=== PATIENT | female | born 1980 | race Caucasian/White ===

== ENCOUNTER → 2017-08-01 08:55 | Outpatient (CLI) | payer BC, SELFPAY ==
--- NOTE | 2017-08-01 09:07 | CT_ITS ---
CT abdomen pelvis w con CLINICAL INDICATION: ITS.REASON: RECURRENT UTIS ORDERING PHYSICIAN: Dane Harp MD PATIENT AGE: 37 years COMPARISON: 08/27/2015 TECHNIQUE: Axial images obtained with sagittal and coronal reformats. PROCEDURE: Oral Contrast: None IV Contrast: 75 mL Isovue-370. FINDINGS: Lung bases are clear. There are multiple hyperattenuating liver lesions once again noted the largest of these is approximately 17 mm in the anterior segment of the right upper lobe. There are numerous lesions noted. There are more numerous than when compared to the previous exam however, that study was performed without contrast. There is diffuse fatty liver infiltration. There has been prior cholecystectomy. Spleen and adrenal glands are unremarkable. No obvious pancreatic mass. No renal calculi or ureteral calculi. No hydronephrosis. No renal mass. Unremarkable appendix. No evidence of intestinal obstruction or free air. No pelvic mass or abnormal fluid collection. Urinary bladder has an unremarkable appearance. No acute bony anomalies. IMPRESSION: 1. Multiple small hyperattenuating lesions within the liver. These are slightly larger and more numerous compared to the unenhanced exam of 08/27/2015. Metastatic disease should be excluded. [place] of focal fatty sparing of the liver is also a consideration. Recommend MRI of the liver without and with contrast with in and out of phase imaging. 2. Diffuse fatty infiltration of the liver. 3. No renal calculi or renal mass evident.
--- NOTE | 2017-08-01 10:04 | HMH.ITSHM ---
METFORMIN,TRICOR COREQWELLBUTRUIN VIT D
== END ==
PROVIDERS: Family Provider Family Medicine; PCP Family Medicine; Visit Provider Urology
DX: N39.0 Urinary tract infection, site not specified (principal)
CPT/HCPCS: 74177; Q9967

== ENCOUNTER → 2017-08-15 08:50 | Outpatient (CLI) | payer BC, SELFPAY ==
--- NOTE | 2017-08-15 08:58 | MR_ITS ---
MR abdomen wo/w con CLINICAL INDICATION: Hepatic lesions, follow-up abnormal enhanced CT. ITS.REASON: MEOPLASM OF UNCERTAIN BEHAVIOR OF LIVER ORDERING PHYSICIAN: Leo Mayfield MD PATIENT AGE: 37 years COMPARISON: 08/01/2017, 08/27/2015, 07/17/2013 CT scan TECHNIQUE: Multiplanar multiecho sequences are performed without and with contrast. In and out of phase imaging performed with fat and water suppression FINDINGS: Multiple small lesions are once again noted involving the liver similar to that as seen on the CT scan. There are hyperintense on the out of phase images. These lesions are not detectable on the in phase images. These lesions are slightly hyperintense on thepreenhanced images and appear to show some minimal enhancement on the 5 minute delayed images. The largest lesion is in the right hepatic lobe at 14 mm. These findings may very well be due to focal fatty sparing of the liver. The nodules however have slightly increased in size from an older CT scan. This with mild enhancement neck the nodule slightly suspicious therefore, fine-needle aspiration is suggested. IMPRESSION: Multiple small hepatic nodules similar to the CT scan which may very well represent focal nodular fatty sparing of the liver. However, given the fact that the nodules have slightly increased in size and that there is mild enhancement, fine-needle aspiration with CT guidance suggested.
--- NOTE | 2017-08-15 10:55 | HMH.ITSHM ---
METFORMIN 500MG TRICOR 145MG VALSARTAN 160MG SYNTHROID 200MCG COREG 25MG NORVASC 5MG WELLBUTIN 300MG VITAMIN D3 1000 IU TREXIMET BYDUREON 2MG
== END ==
PROVIDERS: Family Provider Family Medicine; PCP Family Medicine; Visit Provider Family Medicine
DX: D37.6 Neoplasm of uncertain behavior of liver, gallbladder and bile ducts (principal)
CPT/HCPCS: 74183; A9576

== ENCOUNTER → 2017-09-03 09:34 | Outpatient (CLI) | payer BC, SELFPAY ==
--- NOTE | 2017-09-03 10:16 | CT_ITS ---
CT biopsy guided needle, CT organ site liver CLINICAL INDICATION: Multiple liver lesions ORDERING PHYSICIAN: Leo Mayfield MD PATIENT AGE: 37 years COMPARISON: Multiple previous exams including 08/01/[address]: Unenhanced CT scan of the abdomen once again demonstrates multiple small hyperattenuating areas of the liver the largest of which is in the junction of the right left hepatic lobe near the dome of the liver measuring 18 mm. TECHNIQUE: Following obtaining informed consent using aseptic conditions and local anesthesia with 1% buffered lidocaine with CT guidance, 3 passes were made into the nodule of interest with a 22-gauge needle with specimens given to cytology. No immediate complications were evident. There is no evidence of hematoma or pneumothorax or pneumonia peritoneum. The patient did however complained of severe pain following the third pass. Although no complications were identified by CT and by follow-up CT, the patient was admitted for observation and was discharged without pain or other complications. Cytology: Negative for malignant cells. Benign loosely: Recent transfer iron operator of appendicitis showings some steatosis. Differential diagnosis would include focal nodular hyperplasia and localized fatty change among others. IMPRESSION: Status post CT-guided FNA of the right liver lesion as described above showing benign findings. Recommend [address] follow-up without and with contrast to confirm stability.
== END ==
PROVIDERS: Family Provider Family Medicine; PCP Family Medicine; Visit Provider Family Medicine
DX: D37.6 Neoplasm of uncertain behavior of liver, gallbladder and bile ducts (principal)
CPT/HCPCS: 77012; 47000

== ENCOUNTER 2017-09-03 11:45 | Observation (INO) | payer BC, SELFPAY ==
[2017-09-03] VITALS (8 sets, daily range): BP systolic 121–155; BP diastolic 70–95; PULSE 69–110; RESP 15–24; TEMP 36.4–37.3; O2SAT 93–100; BMI 38.7; BMI 38.9
--- NOTE | 2017-09-03 11:55 | HMH.EDABDPAI ---
ED Disposition Clinical Impression: Liver hematoma, Fatty liver, Pain, abdominal, RUQ Clinical Impression: (Ruled Out): Hemorrhage following liver biopsy Disposition: Still a Patient Condition on Discharge: Fair Instructions: DI for Acute Abdomen - Critical Care Critical Care Time: No Attestation: On , the high probability of a clinically significant, sudden or life threatening deterioration of the following system(s) required my full and direct attention, intervention and personal management. The time I documented below is in addition to time spent performing reported procedures but includes the following listed in this critical care notation. Medical Decision Making Vital Signs: 09/03/17 11:46 09/03/17 12:46 09/03/17 13:25 Temperature 97.6 F Temperature Source Oral Pulse Rate [Right Radial] 77 81 84 Respiratory Rate 18 15 18 Blood Pressure [Right Arm] 132/73 131/88 154/84 Blood Pressure Mean [Right Arm] 92 102 107 Blood Pressure Source [Right Arm] Automatic Cuff Automatic Cuff Blood Pressure Position [Right Arm] Sitting Sitting Supine 02 Sat by Pulse Oximetry 99 99 100 Oxygen Delivery Method Room Air Nasal Cannula Room Air Oxygen Flow Rate (LPM) 2 - Lab Data Lab Results 09/03/17 12:00: WBC 11.3 H, RBC 4.93, Hgb 13.0, Hct 40.5, MCV 82.1, MCH 26.3 L, MCHC 32.0, RDW 14.5, Plt Count 422, MPV 7.4, Neut % (Auto) 54.7, Lymph % (Auto) 36.4, [place] % (Auto) 5.8, Eos % (Auto) 2.4, Baso % (Auto) 0.7, Neut # (Auto) 6.2, Lymph # (Auto) 4.1, [place] # (Auto) 0.7, Eos # (Auto) 0.3, Baso # (Auto) 0.1 09/03/17 12:18: Blood Type A Positive, Antibody Screen Negative 09/03/17 12:18: PT 10.9, INR 1.01, APTT 23.3 L 09/03/17 12:18: Sodium 136, Potassium 4.0, Chloride 101, Carbon Dioxide 21, Anion Gap 18.0 H, BUN 14, Creatinine 0.65, Estimated Creat Clear 204, Estimated GFR 103, Est GFR ( Amer) 124, Glucose 180 H, Calcium 9.2, Total Bilirubin 0.4, AST 28, ALT 62, Alkaline Phosphatase 66, Total Protein 7.9, Albumin 3.8, Globulin 4.1 H, Albumin/Globulin Ratio 0.9 L 09/03/17 13:24: Urine Color Yellow, Urine Appearance Clear, Urine pH 5.5, Ur Specific [place] <= 1.005, Urine Protein Trace, Urine Glucose (UA) Negative, Urine Ketones Negative, Urine Blood Negative, Urine Nitrate Negative, Urine Bilirubin Negative, Urine Urobilinogen 0.2, Ur Leukocyte Esterase Negative, Urine WBC Occasional, Ur Squamous Epith Cells 3-5, Urine Bacteria 1+, Urine Mucus Trace Result diagrams: 09/03/17 12:00 09/03/17 12:18 Orders (Tests/Meds): ED MEDICATIONS Generic Name Dose Route Start Last Admin Trade Name Freq PRN Reason Stop Dose Admin Morphine Sulfate 2 mg 09/03/17 12:04 09/03/17 12:09 Morphine 2mg/Ml Syringe IV 10/03/17 12:03 2 mg Q1HP PRN Administration Severe Pain Discontinued Medications Generic Name Dose Route Start Last Admin Trade Name Freq PRN Reason Stop Dose Admin Sodium Chloride 1,000 mls @ 999 mls/hr 09/03/17 12:45 09/03/17 12:47 Sod Chlor 0.9% 1000ml Bag IV 09/03/17 13:45 999 mls/hr .Q1H1M PIERRE Administration Iopamidol 75 ml 09/03/17 13:11 09/03/17 13:12 [id number]-120; 75ml Vial IV 09/03/17 13:12 75 ml ONCE ONE Administration Meperidine HCl 12.5 mg 09/03/17 12:38 09/03/17 12:39 Meperidine 25mg/Ml 1ml Syringe IV 09/03/17 12:39 12.5 mg ONCE ONE Administration Meperidine HCl 12.5 mg 09/03/17 13:23 09/03/17 13:23 Meperidine 25mg/Ml 1ml Syringe IV 09/03/17 13:24 12.5 mg ONCE ONE Administration Morphine Sulfate 2 mg 09/03/17 12:00 09/03/17 12:01 Morphine 2mg/Ml Syringe IV 09/03/17 12:01 2 mg ONCE ONE Administration Ondansetron HCl 4 mg 09/03/17 12:00 09/03/17 12:01 Zofran 4mg/2ml Vial IV 09/03/17 12:01 4 mg ONCE ONE Administration Sodium Chloride 10 ml 09/03/17 13:11 09/03/17 13:12 Rad-Saline Flush 10ml Syringe IV 09/03/17 13:12 10 ml ONCE ONE Administration - CT Data CT Scan: Abdomen, Pelvis Time Received: 1
--- NOTE | 2017-09-03 11:59 | ED_ITS ---
ED Disposition Clinical Impression: Liver hematoma, Fatty liver, Pain, abdominal, RUQ Clinical Impression: (Ruled Out): Hemorrhage following liver biopsy Disposition: Still a Patient Condition on Discharge: Fair Instructions: DI for Acute Abdomen - Critical Care Critical Care Time: No Attestation: On , the high probability of a clinically significant, sudden or life threatening deterioration of the following system(s) required my full and direct attention, intervention and personal management. The time I documented below is in addition to time spent performing reported procedures but includes the following listed in this critical care notation. Medical Decision Making Vital Signs: 09/03/17 11:46 09/03/17 12:46 09/03/17 13:25 Temperature 97.6 F Temperature Source Oral Pulse Rate [Right Radial] 77 81 84 Respiratory Rate 18 15 18 Blood Pressure [Right Arm] 132/73 131/88 154/84 Blood Pressure Mean [Right Arm] 92 102 107 Blood Pressure Source [Right Arm] Automatic Cuff Automatic Cuff Blood Pressure Position [Right Arm] Sitting Sitting Supine 02 Sat by Pulse Oximetry 99 99 100 Oxygen Delivery Method Room Air Nasal Cannula Room Air Oxygen Flow Rate (LPM) 2 - Lab Data Lab Results 09/03/17 12:00: WBC 11.3 H, RBC 4.93, Hgb 13.0, Hct 40.5, MCV 82.1, MCH 26.3 L, MCHC 32.0, RDW 14.5, Plt Count 422, MPV 7.4, Neut % (Auto) 54.7, Lymph % (Auto) 36.4, [place] % (Auto) 5.8, Eos % (Auto) 2.4, Baso % (Auto) 0.7, Neut # (Auto) 6.2 , Lymph # (Auto) 4.1, [place] # (Auto) 0.7, Eos # (Auto) 0.3, Baso # (Auto) 0.1 09/03/17 12:18: Blood Type A Positive, Antibody Screen Negative 09/03/17 12:18: PT 10.9, INR 1.01, APTT 23.3 L 09/03/17 12:18: Sodium 136, Potassium 4.0, Chloride 101, Carbon Dioxide 21, Anion Gap 18.0 H, BUN 14, Creatinine 0.65, Estimated Creat Clear 204, Estimated GFR 103, Est GFR ( Amer) 124, Glucose 180 H, Calcium 9.2, Total Bilirubin 0.4, AST 28, ALT 62, Alkaline Phosphatase 66, Total Protein 7.9, Albumin 3.8, Globulin 4.1 H, Albumin/Globulin Ratio 0.9 L 09/03/17 13:24: Urine Color Yellow, Urine Appearance Clear, Urine pH 5.5, Ur Specific [place] <= 1.005, Urine Protein Trace, Urine Glucose (UA) Negative, Urine Ketones Negative, Urine Blood Negative, Urine Nitrate Negative, Urine Bilirubin Negative, Urine Urobilinogen 0.2, Ur Leukocyte Esterase Negative, Urine WBC Occasional, Ur Squamous Epith Cells 3-5, Urine Bacteria 1+, Urine Mucus Trace Result diagrams: 09/03/17 12:00 09/03/17 12:18 Orders (Tests/Meds): ED MEDICATIONS Generic Name Dose Route Start Last Admin Trade Name Freq PRN Reason Stop Dose Admin Morphine Sulfate 2 mg 09/03/17 12:04 09/03/17 12:09 Morphine 2mg/Ml Syringe IV 10/03/17 12:03 2 mg Q1HP PRN Administration Severe Pain Discontinued Medications Generic Name Dose Route Start Last Admin Trade Name Freq PRN Reason Stop Dose Admin Sodium Chloride 1,000 mls @ 999 mls/hr 09/03/17 12:45 09/03/17 12:47 Sod Chlor 0.9% 1000ml Bag IV 09/03/17 13:45 999 mls/hr .Q1H1M PIERRE Administration Iopamidol 75 ml 09/03/17 13:11 09/03/17 13:12 Acp-[id number]-148; 75ml Vial IV 09/03/17 13:12 75 ml ONCE ONE Administration Meperidine HCl 12.5 mg 09/03/17 12:38 09/03/17 12:39 Meperidine 25mg/Ml 1ml Syringe IV 09/03/17 12:39 12.5 mg ONCE ONE Administration Meperidi
--- NOTE | 2017-09-03 12:03 | CT_ITS ---
CT abdomen pelvis w con CLINICAL INDICATION: Severe right upper quadrant pain following biopsy ITS.REASON: ruq pain post procedure ORDERING PHYSICIAN: Shasta Gabriel MD PATIENT AGE: 37 years COMPARISON: 08/01/2017 TECHNIQUE: Axial images obtained with sagittal and coronal reformats. PROCEDURE: Oral Contrast: None IV Contrast: 75 mL of Isovue-370. FINDINGS: Lower thorax: There is no evidence of pneumothorax. A 3 mm noncalcified nodule is present in the right lung base posteriorly. There is a faint small area of decreased attenuation which is peripheral to the hyperdense lesion in the right hepatic lobe anteriorly may be due to the needle track from the recent biopsy. There is trace amount of perihepatic height isodensity suggesting small amount of blood. A large laceration or large hematoma is NOT evident. Small amount subcutaneous gas present in the right upper quadrant from the recent biopsy. Multiple hepatic hyperdensities are once again noted not significant change. There has been a prior cholecystectomy. The spleen, adrenal glands, pancreas, and kidneys are unremarkable. No free pelvic fluid. No evidence of hemoperitoneum. Urinary bladder slightly distended. There are bilateral tubal ligation clips. No pelvic fluid. IMPRESSION: 1. Faint lucency noted peripheral to the hyperdense nodule in the right hepatic lobe which was the nodule that was biopsied suggesting post biopsy needle tract. There is a minimal amount of perihepatic fluid a small amount of hemorrhage. 2. No subcapsular hematoma or large liver laceration. No evidence of pneumothorax. No evidence of pneumoperitoneum or hemoperitoneum. No gas evident underneath the hemidiaphragm 3. Distended urinary bladder. 4. Overall no change multiple hyperdense hepatic lesions as previously described
[2017-09-03 12:30] LABS: Basophils # 0.1 K/mm3 (0-0.2); Basophils % 0.7 % (0.1-2.0); Eosinophils # 0.3 K/mm3 (0.0-0.4); Eosinophils % 2.4 % (0.1-12.0); Hematocrit 40.5 % (37.0-47.0); Lymphocytes # 4.1 K/mm3 (0.7-4.5); Lymphocytes % 36.4 K/mm3 (10-50); Mean Corpuscular Hemoglobin 26.3 pg (27.0-31.2); Mean Corpuscular Volume 82.1 fl (81-99); Mean Platelet Volume 7.4 fl (7.4-10.4); Monocytes # 0.7 K/mm3 (0.1-1.0); Monocytes % 5.8 % (1.7-9.3); Neutrophils # 6.2 K/mm3 (1.8-7.8); Neutrophils % 54.7 % (37.0-80.0); Platelet Count 422 K/mm3 (142-424); Red Blood Count 4.93 M/mm3 (4.20-5.40); Red Cell Distribution Width 14.5 % (11.5-17.5); White Blood Count 11.3 K/mm3 (4.8-10.8)
[2017-09-03 12:39] LABS: Activated Partial Thrombo Time 23.3 seconds (23.6-34.0); INR 1.01 (0.9-1.1); Prothrombin Time 10.9 seconds (9.4-11.8)
[2017-09-03 12:40] LABS: Alanine Aminotransferase 62 U/L (12-78); Albumin Level 3.8 gm/dL (3.4-5.0); Albumin/Globulin Ratio 0.9 (1.1-1.8); Alkaline Phosphatase 66 U/L (46-116); Aspartate Amino Transferase 28 U/L (15-37); Bilirubin,Total 0.4 mg/dL (0.2-1.0); Blood Urea Nitrogen 14 mg/dL (7-18); Calcium 9.2 mg/dL (8.5-10.1); Carbon Dioxide 21 mmol/L (21.0-32.0); Chloride 101 mmol/L (98-107); Creatinine Clearance Estimated 204 mL/min (0-300); Creatinine,Serum 0.65 mg/dL (0.55-1.02); Estimated Glomerular Filt Rate 103 ml/min (>60); GFR (African American) 124 ML/MIN (>60); Globulin 4.1 gm/dl (1.3-3.2); Glucose 180 mg/dL (74-106); Sodium 136 mmol/L (136-145); Total Protein,Serum 7.9 gm/dL (6.4-8.2)
[2017-09-03 13:25] LABS: Microscopic, Urine URINE MICROSCOPIC (MICROSCOPIC)
[2017-09-03 13:36] LABS: Appearance,Urine CLEAR (Clear); Bilirubin,Urine Negative (Negative); Blood, Urine Negative (Negative); Color,Urine YELLOW (Yellow); Glucose,Urine (UA) Negative (Negative); Ketones,Urine Negative (Negative); Leukocyte Esterase,Urine Negative (Negative); Nitrate,Urine Negative (Negative); PH,Urine 5.5 (5.0-8.5); Protein,Urine TRACE (Negative); Specific Gravity, Urine <= 1.005 (1.005-1.030); Urobilinogen,Urine 0.2 EU/dl (0.2)
[2017-09-03 13:50] LABS: Bacteria,Urine 1+ /lpf; Mucus,Urine Trace /lpf; WBC,Urine Occasional #/hpf (0-3)
--- NOTE | 2017-09-03 17:14 | HMH.HP ---
*Admission Date: 09/03/17 <Leeanna Mancini 09/03/17 17:22> *Chief complaint: abdominal pain <Leeanna Mancini 09/03/17 17:22> *History of present illness: Sharla is a 37 years old white female status post cholecystectomy and three C-sections in addition to multiple medical problems including diabetes, hypertension, hyperlipidemia, and hypothyroidism. She was recently diagnosed with fatty liver and she was undergoing liver biopsies by radiologist, Dr. Hamilton at [facility]. Patient stated that with the 3rd biopsy she began having secere pain. She complained right upper quadrant pain that radiated to the right shoulder after the procedure; he did a CT scan of the abdomen and chest with negative results for pneumothorax or intra-abdominal hemorrhage. The patient continued to complain of pain and started hyperventilating. She was taken to the ED for pain management. Upon arrival to the ED patient was sitting in 90? position breathing fast and was anxious. Chest sounds were clear; she had a a focal tenderness in the right upper quadrant with no tenderness anywhere else in the abdomen. She had no cross tenderness. There was no tenderness in the lower abdominal areas. She had no hemoptysis, no hematemesis, no coffee-ground emesis, no melanotic stool, or bleeding per rectum. She received morphine sulfate, Demerol, and Zofran for her pain and nausea. He was then admitted for further observation and pain control with repeat CT in the a.m. At the time of this exam patient still remains uncomfortable and additional pain medicines will be given as per the orders of Dr. Mayfield. <ManciniLeeanna 09/03/17 17:43> [facility] History Medical History: Reports:: Atrial Fibrillation, Diabetes Mellitus Type 2, Hyperlipidemia, Hypertension Denies:: Cancer, MRSA <AddisLeeanna 09/03/17 17:22> Other Medical History: Reports: Hypothyroidism, Liver Disease, Thyroid Disease <Leeanna Mancini 09/03/17 17:22> Comment: depression; migraines <Leeanna Mancini 09/03/17 17:43> Other Surgeries: Yes: , Thyroidectomy, Other <Leeanna Mancini 09/03/17 17:43> Amputation: No <Leeanna Mancini 09/03/17 17:22> Fractures: No <Leeanna Mancini 02/27/18 17:22> Comment: Cardiac loop recorder placed 2014; breast reduction 1999; nasal surgery 07/03/2010; cholecystectomy 2014 <Leeanna Mancini 09/03/17 17:43> - *Social History Educational Level: Completed High School <Leeanna Mancini 09/03/17 17:22> Smoking Status: Never smoker <Leeanna Mancini 09/03/17 17:22> Alcohol Intake: never <Pushpa Mancinihy 09/03/17 17:22> Substance Use Type: denies use <Pushpa Mancinihy 09/03/17 17:22> Occupational Status: employed <Leeanna Mancini 09/03/17 17:22> Housing: house <Pushpa Mancinihy 09/03/17 17:22> Household Members: spouse, children <Leeanna Mancini 09/03/17 17:22> - Psychiatric History Expresses thoughts of harming self/others: None <Pushpa Mancinihy 09/03/17 17:22> Suicide Plan Description: No Plan <Pushpa Mancinihy 09/03/17 17:22> *Family Hx:: Coronary Artery Disease, Diabetes, Hyperlipidemia, Hypertension <Pushpa Mancinihy 09/03/17 17:43> Review of Systems - Constitutional Denies anorexia, Denies body ache(s), Denies fever(s), Denies headache(s) <Pushpa Mancinihy 09/03/17 17:43> - ENT Denies ear pain, Denies headache(s), Denies sore throat <Pushpa Mancinihy 09/03/17 17:43> - *Cardiovascular Reports shortness of breath, Reports irregular heart rhythm, Denies chest pain, Denies leg swelling <Pushpa Mancinihy 09/03/17 17:43> - *Respiratory Reports shortness of breath, Denies cough <AddisLeeanna 09/03/17 17:43> - *Gastrointestinal Reports abdominal pain, Reports nausea, Denies belching, Denies loose stools, Denies vomiting blood, Denies vomiting <ManciniLeeanna 09/03/17 17:43> - *Musculoskeletal Denies joint pain, Denies back pain <ManciniLeeanna 09/03/17 17:43> - Integumentary/Breasts Comments: Breast reduction <Leeanna Mancini -
--- NOTE | 2017-09-03 17:22 | P.HP_ITS ---
*Admission Date: 09/03/17 <Leeanna Mancini 09/03/17 17:22> *Chief complaint: abdominal pain <Leeanna Mancini 09/03/17 17:22> *History of present illness: Sharla is a 37 years old white female status post cholecystectomy and three C- sections in addition to multiple medical problems including diabetes, hypertension, hyperlipidemia, and hypothyroidism. She was recently diagnosed with fatty liver and she was undergoing liver biopsies by radiologist, Dr. Hamilton at [facility]. Patient stated that with the 3rd biopsy she began having secere pain. She complained right upper quadrant pain that radiated to the right shoulder after the procedure; he did a CT scan of the abdomen and chest with negative results for pneumothorax or intra-abdominal hemorrhage. The patient continued to complain of pain and started hyperventilating. She was taken to the ED for pain management. Upon arrival to the ED patient was sitting in 90? position breathing fast and was anxious. Chest sounds were clear; she had a a focal tenderness in the right upper quadrant with no tenderness anywhere else in the abdomen. She had no cross tenderness. There was no tenderness in the lower abdominal areas. She had no hemoptysis, no hematemesis, no coffee-ground emesis, no melanotic stool, or bleeding per rectum. She received morphine sulfate, Demerol, and Zofran for her pain and nausea. He was then admitted for further observation and pain control with repeat CT in the a.m. At the time of this exam patient still remains uncomfortable and additional pain medicines will be given as per the orders of Dr. Mayfield. <ManciniLeeanna 09/03/17 17:43> [facility] History Medical History: Reports:: Atrial Fibrillation, Diabetes Mellitus Type 2, Hyperlipidemia, Hypertension Denies:: Cancer, MRSA <AddisLeeanna 09/03/17 17:22> Other Medical History: Reports: Hypothyroidism, Liver Disease, Thyroid Disease <Leeanna Mancini 09/03/17 17:22> Comment: depression; migraines <Leeanna Mancini 09/03/17 17:43> Other Surgeries: Yes: , Thyroidectomy, Other <Leeanna Mancini 17:43> Amputation: No <Leeanna Mancini 09/03/17 17:22> Fractures: No <Leeanna Mancini 02/27/18 17:22> Comment: Cardiac loop recorder placed 2014; breast reduction 1999; nasal surgery 07/03/2010; cholecystectomy 2014 <Leeanna Mancini 09/03/17 17:43> - *Social History Educational Level: Completed High School <Leeanna Mancini 09/03/17 17:22> Smoking Status: Never smoker <Leeanna Mancini 09/03/17 17:22> Alcohol Intake: never <Leeanna Mancini 09/03/17 17:22> Substance Use Type: denies use <Leeanna Mancini 09/03/17 17:22> Occupational Status: employed <Leeanna Mancini 09/03/17 17:22> Housing: house <Leeanna Mancini 09/03/17 17:22> Household Members: spouse, children <Leeanna Mancini 09/03/17 17:22> - Psychiatric History Expresses thoughts of harming self/others: None <Leeanna Mancini 09/03/17 17: 22> Suicide Plan Description: No Plan <Leeanna Mancini 09/03/17 17:22> *Family Hx:: Coronary Artery Disease, Diabetes, Hyperlipidemia, Hypertension < Leeanna Mancini 09/03/17 17:43> Review of Systems - Constitutional Denies anorexia, Denies body ache(s), Denies fever(s), Denies headache(s) < Leeanna Mancini 09/03/17 17:43> - ENT Denies ear pain, Denies headache(s), Denies sore throat <Leeanna Mancini 09/03 17:43> - *Cardiovascular Reports shortness of breath, Reports irregular heart rhythm, Denies chest pain, Denies leg swelling <AddisLeeanna 09/03/17 17:43> - *Respiratory Reports shortness of breath, Denies cough <Pushpa Mancinihy 09/03/17 17:43> - *Gastrointestinal Reports abdominal
--- NOTE | 2017-09-03 18:06 | PC.NURSE ---
Pt arrived to her room via stretcher. She stated she was having severe pain and that she was frustrated. She rated her pain a 10/10. Pt was given prn pain meds and had relief for approx [address] Mayfield visited pt and new orders were put in. Pt was administered new pain medication order with relief reported. Will continue to monitor.
--- NOTE | 2017-09-03 18:50 | PC.NURSE ---
Report to be given to Emi Crespo RN
[2017-09-04 03:50] VITALS: BP 110/68; PULSE 100; RESP 20; TEMP 37.1; O2SAT 96
--- NOTE | 2017-09-04 04:09 | PC.NURSE ---
PT HAS RESTED VERY WELL THIS SHIFT. PT AMBULATED TO BR WITH STANDBY ASSIST, TOLERATED WELL. PT STATES SHE FEELS A LOT BETTER TONIGHT. PT RATED HER PAIN LEVEL AT A A 2 AND STATED IT ONLY HURTS WHEN SHE MOVES. MEDS ADMIN PER MAR. VSS. NO OTHER CONCERNS AT THIS TIME, WILL CONT. TO MONITOR.
[2017-09-04 06:53] LABS: Basophils % 0.5 % (0.1-2.0); Eosinophils # 0.1 K/mm3 (0.0-0.4); Eosinophils % 1.4 % (0.1-12.0); Hematocrit 34.3 % (37.0-47.0); Lymphocytes # 2.2 K/mm3 (0.7-4.5); Mean Corpuscular HGB Conc 32.3 g/dL (31.8-35.4); Mean Corpuscular Hemoglobin 26.5 pg (27.0-31.2); Mean Platelet Volume 7.4 fl (7.4-10.4); Monocytes # 0.8 K/mm3 (0.1-1.0); Monocytes % 8.2 % (1.7-9.3); Neutrophils # 6.5 K/mm3 (1.8-7.8); Platelet Count 313 K/mm3 (142-424); Red Blood Count 4.19 M/mm3 (4.20-5.40); Red Cell Distribution Width 14.4 % (11.5-17.5); White Blood Count 9.6 K/mm3 (4.8-10.8)
[2017-09-04 07:10] LABS: Alanine Aminotransferase 50 U/L (12-78); Albumin Level 2.9 gm/dL (3.4-5.0); Albumin/Globulin Ratio 0.8 (1.1-1.8); Alkaline Phosphatase 60 U/L (46-116); Anion Gap 11.7 mEq/L (5-15); Aspartate Amino Transferase 21 U/L (15-37); Bilirubin,Total 0.4 mg/dL (0.2-1.0); Blood Urea Nitrogen 9 mg/dL (7-18); Carbon Dioxide 24 mmol/L (21.0-32.0); Chloride 106 mmol/L (98-107); Creatinine Clearance Estimated 226 mL/min (0-300); Creatinine,Serum 0.59 mg/dL (0.55-1.02); Estimated Glomerular Filt Rate 115 ml/min (>60); GFR (African American) 139 ML/MIN (>60); Globulin 3.5 gm/dl (1.3-3.2); Glucose 126 mg/dL (74-106); Potassium 3.7 mmoL/L (3.5-5.1); Sodium 138 mmol/L (136-145); Total Protein,Serum 6.4 gm/dL (6.4-8.2)
--- NOTE | 2017-09-04 07:25 | PC.NURSE ---
REPORT GIVEN TO Shu ERAZO W/C
--- NOTE | 2017-09-04 07:27 | PC.NURSE ---
REPORT GIVEN TO Demetri MA RN
--- NOTE | 2017-09-04 07:32 | P.CONPHA_ITS ---
[facility] Pharmacy VTE Monitoring - Patient Demographics Admission date: 09/03/17 Report Date: 09/04/17 Time: 07:32 Allergies/Adverse Reactions: Patient Allergies cefaclor [From Ceclor] Allergy (Severe, Verified 09/03/17 16:07) Anaphylaxis erythromycin base [ERYTHROMYCIN BASE] Allergy (Unknown, Verified 09/03/17 11:57) ANAPHYLAXIS Sulfa (Sulfonamide Antibiotics) [SULFA (SULFONAMIDE ANTIBIOTICS)] Allergy ( Unknown, Verified 09/03/17 11:56) ANAPHYLAXIS Height: 1.68 m Weight: 109.458 kg Patient Problems: Current Active Problems Liver hematoma (Acute) Fatty liver (Chronic) Pain, abdominal, RUQ (Acute) - VTE Risk Labs: VTE Related Lab Results Hgb 13.0 g/dL (12.2-16.2) 09/03/17 12:00 Hct 34.3 % (37.0-47.0) L 09/04/17 06:30 Plt Count 313 K/mm3 (142-424) D 09/04/17 06:30 PT 10.9 seconds (9.4-11.8) 09/03/17 12:18 INR 1.01 (0.9-1.1) 09/03/17 12:18 APTT 23.3 seconds (23.6-34.0) L 09/03/17 12:18 BUN 9 mg/dL (7-18) D 09/04/17 06:30 Creatinine 0.59 mg/dL (0.55-1.02) 09/04/17 06:30 Estimated Creat Clear 226 mL/min (0-300) 09/04/17 06:30 Was VTE Risk Assessment Performed: Yes VTE Score: 0 VTE Risk Level: Very Low Risk Clinical Trial Participant: No - Prophylaxis VTE Prophylaxis Ordered?: Yes Types of VTE Prophylaxis: TEDS Knee High
[2017-09-04 07:36] LABS: Hemoglobin 11.2 g/dL (12.2-16.2)
[2017-09-04 07:37] VITALS: BP 112/72; PULSE 98; RESP 16; TEMP 37.2; O2SAT 94
[2017-09-04 08:00] VITALS: RESP 20
--- NOTE | 2017-09-04 08:16 | HMH.ACPN2 ---
<Omaira Walker - Last Filed: 09/04/17 08:16> Internal Medicine - PN: Subj *Date: 09/04/17 *Time: 08:16 Interval history: Patient states she is feeling much better today. She has some slight soreness in her right upper quadrant but her pain has resolved. She was able to rest last night and has been up to the bathroom this am. Exam Vital signs and Labs for Last 24 Hours: Temp Pulse Resp BP Pulse Ox 99.0 F 98 H 16 112/72 94 L 09/04/17 07:37 09/04/17 07:37 09/04/17 07:37 09/04/17 07:37 09/04/17 07:37 Laboratory Results - last 24 hr 09/04/17 06:30: WBC 9.6, RBC 4.19 L, Hgb 11.2 L D, Hct 34.3 L, MCV 82.0, MCH 26.5 L, MCHC 32.3, RDW 14.4, Plt Count 313 D, MPV 7.4, Neut % (Auto) 67.0, Lymph % (Auto) 23.0, Ripley % (Auto) 8.2, Eos % (Auto) 1.4, Baso % (Auto) 0.5, Neut # (Auto) 6.5, Lymph # (Auto) 2.2, Ripley # (Auto) 0.8, Eos # (Auto) 0.1, Baso # (Auto) 0.0 09/04/17 06:30: Sodium 138, Potassium 3.7, Chloride 106, Carbon Dioxide 24, Anion Gap 11.7, BUN 9 D, Creatinine 0.59, Estimated Creat Clear 226, Estimated GFR 115, Est GFR ( Amer) 139, Glucose 126 H D, Calcium 8.0 L D, Total Bilirubin 0.4, AST 21, ALT 50, Alkaline Phosphatase 60, Total Protein 6.4, Albumin 2.9 L D, Globulin 3.5 H, Albumin/Globulin Ratio 0.8 L I & O for Last 24 hours: Intake & Output 09/01/17 09/02/17 09/03/17 09/04/17 11:59 11:59 11:59 11:59 Intake Total 599 / 599 Balance 599 / 599 Weight 241 lb 5 oz - Constitutional no acute distress - *Routine Respiratory Exam Present: CTA bilaterally - *Routine Cardiovascular Exam Present: RRR - *Routine Abdominal Exam Present: soft, normoactive bowel sounds, tenderness (RUQ) - *Routine Extremities Exam Absent: edema Assessment and Plan (1) Liver hematoma Current visit: Yes Status: Acute Category: Medical Code(s): S36.112A - Contusion of liver, initial encounter (2) Pain, abdominal, RUQ Current visit: Yes Status: Acute Category: Medical Code(s): R10.11 - Right upper quadrant pain (3) Fatty liver Current visit: Yes Status: Chronic Category: Medical Code(s): K76.0 - Fatty (change of) liver, not elsewhere classified (4) Diabetes mellitus Current visit: No Status: Chronic Category: Medical Code(s): E11.9 - Type 2 diabetes mellitus without complications (5) History of atrial fibrillation Current visit: No Status: Chronic Category: Medical Code(s): Z86.79 - Personal history of other diseases of the circulatory system - Assessment and plan all Dx Assessment and Plan for all problems:: Patient has improved. Scheduled for a repeat CT today. <Loe Mayfield - Last Filed: 09/04/17 09:05> Internal Medicine - PN: Subj *Date: 09/04/17 *Time: 09:03 Exam Vital signs and Labs for Last 24 Hours: Temp Pulse Resp BP Pulse Ox 99.0 F 98 H 16 112/72 94 L 09/04/17 07:37 09/04/17 07:37 09/04/17 07:37 09/04/17 07:37 09/04/17 07:37 Laboratory Results - last 24 hr 09/04/17 06:30: WBC 9.6, RBC 4.19 L, Hgb 11.2 L D, Hct 34.3 L, MCV 82.0, MCH 26.5 L, MCHC 32.3, RDW 14.4, Plt Count 313 D, MPV 7.4, Neut % (Auto) 67.0, Lymph % (Auto) 23.0, Ripley % (Auto) 8.2, Eos % (Auto) 1.4, Baso % (Auto) 0.5, Neut # (Auto) 6.5, Lymph # (Auto) 2.2, Ripley # (Auto) 0.8, Eos # (Auto) 0.1, Baso # (Auto) 0.0 09/04/17 06:30: Sodium 138, Potassium 3.7, Chloride 106, Carbon Dioxide 24, Anion Gap 11.7, BUN 9 D, Creatinine 0.59, Estimated Creat Clear 226, Estimated GFR 115, Est GFR ( Amer) 139, Glucose 126 H D, Calcium 8.0 L D, Total Bilirubin 0.4, AST 21, ALT 50, Alkaline Phosphatase 60, Total Protein 6.4, Albumin 2.9 L D, Globulin 3.5 H, Albumin/Globulin Ratio 0.8 L I & O for Last 24 hours: Intake & Output 09/01/17 09/02/17 09/03/17 09/04/17 11:59 11:59 11:59 11:59 Intake Total 599 / 599 Balance 599 / 599 Weight 241 lb 5 oz Assessment and Plan (1) Liver hematoma Current visit: Yes Status: Acute Category: M
--- NOTE | 2017-09-09 14:43 | HMH.DCSUM ---
General - General Admission date: 09/03/17 Discharge date: 09/04/17 HPI HPI: Ms Brar is a 37 years old white female status post cholecystectomy and three C-sections in addition to multiple medical problems including diabetes, hypertension, hyperlipidemia, and hypothyroidism. She was recently diagnosed with fatty liver and she was undergoing liver biopsies by radiologist, Dr. Hamilton at [facility]. Patient stated that with the 3rd biopsy she began having severe pain. She complained of right upper quadrant pain that radiated to the right shoulder after the procedure; he did a CT scan of the abdomen and chest with negative results for pneumothorax or intra-abdominal hemorrhage. The patient continued to complain of pain and started hyperventilating. She was taken to the ED for pain management. Upon arrival to the ED patient was sitting in 90? position breathing fast and was anxious. Chest sounds were clear; she had a focal tenderness in the right upper quadrant with no tenderness anywhere else in the abdomen. She had no cross tenderness. There was no tenderness in the lower abdominal areas. She had no hemoptysis, no hematemesis, no coffee-ground emesis, no melanotic stool, or bleeding per rectum. She received morphine sulfate, Demerol, and Zofran for her pain and nausea. She was then admitted for further observation and pain control with repeat CT in the a.m. At the time of this exam patient still remains uncomfortable and additional pain medicines will be given as per the orders of Dr. Mayfield. Hospital Course Hospital Course: By the next day, the patient felt much better. Her pain had almost resolved. She was able to get up and move about her room. It was felt a repeat CT scan was not necessary and she was stable to be discharged. Objective Vital signs: Temp Pulse Resp BP Pulse Ox 99.0 F 98 H 20 112/72 94 L 09/04/17 07:37 09/04/17 07:37 09/04/17 08:00 09/04/17 07:37 09/04/17 07:37 Narrative: - Constitutional no acute distress Comments: In pain - *Routine HEENT Exam Head: Present: normocephalic, atraumatic Eye: Present: PERRL. Absent: conjunctival icterus, scleral injection ENT: Present: mucous membranes moist - *Routine Respiratory Exam Present: CTA bilaterally - *Routine Cardiovascular Exam Present: RRR - *Routine Abdominal Exam Present: soft, normoactive bowel sounds (Right upper quadrant), tenderness - *Routine Extremities Exam Absent: edema, calf tenderness - *Routine Neurological Exam Present: alert, oriented X3 DS: Diagnosis - Discharge Diagnosis (1) Liver hematoma Status: Acute (2) Pain, abdominal, RUQ Status: Acute (3) Fatty liver Status: Chronic (4) Diabetes mellitus Status: Chronic (5) History of atrial fibrillation Status: Chronic Discharge Plan - Patient Discharge Instructions ACTIVITY: Continue current activity DIET: continue same diet Additional Instructions: Follow up by phone in 2 days. Patient Instructions: Acute Abdominal Pain - Follow up Plan Follow up with: Leo Mayfield MD [Primary Care Provider] - Disposition: Home, Self-Senior Living Medications: Home Medications Medication Instructions Recorded Confirmed Type amlodipine 5 mg tablet 5 mg PO DAILY 07/25/17 09/03/17 History bupropion HCl XL 300 mg 24 hr 300 mg PO DAILY 07/25/17 09/03/17 History tablet, extended release carvedilol 25 mg tablet 25 mg PO DAILY 07/25/17 09/03/17 History cholecalciferol (vitamin D3) 4,000 4,000 unit PO DAILY 07/25/17 09/03/17 History unit capsule levothyroxine 200 mcg tablet 200 mcg PO QDAY tab 07/25/17 09/03/17 History metformin 500 mg tablet 1,000 mg PO DAILY 07/25/17 09/03/17 History valsartan 160 mg tablet 160 mg PO DAILY 07/25/17 09/04/17 History Exenatide Microspheres [Bydureon] 2 mg SQ DAILY 09/03/17 09/03/17 History Fenofibrate Nanocrystallized 145 mg PO DAILY 09/03/1708/09
--- NOTE | 2017-09-09 14:46 | P.DS_ITS ---
General - General Admission date: 09/03/17 Discharge date: 09/04/17 HPI HPI: Ms Brar is a 37 years old white female status post cholecystectomy and three C- sections in addition to multiple medical problems including diabetes, hypertension, hyperlipidemia, and hypothyroidism. She was recently diagnosed with fatty liver and she was undergoing liver biopsies by radiologist, Dr. Hamilton at [facility]. Patient stated that with the 3rd biopsy she began having severe pain. She complained of right upper quadrant pain that radiated to the right shoulder after the procedure; he did a CT scan of the abdomen and chest with negative results for pneumothorax or intra-abdominal hemorrhage. The patient continued to complain of pain and started hyperventilating. She was taken to the ED for pain management. Upon arrival to the ED patient was sitting in 90? position breathing fast and was anxious. Chest sounds were clear; she had a focal tenderness in the right upper quadrant with no tenderness anywhere else in the abdomen. She had no cross tenderness. There was no tenderness in the lower abdominal areas. She had no hemoptysis, no hematemesis, no coffee-ground emesis, no melanotic stool, or bleeding per rectum. She received morphine sulfate, Demerol, and Zofran for her pain and nausea. She was then admitted for further observation and pain control with repeat CT in the a.m. At the time of this exam patient still remains uncomfortable and additional pain medicines will be given as per the orders of Dr. Mayfield. Hospital Course Hospital Course: By the next day, the patient felt much better. Her pain had almost resolved. She was able to get up and move about her room. It was felt a repeat CT scan was not necessary and she was stable to be discharged. Objective Vital signs: Temp Pulse Resp BP Pulse Ox 99.0 F 98 H 20 112/72 94 L 09/04/17 07:37 09/04/17 07:37 09/04/17 08:00 09/04/17 07:37 09/04/17 07:37 Narrative: - Constitutional no acute distress Comments: In pain - *Routine HEENT Exam Head: Present: normocephalic, atraumatic Eye: Present: PERRL. Absent: conjunctival icterus, scleral injection ENT: Present: mucous membranes moist - *Routine Respiratory Exam Present: CTA bilaterally - *Routine Cardiovascular Exam Present: RRR - *Routine Abdominal Exam Present: soft, normoactive bowel sounds (Right upper quadrant), tenderness - *Routine Extremities Exam Absent: edema, calf tenderness - *Routine Neurological Exam Present: alert, oriented X3 DS: Diagnosis - Discharge Diagnosis (1) Liver hematoma Status: Acute (2) Pain, abdominal, RUQ Status: Acute (3) Fatty liver Status: Chronic (4) Diabetes mellitus Status: Chronic (5) History of atrial fibrillation Status: Chronic Discharge Plan - Patient Discharge Instructions ACTIVITY: Continue current activity DIET: continue same diet Additional Instructions: Follow up by phone in 2 days. Patient Instructions: Acute Abdominal Pain - Follow up Plan Follow up with: Leo Mayfield MD [Primary Care Provider] - Disposition: Home, Self-Longterm Medications: Home Medications Medication Instructions Recorded Confirmed Type amlodipine 5 mg tablet 5 mg PO DAILY 07/25/17 09/03/17 History bupropion HCl XL 300 mg 24 hr 300 mg PO DAILY 07/25/17 09/03/17 History tablet, extended r
== END 2017-09-04 10:20 | disposition home or self-care (01) ==
LOC: ER 14:16 → 2ND 15:41
PROVIDERS: Admitting Provider Family Medicine; Emergency Provider Emergency Medicine; Family Provider Family Medicine; PCP Family Medicine; Visit Provider Family Medicine
DX: K76.0 Fatty (change of) liver, not elsewhere classified (principal); R10.11 Right upper quadrant pain; E11.9 Type 2 diabetes mellitus without complications; S36.112A Contusion of liver, initial encounter; I48.91 Unspecified atrial fibrillation; I10 Essential (primary) hypertension; E03.9 Hypothyroidism, unspecified
CPT/HCPCS: 36415; 74177; 80053; 81001; 85025; 85610; 85730; 86850; 96365; 96374; 96375; 96376; 99284; G0378; J2405; Q9967

== ENCOUNTER → 2017-11-13 16:49 | Outpatient (CLI) | payer BC, SELFPAY ==
--- NOTE | 2017-11-13 17:15 | XR_ITS ---
XR chest 2V HISTORY: ITS.REASON: DYSPNEA; FATIGUE ORDERING PHYSICIAN: KAREN Garza PATIENT AGE: 37 years COMPARISON: 10/16/2013 FINDINGS: Cardiac size is upper limits of normal. No CHF. No lobar consolidation or collapse. Garment artifact is present patient's bra. There is a loop recorder device present.The lungs are clear without infiltrates, suspicious nodules, or pleural effusions. No acute bony abnormalities. IMPRESSION: No acute finding. Borderline cardiomegaly
== END ==
PROVIDERS: PCP Family Medicine; Visit Provider Physician Assistant
DX: R06.00 Dyspnea, unspecified (principal); R53.83 Other fatigue
CPT/HCPCS: 71046; 93005

== ENCOUNTER → 2018-02-03 08:27 | Outpatient (CLI) | payer BC, SELFPAY ==
--- NOTE | 2018-02-03 08:28 | MM_ITS ---
MM Dig screening mamm BI w/CAD ORDERING PHYSICIAN : Paul Perez MD PATIENT AGE: 38 years GENDER: Female COMPARISON: Baseline mammogram No prior mammogram. Previous negative breast ultrasound 2010. INDICATION: ITS.REASON: Routine Mammogram Screening TECHNIQUE: Standard CC and MLO images were obtained. R2 CAD reviewed. FINDINGS: Fairly low-density breast No Discrete persistent density of significant concern. Numerous dermal, skin calcifications are seen throughout the breast bilaterally. The most evident towards inferior breast. Central lucency associated with many of these punctate benign calcifications. Follow-up one year on right. RIGHT BREAST:No areas of concern on the right LEFT BREAST:Smal 7 mmfocal l area of density at lateral breast on initial cc view seems to dissipate less evident on subsequent axillary cc view... Tend to doubt I this of significance. Likely towards inferior breast on MLO view. However I would suggest additional follow-up spot views of this area over the next several weeks at the patient's convenience. Spot Cc, and a spot 90 degree view initially suggested. If Persist on initial views then rolled cc views may be of benefitor versus ultrasound. It may dissipate completely on these additional views. IMPRESSION: ... Baseline mammogram no previous for comparison.... 1. Small focal nodular density labeled X is seen on initial cc view lateral.Left breast May merely be summation shadow, but would benefit from Spot Views to further evaluate. BI-RADS Category: 0 Need Additional Imaging Evaluaiton RECOMMENDED FOLLOW-UP : patient to return for additional mammogram spot views views at her convenience. No urgency for this more likely benign feature Spot CC and 90 degree view initially with possibly additional views thereafter if persists (A letter has been sent to the patient regarding results of the study.)
== END ==
PROVIDERS: Family Provider Family Medicine; PCP Family Medicine; Visit Provider Nurse Practitioner Obstetrics & Gynecology
DX: Z12.31 Encounter for screening mammogram for malignant neoplasm of breast (principal)
CPT/HCPCS: 77067

== ENCOUNTER → 2018-02-17 14:50 | Outpatient (CLI) | payer BC, SELFPAY ==
--- NOTE | 2018-02-17 14:51 | MM_ITS ---
MM Dig mamm DX unilat LT CAD INDICATION: Follow-up abnormal mammogram ORDERING PHYSICIAN: Paul Perez MD PATIENT AGE: 38 years COMPARISON: 02/03/2018 TECHNIQUE: Problem-solving views performed of the left breast along with left breast ultrasound FINDINGS: Spot compression views and rolled views show a persistent 7 x 5 mm nodule in the outer aspect of the left breast at the 2:00 region.. This persists on rolled views. The medial margin is somewhat obscured. The margins do not appear irregular. Left breast ultrasound: A 3 mm cyst is present at 3:00. The nodule in question measured 8 x 5 mm. Otherwise negative IMPRESSION: 8 x 5 mm nodule in the lateral aspect of left breast at the 2:00 region. A 3 mm cyst is present at 3:00. Mammogram and ultrasound and therefore discordant. This has a low level of suspicion for malignancy. Stereotactic biopsy is suggested. Alternatively, a six-month follow-up could be performed. BI-RADS Category: 4 Suspicious Abnormality-Biopsy Considered RECOMMENDED FOLLOW-UP: BIO - BIOPSY RECOMMENDED (A letter has been sent to the patient regarding results of the study.)
== END ==
PROVIDERS: Family Provider Family Medicine; PCP Family Medicine; Visit Provider Nurse Practitioner Obstetrics & Gynecology
DX: R92.8 Other abnormal and inconclusive findings on diagnostic imaging of breast (principal)
CPT/HCPCS: 77065

== ENCOUNTER → 2018-02-20 08:32 | Outpatient (CLI) | payer BC, SELFPAY | PROVIDERS: Family Provider Family Medicine; PCP Family Medicine; Visit Provider Nurse Practitioner Obstetrics & Gynecology | DX: R92.8 Other abnormal and inconclusive findings on diagnostic imaging of breast (principal) | CPT/HCPCS: 76641 ==

== ENCOUNTER → 2018-08-08 08:07 | Outpatient (CLI) | payer BC, SELFPAY ==
--- NOTE | 2018-08-08 08:12 | AS_ITS ---
Renal Arterial Duplex Indications: 405.91 Unspecified renovascular hypertension. IMPRESSIONS 1. Normal bilateral renal artery evaluation. 2. Non-obstructing left nephrolithiasis. History: Risk factors: Diabetes mellitus. Dyslipidemia. Complete renal arterial duplex. Duplex scan and Doppler flow study including spectral analysis, color and browning scale imaging. Height: Height: 167.6cm. Height: 66in. Weight: Weight: 90.3kg. Weight: 198.6lb. Body mass index: BMI: 32.1kg/m^2. Body surface area: BSA: 2.08m^2. Location: Vascular laboratory. Patient status: Outpatient. Tables: Arterial flow: + +--------+--------+---------+ Location V sys V ed Resistive + +--------+--------+---------+ Right renal - proximal 124cm/s 42.8cm/s 0.65 + +--------+--------+---------+ Right renal - mid 85.4cm/s 15.1cm/s --------- + +--------+--------+---------+ Right renal - distal 128cm/s 49.7cm/s --------- + +--------+--------+---------+ Left renal - proximal 124cm/s 34.6cm/s 0.72 + +--------+--------+---------+ Left renal - mid 89.1cm/s 22.4cm/s --------- + +--------+--------+---------+ Left renal - distal 119cm/s 48.1cm/s --------- + +--------+--------+---------+ Right renal-origin 115cm/s 31.9cm/s --------- + +--------+--------+---------+ Left renal-origin 133cm/s 38.7cm/s --------- + +--------+--------+---------+ Renal anatomy: + +------+------+ Left Right + +------+------+ Long axis 14.1cm 12.2cm + +------+------+ Short axis 7.9cm 7cm + +------+------+ Cortical thickness 1.9cm 1.1cm + +------+------+ Velocity ratios: + +-----+ V sys + +-----+ Right renal/aortic 1.2 + +-----+ Left renal/aortic 1.2 + +-----+ (Report amended ) Electronically signed by: Florentino Hamilton [id number]
--- NOTE | 2018-08-08 08:12 | CA_ITS ---
PROCEDURE: 2-D M-mode and color Doppler study INDICATIONS FOR THE TEST: Chest pain COPD Heart Murmur Tobacco Smoking Palpitations Fatigue Syncope Edema Hypertension+Diabetes Mellitus+ Rheumatic Fever SOB OWENS Obesity Hyperlipidemia+ Family History HD Additional History abn ekg, h/o af PATIENT INFORMATION HEIGHT: 66 WEIGHT:199 GENDER: Female B/P:159/94 2-D/M-MODE INTERPRETATION: 2-D MEASUREMENTS OBSERVED VALUES IN CMS Right Ventricular Dimension (RVDd) 2.3 Interventricular Septum (Thickness)(IVsd) 1.3 Left Ventricular Internal Dimensions(LVIDd) 5.1 Left Ventricular Posterior Wall (Thickness)(LVPWd) 1.1 Aortic Root 2.6 Aortic Cusp Separation 2.0 Left Atrial Dimensions (LAD) 4.4 2D 1. Left atrium is mildly enlarged, left ventricle is normal size, mild concentric left ventricular hypertrophy, visually estimated ejection fraction 55% with no regional wall motion abnormality. 2. The right atrium and right ventricle are normal size and contractility. 3. The aortic valve is grossly normal. 4. The mitral and tricuspid valve are grossly normal. 5. Pulmonic valve is poorly visualized. 6. No significant pericardial effusion noted. DOPPLER INTERROGATION: Doppler interrogation of the aortic, mitral and tricuspid valvular presence of mild mitral and tricuspid regurgitation, tricuspid regurgitation jet velocity is inadequate for calculation of the right ventricular systolic pressure, grade 1 diastolic dysfunction seen with tissue Doppler evidence of raised left atrial pressure. CONCLUSION: 1. Mildly enlarged left atrium, normal left ventricular size, mild concentric left ventricular hypertrophy, visually estimated ejection fraction 55% with no regional wall motion abnormality, grade 1 diastolic dysfunction seen with tissue Doppler evidence of raised left atrial pressure. 2. Mild mitral and tricuspid regurgitation 3. No significant pericardial effusion noted.
== END ==
PROVIDERS: PCP Family Medicine; Visit Provider Internal Medicine
DX: I10 Essential (primary) hypertension (principal); E11.8 Type 2 diabetes mellitus with unspecified complications; E78.5 Hyperlipidemia, unspecified; I11.9 Hypertensive heart disease without heart failure; K21.9 Gastro-esophageal reflux disease without esophagitis; R94.31 Abnormal electrocardiogram [ECG] [EKG]; Z86.79 Personal history of other diseases of the circulatory system
CPT/HCPCS: 93306; 93976

== ENCOUNTER → 2020-04-14 13:31 | Outpatient (CLI) | payer BC, SELFPAY | PROVIDERS: PCP Internal Medicine Adolescent Medicine; Visit Provider Internal Medicine Adolescent Medicine | DX: Z03.818 Encounter for observation for suspected exposure to other biological agents ruled out (principal); R05 Cough | CPT/HCPCS: U0003 ==

== ENCOUNTER → 2020-04-17 14:17 | Outpatient (CLI) | payer BC, SELFPAY ==
--- NOTE | 2020-04-17 14:44 | XR_ITS ---
PROCEDURE: XR CHEST PORTABLE CLINICAL HISTORY: COVID OUTPATIENT COMPARISON: CR CXR CHEST(2 VIEWS-NOT PORTABLE) from 07/17/2013 CR CXR CHEST(2 VIEWS-NOT PORTABLE) from 10/16/2013 DX CXR2V XR chest 2V from 11/13/2017 FINDINGS: The lung connelly are well expanded and appear clear of infiltrate. There is mild or borderline cardiomegaly however the vascularity is normal and there is no pleural fluid. IMPRESSION: Mild cardiomegaly, no acute chest pathology noted Dictated by: Dr. Jem Calix MD 04/17/2020 17:06 Dr. Jem Calix MD in [place] 04/17/2020 17:06
[2020-04-17 15:04] LABS: Adenovirus,PCR Not Detected (NotDetected); Bordetella Pertussis Not Detected (NotDetected); Chlamydophila Pneumoniae, PCR Not Detected (NotDetected); Coronavirus 229E Not Detected (NotDetected); Coronavirus NL63 Not Detected (NotDetected); Coronavirus OC43 Not Detected (NotDetected); Coronovirus HKU1,PCR Not Detected (NotDetected); Human Metapneumovirus Not Detected (NotDetected); Influenza A, PCR Not Detected (NotDetected); Influenza AH1, 2009 Not Detected (NotDetected); Influenza AH1, PCR Not Detected (NotDetected); Influenza AH3,PCR Not Detected (NotDetected); Influenza B, PCR Not Detected (NotDetected); Mycoplasma Pneumoniae, PCR Not Detected (NotDetected); Parainfluenza 1, PCR Not Detected (NotDetected); Parainfluenza 2, PCR Not Detected (NotDetected); Parainfluenza 3, PCR Not Detected (NotDetected); Parainfluenza 4, PCR Not Detected (NotDetected); Respiratory Syncytial Virus Not Detected (NotDetected); Rhinovirus/Enterovirus Not Detected (NotDetected)
[2020-04-17 15:15] LABS: Basophils # 0.1 K/mm3 (0-0.2); Basophils % 0.5 % (0.1-2.0); Eosinophils # 0.2 K/mm3 (0.0-0.4); Eosinophils % 1.8 % (0.1-12.0); Hematocrit 36.6 % (37.0-47.0); Hemoglobin 11.2 g/dL (12.2-16.2); Lymphocytes % 22.7 % (10-50); Mean Corpuscular HGB Conc 30.6 g/dL (31.8-35.4); Mean Corpuscular Hemoglobin 24.3 pg (27.0-31.2); Mean Corpuscular Volume 79.2 fl (81-99); Mean Platelet Volume 7.3 fl (7.4-10.4); Monocytes # 0.6 K/mm3 (0.1-1.0); Monocytes % 7.3 % (1.7-9.3); Neutrophils # 5.8 K/mm3 (1.8-7.8); Neutrophils % 67.7 % (37.0-80.0); Platelet Count 432 K/mm3 (142-424); Red Blood Count 4.62 M/mm3 (4.20-5.40); Red Cell Distribution Width 14.2 % (11.5-17.5); White Blood Count 8.6 K/mm3 (4.8-10.8)
[2020-04-17 15:44] LABS: Chloride 105 mmol/L (98-107)
[2020-04-17 15:45] LABS: Potassium 3.8 mmoL/L (3.5-5.1); Sodium 137 mmol/L (136-145)
[2020-04-17 15:47] LABS: Blood Urea Nitrogen 16 mg/dl (7-17); Estimated Glomerular Filt Rate 137 ml/min (>60); GFR (African American) 165 ML/MIN (>60)
[2020-04-17 15:48] LABS: Alanine Aminotransferase 27 U/L (12-78); Albumin Level 4.3 g/dl (3.5-5.0); Albumin/Globulin Ratio 1.5 (1.1-1.8); Alkaline Phosphatase 66 U/L (38-126); Anion Gap 11.8 mEq/L (5-15); Aspartate Amino Transferase 29 U/L (14-36); Bilirubin,Total 0.3 mg/dl (0.2-1.3); Calcium 9.1 mg/dl (8.4-10.2); Carbon Dioxide 24 mmol/L (22.0-30.0); Globulin 2.8 g/dL (1.3-3.2); Glucose 198 mg/dl (74-100); Total Protein,Serum 7.1 g/dl (6.3-8.2)
== END ==
PROVIDERS: PCP Family Medicine; Visit Provider Internal Medicine Adolescent Medicine
DX: Z03.818 Encounter for observation for suspected exposure to other biological agents ruled out (principal); R50.9 Fever, unspecified
CPT/HCPCS: 71045; 80053; 85025; 87486; 87581; 87633; 87798; U0003

== ENCOUNTER → 2020-04-18 11:51 | Outpatient (CLI) | payer BC, SELFPAY | LOC: RT 11:54 | PROVIDERS: PCP Family Medicine; Visit Provider Physician Assistant | DX: R06.00 Dyspnea, unspecified (principal); R00.2 Palpitations; I11.9 Hypertensive heart disease without heart failure; E78.5 Hyperlipidemia, unspecified; Z86.79 Personal history of other diseases of the circulatory system | CPT/HCPCS: 93225; 93226 ==

== ENCOUNTER → 2020-04-19 10:37 | Outpatient (CLI) | payer BC, SELFPAY ==
[2020-04-20 07:38] LABS: Covid-19 Nasal PCR Sendout Lex NOT DETECTED
== END ==
PROVIDERS: Visit Provider Internal Medicine Adolescent Medicine
DX: Z03.818 Encounter for observation for suspected exposure to other biological agents ruled out (principal)
CPT/HCPCS: U0004

== ENCOUNTER → 2020-04-27 10:49 | Outpatient (CLI) | payer BC, SELFPAY ==
--- NOTE | 2020-04-27 11:02 | CA_ITS ---
APPROVED REPORT EXAM: Comprehensive 2D, Doppler, and color-flow Echocardiogram Tumbling Instructor: Nancy Alvarez, RT(R) Ht: 5 ft 6 in Wt: 213lbs BSA: 2.05 BP: 130/80 mmHg Indications: CP, palpitations, fatigue, HTN, DM, SOB, hyperlipidemia, ABN EKG, AFIB, loop recorder 2014, breast reduction 1999 2D Dimensions LVOT 2.16 cm (M/F) 1.5-2.5 M-Mode Dimensions RVDd 2.25 cm (0.9-2.6) LA Diam 3.93 cm (1.9-4.0) LVDd 4.96 cm (3.5-5.7) Ao Diam 2.33 cm (2.0-3.7) LVDs 3.62 cm (3.5-5.7) IVSd 1.26 cm (0.6-1.1) PWd 1.07 cm (0.6-1.1) EF (Teich) 52.50% FS 27.00% EDV (Teich) 116.10 mL ESV (Teich) 55.20 mL LV Diastology E Decel Time 150.00 (160-240 msec) E/A Ratio 1.3 MED E' 7.90 (< 7 cm/sec) E'/MED E' Ratio 13.00 (>14) LAT E' 11.30 (<10 cm/sec) E/LAT E' Ratio 9.09 (>14) Mitral Valve MV E Max Tyson. 103.00 (40-130 cm/s) MV A Velocity 80.00 (40-130 cm/s) E/A Ratio 1.29 MV Decel. Time 150.00 (160-240 ms) MV PHT 44.00 ms Left Ventricle Left atrium is mildly enlarged, left ventricle is normal size, mild concentric left ventricular hypertrophy, visually estimated ejection fraction 55% with no regional wall motion abnormality, diastolic parameters are inconclusive. Right Ventricle Right atrium and right ventricle are normal size and contractility. Aortic Valve Aortic valve is grossly normal, there is no aortic stenosis or aortic insufficiency. Mitral Valve Mitral valve is grossly normal, there is mild mitral regurgitation. Tricuspid Valve Tricuspid valve is grossly normal, there is mild tricuspid regurgitation, tricuspid regurgitation jet velocity is inadequate for calculation of the right ventricular systolic pressure. Pulmonic Valve Pulmonic valve is poorly visualized. Great Vessels Aortic root is normal size. Pericardium No significant pericardial effusion noted. Conclusion 1. Mildly enlarged left atrium, normal left ventricular size, visually estimated ejection fraction 55% with no regional wall motion abnormality, diastolic parameters are inconclusive. 2. Mild mitral and tricuspid regurgitation. 3. No significant pericardial effusion noted. Electronically signed by : Paul Diane, 04/28/2020 16:24:51
== END ==
PROVIDERS: PCP Family Medicine; Visit Provider Physician Assistant
DX: R00.2 Palpitations (principal); I11.9 Hypertensive heart disease without heart failure; E11.9 Type 2 diabetes mellitus without complications; E78.5 Hyperlipidemia, unspecified; Z86.79 Personal history of other diseases of the circulatory system
CPT/HCPCS: 93306

== ENCOUNTER → 2020-08-06 08:11 | Outpatient (CLI) | payer BC, SELFPAY ==
[2020-08-06 10:05] LABS: HCG Qualitative, Serum Negative (Negative)
[2020-08-06 11:29] LABS: Coronavirus 19 IgG Antibody Positive (Negative); Coronavirus 19 IgM Antibody Negative (Negative)
== END ==
PROVIDERS: Visit Provider Internal Medicine Gastroenterology
DX: Z01.812 Encounter for preprocedural laboratory examination (principal); Z20.822 Contact with and (suspected) exposure to COVID-19; Z86.16 Personal history of COVID-19; Z13.810 Encounter for screening for upper gastrointestinal disorder; Z12.11 Encounter for screening for malignant neoplasm of colon; D50.9 Iron deficiency anemia, unspecified
CPT/HCPCS: 36415; 84703; 86328

== ENCOUNTER 2020-08-08 09:00 | Day surgery (SDC) | payer BC, SELFPAY ==
[2020-08-02 13:38] VITALS: BMI 34.5
[2020-08-08] VITALS (7 sets, daily range): BP systolic 121–157; BP diastolic 72–92; PULSE 74–88; RESP 16–18; TEMP 36.1–36.7; O2SAT 97–100
[2020-08-08 09:35] LABS: POC Glucose,Bedside 124 (70-110)
--- NOTE | 2020-08-08 09:42 | HMH.ANESCL ---
[facility] Anesthesia Checklist - Patient Identification Patient Identification: Arm Band - Structural Data Admitted From: Home Planned Operative Procedure/s: colonoscopy Consent for Planned Operative Procedure(s) Verified: Yes Verified Documents: Surgical Consent, History and Physical - NPO Status Verified Time NPO: 00:00 - Additional verifications Anesthesia Reactions: No - Airway Assessment C-Spine Mobility Assessed: Yes (mp3) TMJ Mobility Assessed: Yes Dentition: Good Dentition - Neurological Assessment Level of Consciousness: Awake, Alert - Anesthesia Plan Anesthesia Risk discussed: Yes Anesthesia Plan: Verified ASA Class: III Anesthesia Type: MAC [facility] History I have reviewed the patient's past medical history: Yes Medical History: Reports:: Atrial Fibrillation, Depression, Diabetes Mellitus Type 2, Hyperlipidemia, Hypertension, Migraine Denies:: Cancer, Diabetes Mellitus Type 1, Internal Pacemaker, MRSA, Seizures *Have you ever received a pneumonia vaccine?: No *Have you received a flu vaccine this season?: No Other Medical History: Reports: Hypothyroidism, Liver Disease, Thyroid Disease Anesthesia experience/problems:: nac Laterality Cases: Bilateral: Tonsillectomy Other Surgeries: Yes: Bariatric Surgery, , Thyroidectomy, Tubal Ligation, Other. No: Pacemaker Amputation: No Fractures: No - *Social History Smoking Status: Never smoker Alcohol Intake: never Alcohol Intake Frequency:: other Substance Use Type: denies use *Occupational Status:: employed Housing: house Household Members: family *Travel in the last 8 weeks: None - Psychiatric History Pschychiatric History:: Reports:: Depression Family Hx:: No significant family history
--- NOTE | 2020-08-08 10:47 | HMH.PROC ---
[facility] Procedure Note Procedure Note:: Upper Endoscopy Procedure Report: Esophagogastroduodenoscopy with cold biopsies Endoscopost: Michoacano Berry II, MD Referring Physician: Kieran Dawson M.D. Date of Procedure: 08/08/2020 Equipment: Olympus GIF 180 standard upper endoscope Sedation: MAC sedation Indications: Mrs. Brar is a 40-year-old female who is here for diagnostic panendoscopy secondary to iron deficiency anemia. The patient did have a gastric sleeve in 2018. She does report postprandial abdominal pain in the epigastrium. She also has some nighttime supine aspiration/reflux. She does have a history of NAFLD (nonalcoholic fatty liver disease). The patient reports no bloating or gassiness. She does have some bowel irregularity. She has been Hemoccult negative. She reports no dysphagia. Procedure: Prior to the procedure, a history and physical exam was performed, and patient's medications and allergies were reviewed. The risks, benefits and alternatives of the sedation and procedure were discussed with the patient. All questions were answered and informed consent was obtained. The patient was brought to the procedure room. Patient identification and proposed procedure were verified by the physician and the nurse. The patient was placed in a left lateral decubitus position and the scope was passed under direct vision. Throughout the procedure, the patient's blood pressure, pulse, and oxygen saturations were monitored continuously. The upper GI endoscopy was accomplished without difficulty. The patient tolerated the procedure well. Findings: The scope was passed directly into the upper esophagus and advanced to the third portion of the duodenum. The post bulbar duodenum and duodenal bulb were normal with normal mucosa and conniventes. Cold biopsies were taken from the post bulbar duodenum to rule out celiac disease. The scope was withdrawn through a normal duodenal bulb and pylorus into the stomach. There was some nodular gastropathy of the antrum with bile reflux. Some of this nodularity is likely related to her gastric sleeve. There was reduced luminal diameter of the stomach. There was a 2 cm hiatal hernia upon retroflexion. Cold biopsies were taken from the antrum/nodularity. The scope was then withdrawn into the esophagus. There was no evidence of reflux esophagitis or Ibrahim's. A biopsy was taken at the GE junction. There was mild esophageal dysmotility. The remainder of the esophageal mucosa was normal. Impression: 1. Nonerosive GERD with mild esophageal dysmotility and small 2 cm hiatal hernia 2. Nodular linear gastropathy with bile reflux and prior gastric sleeve Plan: I will follow-up the biopsies. There was certainly no source of chronic gastrointestinal obscure blood loss. She does have some functional dyspepsia and functional GERD. I will proceed with diagnostic colonoscopy.
--- NOTE | 2020-08-08 11:11 | HMH.PROC ---
[facility] Procedure Note Procedure Note:: Colonoscopy Procedure Report: Colonoscopy with cold snare polypectomy Endoscopist: Michoacano Berry II, MD Referring physician: Kieran Dawson M.D. Date of Procedure: August 08, 2020 Equipment: Olympus 180 variable stiffness pediatric colonoscope Sedation: MAC sedation Indication: Mrs. Brar is a 40-year-old female who is here for diagnostic colonoscopy secondary to iron deficiency anemia. She also has a strong family history of adenomatous colon polyps. The patient does get some bowel irregularity with bouts of constipation that may be followed by bilious diarrhea. She reports no abdominal pain, unintentional weight loss, rectal bleeding or melena. She is Hemoccult negative. This is her first colonoscopy. Procedure: Prior to the procedure, a history and physical exam was performed, and patient's medications and allergies were reviewed. The risks, benefits and alternatives of the sedation and procedure were discussed with the patient. All questions were answered and informed consent was obtained. The patient was brought to the procedure room. Patient identification and proposed procedure were verified by the physician and the nurse. The patient was placed in a left lateral decubitus position and the scope was passed under direct vision. Throughout the procedure, the patient's blood pressure, pulse, and oxygen saturations were monitored continuously. The colonoscopy was accomplished without difficulty. The patient tolerated the procedure well. Findings: On digital rectal examination there was normal rectal tone. There were no external hemorrhoids. The colonoscope was introduced through the anal canal to the rectum and advanced to the cecum. The ileocecal valve and appendiceal orifice were identified. The scope was advanced a short distance into the ileum which appeared grossly normal. The scope was then withdrawn into the colon. There were a total of 5 colon polyps (transverse x2 (12 mm and 2 mm), descending x1 (4 mm) and sigmoid x2 (both 3 mm)) which were removed via cold snare polypectomy. The remainder of the colonic mucosa was normal. Upon retroflexion within the rectum there were grade 1-2 internal hemorrhoids.The preparation was excellent throughout with [place] Preparation Score of 9. The cecal time was 14 minutes. Impression: 1. Colonic polyps x5 2. Grade 1-2 internal hemorrhoids Plan: I will follow up the polyp pathology and recommend repeat colonoscopy again in 3-5 years based upon the polyp histology. I would encourage dietary measures and fiber bowel regimen on a long-term daily maintenance basis.
== END 2020-08-08 11:56 | disposition home or self-care (01) ==
LOC: OUTP 09:01
PROVIDERS: PCP Internal Medicine Adolescent Medicine; Visit Provider Internal Medicine Gastroenterology
PROC: 0DJD8ZZ Inspection of Lower Intestinal Tract, Via Natural or Artificial Opening Endoscopic (ICD-10-PCS; CPT 45378; principal; 2020-08-08 12:00)
DX: K63.5 Polyp of colon; K64.0 First degree hemorrhoids; Z98.84 Bariatric surgery status; Z83.71 Family history of colonic polyps; K21.9 Gastro-esophageal reflux disease without esophagitis; K22.4 Dyskinesia of esophagus; K31.9 Disease of stomach and duodenum, unspecified; K44.9 Diaphragmatic hernia without obstruction or gangrene; I48.91 Unspecified atrial fibrillation; E11.9 Type 2 diabetes mellitus without complications; E78.5 Hyperlipidemia, unspecified; I10 Essential (primary) hypertension
CPT/HCPCS: 45385; 43239; 82962

== ENCOUNTER → 2021-03-21 08:53 | Outpatient (CLI) | payer BC, SELFPAY ==
[2021-03-21 09:27] LABS: Basophils # 0.1 K/mm3 (0-0.2); Basophils % 1.2 % (0.1-2.0); Eosinophils # 0.3 K/mm3 (0.0-0.4); Eosinophils % 3.1 % (0.1-12.0); Hematocrit 38.7 % (37.0-47.0); Hemoglobin 12.1 g/dL (12.2-16.2); Lymphocytes # 2.1 K/mm3 (0.7-4.5); Lymphocytes % 25.6 % (10-50); Mean Corpuscular HGB Conc 31.3 g/dL (31.8-35.4); Mean Corpuscular Volume 80.1 fl (81-99); Mean Platelet Volume 6.9 fl (7.4-10.4); Monocytes # 0.6 K/mm3 (0.1-1.0); Monocytes % 6.9 % (1.7-9.3); Neutrophils # 5.2 K/mm3 (1.8-7.8); Neutrophils % 63.1 % (37.0-80.0); Platelet Count 427 K/mm3 (142-424); Red Blood Count 4.84 M/mm3 (4.20-5.40); Red Cell Distribution Width 14.7 % (11.5-17.5); White Blood Count 8.3 K/mm3 (4.8-10.8)
[2021-03-21 09:51] LABS: Chloride 106 mmol/L (98-107)
[2021-03-21 09:52] LABS: Potassium 4.2 mmoL/L (3.5-5.1); Sodium 138 mmol/L (136-145)
[2021-03-21 09:54] LABS: Alanine Aminotransferase 20 U/L (12-78); Alkaline Phosphatase 81 U/L (38-126); Aspartate Amino Transferase 21 U/L (14-36); Bilirubin,Total 0.4 mg/dl (0.2-1.3); Blood Urea Nitrogen 8 mg/dl (7-17); Estimated Glomerular Filt Rate 110 ml/min (>60); GFR (African American) 133 ML/MIN (>60)
[2021-03-21 09:55] LABS: Albumin Level 4.3 g/dl (3.5-5.0); Albumin/Globulin Ratio 1.4 (1.1-1.8); Anion Gap 16.2 mEq/L (5-15); Calcium 9.7 mg/dl (8.4-10.2); Carbon Dioxide 20 mmol/L (22.0-30.0); Glucose 121 mg/dl (74-100); Total Protein,Serum 7.3 g/dl (6.3-8.2)
[2021-03-21 10:26] LABS: Triiodothryronine (T3) Uptake 29 % (23.5-40.5)
[2021-03-21 10:27] LABS: Free Thyroxine Index 3.3 ug/dL (5.93-13.13); T4 (Thyroxine) 11.4 ug/dl (5.53-11.0)
[2021-03-21 10:38] LABS: Hemoglobin A1C 6.8 % (4.0-6.0)
== END ==
PROVIDERS: Visit Provider Internal Medicine Adolescent Medicine
DX: E11.9 Type 2 diabetes mellitus without complications (principal); E89.0 Postprocedural hypothyroidism; Z79.84 Long term (current) use of oral hypoglycemic drugs
CPT/HCPCS: 36415; 80053; 83036; 84436; 84443; 84479; 85025

== ENCOUNTER → 2021-04-06 09:21 | Outpatient (CLI) | payer BC, SELFPAY ==
[2021-04-07 08:51] LABS: Progesterone 1.4 ng/mL (.)
[2021-04-07 10:06] LABS: LH 10.9 mIU/mL (.)
== END ==
PROVIDERS: Visit Provider Obstetrics & Gynecology
DX: N92.6 Irregular menstruation, unspecified (principal)
CPT/HCPCS: 36415; 82670; 83001; 83002; 84144

== ENCOUNTER → 2021-04-18 10:54 | Outpatient (CLI) | payer BC, SELFPAY ==
--- NOTE | 2021-04-18 10:54 | US_ITS ---
PROCEDURE: US TRANSVAGINAL CLINICAL INDICATION: DUB Prolonged bleeding COMPARISON: CT ABDPELW CT abdomen pelvis w con from 08/01/2017 CT,MR ABDWW MR abdomen wo/w con from 08/15/[address] abdomen pelvis w con from 09/03/2017 FINDINGS: Nabothian cysts are present the largest at 13 mm. UTERUS: 8cm x 5cmx 5cm with a combined endometrial thickness of 6.6mm. On the transverse images there is an area of decreased echogenicity along the posterior left aspect of the uterus body measuring approximately 1.3 by 1 cm and may be due to small fibroid. This is not well demonstrated on the sagittal images. LEFT OVARY: [id number] with a volume of 6.8ml. RIGHT OVARY: [id number] with a volume of 5.5ml. No cul-de-sac fluid. IMPRESSION: Nabothian cyst and possible small uterine fibroid otherwise unremarkable pelvic ultrasound. Dictated by: Florentino Hamilton MD 04/21/2021 09:53 Florentino Hamilton MD in [place] 04/21/2021 09:53
== END ==
LOC: RAD 10:54
PROVIDERS: PCP Internal Medicine Adolescent Medicine; Visit Provider Obstetrics & Gynecology
DX: N93.8 Other specified abnormal uterine and vaginal bleeding (principal)
CPT/HCPCS: 76830

== ENCOUNTER 2021-05-25 10:14 | Outpatient (CLI) | payer BC, SELFPAY ==
[2021-05-25 10:22] VITALS: BMI 33.9
[2021-05-25 10:41] LABS: Basophils # 0.1 K/mm3 (0-0.2); Basophils % 0.8 % (0.1-2.0); Eosinophils # 0.2 K/mm3 (0.0-0.4); Eosinophils % 1.5 % (0.1-12.0); Hematocrit 33.6 % (37.0-47.0); Hemoglobin 10.7 g/dL (12.2-16.2); Lymphocytes # 1.7 K/mm3 (0.7-4.5); Lymphocytes % 16.7 % (10-50); Mean Corpuscular HGB Conc 31.8 g/dL (31.8-35.4); Mean Corpuscular Hemoglobin 24.9 pg (27.0-31.2); Mean Corpuscular Volume 78.4 fl (81-99); Mean Platelet Volume 8.3 fl (7.4-10.4); Monocytes # 0.8 K/mm3 (0.1-1.0); Monocytes % 7.6 % (1.7-9.3); Neutrophils # 7.6 K/mm3 (1.8-7.8); Neutrophils % 73.4 % (37.0-80.0); Platelet Count 413 K/mm3 (142-424); Red Blood Count 4.28 M/mm3 (4.20-5.40); Red Cell Distribution Width 14.9 % (11.5-17.5); White Blood Count 10.4 K/mm3 (4.8-10.8)
[2021-05-25 10:47] LABS: Chloride 106 mmol/L (98-107); Potassium 4.2 mmoL/L (3.5-5.1); Sodium 135 mmol/L (136-145)
[2021-05-25 10:50] LABS: Alanine Aminotransferase 18 U/L (12-78); Albumin Level 4.2 g/dl (3.5-5.0); Albumin/Globulin Ratio 1.4 (1.1-1.8); Alkaline Phosphatase 56 U/L (38-126); Anion Gap 10.2 mEq/L (5-15); Aspartate Amino Transferase 33 U/L (14-36); Bilirubin,Total 0.7 mg/dl (0.2-1.3); Blood Urea Nitrogen 5 mg/dl (7-17); Carbon Dioxide 23 mmol/L (22.0-30.0); Creatinine Clearance Estimated 223 mL/min (50-200); Estimated Glomerular Filt Rate 136 ml/min (>60); GFR (African American) 165 ML/MIN (>60); Total Protein,Serum 7.2 g/dl (6.3-8.2)
[2021-05-25 10:51] LABS: Calcium 8.7 mg/dl (8.4-10.2); Glucose 133 mg/dl (74-100); Lactic Acid 0.8 mmol/L (0.7-2.1)
[2021-05-25 10:55] VITALS: BP 153/87; PULSE 84; RESP 18; TEMP 36.7; O2SAT 98
--- NOTE | 2021-05-25 11:30 | PC.NURSE ---
1130-pt states pain is now 4/10 now and she is comfortable and able to keep crackers down.
[2021-05-25 13:55] VITALS: BP 133/79; PULSE 89; RESP 18
== END 2021-05-25 13:55 | disposition home or self-care (01) ==
LOC: INF 10:15
PROVIDERS: PCP Internal Medicine Adolescent Medicine; Visit Provider Internal Medicine Adolescent Medicine
DX: N12 Tubulo-interstitial nephritis, not specified as acute or chronic (principal); R50.9 Fever, unspecified
CPT/HCPCS: 80053; 83605; 85025; 96360; 96361; 96367; 96375; J1956; J2405

== ENCOUNTER → 2021-05-25 16:31 | Outpatient (CLI) | payer BC, SELFPAY | PROVIDERS: Visit Provider Internal Medicine Adolescent Medicine | DX: R30.0 Dysuria (principal); B96.1 Klebsiella pneumoniae [K. pneumoniae] as the cause of diseases classified elsewhere | CPT/HCPCS: 87086; 87088; 87186 ==

== ENCOUNTER → 2021-06-23 13:58 | Outpatient (CLI) | payer BC, SELFPAY ==
--- NOTE | 2021-06-23 14:07 | XR_ITS ---
PROCEDURE: XR FOOT WT BEARING RT 3V CLINICAL INDICATION: pain COMPARISON: No exams were available for comparison FINDINGS: No fracture or dislocation. No lytic or blastic change. There is normal mineralization. The joint spaces are well-preserved. No significant degenerative/arthritic changes. No erosive changes evident. Other findings:None. IMPRESSION: No acute findings. Dictated by: Florentino Hamilton MD 06/23/2021 18:25 Florentino Hamilton MD in [place] 06/23/2021 18:25
--- NOTE | 2021-06-23 14:07 | XR_ITS ---
PROCEDURE: XR FOOT WT BEARING LT 3V CLINICAL INDICATION: pain COMPARISON: No exams were available for comparison FINDINGS: No fracture or dislocation. No lytic or blastic change. There is normal mineralization. The joint spaces are well-preserved. No significant degenerative/arthritic changes. No erosive changes evident. Other findings:Small calcaneal spur IMPRESSION: No acute findings. Dictated by: Florentino Hamilton MD 06/23/2021 18:26 Florentino Hamilton MD in [place] 06/23/2021 18:26
[2021-06-23 14:27] LABS: Basophils # 0.1 K/mm3 (0-0.2); Basophils % 0.8 % (0.1-2.0); Eosinophils # 0.2 K/mm3 (0.0-0.4); Eosinophils % 1.9 % (0.1-12.0); Hematocrit 33.5 % (37.0-47.0); Hemoglobin 10.9 g/dL (12.2-16.2); Lymphocytes # 2.5 K/mm3 (0.7-4.5); Lymphocytes % 25.3 % (10-50); Mean Corpuscular HGB Conc 32.5 g/dL (31.8-35.4); Mean Corpuscular Hemoglobin 24.3 pg (27.0-31.2); Mean Corpuscular Volume 74.8 fl (81-99); Mean Platelet Volume 7.8 fl (7.4-10.4); Monocytes # 0.6 K/mm3 (0.1-1.0); Monocytes % 6.5 % (1.7-9.3); Neutrophils # 6.5 K/mm3 (1.8-7.8); Neutrophils % 65.6 % (37.0-80.0); Platelet Count 372 K/mm3 (142-424); Red Blood Count 4.48 M/mm3 (4.20-5.40); Red Cell Distribution Width 14.6 % (11.5-17.5); White Blood Count 9.9 K/mm3 (4.8-10.8)
[2021-06-23 15:03] LABS: Hemoglobin A1C 6.2 % (4.0-6.0)
[2021-06-23 15:19] LABS: Alanine Aminotransferase 23 U/L (12-78); Albumin Level 4.2 g/dl (3.5-5.0); Albumin/Globulin Ratio 1.5 (1.1-1.8); Alkaline Phosphatase 90 U/L (38-126); Anion Gap 13.3 mEq/L (5-15); Aspartate Amino Transferase 24 U/L (14-36); Bilirubin,Total 0.2 mg/dl (0.2-1.3); Blood Urea Nitrogen 13 mg/dl (7-17); Calcium 9.6 mg/dl (8.4-10.2); Carbon Dioxide 22 mmol/L (22.0-30.0); Chloride 106 mmol/L (98-107); Chol/HDL Ratio 4.2 (1-3.5); Cholesterol 212 mg/dl (140-200); Estimated Glomerular Filt Rate 110 ml/min (>60); GFR (African American) 133 ML/MIN (>60); Globulin 2.8 g/dL (1.3-3.2); Glucose 136 mg/dl (74-100); HDL Cholesterol 51 mg/dl (40-60); Potassium 4.3 mmoL/L (3.5-5.1); Sodium 137 mmol/L (136-145)
[2021-06-23 15:30] LABS: Direct LDL Cholesterol 89.75 mg/dL (100-129)
[2021-06-23 15:34] LABS: Triglycerides 581 mg/dl (30-150)
[2021-06-23 15:50] LABS: Thyroid Stimulating Hormone 0.17 uIU/mL (0.465-4.68)
== END ==
PROVIDERS: Visit Provider Internal Medicine Adolescent Medicine
DX: M79.672 Pain in left foot (principal); M79.671 Pain in right foot
CPT/HCPCS: 36415; 73630; 80053; 80061; 83036; 84443; 85025

== ENCOUNTER → 2021-07-11 08:52 | Outpatient (CLI) | payer BC, SELFPAY | PROVIDERS: PCP Radiology Diagnostic Radiology; Visit Provider Nurse Practitioner | DX: U07.1 COVID-19 (principal) | CPT/HCPCS: C9803; U0003; U0005 ==

== ENCOUNTER 2021-10-06 11:33 | Outpatient (CLI) | payer BC, SELFPAY ==
[2021-10-06 11:47] VITALS: BMI 32.4
[2021-10-06 12:00] VITALS: BP 116/69; PULSE 113; RESP 18; O2SAT 98
[2021-10-06 13:00] VITALS: BP 142/81; PULSE 100; RESP 16; TEMP 37.2
--- NOTE | 2021-10-06 13:12 | XR_ITS ---
FINAL REPORT CLINICAL HISTORY: FLU + FINDINGS: Two views of the chest were obtained. There is cardiomegaly. The mediastinum is normal. No acute pulmonary abnormality is identified. There is no pneumothorax. The bony thorax is intact. IMPRESSION: No active cardiopulmonary disease. Reviewed, Interpreted and Dictated by Sanya Rowley III, MD Transcribed by Yana Perales Authenticated by Sanya Rowley III, MD on 10/06/2021 01:39:52 PM [facility]
== END 2021-10-06 13:10 | disposition home or self-care (01) ==
PROVIDERS: PCP Internal Medicine Adolescent Medicine; Visit Provider Internal Medicine Adolescent Medicine
DX: J10.1 Influenza due to other identified influenza virus with other respiratory manifestations (principal)
CPT/HCPCS: 71046; 96360

== ENCOUNTER 2022-01-11 09:37 | Observation (INO) | payer BC, SELFPAY ==
[2022-01-11] VITALS (12 sets, daily range): BP systolic 100–117; BP diastolic 52–74; PULSE 72–94; RESP 16–20; TEMP 36.7–36.8; O2SAT 97–100; BMI 32.3; BMI 31.6
--- NOTE | 2022-01-11 | ECG_ITS ---
APPROVED REPORT Exam: Resting ECG HR:83 bpm ECG Measurements Heart Rate 83 AXES HI 147 P 24 QRSd 97 QRS -30 QT 345 T 23 QTc 385 Conclusion SINUS RHYTHM BORDERLINE LEFT AXIS DEVIATION [QRS AXIS < -20] BORDERLINE ECG UNCONFIRMED REPORT Electronically signed by : Kieran Dawson MD 01/15/2022 14:11:53
--- NOTE | 2022-01-11 09:54 | XR_ITS ---
FINAL REPORT CLINICAL HISTORY: syncope COMPARISON: October 06, 2021 FINDINGS: The heart size is normal. The mediastinum is normal. There is no focal infiltrate or edema. There are no pleural effusions. There is no pneumothorax. There is no osseous abnormality. IMPRESSION: No acute cardiopulmonary process Reviewed, Interpreted and Dictated by Sanya Rowley III, MD Transcribed by Curry Murillo Authenticated and [facility]
--- NOTE | 2022-01-11 09:56 | CT_ITS ---
FINAL REPORT CLINICAL HISTORY: generalized abd pain, pt states that she has had diarrhea for a few weeks, and it has worsened since this past Saturday. FINDINGS: Axial CT images of the abdomen and pelvis were obtained without intravenous contrast. Coronal reformatted images were also obtained.This study was performed with techniques to keep radiation doses as low as reasonably achievable (ALARA). Individualized dose reduction techniques using automated exposure control or adjustment of mA and/or kV according to the patient's size were employed. Abdomen: The lung bases are clear. There is no evidence of renal stone or hydronephrosis. There is postoperative change from gastric sleeve and cholecystectomy. The liver, spleen and pancreas have an unremarkable, unenhanced appearance. No mass or adenopathy is seen. Pelvis: Images of the pelvis reveal no evidence of ureteral dilation or ureteral stone. The appendix is normal. There is diffuse colon wall thickening greatest at the cecum consistent with colitis. IMPRESSION: Colitis. Reviewed, Interpreted and Dictated by Sanya Rowley III, MD Transcribed by Curry Murillo Authenticated and . [facility]
--- NOTE | 2022-01-11 10:02 | PC.NURSE ---
rad at BS for portable xray
--- NOTE | 2022-01-11 10:18 | PC.NURSE ---
Iv established and blood sent to the lab
[2022-01-11 10:25] LABS: Coronavirus 19, PCR Not Detected (NotDetected); Influenza A, PCR Not Detected (NotDetected); Influenza B, PCR Not Detected (NotDetected)
[2022-01-11 10:26] LABS: Basophils % 0.3 % (0.1-2.0); Eosinophils # 0.1 K/mm3 (0.0-0.4); Eosinophils % 0.4 % (0.1-12.0); Hematocrit 32.8 % (37.0-47.0); Hemoglobin 10.2 g/dL (12.2-16.2); Lymphocytes # 3.6 K/mm3 (0.7-4.5); Lymphocytes % 28.2 % (10-50); Mean Corpuscular HGB Conc 31.1 g/dL (31.8-35.4); Mean Corpuscular Hemoglobin 21.8 pg (27.0-31.2); Mean Corpuscular Volume 70.1 fl (81-99); Mean Platelet Volume 6.6 fl (7.4-10.4); Monocytes # 0.7 K/mm3 (0.1-1.0); Monocytes % 5.2 % (1.7-9.3); Neutrophils # 8.5 K/mm3 (1.8-7.8); Neutrophils % 65.8 % (37.0-80.0); Platelet Count 487 K/mm3 (142-424); Red Blood Count 4.68 M/mm3 (4.20-5.40); Red Cell Distribution Width 15.2 % (11.5-17.5); White Blood Count 12.9 K/mm3 (4.8-10.8)
[2022-01-11 10:30] LABS: Chloride 105 mmol/L (98-107)
[2022-01-11 10:31] LABS: Potassium 3.7 mmoL/L (3.5-5.1); Sodium 137 mmol/L (136-145)
[2022-01-11 10:33] LABS: Alanine Aminotransferase 17 U/L (12-78); Alkaline Phosphatase 78 U/L (38-126); Anion Gap 14.7 mEq/L (5-15); Aspartate Amino Transferase 21 U/L (14-36); Bilirubin,Total 0.4 mg/dl (0.2-1.3); Blood Urea Nitrogen 19 mg/dl (7-17); Carbon Dioxide 21 mmol/L (22.0-30.0); Creatinine Clearance Estimated 56 mL/min (50-200); Estimated Glomerular Filt Rate 29 ml/min (>60); GFR (African American) 35 ML/MIN (>60)
[2022-01-11 10:34] LABS: Albumin Level 4.1 g/dl (3.5-5.0); Albumin/Globulin Ratio 1.2 (1.1-1.8); Calcium 9.7 mg/dl (8.4-10.2); Globulin 3.3 g/dL (1.3-3.2); Glucose 147 mg/dl (74-100); Lipase 32 U/L (23-300); Total Protein,Serum 7.4 g/dl (6.3-8.2)
--- NOTE | 2022-01-11 10:39 | PC.NURSE ---
CT IS BEING DONE WITHOUT CONTRAST DUE TO GFR
--- NOTE | 2022-01-11 10:39 | PC.NURSE ---
pt in bed resting at this time. no needs voiced. pt unable to provide a urine specimen right now
--- NOTE | 2022-01-11 10:41 | HMH.EDGENADL ---
ED Disposition Clinical Impression: Colitis, Dehydration, ISAI (acute kidney injury), Syncope and collapse Disposition: Admitted as Observation Condition on Discharge: [facility] - Critical Care Critical Care Time: No Attestation: On 01/11/22, the high probability of a clinically significant, sudden or life threatening deterioration of the following system(s) required my full and direct attention, intervention and personal management. The time I documented below is in addition to time spent performing reported procedures but includes the following listed in this critical care notation. Medical Decision Making - [place] Inquiry Pt receiving controlled substance: No Vital Signs: 01/11/22 09:47 01/11/22 10:16 01/11/22 10:30 Temperature 98.3 F Temperature Source Oral Pulse Rate 85 81 Pulse Rate [Left Radial] 92 H Respiratory Rate 16 18 18 Blood Pressure 103/53 L 112/58 L Blood Pressure [Right Arm] 117/62 Blood Pressure Mean 66 69 Blood Pressure Mean [Right Arm] 80 02 Sat by Pulse Oximetry 98 99 100 Oxygen Delivery Method Room Air Room Air 01/11/22 11:00 01/11/22 11:33 01/11/22 11:44 Temperature Temperature Source Pulse Rate 93 H 82 82 Pulse Rate [Left Radial] Respiratory Rate 18 18 18 Blood Pressure 116/59 L 100/60 L 110/60 Blood Pressure [Right Arm] Blood Pressure Mean 78 70 74 Blood Pressure Mean [Right Arm] 02 Sat by Pulse Oximetry 100 100 100 Oxygen Delivery Method - Lab Data Lab Results 01/11/22 10:14: WBC 12.9 H, RBC 4.68, Hgb 10.2 L, Hct 32.8 L, MCV 70.1 L, MCH 21.8 L, MCHC 31.1 L, RDW 15.2, Plt Count 487 H, MPV 6.6 L, Neut % (Auto) 65.8, Lymph % (Auto) 28.2, [place] % (Auto) 5.2, Eos % (Auto) 0.4, Baso % (Auto) 0.3, Neut # (Auto) 8.5 H, Lymph # (Auto) 3.6, [place] # (Auto) 0.7, Eos # (Auto) 0.1, Baso # (Auto) 0.0 01/11/22 10:14: Sodium 137, Potassium 3.7, Chloride 105, Carbon Dioxide 21 L, Anion Gap 14.7, BUN 19 H, Creatinine 1.90 H, Estimated Creat Clear 56, Estimated GFR 29 L, Est GFR ( Amer) 35 L, Glucose 147 H, Calcium 9.7, Total Bilirubin 0.4, AST 21, ALT 17, Alkaline Phosphatase 78, Troponin I < 0.01, Total Protein 7.4, Albumin 4.1, Globulin 3.3 H, Albumin/Globulin Ratio 1.2, Lipase 32 01/11/22 10:14: Serum HCG, Qual Negative 01/11/22 10:14: ESR 37 H 01/11/22 10:14: C-Reactive Protein 155.9 H, Procalcitonin 2.20 H 01/11/22 10:16: SARS-CoV-2 (PCR) Not detected, Influenza A Untype (PCR) Not detected, Influenza Type B (PCR) Not detected 01/11/22 11:32: Urine Color Ramona, Urine Appearance Turbid, Urine pH 5.5, Ur Specific [place] >= 1.030, Urine Protein 3+, Urine Glucose (UA) Trace, Urine Ketones Trace, Urine Blood Negative, Urine Nitrate Positive, Urine Bilirubin 2+ A, Urine Urobilinogen 1.0, Ur Leukocyte Esterase Negative, Urine WBC Occasional, Ur Squamous Epith Cells 20-50, Urine Bacteria 3+, Hyaline Casts 3-5 Result diagrams: 01/11/22 10:14 01/11/22 10:14 Orders (Tests/Meds): ED MEDICATIONS Discontinued Medications Generic Name Dose Route Start Last Admin Trade Name Freq PRN Reason Stop Dose Admin Sodium Chloride 1,000 mls @ 999 mls/hr 01/11/22 10:00 01/11/22 10:03 Sod Chlor 0.9% 1000ml Bag IV 01/11/22 11:00 999 mls/hr .Q1H1M PIERRE Administration Ondansetron HCl 4 mg 01/11/22 09:55 01/11/22 10:03 Ondansetron 4mg/2ml Vial IV 01/11/22 09:56 4 mg ONCE ONE Administration ORDERS Category Date Time Status Diarrhea 6-11 Panel, Cdiff PCR Stat Lab 01/11/22 11:32 Received Troponin I Q3H Lab 01/11/22 13:00 Ordered Troponin I Q3H Lab 01/11/22 16:00 Ordered Urine Culture Stat Micro 01/11/22 11:32 Received - Radiology Data #1 Image(s): Chest Image Reviewed: Yes I have reviewed radiologist's interpretation Procedure(s): XR chest portable Accession Number(s): [id number] cc: Kieran Dawson MD; Sanya Rowley MD~ FINAL REPORT CLINICAL HISTORY: syncope COMPARISON: October 06, 2021 FINDINGS: The heart size
[2022-01-11 10:47] LABS: Troponin I < 0.01 ng/ml (0.00-0.034)
--- NOTE | 2022-01-11 10:48 | PC.NURSE ---
pt to CT
--- NOTE | 2022-01-11 10:54 | PC.NURSE ---
pt back from CT. at the bedside
[2022-01-11 10:57] LABS: HCG Qualitative, Serum Negative (Negative)
[2022-01-11 11:08] LABS: C-Reactive Protein 155.9 mg/L (0-4)
[2022-01-11 11:16] LABS: Erythrocyte Sedimentation Rate 37 mm/hr (0-20)
--- NOTE | 2022-01-11 11:25 | PC.NURSE ---
contacted lab to notify them of added on labs, spoke with dequan
--- NOTE | 2022-01-11 11:30 | PC.NURSE ---
pt in restroom at this time, ambulated with standby staff assistance.
--- NOTE | 2022-01-11 11:36 | PC.NURSE ---
stool and urine samples sent to the lab at this time
--- NOTE | 2022-01-11 11:37 | PC.NURSE ---
urine and stool specimen sent to lab at this time.
[2022-01-11 11:39] LABS: Adenovirus F 40/41, stool Not Detected (NotDetected); Astrovirus Not Detected (NotDetected); Clostridium Difficile A/B, PCR Not Detected (NotDetected); Cryptosporidium Not Detected (NotDetected); Cyclospora Cayetanesis Not Detected (NotDetected); Entamoeba histolytica Not Detected (NotDetected); Enteroaggregative E coli Not Detected (NotDetected); Enteropathogenic E coli Not Detected (NotDetected); Enterotoxigenic E coli Not Detected (NotDetected); Giardia lamblia Not Detected (NotDetected); Microscopic, Urine URINE MICROSCOPIC (MICROSCOPIC); Norovirus Not Detected (NotDetected); Plesimonas Shigalloides, PCR Not Detected (NotDetected); Rotavirus A Not Detected (NotDetected); Salmonella, PCR Not Detected (NotDetected); Sapovirus Not Detected (NotDetected); Shiga-like toxin E coli Not Detected (NotDetected); Shigella Enterovasive E coli Not Detected (NotDetected); Vibrio Cholerae Not Detected (NotDetected); Vibrio, PCR Not Detected (NotDetected); Yersinia Entercolitica, PCR Not Detected (NotDetected)
--- NOTE | 2022-01-11 11:46 | PC.NURSE ---
waiting maintenance construction helper back from dr. hassan, staff states he is in a room. Dr. Dawson is not in the office today
[2022-01-11 11:47] LABS: Blood, Urine Negative (Negative); Glucose,Urine (UA) TRACE (Negative); Ketones,Urine TRACE (Negative); Leukocyte Esterase,Urine Negative (Negative); Nitrate,Urine POSITIVE (Negative); PH,Urine 5.5 (5.0-8.5); Protein,Urine 3+ (Negative); Specific Gravity, Urine >= 1.030 (1.005-1.030)
[2022-01-11 12:04] LABS: Appearance,Urine Turbid (Clear); Color,Urine Amber (Yellow)
[2022-01-11 12:07] LABS: Bacteria,Urine 3+ /lpf; Bilirubin,Urine 2+ (Negative); Squamous Epithelial Cell,Urine 20-50 #/hpf (0-5); WBC,Urine Occasional #/hpf (0-3)
--- NOTE | 2022-01-11 12:19 | PC.NURSE ---
CALI BECERRIL speaking with Dr. Traylor
--- NOTE | 2022-01-11 12:23 | PC.NURSE ---
notified care management of admission, spoke with anson.
--- NOTE | 2022-01-11 12:45 | PC.NURSE ---
per data warehouse specialist pt will be boarding in ER at this time.
[2022-01-11 13:16] LABS: Campylobacter Detected (NotDetected)
--- NOTE | 2022-01-11 13:23 | HMH.PHAINT ---
MEDICATION RECONCILIATION COMPLETED ON PATIENT USING EXTERNAL FILL HISTORY FROM PHARMACY. -ARIEL EASLEY, [place]
--- NOTE | 2022-01-11 13:46 | PC.NURSE ---
PT AMBULATING TO BATHROOM AND REQUESTING PAIN MEDS
[2022-01-11 13:54] LABS: Troponin I < 0.01 ng/ml (0.00-0.034)
--- NOTE | 2022-01-11 14:05 | PC.NURSE ---
called report to abiel. states he will send staff for pt
--- NOTE | 2022-01-11 15:26 | P.CONPHA_ITS ---
[facility] Pharmacy VTE Monitoring - Patient Demographics Admission date: 01/11/22 Report Date: 01/11/22 Time: 15:26 Allergies/Adverse Reactions: Patient Allergies cefaclor [From Ceclor] Allergy (Severe, Verified 08/14/21 08:57) Anaphylaxis erythromycin base [ERYTHROMYCIN BASE] Allergy (Unknown, Verified 08/14/21 08:57) ANAPHYLAXIS Sulfa (Sulfonamide Antibiotics) [SULFA (SULFONAMIDE ANTIBIOTICS)] Allergy (Unknown, Verified 08/14/21 08:57) ANAPHYLAXIS Height: 1.68 m Weight: 89.018 kg Patient Problems: Current Active Problems Colitis (Acute) Dehydration (Acute) ISAI (acute kidney injury) (Acute) Syncope and collapse (Acute) - VTE Risk Labs: VTE Related Lab Results Hgb 10.2 g/dL (12.2-16.2) L 01/11/22 10:14 Hct 32.8 % (37.0-47.0) L 01/11/22 10:14 Plt Count 487 K/mm3 (142-424) H 01/11/22 10:14 BUN 19 mg/dl (7-17) H 01/11/22 10:14 Creatinine 1.90 mg/dl (0.52-1.04) H 01/11/22 10:14 Estimated Creat Clear 56 mL/min (50-200) 01/11/22 10:14 - Prophylaxis VTE Prophylaxis Ordered?: Yes Types of VTE Prophylaxis: TEDS Knee High Location of Applied Device: Bilateral Lower Extremeties
--- NOTE | 2022-01-11 18:18 | PC.NURSE ---
SHE IS AOX4, ABLE TO MAKE NEEDS KNOWN TO STAFF, SHE HAS NOT C/O PAIN SINCE ARRIVING TO FLOOR. AND IS SOFT BUT TENDER. SHE STATES THAT HER PAIN IS NOT CONSTANT AND FEELS SIMILAR TO CONTRACTIONS. SHE HAS NOT REPORTED ANY N/V/D SINCE ARRIVING TO FLOOR.
--- NOTE | 2022-01-11 20:08 | HMH.HP ---
*Admission Date: 01/11/22 *Chief complaint: diarrhea *History of present illness: Ms. Bruner a pleasant 41-year-old female with protracted course of diarrhea for the past 6 to 8 weeks. Presented to the ER this afternoon after having syncopal event at home this morning. She states that for the past 6 to 8 weeks she has developed loose stools after starting Rybelsus. Thought it was a side effect of the medication but was having stools every 30 to 60 minutes. Bowel movements have become navarro watery, bilious in nature. No blood or melena in stool. Did not have any fevers, chest pain, shortness of breath, rash. States that the stools have become more frequent and she had become more weak over the past several days. Cannot recall last time she urinated. States that this morning she got up to go the bathroom and on her way back to bed, passed out and woke up on the floor. This prompted her to come to the emergency room for further evaluation. She states she has felt very weak, been more cold lately with lower body temperatures in the 96 degree range. Diffuse abdominal pain, worse in the right lower quadrant. In the ER concerning for ISAI and abdominal CT showing colitis in the region of the cecum. Stool PCR obtained. Medicine for further management and IV resuscitation. On evaluation this evening she states she feels marginally better. Has finally had some urine output, voided independently in the bathroom this afternoon. Stools happening every 60 to 90 minutes at this time. No recent travel. No known sick contacts. [facility] History I have reviewed the patient's past medical history: Yes Medical History: Reports:: Atrial Fibrillation, Depression, Diabetes Mellitus Type 2, Hyperlipidemia, Hypertension, Migraine Denies:: Cancer, Diabetes Mellitus Type 1, Internal Pacemaker, MRSA, Seizures *Have you ever received a pneumonia vaccine?: No *Have you received a flu vaccine this season?: No Other Medical History: Reports: Anemia, Hypothyroidism, Liver Disease, Sinus Problems, Thyroid Disease Laterality Cases: Bilateral: Tonsillectomy Other Surgeries: Yes: Bariatric Surgery (sleeve), Cholecystectomy, , Dilation and Curettage, Sinus Surgery, Thyroidectomy, Tubal Ligation, Other. No: Pacemaker Amputation: No Fractures: No - *Social History Last grade of school completed: Some college Smoking Status: Never smoker Alcohol Intake: never Alcohol Intake Frequency:: other Substance Use Type: denies use *Occupational Status:: employed Housing: house Household Members: spouse, children *Travel in the last 8 weeks: None - Psychiatric History Pschychiatric History:: Reports:: Depression Family Hx:: Cancer, Diabetes, Heart Attack, Hypertension, Hyperlipidemia, Kidney Disease, Stroke, Thyroid Disorder, Alcoholism, Mental illness, Anemia, Asthma, Coronary Artery Disease Review of Systems - Review of Systems Review of systems:: pertinent systems reviewed and negative unless documented below (14 point review of systems performed, pertinent positives and negatives as per HPI) - *Neurologic Reports fainting, Reports weakness Meds Home Medications Medication Instructions Recorded Confirmed Type Fenofibrate Nanocrystallized 145 mg PO DAILY 09/03/17 01/11/22 History [Tricor] losartan 100 mg tablet 100 mg PO DAILY 07/14/18 01/11/22 History sumatriptan succinate 50 mg tablet 50 mg PO NEEDED PRN 08/18/18 01/11/22 History ergocalciferol (vitamin D2) 1,250 1,250 mcg PO WEEKLY cap 06/22/20 01/11/22 History mcg (50,000 unit) capsule Omeprazole 40 mg PO DAILY 08/02/20 01/11/22 History bupropion HCl 300 mg 24 hr tablet, 300 mg PO DAILY 04/06/21 01/11/22 History extended release levothyroxine 200 mcg tablet 200 mcg PO DAILY tab 06/26/21 01/11/22 History metformin 500 mg tablet,extended 1,000 mg PO DAILY tab 06/26/21 01/11/22 History release 24 hr carvedilol 25 mg tablet 25 mg PO BID tab 08/14/21 01/11/22 History Semaglutide [Rybelsus
[2022-01-12 04:53] VITALS: BP 106/61; PULSE 86; RESP 16; TEMP 36.7; O2SAT 98
--- NOTE | 2022-01-12 05:14 | PC.NURSE ---
No complaints of ABD pain this shift. Patient has had some diarrhea throughout night. ABD soft yet tender. Patient express concern of headache medicated patient per mar. Patient tolerating CL diet.
[2022-01-12 05:19] VITALS: BMI 32.6
[2022-01-12 06:32] LABS: POC Glucose,Bedside 147 (70-110)
[2022-01-12 07:31] LABS: Anion Gap 12.5 mEq/L (5-15); Blood Urea Nitrogen 14 mg/dl (7-17); Calcium 8.3 mg/dl (8.4-10.2); Carbon Dioxide 21 mmol/L (22.0-30.0); Chloride 107 mmol/L (98-107); Creatinine Clearance Estimated 180 mL/min (50-200); Estimated Glomerular Filt Rate 110 ml/min (>60); GFR (African American) 133 ML/MIN (>60); Glucose 124 mg/dl (74-100); Potassium 3.5 mmoL/L (3.5-5.1); Sodium 137 mmol/L (136-145)
[2022-01-12 08:00] VITALS: BP 113/62; PULSE 64; RESP 20; TEMP 36.5; O2SAT 99
--- NOTE | 2022-01-12 10:07 | HMH.DCSUM ---
General - General Admission date:: 01/11/22 Discharge date: 01/12/22 HPI HPI: Ms. Bruner a pleasant 41-year-old female with protracted course of diarrhea for the past 6 to 8 weeks. Presented to the ER this afternoon after having syncopal event at home this morning. She states that for the past 6 to 8 weeks she has developed loose stools after starting Rybelsus. Thought it was a side effect of the medication but was having stools every 30 to 60 minutes. Bowel movements have become navarro watery, bilious in nature. No blood or melena in stool. Did not have any fevers, chest pain, shortness of breath, rash. States that the stools have become more frequent and she had become more weak over the past several days. Cannot recall last time she urinated. States that this morning she got up to go the bathroom and on her way back to bed, passed out and woke up on the floor. This prompted her to come to the emergency room for further evaluation. She states she has felt very weak, been more cold lately with lower body temperatures in the 96 degree range. Diffuse abdominal pain, worse in the right lower quadrant. In the ER concerning for ISAI and abdominal CT showing colitis in the region of the cecum. Stool PCR obtained. Medicine for further management and IV resuscitation. On evaluation this evening she states she feels marginally better. Has finally had some urine output, voided independently in the bathroom this afternoon. Stools happening every 60 to 90 minutes at this time. No recent travel. No known sick contacts. Hospital Course Hospital Course: 41-year-old female with diabetes, recently started on Rybelsus. Developed protracted course of diarrhea. Presented with syncopal event. Labs concerning for ISAI, dehydration, and Campylobacter diarrhea with colitis on imaging. Addressed as follows and admission. Colitis Dehydration ISAI -Initiated on Levaquin as her stool PCR showed Campylobacter. Had significant improvement in stool output. Tolerating p.o. intake. Drastic improvement from admission. Will transition to oral antibiotics to complete empiric course for Campylobacter diarrhea/pseudo appendicitis. Showed significant improvement in kidney function, normalized, with IV rehydration. Initiate on probiotic, continue in the outpatient setting for the next month. Added inflammatory markers to stool sample (calprotectin and fecal lactoferrin) to assess for alternate etiologies such as inflammatory bowel disease given prolonged course of diarrhea for over 6 weeks. Family history of UC. We will continue to follow these in the outpatient setting. In regard to diabetes, discontinued Rybelsus. Recommend reevaluating and close follow-up with primary care for alternative therapies. Other medications including her blood pressure medications were held during admission, recommend continuing to hold until follow-up with primary care Examined on day of discharge. Medically stable for discharge home. Objective Vital signs: Temp Pulse Resp BP Pulse Ox 97.7 F 64 20 113/62 99 01/12/22 08:00 01/12/22 08:00 01/12/22 08:00 01/12/22 08:00 01/12/22 08:00 Narrative: - Constitutional NAD on RA, obese, cooperative - *Routine HEENT Exam Head: Present: normocephalic Eye: Present: EOMI, PERRL ENT: Present: mucous membranes moist - *Routine Neck Exam Present: supple. Absent: lymphadenopathy - *Routine Respiratory Exam Present: CTA bilaterally - *Routine Cardiovascular Exam Present: RRR - *Routine Abdominal Exam Present: soft, normoactive bowel sounds, improved tenderness (Diffuse, most prominent in right lower quadrant.) - *Routine Extremities Exam Absent: cyanosis, clubbing, edema - *Routine Skin Exam Present: warm. Absent: rash - *Routine Neurological Exam Present: alert, oriented X3 Results Labs on day of discharge: Labs from last 24 hours 01/12/22 01/12/22 01/11/22 07:05 06:
[2022-01-12 13:27] LABS: POC Glucose,Bedside 124 (70-110)
--- NOTE | 2022-01-15 13:55 | CARE MANAGER ---
Spoke with patient related to discharge from hospital. She states today has been the best day. She felt really bad yesterday. She has follow up appointment tomorrow with PCP and denies any questions or concerns. ALVARADO Thompson
[2022-01-17 23:07] LABS: Calprotectin, Fecal 873 ug/g (0-120)
[2022-01-19 17:13] LABS: Lactoferrin, Fecal, Quant. 109.18 ug/mL(g) (0.00-7.24)
== END 2022-01-12 10:37 | disposition home or self-care (01) ==
LOC: ER 09:43 → 2ND 12:42
PROVIDERS: Internal Medicine Adolescent Medicine; Admitting Provider Internal Medicine Adolescent Medicine; Emergency Provider Emergency Medicine; PCP Internal Medicine Adolescent Medicine; Visit Provider Internal Medicine Adolescent Medicine
DX: A04.5 Campylobacter enteritis (principal); N17.9 Acute kidney failure, unspecified; E86.0 Dehydration; E11.9 Type 2 diabetes mellitus without complications; Z79.84 Long term (current) use of oral hypoglycemic drugs; E03.9 Hypothyroidism, unspecified; I48.91 Unspecified atrial fibrillation; I10 Essential (primary) hypertension; G43.909 Migraine, unspecified, not intractable, without status migrainosus; K52.9 Noninfective gastroenteritis and colitis, unspecified; Z20.822 Contact with and (suspected) exposure to COVID-19
CPT/HCPCS: 36415; 71045; 74176; 80048; 80053; 81001; 82962; 83630; 83690; 83993; 84145; 84484; 84703; 85025; 85651; 86140; 87086; 87506; 93005; 99285; C9803; G0378; J2405; U0003; U0005

== ENCOUNTER → 2022-02-09 15:54 | Outpatient (CLI) | payer BC, SELFPAY ==
[2022-02-09 18:06] LABS: Occult Blood,Stool Negative (Negative)
== END ==
PROVIDERS: PCP Internal Medicine Adolescent Medicine; Visit Provider Nurse Practitioner Family
DX: Z12.11 Encounter for screening for malignant neoplasm of colon (principal)
CPT/HCPCS: 82272; G0328

== ENCOUNTER → 2022-02-09 16:05 | Outpatient (CLI) | payer BC, SELFPAY ==
[2022-02-09 18:06] LABS: Occult Blood,Stool Negative (Negative)
== END ==
PROVIDERS: Visit Provider Nurse Practitioner Family
DX: Z12.11 Encounter for screening for malignant neoplasm of colon (principal)
CPT/HCPCS: 82272; G0328

== ENCOUNTER 2022-02-21 14:18 | Outpatient (CLI) | payer BC, SELFPAY ==
[2022-02-21 14:36] VITALS: BP 148/89; PULSE 63; RESP 18; TEMP 36.7; O2SAT 100
[2022-02-21 15:18] VITALS: BP 133/84; PULSE 69; RESP 18; O2SAT 99
== END 2022-02-21 15:19 | disposition home or self-care (01) ==
LOC: INF 14:20
PROVIDERS: PCP Internal Medicine Adolescent Medicine; Visit Provider Internal Medicine Medical Oncology
DX: D50.8 Other iron deficiency anemias (principal)
CPT/HCPCS: 96365; J1756

== ENCOUNTER 2022-02-26 13:07 | Outpatient (CLI) | payer BC, SELFPAY ==
[2022-02-26 13:25] VITALS: BP 155/79; PULSE 81; RESP 16; TEMP 36.4; O2SAT 100
[2022-02-26 14:03] VITALS: BP 151/85; PULSE 78; RESP 16; TEMP 36.4; O2SAT 100
== END 2022-02-26 14:10 | disposition home or self-care (01) ==
LOC: INF 13:07
PROVIDERS: PCP Internal Medicine Adolescent Medicine; Visit Provider Internal Medicine Medical Oncology
DX: D50.0 Iron deficiency anemia secondary to blood loss (chronic) (principal); N92.0 Excessive and frequent menstruation with regular cycle
CPT/HCPCS: 96365; J1756

== ENCOUNTER 2022-03-05 08:15 | Outpatient (CLI) | payer BC, SELFPAY ==
[2022-03-05 08:42] VITALS: BP 130/76; PULSE 75; RESP 18; O2SAT 99
[2022-03-05 09:15] VITALS: BP 141/86; PULSE 66; RESP 18
== END 2022-03-05 09:20 | disposition home or self-care (01) ==
PROVIDERS: PCP Internal Medicine Adolescent Medicine; Visit Provider Internal Medicine Medical Oncology
DX: D50.8 Other iron deficiency anemias (principal)
CPT/HCPCS: 96365; J1756

== ENCOUNTER 2022-03-13 14:33 | Outpatient (CLI) | payer BC, SELFPAY ==
[2022-03-13 14:50] VITALS: BP 155/83; PULSE 92; RESP 18; TEMP 36.6; O2SAT 98
[2022-03-13 15:35] VITALS: BP 152/88; PULSE 86; RESP 18
== END 2022-03-13 15:35 | disposition home or self-care (01) ==
LOC: INF 14:33
PROVIDERS: PCP Internal Medicine Adolescent Medicine; Visit Provider Internal Medicine Medical Oncology
DX: D50.9 Iron deficiency anemia, unspecified (principal)
CPT/HCPCS: 96365; J1756

== ENCOUNTER 2022-03-20 14:15 | Outpatient (CLI) | payer BC, SELFPAY ==
[2022-03-20 14:39] VITALS: BP 156/84; PULSE 82; RESP 18; TEMP 36.3; O2SAT 99
[2022-03-20 15:23] VITALS: BP 149/88; PULSE 81; RESP 18; O2SAT 100
== END 2022-03-20 15:23 | disposition home or self-care (01) ==
LOC: INF 14:16
PROVIDERS: PCP Internal Medicine Adolescent Medicine; Visit Provider Internal Medicine Medical Oncology
DX: D50.8 Other iron deficiency anemias (principal)
CPT/HCPCS: 96365; J1756

== ENCOUNTER → 2022-03-26 11:04 | Outpatient (CLI) | payer BC, SELFPAY ==
[2022-03-26 11:19] LABS: Adenovirus F 40/41, stool Not Detected (NotDetected); Astrovirus Not Detected (NotDetected); Campylobacter Not Detected (NotDetected); Clostridium Difficile A/B, PCR Not Detected (NotDetected); Cryptosporidium Not Detected (NotDetected); Cyclospora Cayetanesis Not Detected (NotDetected); Entamoeba histolytica Not Detected (NotDetected); Enteropathogenic E coli Not Detected (NotDetected); Enterotoxigenic E coli Not Detected (NotDetected); Giardia lamblia Not Detected (NotDetected); Norovirus Not Detected (NotDetected); Plesimonas Shigalloides, PCR Not Detected (NotDetected); Rotavirus A Not Detected (NotDetected); Salmonella, PCR Not Detected (NotDetected); Sapovirus Not Detected (NotDetected); Shiga-like toxin E coli Not Detected (NotDetected); Shigella Enterovasive E coli Not Detected (NotDetected); Vibrio Cholerae Not Detected (NotDetected); Vibrio, PCR Not Detected (NotDetected); Yersinia Entercolitica, PCR Not Detected (NotDetected)
[2022-03-26 20:36] LABS: Enteroaggregative E coli Detected (NotDetected)
[2022-03-29 15:36] LABS: Pancreatic Elastase, Fecal 473 (>200)
[2022-03-30 16:14] LABS: Fats, Neutral Normal (.); Fats, Total Increased (.)
== END ==
PROVIDERS: PCP Internal Medicine Adolescent Medicine; Visit Provider Nurse Practitioner Family
DX: R19.7 Diarrhea, unspecified (principal); A04.5 Campylobacter enteritis; A04.4 Other intestinal Escherichia coli infections; A09 Infectious gastroenteritis and colitis, unspecified; R15.2 Fecal urgency; D50.9 Iron deficiency anemia, unspecified
CPT/HCPCS: 82656; 82705; 87507

== ENCOUNTER → 2022-04-16 10:37 | Outpatient (CLI) | payer BC, SELFPAY ==
[2022-04-16 11:32] LABS: Basophils # 0.1 K/mm3 (0-0.2); Basophils % 0.8 % (0.1-2.0); Eosinophils # 0.2 K/mm3 (0.0-0.4); Eosinophils % 2.8 % (0.1-12.0); Hematocrit 42.5 % (37.0-47.0); Hemoglobin 13.4 g/dL (12.2-16.2); Lymphocytes # 2.1 K/mm3 (0.7-4.5); Lymphocytes % 29.9 % (10-50); Mean Corpuscular HGB Conc 31.4 g/dL (31.8-35.4); Mean Corpuscular Hemoglobin 25.4 pg (27.0-31.2); Mean Corpuscular Volume 80.8 fl (81-99); Mean Platelet Volume 7.5 fl (7.4-10.4); Monocytes # 0.5 K/mm3 (0.1-1.0); Monocytes % 6.9 % (1.7-9.3); Neutrophils # 4.2 K/mm3 (1.8-7.8); Neutrophils % 59.6 % (37.0-80.0); Platelet Count 455 K/mm3 (142-424); Red Blood Count 5.27 M/mm3 (4.20-5.40); White Blood Count 7.1 K/mm3 (4.8-10.8)
[2022-04-16 12:47] LABS: Chloride 103 mmol/L (98-107); Sodium 139 mmol/L (136-145)
[2022-04-16 12:49] LABS: Alanine Aminotransferase 21 U/L (12-78); Alkaline Phosphatase 76 U/L (38-126); Aspartate Amino Transferase 22 U/L (14-36); Bilirubin,Total 0.3 mg/dl (0.2-1.3); Blood Urea Nitrogen 9 mg/dl (7-17); Estimated Glomerular Filt Rate 110 ml/min (>60); GFR (African American) 133 ML/MIN (>60)
[2022-04-16 12:50] LABS: Albumin Level 4.4 g/dl (3.5-5.0); Albumin/Globulin Ratio 1.6 (1.1-1.8); Calcium 9.4 mg/dl (8.4-10.2); Carbon Dioxide 26 mmol/L (22.0-30.0); Globulin 2.7 g/dL (1.3-3.2); Glucose 117 mg/dl (74-100); Iron 63 ug/dL (37-170); Phosphorous 3.8 mg/dl (2.5-4.5); Total Protein,Serum 7.1 g/dl (6.3-8.2)
[2022-04-16 12:59] LABS: Total Iron Binding Capacity 495 ug/dL (265-497)
[2022-04-16 13:25] LABS: Ferritin 46.9 ng/ml (6.24-137)
== END ==
PROVIDERS: PCP Internal Medicine Adolescent Medicine; Visit Provider Internal Medicine Medical Oncology
DX: D50.8 Other iron deficiency anemias (principal)
CPT/HCPCS: 36415; 80053; 82728; 83540; 83550; 84100; 85025

== ENCOUNTER → 2022-07-14 09:20 | Outpatient (CLI) | payer BC, SELFPAY ==
[2022-07-14 10:16] LABS: Basophils # 0.1 K/mm3 (0-0.2); Eosinophils # 0.1 K/mm3 (0.0-0.4); Eosinophils % 1.4 % (0.1-12.0); Hematocrit 43.3 % (37.0-47.0); Hemoglobin 13.6 g/dL (12.2-16.2); Lymphocytes % 22.9 % (10-50); Mean Corpuscular HGB Conc 31.4 g/dL (31.8-35.4); Mean Corpuscular Hemoglobin 27.7 pg (27.0-31.2); Mean Platelet Volume 7.8 fl (7.4-10.4); Monocytes # 0.7 K/mm3 (0.1-1.0); Monocytes % 7.3 % (1.7-9.3); Neutrophils # 5.9 K/mm3 (1.8-7.8); Neutrophils % 67.4 % (37.0-80.0); Platelet Count 425 K/mm3 (142-424); Red Blood Count 4.92 M/mm3 (4.20-5.40); Red Cell Distribution Width 14.7 % (11.5-17.5); White Blood Count 8.8 K/mm3 (4.8-10.8)
[2022-07-14 11:13] LABS: 25-OH Vitamin D, Total 21.3 ng/mL (30-100)
[2022-07-14 11:42] LABS: Alanine Aminotransferase 20 U/L (12-78); Albumin Level 4.7 g/dl (3.5-5.0); Albumin/Globulin Ratio 1.7 (1.1-1.8); Alkaline Phosphatase 66 U/L (38-126); Anion Gap 14.4 mEq/L (5-15); Aspartate Amino Transferase 19 U/L (14-36); Bilirubin,Total 0.6 mg/dl (0.2-1.3); Blood Urea Nitrogen 11 mg/dl (7-17); Calcium 9.6 mg/dl (8.4-10.2); Carbon Dioxide 25 mmol/L (22.0-30.0); Chloride 104 mmol/L (98-107); Chol/HDL Ratio 3.7 (1-3.5); Cholesterol 190 mg/dl (140-200); Estimated Glomerular Filt Rate 92 ml/min (>60); GFR (African American) 111 ML/MIN (>60); Globulin 2.8 g/dL (1.3-3.2); Glucose 108 mg/dl (74-100); HDL Cholesterol 51 mg/dl (40-60); Potassium 4.4 mmoL/L (3.5-5.1); Sodium 139 mmol/L (136-145); Total Protein,Serum 7.5 g/dl (6.3-8.2); Triglycerides 202 mg/dl (30-150); VLDL Cholesterol 40 mg/dL (0-40)
[2022-07-14 11:53] LABS: Direct LDL Cholesterol 105.06 mg/dL (100-129)
[2022-07-14 12:32] LABS: Vitamin B12 446 pg/mL (239-931)
[2022-07-14 14:03] LABS: Iron 79 ug/dL (37-170)
[2022-07-14 14:13] LABS: Total Iron Binding Capacity 432 ug/dL (265-497)
[2022-07-14 14:40] LABS: Ferritin 32.5 ng/ml (6.24-137)
== END ==
PROVIDERS: PCP Internal Medicine Adolescent Medicine; Visit Provider Internal Medicine Adolescent Medicine
DX: I48.0 Paroxysmal atrial fibrillation (principal); E11.9 Type 2 diabetes mellitus without complications; E89.0 Postprocedural hypothyroidism; Z86.2 Personal history of diseases of the blood and blood-forming organs and certain disorders involving the immune mechanism; Z79.84 Long term (current) use of oral hypoglycemic drugs; E55.9 Vitamin D deficiency, unspecified
CPT/HCPCS: 36415; 80053; 80061; 82306; 82607; 82728; 83036; 83540; 83550; 84443; 85025

== ENCOUNTER → 2022-08-01 16:59 | Outpatient (CLI) | payer BC, SELFPAY | PROVIDERS: PCP Internal Medicine Adolescent Medicine; Visit Provider Internal Medicine Adolescent Medicine | DX: R30.0 Dysuria (principal); B96.29 Other Escherichia coli [E. coli] as the cause of diseases classified elsewhere | CPT/HCPCS: 87086; 87088; 87186 ==

== ENCOUNTER 2022-10-16 13:40 | Outpatient (CLI) | payer BC, SELFPAY ==
[2022-10-16 14:01] VITALS: BP 160/95; PULSE 104; RESP 18; TEMP 36.8; O2SAT 99
[2022-10-16 14:43] VITALS: BP 149/94; PULSE 93; RESP 18
== END 2022-10-16 14:43 | disposition home or self-care (01) ==
LOC: INF 13:42
PROVIDERS: PCP Internal Medicine Adolescent Medicine; Visit Provider Internal Medicine Medical Oncology
DX: D50.9 Iron deficiency anemia, unspecified (principal)
CPT/HCPCS: 96365; J1439

== ENCOUNTER 2022-10-23 13:08 | Outpatient (CLI) | payer BC, SELFPAY ==
[2022-10-23 13:26] VITALS: BP 124/82; PULSE 76; RESP 18; O2SAT 99
[2022-10-23 14:00] VITALS: BP 146/76; PULSE 82; RESP 18; O2SAT 99
== END 2022-10-23 14:15 | disposition home or self-care (01) ==
LOC: INF 13:08
PROVIDERS: PCP Internal Medicine Adolescent Medicine; Visit Provider Internal Medicine Medical Oncology
DX: D50.9 Iron deficiency anemia, unspecified (principal)
CPT/HCPCS: 96365; J1439

== ENCOUNTER → 2023-01-17 14:14 | Outpatient (CLI) | payer BC, SELFPAY ==
[2023-01-17 14:24] LABS: Adenovirus F 40/41, stool Not Detected (NotDetected); Astrovirus Not Detected (NotDetected); Campylobacter Not Detected (NotDetected); Clostridium Difficile A/B, PCR Not Detected (NotDetected); Cryptosporidium Not Detected (NotDetected); Cyclospora Cayetanesis Not Detected (NotDetected); Entamoeba histolytica Not Detected (NotDetected); Enteroaggregative E coli Not Detected (NotDetected); Enteropathogenic E coli Not Detected (NotDetected); Enterotoxigenic E coli Not Detected (NotDetected); Giardia lamblia Not Detected (NotDetected); Norovirus Not Detected (NotDetected); Plesimonas Shigalloides, PCR Not Detected (NotDetected); Rotavirus A Not Detected (NotDetected); Salmonella, PCR Not Detected (NotDetected); Sapovirus Not Detected (NotDetected); Shiga-like toxin E coli Not Detected (NotDetected); Shigella Enterovasive E coli Not Detected (NotDetected); Vibrio Cholerae Not Detected (NotDetected); Vibrio, PCR Not Detected (NotDetected); Yersinia Entercolitica, PCR Not Detected (NotDetected)
--- NOTE | 2023-01-17 14:25 | US_ITS ---
PROCEDURE: US TRANSVAGINAL CLINICAL INDICATION: RLQ pain/ possible ovarian cyst COMPARISON: No exams were available for comparison FINDINGS: Transvaginal sonographic images were obtained of the pelvis. UTERUS: 8cm x 5cmx 4cm with a combined endometrial thickness of 7.9mm. Anterior Caesarean section scar is visualized. There are 2 dominant nabothian cysts in the cervix measuring 1.7 cm and 1.3 cm. There are several smaller nabothian cysts. LEFT OVARY: 1atk6smh2.6cm with a volume of 7.6ml.Left ovary is difficult to visualize. Transabdominal views were obtained and there were several small follicles on the periphery of the left ovary. RIGHT OVARY: 3cmx 5yyr3ht with a volume of 7.2ml. Within the right ovary are 2 small follicles. They are by a thin membrane. The total combined measurement is 1.4 cm x 1.8 cm x 1.4 cm. Both ovaries are seen and appear normal. Doppler flow to both ovaries are seen. There is no fluid in the cul-de-sac. IMPRESSION: 1. Anteverted uterus normal in shape and size. 2. Both ovaries are seen and appear to be normal. There are two small follicles in the right ovary by a thin membrane and each measures approximately 8 millimeters. 3. No fluid within the cul-de-sac. Dictated by: Paul Perez MD 01/19/2023 14:35 Paul Perez MD in OV 01/19/2023 14:35
[2023-01-21 00:05] LABS: Calprotectin, Fecal 46 ug/g (0-120)
== END ==
PROVIDERS: PCP Physician Assistant; Visit Provider Obstetrics & Gynecology
DX: N83.209 Unspecified ovarian cyst, unspecified side (principal); R10.813 Right lower quadrant abdominal tenderness
CPT/HCPCS: 76830; 83993; 87177; 87493; 87507

== ENCOUNTER → 2023-06-28 12:28 | Outpatient (CLI) | payer BC, SELFPAY | LOC: LAB.DROPOF 12:29 | PROVIDERS: PCP Internal Medicine Adolescent Medicine; Visit Provider Internal Medicine Adolescent Medicine | DX: R31.9 Hematuria, unspecified (principal); B96.1 Klebsiella pneumoniae [K. pneumoniae] as the cause of diseases classified elsewhere | CPT/HCPCS: 87086 ==

== ENCOUNTER 2023-12-09 12:56 | Outpatient (CLI) | payer BC, SELFPAY ==
--- NOTE | 2023-12-09 12:59 | XR_ITS ---
FINAL REPORT CLINICAL HISTORY: TENSION MELGAR,NECK PAIN,NUMBNESS OF UPPER EXTREMITY FINDINGS: CERVICAL SPINE 5 views of the cervical spine were obtained. There is partial fusion at C6-7. There is no significant neuroforaminal narrowing. Mild degenerative changes are seen at C5-6. There is no acute fracture or subluxation. Soft tissues are unremarkable. IMPRESSION: Degenerative changes without acute bony abnormality. No significant neuroforaminal narrowing. Reviewed, Interpreted and Dictated by Sanya Rowley III, MD Transcribed by Sue Sanchez Authenticated and [facility] [place]
== END 2023-12-09 23:59 | disposition home or self-care (01) ==
LOC: RAD 12:57
PROVIDERS: PCP Internal Medicine Adolescent Medicine; Visit Provider Internal Medicine Adolescent Medicine
DX: G44.209 Tension-type headache, unspecified, not intractable (principal); M54.2 Cervicalgia; R20.0 Anesthesia of skin
CPT/HCPCS: 72050

== ENCOUNTER 2024-01-06 14:01 | Outpatient (CLI) | payer BC, SELFPAY ==
--- NOTE | 2024-01-06 14:06 | XR_ITS ---
FINAL REPORT CLINICAL HISTORY: BACK PAIN,FALL COMPARISON: None FINDINGS: SINGLE VIEW PELVIS: A single view of the pelvis was obtained. There is no acute fracture or dislocation. Vizualized joint spaces are normally aligned. Soft tissues are unremarkable. IMPRESSION: No acute bony abnormality. Reviewed, Interpreted and Dictated by Sanya Rowley III, MD Transcribed by Maya Bautista Authenticated and . [facility]
--- NOTE | 2024-01-06 14:06 | XR_ITS ---
FINAL REPORT CLINICAL HISTORY: BACK PAIN,FALL COMPARISON: None FINDINGS: SACRUM COCCYX 3 views demonstrate no acute fracture or dislocation. The sacral arches are intact. The sacroiliac joints are unremarkable. No soft tissue abnormality is seen. IMPRESSION: No acute process. Reviewed, Interpreted and Dictated by Sanya Rowley III, MD Transcribed by Maya Bautista Authenticated and [facility] [place]
== END 2024-01-06 23:59 | disposition home or self-care (01) ==
LOC: RAD 14:02
PROVIDERS: PCP Internal Medicine Adolescent Medicine; Visit Provider Internal Medicine Adolescent Medicine
DX: M53.3 Sacrococcygeal disorders, not elsewhere classified (principal)
CPT/HCPCS: 72170; 72220

== ENCOUNTER 2024-01-07 17:00 | Outpatient (RCR) | payer BC, SELFPAY ==
--- NOTE | 2023-12-05 10:35 | HMH.PTOPEV ---
PT Outpatient Evaluation Rehab PT Outpatient Evaluation Start: 12/05/23 10:03 Freq: Status: Active Protocol: Document 12/05/23 10:03 JAYDEN (Rec: 12/05/23 10:35 JACQUELINELAURA [id number]) E-signed By Roland Turner, PT Outpatient Therapy Subjective History Subjective History Patient is a 43 year old female presenting to outpatient PT with reports of chronic cervical spine pain starting approximately 10 years ago. Symptoms of insidious onset. Intermittent NT to C7 dermatomes B. Symptoms R>L. Previous relief with injections. Comorbidities include hx of HTN, HL, diabetes and Hashimotos. New diagnosis of cancer in past 12 No months? Chief Complaint Pain,Stiff Symptom Type Ache,Sharp,Numbness,Tingling Symptoms Relieved By Heat,Prescription Meds Symptoms Aggravated By Physical Activity,Lifting Prior Functional Limitations Reaching,Lifting,Housework Current Functional Limitations Reaching,Lifting,Housework Symptom Description Constant but Variable Level of pain today (0-10) 3 Pain scale - at its best (0-10) 2 Pain scale - at its worst (0-10) 8 Cervical Eval Palpation Cervical Muscles R Upper Trapezius,L Upper Trapezius Posture Head/C-Spine Posture Sitting Position C-Spine Flattened Head/C-Spine Posture Standing Position C-Spine Flattened Flexibility Deficits Upper Trapezius Muscle Length (R) Moderate Tightness,(L) Moderate Tightness Pectoralis Minor Muscle Length (R) Moderate Tightness,(L) Moderate Tightness Passive Joint Mobility Cervical PIVM WNL: R OA L OA R AA L AA R C2/3 L C2/3 R C3/4 L C3/4 R C4/5 L C4/5 R C5/6 L C5/6 R C6/7 L C6/7 R C7/T1 L C7/T1 AROM Cervical Spine Extension Active Range of 32 Motion (degrees) Cervical Spine Flexion Active Range of 44 Motion (degrees) Cervical Spine Right Lateral Flexion 33 Active Range of Motion (degrees) Cervical Spine Left Lateral Flexion 37 Active Range of Motion (degrees) Cervical Spine Right Rotation Active WNL Range of Motion (degrees) Cervical Spine Left Rotation Active WNL Range of Motion (degrees) MMT Bilateral Deltoid (C5) 5 Normal Biceps Brachii Strength Grade 5 Normal Wrist Extension Strength Grade 5 Normal Triceps Brachii Strength Grade 5 Normal Wrist Flexion Strength Grade 5 Normal Extensor Pollicis Longus Strength Grade 5 Normal Finger Abduction Strength Grade 5 Normal Altered Sensation Upper extremity Dermatomes C7 Comment int NT Special Test C-Spine Foraminal Compression (Spurling) Negative Left,Negative Right Test C-Spine Foraminal Distraction Test Positive Neck Disability Index Neck Disability Index Section 1: Pain Intensity The pain is moderate at the moment Section 2: Personal Care (washing, I can look after myself dressing, etc.) normally without causing extra pain Section 3: Lifting I can lift heavy weights but it gives extra pain Section 4: Reading I can read as much as I want with moderate pain in my neck Section 5: Headaches I have severe headaches, which come frequently Section 6: Concentration I can concentrate fully when I want to with slight difficulty Section 7: Work I can do as much work as I want to Section 8: Driving I can drive my car without any neck pain Section 9: Sleeping My sleep is completely disturbed (5-7 hrs sleepless) Section 10: Recreation I am able to engage in all my recreation activities with some pain in NDI Score 16 Outpatient Therapy Assessment Impairments Problems/Impairmments Palpation Tenderness,Impaired Range of Motion,Impaired Lifting,Impaired Household Care,Subjective C/O Pain Prognosis Rehab Potential Good Clinical Impression Consistent with Diagnosis Yes Short Term Goals Number of Weeks 2 Decrease Subjective C/O Pain Yes: 5/10 at worst Patient to be Ind w/ HEP Yes Sql Tech Goals Number of Weeks 4-6 Decreased Palpation Tenderness Yes: 1/4 Increase Range of Motion Yes: WNL Restore Ability to Lift Objects to Yes: 10 lb without difficulty Shoulder Level Restore Ability to Lift Objects Overhead Yes: Improve Ability For Household Care Yes Improve Neck Disability Index Score Yes: <10 Decrease Subjective C/O Pain Yes: 2/10 at worst Outpatient Therapy Plan of Care Treatment Plan May Include Therapeutic Exercise Including Home Yes Exercise Program Manual Therapy Techniques Yes Neuromuscular Re-education Yes Therapeutic Activities to Return to Yes Previous Functional/Work Level Gait Training Yes ADL/Self Care Education Yes Mechanical Traction Yes Dry Needling Yes Thermal Modalities Yes Electrical Stimulation Yes Ultrasound/Phonophoresis Yes Iontophoresis Yes Massage Yes Eval/Re-Eval Yes Frequency Times per week 2 Duration Number of Weeks 4-6 Addendums This patient is a candidate for social No or vocational rehab? Patient/Guardian verbally acknowledges Yes understanding of treatment program and consents to further treatment? Patient/Guardian verbally acknowledges Yes understanding of diagnosis, prognosis and goals for treatment? Eval Complexity PT Charges 16818 - Moderate Complexity Shoulder/Elbow Eval Shoulder Objective Measurements Elbow Objective Measurements PHYSICIAN CERTIFICATION: I certify the specified therapy services for Yoanna Bethany Power are required, authorized, and reviewed every 30 days.
== END 2024-01-07 18:20 | disposition home or self-care (01) ==
LOC: PT 17:00
PROVIDERS: Visit Provider Internal Medicine Adolescent Medicine
DX: M54.2 Cervicalgia (principal)
CPT/HCPCS: 20561; 97010; 97014; 97110; 97163; 97530; G0283

== ENCOUNTER 2024-01-21 10:26 | Outpatient (CLI) | payer BC, SELFPAY ==
--- NOTE | 2024-01-21 10:33 | US_ITS ---
FINAL REPORT TECHNIQUE: Ultrasound images of the kidneys and bladder were obtained. CLINICAL HISTORY: UTI COMPARISON: None FINDINGS: The right kidney measures 12.6 cm in length. It is normal in echogenicity. There is no hydronephrosis. The left kidney measures 13.2 cm in length. There is a hypoechoic focus in the left kidney that may represent either a parapelvic cyst or prominent calyx. There is no hydronephrosis. IMPRESSION: No evidence of hydronephrosis or renal mass in either kidney. Reviewed, Interpreted and Dictated by Cassie Montana MD Transcribed by Linh Salvador Authenticated and [facility]
== END 2024-01-21 23:59 | disposition home or self-care (01) ==
LOC: RAD 10:27
PROVIDERS: PCP Internal Medicine Adolescent Medicine; Visit Provider Internal Medicine Adolescent Medicine
DX: N30.90 Cystitis, unspecified without hematuria (principal); N23 Unspecified renal colic
CPT/HCPCS: 76770

== ENCOUNTER 2024-02-17 17:05 | Outpatient (CLI) | payer BC, SELFPAY ==
--- NOTE | 2024-02-17 17:13 | XR_ITS ---
PROCEDURE INFORMATION: Exam: XR Cervical Spine Exam date and time: 02/17/2024 5:16 PM Age: 44 years old Clinical indication: Radicular pain (radiculopathy); Cervical region; Additional info: Cervical rad. Herniated cervical disc TECHNIQUE: Imaging protocol: Radiologic exam of the cervical spine. Views: 4 or 5 views. COMPARISON: CR XR CERVICAL SPINE 5V 12/09/2023 1:01 PM FINDINGS: Bones/joints: There is no evidence of acute fracture.There is no evidence of malalignment or dislocation. Fusion of C6 and C7.. Alignment does not vary significantly with active flexion or extension Soft tissues: Unremarkable. IMPRESSION: 1. There is no evidence of acute fracture.There is no evidence of malalignment or dislocation. 2. Fusion of C6 and C7..
== END 2024-02-17 23:59 | disposition home or self-care (01) ==
LOC: RAD 17:07
PROVIDERS: PCP Internal Medicine Adolescent Medicine; Visit Provider Neurological Surgery
DX: M54.12 Radiculopathy, cervical region (principal); M50.20 Other cervical disc displacement, unspecified cervical region
CPT/HCPCS: 72050

== ENCOUNTER 2024-03-02 17:00 | Outpatient (RCR) | payer BC, SELFPAY ==
--- NOTE | 2024-02-04 18:25 | HMH.PTOPEV ---
PT Outpatient Evaluation Rehab PT Outpatient Evaluation Start: 02/04/24 18:07 Freq: Status: Active Protocol: Document 02/04/24 18:07 JAYDEN (Rec: 02/04/24 18:25 JAYDEN [id number]) E-signed By Roland Turner, PT Outpatient Therapy Subjective History Subjective History Patient is a 44 year old female presenting to outpatient PT with reports of chronic cervical spine pain starting approx 5 years ago with the introduction of performing prolonged desk work activities. No specific mechanism of injury to report. Most recent imaging indicates CS degenerative changes with partial fusion of C 6/7. Comorbidities include hx of anx/dep, diabetes, hasimoto's and HTN. New diagnosis of cancer in past 12 No months? 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 Type Dull,Burning Symptoms Relieved By Ice,Prescription Meds,Activity Symptoms Aggravated By Physical Activity Prior Functional Limitations None Current Functional Limitations Reaching,Lifting,Housework, Desk Work/Reading,Driving, Sleeping Symptom Description Constant but Variable Level of pain today (0-10) 5 Pain scale - at its best (0-10) 4 Pain scale - at its worst (0-10) 9 Cervical Eval Palpation Cervical Muscles R Cervical Paraspinal,L Cervical Paraspinal,R Suboccipital,L Suboccipital,R CT Junction,L CT Junction,R Upper Trapezius,L Upper Trapezius,R Thoracic Paraspinals,L Thoracic Paraspinals Cervical/Thoracic Palpation Findings Tenderness,Spasm,Trigger Point ,Muscle Guarding Posture Head/C-Spine Posture Sitting Position C-Spine Flattened Head/C-Spine Posture Standing Position C-Spine Flattened Flexibility Deficits Upper Trapezius Muscle Length (R) Moderate Tightness,(L) Moderate Tightness Levaetor Scapulae Muscle Length (R) Moderate Tightness,(L) Moderate Tightness Scalene Group Muscle Length (R) Moderate Tightness,(L) Moderate Tightness Pectoralis Minor Muscle Length (R) Moderate Tightness,(L) Moderate Tightness Passive Joint Mobility Cervical PIVM Dec: L C4/5 R C5/6 L C5/6 R C6/7 L C6/7 R C7/T1 L C7/T1 WNL: R OA L OA R AA L AA R C2/3 L C2/3 R C3/4 L C3/4 R C4/5 AROM Cervical Spine Extension Active Range of 58 Motion (degrees) Cervical Spine Flexion Active Range of 44 Motion (degrees) Cervical Spine Right Lateral Flexion 24 Active Range of Motion (degrees) Cervical Spine Left Lateral Flexion 42 Active Range of Motion (degrees) Cervical Spine Right Rotation Active 47 Range of Motion (degrees) Cervical Spine Left Rotation Active 40 Range of Motion (degrees) MMT Left Deltoid (C5) 5 Normal Biceps Brachii Strength Grade 5 Normal Wrist Extension Strength Grade 5 Normal Triceps Brachii Strength Grade 5 Normal Wrist Flexion Strength Grade 4- Good- Extensor Pollicis Longus Strength Grade 4- Good- Finger Abduction Strength Grade 4- Good- DTR Rt Biceps 1+ Lt Biceps 2+ Rt Brachioradialis 1+ Lt Brachioradialis 1+ Rt Triceps 1+ Lt Triceps 2+ Special Test C-Spine Foraminal Compression (Spurling) Negative Left,Negative Right Test C-Spine Foraminal Distraction Test Positive Neck Disability Index Neck Disability Index Section 1: Pain Intensity The pain is moderate at the moment Section 2: Personal Care (washing, I need help every day in most dressing, etc.) aspects of self care Section 3: Lifting Pain prevents me from lifting heavy weights, but I can manage light to Section 4: Reading I can hardly read at all because of severe pain in my neck Section 5: Headaches I have headaches almost all the time Section 6: Concentration I can concentrate fully when I want to with no difficulty Section 7: Work I can only do my usual work, but no more Section 8: Driving I can't drive my car as long as I want because of moderate pain in my Section 9: Sleeping My sleep is completely disturbed (5-7 hrs sleepless) Section 10: Recreation I am able to engage in a few of my usual recreation activities because NDI Score 30 Outpatient Therapy Assessment Impairments Problems/Impairmments Palpation Tenderness,Impaired Range of Motion,Impaired Strength,Impaired Driving, Impaired Lifting,Impaired Household Care,Impaired Work Activities,Impaired Desk/ Computer Activities,Subjective C/O Pain Prognosis Rehab Potential Fair Clinical Impression Consistent with Diagnosis Yes Short Term Goals Number of Weeks 2 Decrease Subjective C/O Pain Yes: 5/10 at worst Patient to be Ind w/ HEP Yes Long-Term Goals Number of Weeks 4-6 Decreased Palpation Tenderness Yes: 1/4 Increase Range of Motion Yes: WNL Increase Strength Yes: 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 knitting 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 strength 55+ Improve Ability For Household Care Yes Improve Tolerance to Work Activities Yes Improve Tolerance to Desk/Computer Yes Activities Improve Neck Disability Index Score Yes: <20 Decrease Subjective C/O Pain Yes: 2/10 at worst Outpatient Therapy Plan of Care Treatment Plan May Include Therapeutic Exercise Including Home Yes Exercise Program Manual Therapy Techniques Yes Neuromuscular Re-education Yes Therapeutic Activities to Return to Yes Previous Functional/Work Level Gait Training Yes ADL/Self Care Education Yes Mechanical Traction Yes Dry Needling Yes Thermal Modalities Yes Electrical Stimulation Yes Ultrasound/Phonophoresis Yes Iontophoresis Yes Orthotics/Bracing/Splinting Yes Vasopneumatic Compression Pump Yes Massage Yes Eval/Re-Eval Yes Frequency Times per week 2 Duration Number of Weeks 4-6 Addendums This patient is a candidate for social No or vocational rehab? Patient/Guardian verbally acknowledges Yes understanding of treatment program and consents to further treatment? Patient/Guardian verbally acknowledges Yes understanding of diagnosis, prognosis and goals for treatment? Eval Complexity PT Charges 28920 - Moderate Complexity Shoulder/Elbow Eval Shoulder Objective Measurements Elbow Objective Measurements PHYSICIAN CERTIFICATION: I certify the specified therapy services for Yoanna Brar are required, authorized, and reviewed every 30 days.
== END 2024-03-02 17:05 | disposition home or self-care (01) ==
LOC: PT 17:00
PROVIDERS: Visit Provider Internal Medicine Adolescent Medicine
DX: M50.20 Other cervical disc displacement, unspecified cervical region (principal); G44.209 Tension-type headache, unspecified, not intractable; R94.131 Abnormal electromyogram [EMG]
CPT/HCPCS: 97110; 97163

== ENCOUNTER 2024-07-09 12:53 | Outpatient (CLI) | payer BC, SELFPAY ==
--- NOTE | 2024-07-09 12:56 | CA_ITS ---
FINAL REPORT TECHNIQUE: Graded compression, spectral analysis and ultrasound images of the venous system of the right upper extremity were obtained. CLINICAL HISTORY: Right axillary pain with upper extremity bruising FINDINGS: The jugular vein, subclavian vein, axillary vein, brachial vein, cephalic vein and basilic venous system are fully compressible and demonstrate no evidence of thrombosis. IMPRESSION: No evidence of thrombosis of the venous system of the right upper extremity. Reviewed, Interpreted and Dictated by Cassie Montana MD Transcribed by Lady Camarillo Authenticated and [facility]
== END 2024-07-09 23:59 | disposition home or self-care (01) ==
LOC: RT 12:54
PROVIDERS: PCP Internal Medicine Adolescent Medicine; Visit Provider Nurse Practitioner Family
DX: M79.621 Pain in right upper arm (principal)
CPT/HCPCS: 93971

== ENCOUNTER 2024-10-22 13:42 | Outpatient (CLI) | payer BC, SELFPAY ==
--- NOTE | 2024-10-22 13:45 | US_ITS ---
FINAL REPORT CLINICAL HISTORY: Left thigh pain, questionable abscess FINDINGS: ULTRASOUND SOFT TISSUES OF THE LEFT THIGH TECHNIQUE: Limited sonographic imaging of the soft tissues of the left thigh were obtained. FINDINGS: There is a 2.8 x 1.2 cm heterogeneous, and partially hypoechoic focus correlating to the site of clinical abnormality. This may represent a hematoma. IMPRESSION: 2.8 cm focus at the area of interest in the left thigh may represent a hematoma. Correlation with clinical scenario is recommended. MRI may be beneficial. Reviewed, Interpreted and Dictated by Tobin Anna MD Transcribed by Lady Camarillo Authenticated and . [facility]
--- OUTSIDE RECORDS SUMMARY | 2024-10-22 13:45 | XMS_ITS ---
Author Organization [facility] , [facility] Address [address] [place] [phone] Phone Care Team Providers Care Ball Shagger Name Role Phone NAGI BECERRIL, [facility] [phone] Taz BECERRIL, Dane Freeman Primary Care Provider [phone] Problems Includes: Active, inactive, and resolved Problems All Visits Onset Date Resolved Date Provider Condition S tatus Pain in the Right Hand Only 11/03/2014 Dane Mcghee MD Active Last Documented On 5 9:04AM ; [facility], [facility] Plan of Treatment Instructions to patient Instructions for patient Last Documented On 5 9:06AM ; [facility], [facility] Weight management Last Documented On 5 9:06AM ; [facility], [facility] Lose weight Last Documented On 5 9:06AM ; [facility], [facility] Assessments Includes: Assessments for all patient encounters No Assessments Recorded Instructions Includes: Instructions for all patient encounters Instructions to patient Instructions for patient Last Documented On 5 9:06AM ; [facility], [facility] Weight management Last Documented On 5 9:06AM ; [facility], [facility] Lose weight Last Documented On 5 9:06AM ; [facility], [facility] Medical Equipment - Implanted Devices Includes: Current and historical Devices No Medical Equipment Recorded Medications Includes: Current and historical Medications Current Medications (continue as prescribed) Tricor 145 MG Tablet 11/03/2014 Provider: Diagnosis: Last Documented On 5 9:07AM By Milka Rois ; [facility], [facility] Wellbutrin 100 MG Tablet 11/03/2014 Provider: Diagnosis: Last Documented On 5 9:07AM By Milka Rios ; [facility], [facility] Metoprolol Tartrate 100 MG Tablet 11/03/2014 Provide r: Diagnosis: Last Documented On 5 9:07AM By Milka Rios ; [facility] Singulair 10 MG Tablet 11/03/2014 Provider: Diagnosis: Last Documented On 5 9:08AM By Milka Rios ; [facility] Treximet 85-500 MG Tablet 11/03/2014 Provider: Diagnosis: Last Documented On 5 9:08AM By Milka Rios ; [facility] MetFORMIN HCl 500 MG Tablet 11/03/2014 Provider: Diagnosis: Last Documented On 5 9:08AM By Milka Rios ; [facility] Benicar HCT 40-12.5 MG Tablet 11/03/2014 Provider: Diagnosis: Last Documented On 5 9:08AM By Milka Rios ; [facility] Tirosint 100 MCG Capsule, conventional 11/03/2014 Pr ovider: Diagnosis: Last Documented On 5 9:08AM By Milka Rios ; [facility] D3/Vitamin C/Zinc Tablet 11/03/2014 Provider: Diagnosis: Last Documented On 5 9:08AM By Milka Rios ; [facility] [place]-3 Capsule, conventional 11/03/2014 Provide r: Diagnosis: Last Documented On 5 9:08AM By Milka Rios ; [facility] Cranberry/Probiotic Tablet 11/03/2014 Provider: Diagnosis: Last Documented On 5 9:08AM By Milka Rios ; [facility] Medications Administered Includes: Administered Medications in patient's chart No Administered Medications Recorded Results Includes: Results from 10/23/2023 through 10/22/2024 No Results Recorded For Specified Dates History of Present Illness History of Present Illness not supported for this document type No History of Present Illness Recorded Social History Description Last Updated No tobacco use 11/03/2014 Last Documented On 5 9:27AM ; [facility] Smoking status : Never smoker 11/03/2014 Last Documented On 5 9:27AM ; [facility] Not a current smoker 11/03/2014 Last Documented On 5 9:27AM ; [facility] Not using alcohol 11/03/2014 Last Documented On 5 9:27AM ; [facility] Not using drugs 11/03/2014 Last Documented On 5 9:27AM ; [facility] Medical History Includes: Medical History in patient's chart Description Last Updated Breast reduction ~Thyroidect thomas ~ x3 ~Rhinoplasty ~Endometrial ablation ~Chicken pox 11/03/2014 Last Documented On 5 9:27AM ; [facility] History of diabetes mellitus 11/03/2014 Last Documented On 5 9:27AM ; [facility] Intermittent hypertension 11/03/2014 Last Documented On 5 9:27AM ; [facility] Family History Includes: Family History in patient's chart Description Last Updated Stroke/seizures 11/03/2014 Last Documented On 5 9:27AM ; [facility] Family history of diabetes mellitus 10/07 Last Documented On 5 9:27AM ; [facility] Family history of heart disease 11/04/19 15 Last Documented On 5 9:27AM ; [facility] Family history of hypertension 5 Last Documented On 5 9:27AM ; [facility] Review of Systems Review of Systems not supported for this document type No Review of Systems Recorded Mental Status No Mental Status Recorded Functional Status No Functional Status Recorded Physical Exam Physical Exam not supported for this document type No Physical Exam Recorded Allergies Includes: Active, inactive, and resolved Allergies Substance Type Reaction Onset Date Resolved Date Statu s Sulfa Antibiotics Allergy 11/03/2014 A ctive Last Documented On 5 9:04AM ; [facility] Erythromycin Allergy 11/03/2014 Active Last Documented On 5 9:04AM ; [facility] Ceclor Allergy 11/03/2014 Active Last Documented On 5 9:04AM ; [facility] Insurance Includes: Active Insurance Policies Plan Name Member ID Group # Subscriber Relationship Effect sukhdeep Dates 1 - [facility] [id number] MaykelVelasquezJem 07/08/2014 - Unknown Clinical Notes Includes: Signed Clinical Notes starting from 06/21/2022 No Clinical Notes Recorded
--- OUTSIDE RECORDS SUMMARY | 2024-10-22 13:45 | XMS_ITS | Clinical Summary ---
Author Organization [facility] Address [address] [place] [phone] Phone Care Team Providers Care Dye Room Helper Name Role Phone NAGI BECERRIL, [facility] [phone] Taz BECERRIL, Dane Freeman Primary Care Provider [phone] Reason for Visit and Chief Complaint EMG Problems Includes: Problems addressed during this encounter and other active Problems All Visits Onset Date Resolved Date Provider Condition S tatus Pain in the Right Hand Only 11/03/2014 Dane Mcghee MD Active Last Documented On 5 9:04AM ; [facility], [facility] Plan of Treatment No Plan of Treatment Recorded Assessments Includes: Assessments from this encounter No Assessments Recorded Medical Equipment - Implanted Devices Includes: Current Devices No Medical Equipment Recorded Medications Includes: Medications discussed during this encounter and other current Medications Current Medications (continue as prescribed) Tricor 145 MG Tablet 11/03/2014 Provider: Diagnosis: Last Documented On 5 9:07AM By Milka Rios ; [facility], [facility] Wellbutrin 100 MG Tablet 11/03/2014 Provider: Diagnosis: Last Documented On 5 9:07AM By Milka Rios ; [facility], [facility] Metoprolol Tartrate 100 MG Tablet 11/03/2014 Provide r: Diagnosis: Last Documented On 5 9:07AM By Milka Rios ; [facility], [facility] Singulair 10 MG Tablet 11/03/2014 Provider: Diagnosis: Last Documented On 5 9:08AM By Milka Rios ; [facility], [facility] Treximet 85-500 MG Tablet 11/03/2014 Provider: Diagnosis: Last Documented On 5 9:08AM By Milka Rios ; [facility], [facility] MetFORMIN HCl 500 MG Tablet 11/03/2014 Provider: Diagnosis: Last Documented On 5 9:08AM By Milka Rios ; [facility] Benicar HCT 40-12.5 MG Tablet 11/03/2014 Provider: Diagnosis: Last Documented On 5 9:08AM By Milka Rios ; [facility] Tirosint 100 MCG Capsule, conventional 11/03/2014 Pr ovider: Diagnosis: Last Documented On 5 9:08AM By Milka Rios ; [facility], [facility] D3/Vitamin C/Zinc Tablet 11/03/2014 Provider: Diagnosis: Last Documented On 5 9:08AM By Milka iRos ; [facility], [facility] CV[facility] [place]-3 Capsule, conventional 11/03/2014 Provide r: Diagnosis: Last Documented On 5 9:08AM By Milka Rios ; [facility], [facility] Cranberry/Probiotic Tablet 11/03/2014 Provider: Diagnosis: Last Documented On 5 9:08AM By Milka Rios ; [facility] Medications Administered Includes: Administered Medications from this encounter No Administered Medications Recorded Results Includes: Results discussed during this encounter No Results Recorded For Specified Dates History of Present Illness Includes: History of Present Illness from this encounter No History of Present Illness Recorded Social History No Social History Recorded - Smoking Status Unknown Medical History Includes: Medical History addressed during this encounter No Medical History Recorded Family History Includes: Family History addressed during this encounter No Family History Recorded Review of Systems Includes: Review of Systems from this encounter No Review of Systems Recorded Mental Status Includes: Mental Status from this encounter No Mental Status Recorded Functional Status Includes: Functional Status from this encounter No Functional Status Recorded Physical Exam Includes: Physical Exam from this encounter No Physical Exam Recorded Allergies Includes: Active Allergies Substance Type Reaction Onset Date Resolved Date Statu s Sulfa Antibiotics Allergy 11/03/2014 A ctive Last Documented On 5 9:04AM ; [facility] Erythromycin Allergy 11/03/2014 Active Last Documented On 5 9:04AM ; [facility] Ceclor Allergy 11/03/2014 Active Last Documented On 5 9:04AM ; [facility] Encounters Encounter Provider Location Date Check-In Time Check-Out Time Diagnosis EMG [facility] 11/12/2014 12:29PM 11:59PM Insurance Includes: Active Insurance Policies Plan Name Member ID Group # Subscriber Relationship Effect sukhdeep Dates 1 - [facility] [id number] 07/08/2014 - Unknown Clinical Notes Includes: Clinical Notes from this encounter No Clinical Notes Recorded
--- OUTSIDE RECORDS SUMMARY | 2024-10-22 13:45 | XMS_ITS | Clinical Summary ---
Author Organization [facility] , [facility] Address [address] [place] [phone] Phone Care Team Providers Care Sensor Technician Name Role Phone NAGI BECERRIL, [facility] [phone] Taz BECERRIL, Dane Freeman Primary Care Provider [phone] Reason for Visit and Chief Complaint referred by Self - The Chief Complaint is: Rt hand?numbness and tingling. Patient is had symptoms for 4 years but the recent symptoms have recently worsened. She is a diabetic as well Problems Includes: Problems addressed during this encounter and other active Problems Current Visit Onset Date Resolved Date Provider David valdivia Status Pain in the Right Hand Only 11/03/2014 Dane Mcghee MD Active Last Documented On 5 9:04AM ; [facility], [facility] Plan of Treatment Bilateral operative from EMG/nerve conduction study. Plan on doing the left side as well for the EMG since she is diabetic and this could be used as a control. - Last Documented On 11/04/2014 9:27AM ; [facility], [facility] Patient is to have EMG @ our facility 11/12/14 @ 1:00pm & will follow up with Dr. Mcghee 11/15/14 @ 10:30am./jms - Last Documented On 11/04/2014 9:27AM ; [facility], [facility] Instructions to patient Instructions for patient Last Documented On 5 9:06AM ; [facility], [facility] Weight management Last Documented On 5 9:06AM ; [facility], [facility] Lose weight Last Documented On 5 9:06AM ; [facility], [facility] Assessments Includes: Assessments from this encounter Findings right carpal tunnel syndrome - Last Documented On 11/04/2014 9:27AM ; [facility] Instructions Includes: Instructions from this encounter Instructions to patient Instructions for patient Last Documented On 5 9:06AM ; [facility] Weight management Last Documented On 5 9:06AM ; [facility] Lose weight Last Documented On 5 9:06AM ; [facility], [facility] Medical Equipment - Implanted Devices Includes: Current Devices No Medical Equipment Recorded Medications Includes: Medications discussed during this encounter and other current Medications Current Medications (continue as prescribed) Tricor 145 MG Tablet 11/03/2014 Provider: Diagnosis: Last Documented On 5 9:07AM By Milka Rios ; [facility], [facility] Wellbutrin 100 MG Tablet 11/03/2014 Provider: Diagnosis: Last Documented On 5 9:07AM By Milka Rios ; [facility], [facility] Metoprolol Tartrate 100 MG Tablet 11/03/2014 Provide r: Diagnosis: Last Documented On 5 9:07AM By Milka Rios ; [facility], [facility] Singulair 10 MG Tablet 11/03/2014 Provider: Diagnosis: Last Documented On 5 9:08AM By Milka Rios ; [facility], [facility] Treximet 85-500 MG Tablet 11/03/2014 Provider: Diagnosis: Last Documented On 5 9:08AM By Milka Rios ; [facility], [facility] MetFORMIN HCl 500 MG Tablet 11/03/2014 Provider: Diagnosis: Last Documented On 5 9:08AM By Milka Rios ; [facility], [facility] Benicar HCT 40-12.5 MG Tablet 11/03/2014 Provider: Diagnosis: Last Documented On 5 9:08AM By Milka Rios ; [facility], [facility] Tirosint 100 MCG Capsule, conventional 11/03/2014 Pr ovider: Diagnosis: Last Documented On 5 9:08AM By Milka Rios ; [facility], [facility] D3/Vitamin C/Zinc Tablet 11/03/2014 Provider: Diagnosis: Last Documented On 5 9:08AM By Milka Rios ; [facility], [facility] [place]-3 Capsule, conventional 11/03/2014 Provide r: Diagnosis: Last Documented On 5 9:08AM By Milka [facility]OME[facility] Cranberry/Probiotic Tablet 11/03/2014 Provider: Diagnosis: Last Documented On 5 9:08AM By Milka Rios ; [facility] Medications Administered Includes: Administered Medications from this encounter No Administered Medications Recorded Vital Signs Includes: Vital Signs from this encounter Vital Name 11/03/2014 09:05A Blood Pressure Sitting L 131/82 Pulse Rate-Sitting (bpm) 72 Height (in) 66 Weight (lb) 240 Body Mass Index (kg/m2) 38.7 Body Surface Area (m2) 2.2 Last Documented: On 11/03/2014 9:05AM ; [facility] Results Includes: Results discussed during this encounter No Results Recorded For Specified Dates History of Present Illness Includes: History of Present Illness from this encounter NOREEN Brar is a 34 year old female. - Medication list reviewed with patient. - Previous history of gradual onset pain 6+ years. Social History Description Last Updated No tobacco use 11/03/2014 Last Documented On 5 9:27AM ; [facility] Smoking status : Never smoker 11/03/2014 Last Documented On 5 9:27AM ; [facility] Not a current smoker 11/03/2014 Last Documented On 5 9:27AM ; [facility] Not using alcohol 11/03/2014 Last Documented On 5 9:27AM ; [facility] Not using drugs 11/03/2014 Last Documented On 5 9:27AM ; [facility] Procedures and Surgical History Includes: Procedures from this encounter Procedures Code Diagnosis Performing Provider Service L ocation Service Date history of orthopedic options: physical therapy Last Documented On 5 9:05AM ; [facility] Clinical summary provided to patient Last Documented On 5 9:06AM ; [facility] Medical History Includes: Medical History addressed during this encounter Description Last Updated Breast reduction ~Thyroidect thomas ~ x3 ~Rhinoplasty ~Endometrial ablation ~Chicken pox 11/03/2014 Last Documented On 5 9:27AM ; [facility] History of diabetes mellitus 11/03/2014 Last Documented On 5 9:27AM ; [facility] Intermittent hypertension 11/03/2014 Last Documented On 5 9:27AM ; [facility] Family History Includes: Family History addressed during this encounter Description Last Updated Stroke/seizures 11/03/2014 Last Documented On 5 9:27AM ; [facility] Family history of diabetes mellitus 10/07 Last Documented On 5 9:27AM ; [facility] Family history of heart disease 11/04/19 15 Last Documented On 5 9:27AM ; [facility] Family history of hypertension 5 Last Documented On 5 9:27AM ; [facility] Review of Systems Includes: Review of Systems from this encounter Systemic: Not feeling tired (fatigue), no recent weight loss, and no recent weight gain. No edema. Head: Headache. No sinus pain and no sinus pain. Eyes: No vision problems, no vision problems, and no glaucomatous visual field defect. Otolaryngeal: No hearing loss, no hearing loss, and no tinnitus. No nasal symptoms. Cardiovascular: No chest pain or discomfort, no chest pain or discomfort, and no palpitations. Pulmonary: No daytime asthma symptoms, no cough, and no chronic cough. No wheezing. Gastrointestinal: No heartburn, no heartburn, and no abdominal pain. Endocrine: No hot flashes and no muscle weakness. Hematologic: No easy bleeding and no tendency for easy bruising. Musculoskeletal: No lower back pain. No soft tissue swelling and no localized joint pain. Neurological: No dizziness, no convulsions, and no numbness. Psychological: No anxiety, no emotional lability, no depression, and no insomnia. Not crying for no reason. Skin: No rash and no ulcers. Allergic and Immunologic: No complaint of seasonal allergic reaction. Mental Status Includes: Mental Status from this encounter Description No anxiety Functional Status Includes: Functional Status from this encounter No Functional Status Recorded Physical Exam Includes: Physical Exam from this encounter Allergies Includes: Active Allergies Substance Type Reaction Onset Date Resolved Date Statu s Sulfa Antibiotics Allergy 11/03/2014 A ctive Last Documented On 5 9:04AM ; [facility] Erythromycin Allergy 11/03/2014 Active Last Documented On 5 9:04AM ; [facility], [facility] Ceclor Allergy 11/03/2014 Active Last Documented On 5 9:04AM ; [facility], [facility] Encounters Encounter Provider Location Date Check-In Time Check-Out Time Diagnosis NEW PATIENT Dane Mcghee MD [facility] 11/04/19 15 8:53AM 9:29AM Insurance Includes: Active Insurance Policies Plan Name Member ID Group # Subscriber Relationship Effect sukhdeep Dates 1 - [facility] [id number] Jem Brar 07/08/2014 - Unknown Clinical Notes Includes: Clinical Notes from this encounter No Clinical Notes Recorded
--- OUTSIDE RECORDS SUMMARY | 2024-10-22 13:45 | XMS_ITS ---
Care Plan - [facility], [facility] Created on: October 22, 2024 Yoanna Brar : 1980 Sex: Female Author Organization [facility] , [facility] Address [address] [place] [phone] Phone Care Team Providers Care Mental Health Therapist Name Role Phone NAGI BECERRIL, [facility] [phone] Taz BECERRIL, Dane Freeman Primary Care Provider [phone]
== END 2024-10-22 23:59 | disposition home or self-care (01) ==
LOC: RAD 13:43
PROVIDERS: PCP Internal Medicine Adolescent Medicine; Visit Provider Surgery
DX: L02.416 Cutaneous abscess of left lower limb (principal); R93.6 Abnormal findings on diagnostic imaging of limbs
CPT/HCPCS: 76882

== ENCOUNTER 2024-10-23 14:38 | Observation (INO) | payer BC, SELFPAY ==
[2024-10-23] VITALS (13 sets, daily range): BP systolic 126–190; BP diastolic 72–105; PULSE 76–127; RESP 16–20; TEMP 36.4–36.7; O2SAT 94–100; BMI 32.5; BMI 33.3
--- NOTE | 2024-10-23 14:55 | ECG_ITS ---
APPROVED REPORT Exam: Resting ECG HR:120 bpm ECG Measurements Heart Rate 120 AXES LA 163 P 73 QRSd 78 QRS -65 QT 321 T 49 QTc 393 Conclusion SINUS TACHYCARDIA LEFT AXIS DEVIATION [QRS AXIS < -30] POSSIBLE ANTERIOR MYOCARDIAL INFARCTION , OF INDETERMINATE AGE [30 ms Q WAVE IN V3/V4, OR R < 0.2 mV IN V4] INFERIOR MYOCARDIAL INFARCTION , OF INDETERMINATE AGE [40+ ms Q WAVE AND/OR ST/T ABNORMALITY IN II/aVF] ABNORMAL ECG Electronically signed by : WINDY AVILA, 10/27/2024 22:24:51
[2024-10-23 15:02] LABS: Basophils # 0.1 K/mm3 (0-0.2); Basophils % 0.7 % (0.1-2.0); Eosinophils # 0.2 Kmm3 (0.0-0.4); Eosinophils % 2.1 % (0.1-12.0); Hematocrit 43.2 % (37.0-47.0); Hemoglobin 14.5 g/dL (12.2-16.2); Lymphocytes # 1.8 K/mm3 (0.7-4.5); Lymphocytes % 17.7 % (10-50); Mean Corpuscular HGB Conc 33.6 g/dL (31.8-35.4); Mean Corpuscular Hemoglobin 29.8 pg (27.0-31.2); Mean Corpuscular Volume 88.7 fl (81-99); Mean Platelet Volume 9.5 fl (7.4-10.4); Monocytes # 0.7 K/mm3 (0.1-1.0); Monocytes % 7.2 % (1.7-9.3); Neutrophils # 7.2 K/mm3 (1.8-7.8); Neutrophils % 71.8 % (37.0-80.0); Nucleated Red Blood Cells # 0 10^3/uL; Nucleated Red Blood Cells % 0 %; Platelet Count 401 K/mm3 (142-424); Red Blood Count 4.87 M/mm3 (4.20-5.40); Red Cell Distribution Width-SD 42.6 fL
[2024-10-23] MEDS: 0.9 % SODIUM CHLORIDE 1000ML 1,000 ML 999 ML IV (15:02)
--- OUTSIDE RECORDS SUMMARY | 2024-10-23 15:06 | XMS_ITS ---
Author Organization [facility] , [facility] Address [address] [place] [phone] Phone Care Team Providers Care Panel Fitter Name Role Phone NAGI BECERRIL, [facility] [phone] Taz BECERRIL, Dane Freeman Primary Care Provider [phone] Problems Includes: Active, inactive, and resolved Problems All Visits Onset Date Resolved Date Provider Condition S tatus Pain in the Right Hand Only 11/03/2014 Dane Mcghee MD Active Last Documented On 5 9:04AM ; [facility], [facility] Plan of Treatment Instructions to patient Instructions for patient Last Documented On 5 9:06AM ; [facility] Weight management Last Documented On 5 9:06AM ; [facility] Lose weight Last Documented On 5 9:06AM ; [facility] Assessments Includes: Assessments for all patient encounters No Assessments Recorded Instructions Includes: Instructions for all patient encounters Instructions to patient Instructions for patient Last Documented On 5 9:06AM ; [facility] Weight management Last Documented On 5 9:06AM ; [facility] Lose weight Last Documented On 5 9:06AM ; [facility] Medical Equipment - Implanted Devices Includes: Current and historical Devices No Medical Equipment Recorded Medications Includes: Current and historical Medications Current Medications (continue as prescribed) Tricor 145 MG Tablet 11/03/2014 Provider: Diagnosis: Last Documented On 5 9:07AM By Milka Rios ; [facility], [facility] Wellbutrin 100 MG Tablet 11/03/2014 Provider: Diagnosis: Last Documented On 5 9:07AM By Milka Rios ; [facility] Metoprolol Tartrate 100 MG Tablet 11/03/2014 Provide r: Diagnosis: Last Documented On 5 9:07AM By Milka Rios ; [facility] Singulair 10 MG Tablet 11/03/2014 Provider: Diagnosis: Last Documented On 5 9:08AM By Milka Rios ; [facility] Treximet 85-500 MG Tablet 11/03/2014 Provider: Diagnosis: Last Documented On 5 9:08AM By Milka Rios ; [facility] MetFORMIN HCl 500 MG Tablet 11/03/2014 Provider: Diagnosis: Last Documented On 5 9:08AM By Milka Rios ; [facility] Benicar HCT 40-12.5 MG Tablet 11/03/2014 Provider: Diagnosis: Last Documented On 5 9:08AM By Milka Rios ; [facility] Tirosint 100 MCG Capsule, conventional 11/03/2014 Pr ovider: Diagnosis: Last Documented On 5 9:08AM By Milka Rios ; [facility] D3/Vitamin C/Zinc Tablet 11/03/2014 Provider: Diagnosis: Last Documented On 5 9:08AM By Milka Rios ; [facility]-3 Capsule, conventional 11/03/2014 Provide r: Diagnosis: Last Documented On 5 9:08AM By Milka Rios ; [facility] Cranberry/Probiotic Tablet 11/03/2014 Provider: Diagnosis: Last Documented On 5 9:08AM By Milka Rios ; [facility] Medications Administered Includes: Administered Medications in patient's chart No Administered Medications Recorded Results Includes: Results from 10/24/2023 through 10/23/2024 No Results Recorded For Specified Dates History of Present Illness History of Present Illness not supported for this document type No History of Present Illness Recorded Social History Description Last Updated No tobacco use 11/03/2014 Last Documented On 5 9:27AM ; [facility] Smoking status : Never smoker 11/03/2014 Last Documented On 5 9:27AM ; [facility] Not a current smoker 11/03/2014 Last Documented On 5 9:27AM ; [facility] Not using alcohol 11/03/2014 Last Documented On 5 9:27AM ; [facility] Not using drugs 11/03/2014 Last Documented On 5 9:27AM ; [facility] Medical History Includes: Medical History in patient's chart Description Last Updated Breast reduction ~Thyroidect thomas ~ x3 ~Rhinoplasty ~Endometrial ablation ~Chicken pox 11/03/2014 Last Documented On 5 9:27AM ; [facility] History of diabetes mellitus 11/03/2014 Last Documented On 5 9:27AM ; [facility] Intermittent hypertension 11/03/2014 Last Documented On 5 9:27AM ; [facility] Family History Includes: Family History in patient's chart Description Last Updated Stroke/seizures 11/03/2014 Last Documented On 5 9:27AM ; [facility] Family history of diabetes mellitus 10/07 Last Documented On 5 9:27AM ; [facility] Family history of heart disease 11/04/19 15 Last Documented On 5 9:27AM ; [facility] Family history of hypertension 5 Last Documented On 5 9:27AM ; [facility] Review of Systems Review of Systems not [...] ctive Last Documented On 5 9:04AM ; [facility] Erythromycin Allergy 11/03/2014 Active Last Documented On 5 9:04AM ; [facility] Ceclor Allergy 11/03/2014 Active Last Documented On 5 9:04AM ; [facility] Insurance Includes: Active Insurance Policies Plan Name Member ID Group # Subscriber Relationship Effect skuhdeep Dates 1 - [facility] [id number] MaykelVelasquezJem 07/08/2014 - Unknown Clinical Notes Includes: Signed Clinical Notes starting from 06/21/2022 No Clinical Notes Recorded
--- OUTSIDE RECORDS SUMMARY | 2024-10-23 15:06 | XMS_ITS | Clinical Summary ---
Author Organization [facility] , [facility] Address [address] [place] [phone] Phone Care Team Providers Care Wrapper Sizer Name Role Phone NAGI BECERRIL, [facility] [phone] Taz BECERRIL, Dane Freeman Primary Care Provider [phone] Reason for Visit and Chief Complaint EMG Problems Includes: Problems addressed during this encounter and other active Problems All Visits Onset Date Resolved Date Provider Condition S tatus Pain in the Right Hand Only 11/03/2014 Dane Mcghee MD Active Last Documented On 5 9:04AM ; [facility], [facility] Plan of Treatment No Plan of Treatment Recorded Assessments Includes: Assessments from this encounter No Assessments Recorded Medical Equipment - Implanted Devices Includes: Current Devices No Medical Equipment Recorded Medications Includes: Medications discussed during this encounter and other current Medications Current Medications (continue as prescribed) Tricor 145 MG Tablet 11/03/2014 Provider: Diagnosis: Last Documented On 5 9:07AM By Milka Rios ; [facility], [facility] Wellbutrin 100 MG Tablet 11/03/2014 Provider: Diagnosis: Last Documented On 5 9:07AM By Milka Rios ; [facility], [facility] Metoprolol Tartrate 100 MG Tablet 11/03/2014 Provide r: Diagnosis: Last Documented On 5 9:07AM By Milka Rios ; [facility], [facility] Singulair 10 MG Tablet 11/03/2014 Provider: Diagnosis: Last Documented On 5 9:08AM By Milka Rios ; [facility], [facility] Treximet 85-500 MG Tablet 11/03/2014 Provider: Diagnosis: Last Documented On 5 9:08AM By Milka Riso ; [facility], [facility] MetFORMIN HCl 500 MG Tablet 11/03/2014 Provider: Diagnosis: Last Documented On 5 9:08AM By Milka Rios ; [facility] Benicar HCT 40-12.5 MG Tablet 11/03/2014 Provider: Diagnosis: Last Documented On 5 9:08AM By Milka Rios ; [facility] Tirosint 100 MCG Capsule, conventional 11/03/2014 Pr ovider: Diagnosis: Last Documented On 5 9:08AM By Milka Rios ; [facility], [facility] D3/Vitamin C/Zinc Tablet 11/03/2014 Provider: Diagnosis: Last Documented On 5 9:08AM By Milka Rios ; [facility], [facility] [place]-3 Capsule, conventional 11/03/2014 Provide r: Diagnosis: Last Documented On 5 9:08AM By Milka Rios ; [facility], [facility] Cranberry/Probiotic Tablet 11/03/2014 Provider: Diagnosis: Last Documented On 5 9:08AM By Milka Rios ; [facility] Medications Administered Includes: Administered Medications [...] ctive Last Documented On 5 9:04AM ; [facility] Erythromycin Allergy 11/03/2014 Active Last Documented On 5 9:04AM ; [facility] Ceclor Allergy 11/03/2014 Active Last Documented On 5 9:04AM ; [facility] Encounters Encounter Provider Location Date Check-In Time Check-Out Time Diagnosis EMG [facility] 11/12/2014 12:29PM 11:59PM Insurance Includes: Active Insurance Policies Plan Name Member ID Group # Subscriber Relationship Effect sukhdeep Dates 1 - [facility] [place] [id number] MaykelJem 07/08/2014 - Unknown Clinical Notes Includes: Clinical Notes from this encounter No Clinical Notes Recorded
--- OUTSIDE RECORDS SUMMARY | 2024-10-23 15:06 | XMS_ITS ---
Care Plan - [facility], [facility] Created on: October 23, 2024 Yoanna Brar : 1980 Sex: Female Author Organization [facility] Address [address] [place] [phone] Phone Care Team Providers Care Terminal Superintendent Name Role Phone NAGI BECERRIL, [facility] [phone] Taz BECERRIL, Dane Freeman Primary Care Provider [phone]
[2024-10-23 15:07] LABS: VBG Base Excess -5.1 mmol/L (-2.4-2.3); VBG HCO3 20.3 mmol/L (23-30); VBG Oxygen Saturation 83.8 % (50-70); VBG PCO2 36.5 mmol/L (35-51); VBG PH 7.36 mmol/L (7.31-7.41); VBG PO2 48.1 mmol/L (28-40); VBG Total CO2 21.4 mmol/L (23-27)
--- OUTSIDE RECORDS SUMMARY | 2024-10-23 15:07 | XMS_ITS | Clinical Summary ---
Author Organization [facility] , [facility] Address [address] [place] [phone] Phone Care Team Providers Care Compliance Analyst Name Role Phone NAGI BECERRIL, [facility] [phone] Taz BECERRIL, Dane Freeman Primary Care Provider [phone] Reason for Visit and Chief Complaint referred [...] Active Last Documented On 5 9:04AM ; [facility], [facility] Plan of Treatment Bilateral operative from EMG/nerve conduction study. Plan on doing the left side as well for the EMG since she is diabetic and this could be used as a control. - Last Documented On 11/04/2014 9:27AM ; [facility], [facility] Patient is to have EMG @ our facility 11/12/14 @ 1:00pm & will follow up with Dr. Mcghee 11/15/14 @ 10:30am./jms - Last Documented On 11/04/2014 9:27AM ; [facility], [facility] Instructions to patient Instructions for patient Last Documented On 5 9:06AM ; [facility], [facility] Weight management Last Documented On 5 9:06AM ; [facility], [facility] Lose weight Last Documented On 5 9:06AM ; [facility], [facility] Assessments Includes: Assessments from this encounter Findings right carpal tunnel syndrome - Last Documented On 11/04/2014 9:27AM ; [facility] Instructions Includes: Instructions from this encounter Instructions to patient Instructions for patient Last Documented On 5 9:06AM ; [facility] Weight management Last Documented On 5 9:06AM ; [facility] Lose weight Last Documented On 5 9:06AM ; [facility], [facility] Medical Equipment - Implanted Devices Includes: Current Devices No Medical Equipment Recorded Medications Includes: Medications discussed during this encounter and other current Medications Current Medications (continue as prescribed) Tricor 145 MG Tablet 11/03/2014 Provider: Diagnosis: Last Documented On 5 9:07AM By Milka Rios ; [facility], [facility] Wellbutrin 100 MG Tablet 11/03/2014 Provider: Diagnosis: Last Documented On 5 9:07AM By Milka Rios ; [facility], [facility] Metoprolol Tartrate 100 MG Tablet 11/03/2014 Provide r: Diagnosis: Last Documented On 5 9:07AM By Milka Rios ; [facility], [facility] Singulair 10 MG Tablet 11/03/2014 Provider: Diagnosis: Last Documented On 5 9:08AM By Milka Rios ; [facility], [facility] Treximet 85-500 MG Tablet 11/03/2014 Provider: Diagnosis: Last Documented On 5 9:08AM By Milka Rios ; [facility], [facility] MetFORMIN HCl 500 MG Tablet 11/03/2014 Provider: Diagnosis: Last Documented On 5 9:08AM By Milka Rios ; [facility], [facility] Benicar HCT 40-12.5 MG Tablet 11/03/2014 Provider: Diagnosis: Last Documented On 5 9:08AM By Milka Rios ; [facility], [facility] Tirosint 100 MCG Capsule, conventional 11/03/2014 Pr ovider: Diagnosis: Last Documented On 5 9:08AM By Milka Rios ; [facility], [facility] D3/Vitamin C/Zinc Tablet 11/03/2014 Provider: Diagnosis: Last Documented On 5 9:08AM By Milka Rios ; [facility], [facility] [place]-3 Capsule, conventional 11/03/2014 Provide r: Diagnosis: Last Documented On 5 9:08AM By Milka [facility] Cranberry/Probiotic Tablet 11/03/2014 Provider: Diagnosis: Last Documented On 5 9:08AM By Milka Rios ; [facility] Medications Administered Includes: Administered Medications from this encounter No Administered Medications Recorded Vital Signs Includes: Vital Signs from this encounter Vital Name 11/03/2014 09:05A Blood Pressure Sitting L 131/82 Pulse Rate-Sitting (bpm) 72 Height (in) 66 Weight (lb) 240 Body Mass Index (kg/m2) 38.7 Body Surface Area (m2) 2.2 Last Documented: On 11/03/2014 9:05AM ; [facility] Results Includes: Results discussed during this [...] Documented On 5 9:27AM ; [facility] Smoking status : Never smoker 11/03/2014 Last Documented On 5 9:27AM ; [facility] Not a current smoker 11/03/2014 Last Documented On 5 9:27AM ; [facility] Not using alcohol 11/03/2014 Last Documented On 5 9:27AM ; [facility] Not using drugs 11/03/2014 Last Documented On 5 9:27AM ; [facility] Procedures and Surgical History Includes: Procedures from this encounter Procedures Code Diagnosis Performing Provider Service L ocation Service Date history of orthopedic options: physical therapy Last Documented On 5 9:05AM ; [facility] Clinical summary provided to patient Last Documented On 5 9:06AM ; [facility] Medical History Includes: Medical History addressed during this encounter Description Last Updated Breast reduction ~Thyroidect thomas ~ x3 ~Rhinoplasty ~Endometrial ablation ~Chicken pox 11/03/2014 Last Documented On 5 9:27AM ; [facility] History of diabetes mellitus 11/03/2014 Last Documented On 5 9:27AM ; [facility] Intermittent hypertension 11/03/2014 Last Documented On 5 9:27AM ; [facility] Family History Includes: Family History addressed during this encounter Description Last Updated Stroke/seizures 11/03/2014 Last Documented On 5 9:27AM ; [facility] Family history of diabetes mellitus 10/07 Last Documented On 5 9:27AM ; [facility] Family history of heart disease 11/04/19 15 Last Documented On 5 9:27AM ; [facility] Family history of hypertension 5 Last Documented On 5 9:27AM ; [facility] Review of Systems Includes: Review [...] ctive Last Documented On 5 9:04AM ; [facility] Erythromycin Allergy 11/03/2014 Active Last Documented On 5 9:04AM ; [facility], [facility] Ceclor Allergy 11/03/2014 Active Last Documented On 5 9:04AM ; [facility], [facility] Encounters Encounter Provider Location Date Check-In Time Check-Out Time Diagnosis NEW PATIENT Dane Mcghee MD [facility] 11/04/19 15 8:53AM 9:29AM Insurance Includes: Active Insurance Policies Plan Name Member ID Group # Subscriber Relationship Effect sukhdeep Dates 1 - [facility] [id number] Jem Brar 07/08/2014 - Unknown Clinical Notes Includes: Clinical Notes from this encounter No Clinical Notes Recorded
--- OUTSIDE RECORDS SUMMARY | 2024-10-23 15:07 | XMS_ITS | Data Portability ---
Author Organization [facility] ADMIN Address [address] [place] [id number] Care Team Providers Care Public Safety Dispatcher Name Role Phone STEPHANIE MASON Primary Care Provider Assessment No assessment recorded. Plan of Treatment Reminders Order Date Submit Date Provider Last Modified By Organization Details Last Modified Time Details Appointments None recorded. Lab urinalysis , dipstick 2023 [email or web address] [facility], [address], [place], [address], 16:19:14 Referral None recorded. Procedures None recorded. Surgeries None recorded. Imaging US, renal 2023 [facility] (Centralized Scheduling), [address] [facility], [place], [address], 4 16:30:55 XR, kidney + ureter + bladder 2023 [facility] (Centralized Scheduling), [address] [facility], [place], [address], 4 16:30:54 Medication Orders methenamin e hippurate 1 gram tablet 2023 [facility], [address], [place], [address], 16:18:51 Patient TargetsNo targets recorded. Patient InstructionsNo instructions recorded. Reason for Referral None Reported. Results Created Date Observation Date Name Description Value Unit Range Abnormal Flag Note LastModifiedBy Organization Detail LastModifiedTime 05/12/20 24 05/12/2024 urina lysis , dipst ick Leukocytes (reference range) negati ve Not Available [place] [address], [place], [address], 05/12/2024 16:18:50 05/12/20 24 05/12/2024 urina lysis , dipst ick Nitrite (reference range:) negati ve Not Available [place] [address], [place], [address], 05/12/2024 16:18:50 05/12/20 24 05/12/2024 urina lysis , dipst ick Urobilinogen (reference range) 0.2 Not Available [facility] [place] [address], [place], [address], 05/12/2024 16:18:50 05/12/20 24 05/12/2024 urina lysis , dipst ick Protein (reference range) negati ve Not Available [place] [address], [place], [address], 05/12/2024 16:18:50 05/12/20 24 05/12/2024 urina lysis , dipst ick pH (reference range 5-8.5) 6.0 Not Available [facility] [place] [address], [place], [address], 05/12/2024 16:18:50 05/12/20 24 05/12/2024 urina lysis , dipst ick Blood (reference range:) negati ve Not Available [place] [address], [place], [address], 05/12/2024 16:18:50 05/12/20 24 05/12/2024 urina lysis , dipst ick Specific [place] (reference range) 1.015 Not Available [place] [address], [place], [address], 05/12/2024 16:18:50 05/12/20 24 05/12/2024 urina lysis , dipst ick Ketone (reference range) negati ve Not Available [place] [address], [place], [address], 05/12/2024 16:18:50 05/12/20 24 05/12/2024 urina lysis , dipst ick Bilirubin (reference range) negati ve Not Available [place] [address] [address] [facility] [address], [place], [address], 05/12/2024 16:18:50 05/12/20 24 05/12/2024 urina lysis , dipst ick Glucose (reference range) negati ve Not Available [place] [address] [address] [facility] [address], [place], [address], 05/12/2024 16:18:50 05/12/20 24 05/12/2024 urina lysis , dipst ick Color (reference range: yellow-brown ) Yellow Not Available [place] [address] [address] [facility] [address], [place], [address], 05/12/2024 16:18:50 05/13/20 24 01/06/2024 US, renal No observ ation record ed. [email or web address] [place] [address], [place], [address], 05/14/2024 09:04:16 Result Notes None recorded. Problems Name Problem SNOMED Code Status Onset Date Resolution Date Notes Provider Name and Address Organization Details Recorded Time Anemia 376877027 Active 2023 VINH Jimenez [facility] - [place] & [place] 4 15:16:12 Diabetes mellitus 76294744 Active 2023 Nataly Baron null, VINH - [facility] - [facility] & [place] 4 15:16:20 Disease of liver 773069384 Active 2023 Natalydanilo Baron null, VINH - [facility] - [facility] & [place] 4 15:16:29 Hypercholester olemia 54002491 Active 2023 Nataly Baron null, VINH - [facility] - [facility] & [place] 4 15:16:38 Anxiety 75676942 Active 2023 Natalydanilo Baron null, VINH - [facility] - [facility] & [place] 4 15:16:50 Gastroesophage al reflux disease 133265830 Active 2023 Nataly Teresa null, VINH - [facility] - [facility] & [place] 4 15:17:00 Disorder of thyroid gland 57169319 Active 2023 Natalydanilo Baron null, VINH - [facility] - [facility] & [place] 4 15:17:12 Hypertensive disorder 94406900 Active 2023 Natalydanilo oneil, VINH - [facility] - [facility] & [place] 4 15:17:21 Depressive disorder 28223463 Active 2023 Natalydanilo Baron null, VINH - [facility] - [facility] & [place] 4 15:17:29 Chronic urinary tract infection 603869091 Active 2023 Natalydanilo Baron null, VINH [facility] & [place] 4 15:17:42 Problem Notes None recorded. Procedures Surgical History Date Name Laterality Status Provider Name and Address Organization Details Recorded Time tonsillectomy completed Nataly Baron VINH - [facility] - [place] & [place] 05/12/2024 15:18:09 closed rhinoplasty completed Nataly jeffries VINH - [facility] - [facility] & [place] 05/12/2024 15:19:19 laparoscopic sleeve gastrectomy completed Nataly Baron [facility] - [facility] - [place] & [place] 05/12/2024 15:19:27 thyroidectomy completed Nataly JUSTICE - [facility] - [place] & [place] 05/12/2024 15:19:37 cholecystectomy completed Nataly Baron K Y - [facility] - [place] & [place] 05/12/2024 15:19:47 Breast reduction completed Nataly BRUNSON - [place] & [place] 05/12/2024 15:19:55 Imaging Results Imaging Date Name Status LastModified by Organiz ation Details LastModified Time 01/06/2024 US, renal completed [email or web address] [facility] [address], [place], [address], 05/14/2024 09:04:16 Procedure Notes None recorded. Medical Equipment None Reported. Allergies Allergen ID Allergen Name Allergen Category Reaction Reaction Severity Criticality Documentation Date Start Date Code Code System Note Provider Name and Address Organization Details Recorded Time 471764 Substance with sulfonami de structure and antibacte rial mechanism of action (substanc e) medicatio n Not available Not available Not available 05/12/2024 37430 8003 SNOMED VINH Jimenez [facility] & [place] 4 15:11:58 128620 E-Mycin medicatio n Not available Not available Not available 05/12/202488634 8 RxNorm VINH Jimenez [facility] & [place] 4 15:12:24 034873 Ceclor medicatio n Not available Not available Not available 05/12/2024 5 RxNorm VINH Jimenez [facility] & [place] 4 15:12:36 Medications Name Sig Start Date Stop Date Status Note LastModified by Organization Details LastModified Time carvedilol 25 mg tablet active Not Available Not Available Not Available citalopram 40 mg tablet active Not Available Not Available Not Available fluconazole 150 mg tablet TAKE ONE TABLET BY MOUTH EVERY DAY FOR 3 DAYS active Not Available Not Available No t Available sumatriptan 50 mg tablet TAKE 1 TABLET BY MOUTH ONCE DAILY NEEDED active Not Available Not Available No t Available ciprofloxac in 500 mg tablet TAKE 1 TABLET BY MOUTH EVERY 12 HOURS FOR 10 DAYS 05/12 completed Not Available Not Available Not Available omeprazole 40 mg capsule,del ayed release TAKE 1 CAPSULE BY MOUTH TWICE DAILY active Not Available Not Available No t Available methenamine hippurate 1 gram tablet TAKE 1 TABLET BY MOUTH TWICE DAILY active Not Available Not Available No t Available amoxicillin 875 mg tablet TAKE 1 TABLET BY MOUTH EVERY 12 HOURS FOR 7 DAYS 05/12 completed Not Available Not Available Not Available famotidine 20 mg tablet TAKE 1 TABLET BY MOUTH TWICE DAILY active Not Available Not Available No t Available methocarbam ol 750 mg tablet TAKE 2 TABLETS BY MOUTH THREE TIMES DAILY active Not Available Not Available No t Available amlodipine 10 mg tablet 05/12 completed Not Available Not Available Not Available oseltamivir 75 mg capsule TAKE 1 CAPSULE BY MOUTH TWICE DAILY FOR 5 DAYS active Not Available Not Available No t Available levothyroxi ne 200 mcg tablet TAKE 1 TABLET BY MOUTH ONCE DAILY active Not Available Not Available No t Available gabapentin 100 mg capsule TAKE 1 CAPSULE BY MOUTH ONCE DAILY active Not Available Not Available No t Available ergocalcife rol (vitamin D2) 1,250 mcg (50,000 unit) capsule active Not Available Not Available Not Available methylpredn isolone 4 mg tablets in a dose pack TAKE BY MOUTH DIRECTED ON INSIDE OF PACKAGE active Not Available Not Available No t Available cefdinir 300 mg capsule TAKE 1 CAPSULE BY MOUTH EVERY 12 HOURS 05/12 completed Not Available Not Available Not Available losartan 100 mg tablet active Not Available Not Available Not Available colestipol 1 gram tablet TAKE 1 TABLET BY MOUTH TWICE DAILY active Not Available Not Available No t Available amoxicillin 875 mg-potassiu m clavulanate 125 mg tablet TAKE ONE TABLET BY MOUTH EVERY TWELVE HOURS FOR 10 DAYS 05/12 completed Not Available Not Available Not Available tobramycin 0.3 %-dexametha sone 0.1 % eye drops,suspe nsion INSTILL 2 DROPS IN EACH EYE THREE TIMES DAILY FOR 7 DAYS active Not Available Not Available No t Available bupropion HCl XL 300 mg 24 hr tablet, extended release active Not Available Not Available Not Available nitrofurant oin monohydrate /macrocryst als 100 mg capsule TAKE 1 CAPSULE BY MOUTH ONCE DAILY NIGHTLY active Not Available Not Available No t Available fenofibrate nanocrystal lized 145 mg tablet active Not Available Not Available No t Available FeroSul 325 mg (65 mg iron) tablet active Not Available Not Available Not Available icosapent ethyl 1 gram capsule TAKE 2 CAPSULES BY MOUTH TWICE DAILY active Not Available Not Available No t Available Ozempic 2 mg/dose (8 mg/3 mL) subcutaneou s pen injector INJECT 2MG SUBCUTANE OUSLY ONCE WEEKLY active Not Available Not Available No t Available Vitals Date Recorded Body height Body mass index (BMI) Body weight Body temperature Oxygen saturation Oxygen saturation in Arterial blood by Pulse oximetry Heart rate Systolic blood pressure Diastolic blood pressure Provider Name and Address Organization Details Last Updated DateTime 4 165.1 cm 48.7 kg/m2 798104. 13 g 98.8 [degF] 100 % 100 % 68 /min 129 mm[Hg] 84 mm[Hg] Nataly Baron [facility] & [place] 15:40:36 Social History Question Answer Notes LastModified by Organizat ion Details LastModified Time Tobacco Smoking Status Never Smoker Nataly Baron [facility] & [place] 05/12/2024 15:17:54 What Is Your Level Of Alcohol Consumption? None Information not available 05/12/2024 What Is Your Occupation? [email or web address] Information not available 05/11/2024 Do You Use Any Illicit Or Recreational Drugs? No Information not available 05/12/2024 Sex: Female Functional Status None recorded. Mental Status None recorded. Family History Relationship Description Onset Age of this Age Resolved Age Notes LastModified by Organization Details LastModified Time Mother Disease of liver pt. added direct ly (05/11) [email or web address] Not available 05/11/2024 17:29:01 Father Disease of liver pt. added direct ly (05/11) [email or web address] Not available 05/11/2024 17:29:12 Medical History No medical history recorded. Gynecological HistoryNo gynecological history recorded. Obstetrics History GPAL:G 0 P 0 0 0 0 Past Encounters Encounter ID Performer Location Encounter Start Date Encounter Closed Date Diagnosis/Indication Diagnosis SNOMED-CT Code Diagnosis ICD10 Code Diagnosis Note [id number] Chloe Junior NP, [facility] 00 [address] [facility] [address] [place] [id number] 05/12/2024 14:55:51 05/12/2024 16:03:54 Recurrent urinary tract infection 594173642 N39.0 UA negative for infectionD iscussed active bowel habits, probiotics , Vitamin C-tid, hygeine, voiding prior to and post sex (wash), and wipe front to back.Sched ule Renal US and KUBStart Methenamin e 1 gram bidRTC in 6 weeks for f/u Nocturia 415343221 R35.1 Mixed urin michi incontinence 685228509 N39.46 History of calculus of kidney 493182379 Z87.442 Type 2 giles betes mellitus 00025410 E11.9 Health Concerns Section Related Observation LastModified by Organization Detai ls LastModified Time None Recorded Concern Status LastModified by Organization Details LastModified Time None Recorded Advance Directives Directive None Recorded Payers Encounter Date Sequence Insurance Name Policy Number Policy Oconnell Covered Member ID Oconnell Member ID Guarantor Name 05/12/2024 1 [place] [id number] A [employer] [place] [id number] Yoanna Power Notes Date Note Type Note Provider Name and Address Organization Details Recorded Time 05/12/2024 text/html 44 yowf presents to the office for evaluation of reoccurring UTIs. Location is LUT. Quality is pressure and painful urination. Severity- varies. Reports that she started experiencing reoccurring UTI's 2 years ago and worsend in September 2023, has had 6 UTIs this year, last UTI was approx 4 weeks ago. UTIs have all been treated with antibiotics, states at times antibiotics doesnt help. When experiences UTI has dysuria, urinary urgency/frequency, bladder pain, and foul odor to urine. Has not had any labs or diagnostic tests performed. Currently, states f/c stream good, nocturia 2, bowels move regularly, has IBS, bladder empties thoroughly; currently denies dysuria, gross hematuria, flank pain, fevers, chills, nausea, or vomiting. Reports has occasional urge/stress incontinence, especially with UTIs. Reports UTIs are not related to sexual intercourse. Patient reports UTIs seem to occur in 1 week after her menstrual cycle. Reports she had a pelvic ultrasound this year with her stone belt sander that he is normal. Has not had a hysterectomy. Reports PCP did place her on Macrodantin suppression for 2 months and this did not help with her UTIs. Pt is a DM, states last HgbA1c was 5.9. History of kidney stones 10 years ago, passed stone. H/o Tyroidectomy in 2005 r/t mass, states this was precancerous. H/o gastric sleeve. Chloe Junior NP, [address], [place], [address], [facility] - NT - [place] & [place] 05/12/2024 16:20:29 OBGyn Episode No OBEpisode recorded.
--- NOTE | 2024-10-23 15:08 | PC.NURSE ---
RT is running VBG now
[2024-10-23 15:09] LABS: Lactate Venous 3.4 mmol/L (0.4-2.0)
[2024-10-23 15:11] LABS: Albumin Level 4.4 g/dl (3.5-5.0); Chloride 108 mmol/L (98-107); Potassium 3.8 mmoL/L (3.5-5.1); Sodium 138 mmol/L (136-145)
--- NOTE | 2024-10-23 15:13 | CT_ITS ---
FINAL REPORT CLINICAL HISTORY: cellulitis/abscess, concern for NSTI FINDINGS: CT LOWER EXTREMITY WITHCONTRAST TECHNIQUE: Postcontrast axial and reformatted sagittal and coronal images were obtained of the left femur. This study was performed with techniques to keep radiation doses as low as reasonably achievable, (ALARA). Individualized dose reduction techniques using automated exposure control or adjustment of mA and/or kV according to the patient's size were employed. FINDINGS: There is no acute fracture or dislocation. The joint spaces are preserved. Musculature is intact. There is a localized region of subcutaneous soft tissue edema with overlying skin thickening within the medial, upper, left thigh. This focus measures approximately 3.8 x 2.5 cm and is well-seen on image 82 of series 4 and images 73 through 78 of series 1001. There is no evidence of abscess. IMPRESSION: Localized region of subcutaneous soft tissue edema with overlying skin thickening in the medial upper left thigh may be related to localized cellulitis. Reviewed, Interpreted and Dictated by Tobin nAna MD Transcribed by Lady Camarillo Authenticated and [facility]
--- NOTE | 2024-10-23 15:13 | CT_ITS ---
FINAL REPORT TECHNIQUE: After the administration of oral and intravenous contrast, axial images were obtained through the abdomen and pelvis by computed tomography. The study was performed with techniques to keep radiation dose as low as reasonably achievable, (ALARA). Individual dose reduction techniques using automated exposure control or adjustment of mA and/or kV according to the patient's size were employed. CLINICAL HISTORY: cellulitis/abscess, concern for NSTI FINDINGS: Abdomen: The lung bases are clear. There is mild fatty infiltration of the liver. The gallbladder is surgically absent. The patient is status post gastric sleeve. The spleen, pancreas and adrenals appear unremarkable. The right kidney is unremarkable. There is mild prominence of the left ureter. No definite stone is seen. The aorta is normal in caliber. There is no free fluid or adenopathy. Pelvis: The appendix is unremarkable. The urinary bladder is incompletely distended. There is a small calcified phleboliths in the floor of the left pelvis. The uterus is anteverted. Bilateral tubal ligation clips are noted. There is a cystic focus arising from the right ovary measuring 3.7 cm in greatest dimension. This is favored to be physiologic in a reproductive age female. There is no free fluid or adenopathy. IMPRESSION: 3.7 cm right ovarian cyst. Follow-up ultrasound in 6 or 10 weeks is recommended. Reviewed, Interpreted and Dictated by Tobin Anna MD Transcribed by Lady Camarillo Authenticated and [facility]
[2024-10-23 15:14] LABS: Alanine Aminotransferase 26 U/L (12-78); Albumin/Globulin Ratio 1.3 (1.1-1.8); Alkaline Phosphatase 81 U/L (38-126); Anion Gap 13.8 mEq/L (5-15); Aspartate Amino Transferase 26 U/L (14-36); Bilirubin,Total 0.4 mg/dl (0.2-1.3); Blood Urea Nitrogen 12 mg/dl (7-17); Calcium 9.2 mg/dl (8.4-10.2); Carbon Dioxide 20 mmol/L (22.0-30.0); Creatinine Clearance Estimated 130 mL/min (50-200); Estimated Glomerular Filt Rate 78 ml/min (>60); GFR (African American) 94 ML/MIN (>60); Globulin 3.4 g/dL (1.3-3.2); Glucose 286 mg/dl (74-100); Total Protein,Serum 7.8 g/dl (6.3-8.2)
[2024-10-23 15:15] LABS: Activated Partial Thrombo Time 25.6 seconds (22.8-30.6); INR 0.91 (0.9-1.1); Magnesium 1.6 mg/dl (1.6-2.3); Prothrombin Time 10.3 seconds (10.1-12.5)
--- NOTE | 2024-10-23 15:16 | [facility].EDGENADL ---
Discharge Plan Disposition Patient Disposition: Admitted Condition: Good Clinical Impressions Clinical Impression: Cellulitis of groin, left Sepsis Qualifiers: Sepsis type: sepsis due to unspecified organism Sepsis acute organ dysfunction status: without acute organ dysfunction Qualified Code(s): A41.9 - Sepsis, unspecified organism Discharge ED Provider: Roe Jara General Adult HPI <Roe Jara MD - Last Filed: 10/23/24 15:21> General Chief complaint: Wound/Laceration Stated complaint: infection r leg w/heat nausea chills Time Seen by Provider: 10/23/24 14:43 Mode of Arrival: Ambulatory Source of Information: Patient Description of Symptoms (Recalled from ER Triage Doc. by RN): Pt presents for evaluation of abscess to left upper leg. Pt was started on Linezolid, and patient states she feels like the swelling has slight improved. Pt has swelling and redness to her left upper thigh, it is hot to the touch. History of Present Illness HPI narrative: Please note that above description of symptoms, in this electronic medical record under categorization of recalled from ER triage doctor by RN are reflective of an initial nursing assessment, however, is not reflective of my full history and physical exam that was personally taken and clarified. Consequentially, this preceding description of symptoms, which may include the patient's categorized chief complaint in the EMR, do not reflect my personal clinical impression, and the ultimate description of history of present illness and patient stated complaints should be deferred to this section of the note. Unless stated otherwise or congruent with this section of the note, additional signs, symptoms, or incongruence should be interpreted as inaccurate with my clinical impression. Related Data Home Medications ?Medication ?Instructions ?Recorded ?Confirmed fenofibrate nanocrystallized 145 145 mg PO DAILY TRIGLYCERIDES 09/03/17 10/23/24 mg tablet losartan 100 mg tablet 100 mg PO DAILY Hypertension 07/14/18 10/23/24 ergocalciferol (vitamin D2) 1,250 1,250 mcg PO WEEKLY Supplement 06/22/20 10/23/24 mcg (50,000 unit) capsule omeprazole 40 mg capsule,delayed 40 mg PO DAILY GERD 08/02/20 10/23/24 release bupropion HCl 300 mg 24 hr tablet, 300 mg PO DAILY Depression 04/06/21 10/23/24 extended release (Wellbutrin XL) carvedilol 25 mg tablet 25 mg PO BID Hypertension 08/14/21 10/23/24 amlodipine 10 mg tablet 10 mg PO DAILY Hypertension 01/11/22 10/23/24 citalopram 40 mg tablet 40 mg PO HS 12/13/22 10/23/24 levothyroxine 200 mcg tablet 200 mcg PO DAILY 12/13/22 10/23/24 calcium polycarbophil 625 mg 1,250 mg PO DAILY 09/08/24 10/23/24 tablet (FiberCon) lisdexamfetamine 40 mg capsule 40 mg PO DAILY 09/08/24 10/23/24 (Vyvanse) methocarbamol 750 mg tablet 750 mg PO HS PRN muscle relaxer 09/08/24 10/23/24 metoclopramide HCl 10 mg tablet 10 mg PO QAC 09/08/24 10/23/24 (Reglan) multivitamin 1 tab PO DAILY 09/08/24 10/23/24 rimegepant 75 mg disintegrating 75 mg PO Q OTHER DAY 09/08/24 10/23/24 tablet (Nurtec ODT) Allergies Allergy/AdvReac Type Severity Reaction Status Date / Time cefaclor (From [facility]) Allergy Severe Anaphylaxis Verified 10/23/24 14:59 erythromycin base Allergy Unknown ANAPHYLAXIS Verified 10/23/24 14:59 (ERYTHROMYCIN BASE) Sulfa (Sulfonamide Allergy Unknown ANAPHYLAXIS Verified 10/23/24 14:59 Antibiotics) (SULFA (SULFONAMIDE ANTIBIOTICS)) [facility] <Roe Jara MD - Last Filed: 10/23/24 15:21> [facility] Disclaimer: The information contained in this section may have been updated after the patient was seen, as this information can be updated by other users. Medical History Epidermal cyst of vulva Vulvar lesion Sinus problem Hypothyroidism Anemia Migraine Anxiety and depression Abnormal electrocardiography Pre-operative cardiovascular examination Hypertension Diabetes mellitus Hyperlipidemia History of atrial fibrillation Surgical History History of rhinoplasty H/O plastic surgery breast reduction History of prior ablation treatment uterine ablation History of H/O colonoscopy Hx of esophagogastroduodenoscopy H/O gastric sleeve H/O bariatric surgery History of tonsillectomy Family History Other Cancer Social History (Updated 10/23/24 @ 18:15 by mEi Crespo RN) Smoking Status: Never smoker alcohol intake: never substance use type: denies use current occupational status: employed Travel in the last 8 weeks: None household members: spouse and children housing: house current occupational exposures/hazards: No caffeine: Yes Have you lived/traveled outside [place] in past 30 days?: No Contact w/someone who lives/traveled outside [place] past 30 days?: No Exposure to someone with infectious disease in past 14 days?: No Do you have a fever (greater than 100.4 F or 38 C)?: No Have you tested positive for COVID-19: No Exposed to someone with COVID-19 in past 14 days?: No Do you have a sore throat?: No Do you have a cough?: No Do you have any weakness?: No Do you have any diarrhea?: No Are you experiencing any unusual bleeding?: No Do you have any muscle aches/pain?: No Do you have any abdominal pain?: No Are you experiencing loss of taste or smell?: No Other Medical History Have you received the Flu Vaccine for this season: No Have you received the Pneumonia Vaccine: No <Roe Jara MD - Last Filed: 10/23/24 15:21> ROS Obtained: Yes All systems reviewed & no additional complaints except as documented Physical Exam <Roe Jara MD - Last Filed: 10/23/24 15:21> General General appearance: alert Head Head exam: atraumatic and normocephalic Eye Eye exam: Present normal appearance, PERRL and EOMI Neck Neck exam: Present normal inspection, full ROM and trachea midline Respiratory Respiratory exam: Absent respiratory distress, wheezes, stridor, accessory muscle use or prolonged expiratory phase Cardiovascular Cardiovascular exam: Present other (Pulses equal symmetric in upper and lower extremities) Abdominal Exam Abdominal exam: Present soft; Absent distention, tenderness or pulsatile mass Extremities Exam Extremities exam: Absent edema Neurological Exam Neurological exam: Present alert, oriented X3 and CN II-XII intact; Absent motor sensory deficit Skin Skin exam: Present warm and dry; Absent diaphoresis or erythema Medical Decision Making <Roe Jara MD - Last Filed: 10/23/24 15:21> Medical Records Medical records reviewed: Yes I reviewed the patient's medical records. Screening: Per USPSTF and CDC recommendations, given the prevalence of disease in our region, it is our hospital?s policy to screen for HIV and viral Hepatitis for all patients aged 18 and over and those with ongoing risk factors. [place] Inquiry Pt receiving controlled substance: No [place] was queried for this patient: No Vital Signs: 10/23/24 14:45 10/23/24 14:55 10/23/24 16:00 Temperature 97.6 F Temperature Source Oral Pulse Rate 123 H 102 H Pulse Rate [Right] 127 H Respiratory Rate 18 Blood Pressure 158/102 H 183/98 H Blood Pressure [Right Arm] 158/102 H Blood Pressure Mean 120 128 Blood Pressure Mean [Right Arm] 120 Blood Pressure Source [Right Arm] Automatic Cuff Blood Pressure Position [Right Arm] Sitting 02 Sat by Pulse Oximetry 98 97 94 L Oxygen Delivery Method Room Air 10/23/24 16:30 10/23/24 17:00 10/23/24 17:10 Temperature Temperature Source Pulse Rate 98 H 101 H 95 H Pulse Rate [Right] Respiratory Rate Blood Pressure 167/95 H 190/105 H 128/80 Blood Pressure [Right Arm] Blood Pressure Mean 116 129 96 Blood Pressure Mean [Right Arm] Blood Pressure Source [Right Arm] Blood Pressure Position [Right Arm] 02 Sat by Pulse Oximetry 97 97 97 Oxygen Delivery Method 10/23/24 17:31 10/23/24 17:39 10/23/24 18:18 Temperature 98.1 F Temperature Source Pulse Rate 98 H 80 Pulse Rate [Right] 100 H Respiratory Rate 18 20 Blood Pressure 131/79 126/76 Blood Pressure [Right Arm] 131/79 Blood Pressure Mean 96 Blood Pressure Mean [Right Arm] 96 Blood Pressure Source [Right Arm] Automatic Cuff Blood Pressure Position [Right Arm] Sitting 02 Sat by Pulse Oximetry 98 100 Oxygen Delivery Method Room Air Room Air Lab Data Lab Results 10/23/24 14:49: VBG pH 7.36, VBG pCO2 36.5, VBG pO2 48.1 H, VBG HCO3 20.3 L, VBG Total CO2 21.4 L, VBG O2 Saturation 83.8 H, VBG Base Excess -5.1 L, VBG Lactic Acid 3.4 H 10/23/24 14:50: WBC 10.0, RBC 4.87, Hgb 14.5, Hct 43.2, MCV 88.7, MCH 29.8, MCHC 33.6, RDW 13.0, Plt Count 401, MPV 9.5, Neut % (Auto) 71.8, Lymph % (Auto) 17.7, Mclennan % (Auto) 7.2, Eos % (Auto) 2.1, Baso % (Auto) 0.7, Neut # (Auto) 7.2, Lymph # (Auto) 1.8, Mclennan # (Auto) 0.7, Eos # (Auto) 0.2, Baso # (Auto) 0.1, PT 10.3, INR 0.91, APTT 25.6, D-Dimer 0.85 H, Sodium 138, Potassium 3.8, Chloride 108 H, Carbon Dioxide 20 L, Anion Gap 13.8, BUN 12, Creatinine 0.80, Estimated Creat Clear 130, Estimated GFR 78, Est GFR ( Amer) 94, Glucose 286 H, Hemoglobin A1c 6.0, Calcium 9.2, Magnesium 1.6, Total Bilirubin 0.4, AST 26, ALT 26, Alkaline Phosphatase 81, Troponin I < 0.01, C-Reactive Protein 54.9 H, Total Protein 7.8, Albumin 4.4, Globulin 3.4 H, Albumin/Globulin Ratio 1.3, TSH 1.47, Thyroxine (T4) 10.8, Serum HCG, Qual Negative 10/23/24 14:50 10/23/24 14:50 Orders (Tests/Meds): ED MEDICATIONS Generic Name Dose Route Start Last Admin Trade Name Claudeq PRN Reason Stop Dose Admin Acetaminophen 650 mg 10/23/24 20:30 Acetaminophen 325mg Tab PO 11/22/24 20:29 Q4HP PRN Fever or Mild Pain (1-3) Levofloxacin/Dextrose 750 mg in 150 mls @ 100 mls/hr 10/24/24 20:30 Levofloxacin 750mg/150ml Premix IV 11/03/24 20:29 Q24H PIERRE Sodium Chloride 1,000 mls @ 75 mls/hr 10/23/24 20:30 10/23/24 21:28 Sod Chlor 0.9% 1000ml Bag IV 11/22/24 20:29 75 mls/hr .[id number] PIERRE Administration Vancomycin/PEG/NADA/Lysine/Water 1.25 gm in 250 mls @ 125 mls/hr 10/24/24 05:00 Vancomycin 1.25gm/250ml (Peg) Premix IV 11/03/24 04:59 Q12H PIERRE Miscellaneous 1 each 10/23/24 20:30 10/23/24 21:28 Vancomycin Consult Request NOTAPPLIC 11/22/24 20:29 1 each CONSULT PHARMACY PIERRE Administration Sodium Chloride 10 ml 10/23/24 15:50 10/23/24 15:51 Sodium Chloride 0.9% 10ml Syr (Rad Only) IV 11/22/24 15:49 10 ml NEEDED PRN Administration Maintain IV Site Sodium Chloride 10 ml 10/23/24 20:28 Sodium Chloride 0.9% 10ml Flush Syringe IV 11/22/24 20:27 NEEDED PRN Maintain IV Site Discontinued Medications Generic Name Dose Route Start Last Admin Trade Name Freq PRN Reason Stop Dose Admin Sodium Chloride 1,000 mls @ 999 mls/hr 10/23/24 14:48 10/23/24 15:02 Sod Chlor 0.9% 1000ml Bag IV 10/23/24 15:48 999 mls/hr .Q1H1M ONE Administration Clindamycin Phosphate 900 mg in 50 mls @ 100 mls/hr 10/23/24 15:15 10/23/24 15:22 Clindamycin 900mg/50ml D5w Premix IV 10/23/24 15:44 100 mls/hr ONCE ONE Administration Levofloxacin/Dextrose 750 mg in 150 mls @ 100 mls/hr 10/23/24 15:13 10/23/24 16:14 Levofloxacin 750mg/150ml Premix IV 10/23/24 16:42 100 mls/hr ONCE ONE Administration Metronidazole 500 mg in 100 mls @ 100 mls/hr 10/23/24 15:13 10/23/24 15:33 Flagyl 500mg/100ml Ivpb IV 10/23/24 16:12 100 mls/hr ONCE ONE Administration Sodium Chloride 1,780 mls @ 890 mls/hr 10/23/24 15:13 10/23/24 15:34 Sod Chlor 0.9% 1000ml Bag 30 ml/kg infuse over 2 hr (1780 ml) 10/23/24 17:12 890 mls/hr IV Administration .Q2H ONE Vancomycin/PEG/NADA/Lysine/Water 1.75 gm in 350 mls @ 175 mls/hr 10/23/24 15:30 10/23/24 17:12 Vancomycin 1.75gm/350ml (Peg) Premix IV 10/23/24 17:29 175 mls/hr ONCE ONE Administration Iopamidol 175 ml 10/23/24 15:50 10/23/24 15:51 Iopamidol-370 (76%);100ml Bottle IV 10/23/24 15:51 175 ml ONCE ONE Administration Miscellaneous 1 each 10/23/24 15:15 10/23/24 18:45 Vancomycin Consult Request NOTAPPLIC 11/22/24 15:14 Not Given CONSULT PHARMACY PIERRE ORDERS Category Date Time Status CT abdomen pelvis w con Stat Cat Scan 10/23/24 15:[address] femur LT w con Stat Cat Scan 10/23/24 15:13 Completed POCUS Point of Care (ER Only) Stat Exams 10/23/24 14:59 Completed CRP [C-Reactive Protein] AMLAB Lab 10/24/24 06:00 Ordered CRP [C-Reactive Protein] Stat Lab 10/23/24 14:50 Completed Complete Blood Count Auto Diff AMLAB Lab 10/24/24 06:00 Ordered Complete Blood Count Auto Diff Stat Lab 10/23/24 14:50 Completed Comprehensive Metabolic Panel AMLAB Lab 10/24/24 06:00 Ordered Comprehensive Metabolic Panel Stat Lab 10/23/24 14:50 Completed D-Dimer Stat Lab 10/23/24 14:50 Completed Hemoglobin A1C Stat Lab 10/23/24 14:50 Completed Magnesium AMLAB Lab 10/24/24 06:00 Ordered Magnesium Stat Lab 10/23/24 14:50 Completed PT INR [Prothrombin Time INR] Stat Lab 10/23/24 14:50 Completed PTT [Activated Partial Thrombo Time] Stat Lab 10/23/24 14:50 Completed Serum [HCG Qualitative, Serum] Stat Lab 10/23/24 14:50 Completed T4 (Thyroxine) Stat Lab 10/23/24 14:50 Completed TSH [Thyroid Stimulating Hormone] Stat Lab 10/23/24 14:50 Completed Troponin I Q3H Lab 10/23/24 21:15 Completed Troponin I Stat Lab 10/23/24 14:50 Completed Blood Culture Stat Micro 10/23/24 15:18 Ordered Venous Blood Gas Stat RT 10/23/24 14:49 Completed Medical Decision Narrative: 44-year-old female with poorly controlled diabetes, hypertension, hyperlipidemia, depression on SSRI/Wellbutrin, fatty liver disease presenting with inguinal abscess and soft tissue infection. This started about a week prior to this. She let it run until she saw her family doctor yesterday, recommended following up with surgery. Surgery saw her yesterday, 10/22, got ultrasound and placed her on linezolid. Today, patient states that she was feeling much better, however she started having fevers, chills, tremor, feeling unwell just after lunchtime. Came in for further evaluation. History was obtained via conversation with patient and chart review, primary care provider. On arrival, patient hemodynamically stable, alert, [oriented x4, ][appropriate, ]GCS [15], moving all extremities spontaneously, pupils equal and reactive to light. Full physical exam performed and significant for uncomfortable appearing female who is tachycardic and tremulous. Inguinal abscess, cellulitis, significant tenderness on the left with fluctuance and warmth. Differential includes cellulitis, abscess, necrotizing soft tissue infection, serotonin syndrome, sepsis, among others. Patient placed on continuous cardiac monitoring and continuous pulse ox with initial blood pressure 158/102, heart rate 127, saturation 97% on room air. [Independent interpretation of EKG shows] sinus tachycardia 120 bpm with [place] 163, QRS 78, QTc 393. Left axis deviation, no acute ischemic change patient was given sepsis fluid bolus, vancomycin, clinda, Levaquin and Flagyl due to anaphylactic allergies to sulfa antibiotics as well as cephalosporins for symptomatic management[ and correction of underlying abnormalities]. Workup independently interpreted and significant for normal white count of 10. Patient's VBG also resulted with early metabolic acidosis with normal pH but bicarb low at 20, CO2 low end of normal at 36. Lactate 3.4. Coags normal. Rest of workup pending at time of handoff to oncoming physician. Labor Economics Teacher disclaimer Much of this encounter note is an electronic resident services supervisor spoken language to printed text. Electronic resident services supervisor of the spoken language may permit errors. Although I have reviewed the note, some errors may still exist. <Ramona Wu, DO - Last Filed: 10/23/24 23:54> Vital Signs: 10/23/24 14:45 10/23/24 14:55 10/23/24 16:00 Temperature 97.6 F Temperature Source Oral Pulse Rate 123 H 102 H Pulse Rate [Right] 127 H Respiratory Rate 18 Blood Pressure 158/102 H 183/98 H Blood Pressure [Right Arm] 158/102 H Blood Pressure Mean 120 128 Blood Pressure Mean [Right Arm] 120 Blood Pressure Source [Right Arm] Automatic Cuff Blood Pressure Position [Right Arm] Sitting 02 Sat by Pulse Oximetry 98 97 94 L Oxygen Delivery Method Room Air 10/23/24 16:30 10/23/24 17:00 10/23/24 17:10 Temperature Temperature Source Pulse Rate 98 H 101 H 95 H Pulse Rate [Right] Respiratory Rate Blood Pressure 167/95 H 190/105 H 128/80 Blood Pressure [Right Arm] Blood Pressure Mean 116 129 96 Blood Pressure Mean [Right Arm] Blood Pressure Source [Right Arm] Blood Pressure Position [Right Arm] 02 Sat by Pulse Oximetry 97 97 97 Oxygen Delivery Method 10/23/24 17:31 10/23/24 17:39 10/23/24 18:18 Temperature 98.1 F Temperature Source Pulse Rate 98 H 80 Pulse Rate [Right] 100 H Respiratory Rate 18 20 Blood Pressure 131/79 126/76 Blood Pressure [Right Arm] 131/79 Blood Pressure Mean 96 Blood Pressure Mean [Right Arm] 96 Blood Pressure Source [Right Arm] Automatic Cuff Blood Pressure Position [Right Arm] Sitting 02 Sat by Pulse Oximetry 98 100 Oxygen Delivery Method Room Air Room Air Lab Data Lab Results 10/23/24 14:49: VBG pH 7.36, VBG pCO2 36.5, VBG pO2 48.1 H, VBG HCO3 20.3 L, VBG Total CO2 21.4 L, VBG O2 Saturation 83.8 H, VBG Base Excess -5.1 L, VBG Lactic Acid 3.4 H 10/23/24 14:50: WBC 10.0, RBC 4.87, Hgb 14.5, Hct 43.2, MCV 88.7, MCH 29.8, MCHC 33.6, RDW 13.0, Plt Count 401, MPV 9.5, Neut % (Auto) 71.8, Lymph % (Auto) 17.7, Mclennan % (Auto) 7.2, Eos % (Auto) 2.1, Baso % (Auto) 0.7, Neut # (Auto) 7.2, Lymph # (Auto) 1.8, Mclennan # (Auto) 0.7, Eos # (Auto) 0.2, Baso # (Auto) 0.1, PT 10.3, INR 0.91, APTT 25.6, D-Dimer 0.85 H, Sodium 138, Potassium 3.8, Chloride 108 H, Carbon Dioxide 20 L, Anion Gap 13.8, BUN 12, Creatinine 0.80, Estimated Creat Clear 130, Estimated GFR 78, Est GFR ( Amer) 94, Glucose 286 H, Hemoglobin A1c 6.0, Calcium 9.2, Magnesium 1.6, Total Bilirubin 0.4, AST 26, ALT 26, Alkaline Phosphatase 81, Troponin I < 0.01, C-Reactive Protein 54.9 H, Total Protein 7.8, Albumin 4.4, Globulin 3.4 H, Albumin/Globulin Ratio 1.3, TSH 1.47, Thyroxine (T4) 10.8, Serum HCG, Qual Negative Orders (Tests/Meds): ED MEDICATIONS Generic Name Dose Route Start Last Admin Trade Name Freq PRN Reason Stop Dose Admin Acetaminophen 650 mg 10/23/24 20:30 Acetaminophen 325mg Tab PO 11/22/24 20:29 Q4HP PRN Fever or Mild Pain (1-3) Levofloxacin/Dextrose 750 mg in 150 mls @ 100 mls/hr 10/24/24 20:30 Levofloxacin 750mg/150ml Premix IV 11/03/24 20:29 Q24H PIERRE Sodium Chloride 1,000 mls @ 75 mls/hr 10/23/24 20:30 10/23/24 21:28 Sod Chlor 0.9% 1000ml Bag IV 11/22/24 20:29 75 mls/hr .[id number] PIERRE Administration Vancomycin/PEG/NADA/Lysine/Water 1.25 gm in 250 mls @ 125 mls/hr 10/24/24 05:00 Vancomycin 1.25gm/250ml (Peg) Premix IV 11/03/24 04:59 Q12H PIERRE Miscellaneous 1 each 10/23/24 20:30 10/23/24 21:28 Vancomycin Consult Request NOTAPPLIC 11/22/24 20:29 1 each CONSULT PHARMACY PIERRE Administration Sodium Chloride 10 ml 10/23/24 15:50 10/23/24 15:51 Sodium Chloride 0.9% 10ml Syr (Rad Only) IV 11/22/24 15:49 10 ml NEEDED PRN Administration Maintain IV Site Sodium Chloride 10 ml 10/23/24 20:28 Sodium Chloride 0.9% 10ml Flush Syringe IV 11/22/24 20:27 NEEDED PRN Maintain IV Site Discontinued Medications Generic Name Dose Route Start Last Admin Trade Name Freq PRN Reason Stop Dose Admin Sodium Chloride 1,000 mls @ 999 mls/hr 10/23/24 14:48 10/23/24 15:02 Sod Chlor 0.9% 1000ml Bag IV 10/23/24 15:48 999 mls/hr .Q1H1M ONE Administration Clindamycin Phosphate 900 mg in 50 mls @ 100 mls/hr 10/23/24 15:15 10/23/24 15:22 Clindamycin 900mg/50ml D5w Premix IV 10/23/24 15:44 100 mls/hr ONCE ONE Administration Levofloxacin/Dextrose 750 mg in 150 mls @ 100 mls/hr 10/23/24 15:13 10/23/24 16:14 Levofloxacin 750mg/150ml Premix IV 10/23/24 16:42 100 mls/hr ONCE ONE Administration Metronidazole 500 mg in 100 mls @ 100 mls/hr 10/23/24 15:13 10/23/24 15:33 Flagyl 500mg/100ml Ivpb IV 10/23/24 16:12 100 mls/hr ONCE ONE Administration Sodium Chloride 1,780 mls @ 890 mls/hr 10/23/24 15:13 10/23/24 15:34 Sod Chlor 0.9% 1000ml Bag 30 ml/kg infuse over 2 hr (1780 ml) 10/23/24 17:12 890 mls/hr IV Administration .Q2H ONE Vancomycin/PEG/NADA/Lysine/Water 1.75 gm in 350 mls @ 175 mls/hr 10/23/24 15:30 10/23/24 17:12 Vancomycin 1.75gm/350ml (Peg) Premix IV 10/23/24 17:29 175 mls/hr ONCE ONE Administration Iopamidol 175 ml 10/23/24 15:50 10/23/24 15:51 Iopamidol-370 (76%);100ml Bottle IV 10/23/24 15:51 175 ml ONCE ONE Administration Miscellaneous 1 each 10/23/24 15:15 10/23/24 18:45 Vancomycin Consult Request NOTAPPLIC 11/22/24 15:14 Not Given CONSULT PHARMACY PIERRE ORDERS Category Date Time Status CT abdomen pelvis w con Stat Cat Scan 10/23/24 15:[address] femur LT w con Stat Cat Scan 10/23/24 15:13 Completed POCUS Point of Care (ER Only) Stat Exams 10/23/24 14:59 Completed CRP [C-Reactive Protein] AMLAB Lab 10/24/24 06:00 Ordered CRP [C-Reactive Protein] Stat Lab 10/23/24 14:50 Completed Complete Blood Count Auto Diff AMLAB Lab 10/24/24 06:00 Ordered Complete Blood Count Auto Diff Stat Lab 10/23/24 14:50 Completed Comprehensive Metabolic Panel AMLAB Lab 10/24/24 06:00 Ordered Comprehensive Metabolic Panel Stat Lab 10/23/24 14:50 Completed D-Dimer Stat Lab 10/23/24 14:50 Completed Hemoglobin A1C Stat Lab 10/23/24 14:50 Completed Magnesium AMLAB Lab 10/24/24 06:00 Ordered Magnesium Stat Lab 10/23/24 14:50 Completed PT INR [Prothrombin Time INR] Stat Lab 10/23/24 14:50 Completed PTT [Activated Partial Thrombo Time] Stat Lab 10/23/24 14:50 Completed Serum [HCG Qualitative, Serum] Stat Lab 10/23/24 14:50 Completed T4 (Thyroxine) Stat Lab 10/23/24 14:50 Completed TSH [Thyroid Stimulating Hormone] Stat Lab 10/23/24 14:50 Completed Troponin I Q3H Lab 10/23/24 21:15 Completed Troponin I Stat Lab 10/23/24 14:50 Completed Blood Culture Stat Micro 10/23/24 15:18 Ordered Venous Blood Gas Stat RT 10/23/24 14:49 Completed Medical Decision Narrative: 44-year-old female with poorly controlled diabetes, hypertension, hyperlipidemia, depression on SSRI/Wellbutrin, fatty liver disease presenting with inguinal abscess and soft tissue infection. This started about a week prior to this. She let it run until she saw her family doctor yesterday, recommended following up with surgery. Surgery saw her yesterday, 10/22, got ultrasound and placed her on linezolid. Today, patient states that she was feeling much better, however she started having fevers, chills, tremor, feeling unwell just after lunchtime. Came in for further evaluation. History was obtained via conversation with patient and chart review, primary care provider. On arrival, patient hemodynamically stable, alert, [oriented x4, ][appropriate, ]GCS [15], moving all extremities spontaneously, pupils equal and reactive to light. Full physical exam performed and significant for uncomfortable appearing female who is tachycardic and tremulous. Inguinal abscess, cellulitis, significant tenderness on the left with fluctuance and warmth. Differential includes cellulitis, abscess, necrotizing soft tissue infection, serotonin syndrome, sepsis, among others. Patient placed on continuous cardiac monitoring and continuous pulse ox with initial blood pressure 158/102, heart rate 127, saturation 97% on room air. [Independent interpretation of EKG shows] sinus tachycardia 120 bpm with [place] 163, QRS 78, QTc 393. Left axis deviation, no acute ischemic change patient was given sepsis fluid bolus, vancomycin, clinda, Levaquin and Flagyl due to anaphylactic allergies to sulfa antibiotics as well as cephalosporins for symptomatic management[ and correction of underlying abnormalities]. Workup independently interpreted and significant for normal white count of 10. Patient's VBG also resulted with early metabolic acidosis with normal pH but bicarb low at 20, CO2 low end of normal at 36. Lactate 3.4. Coags normal. Rest of workup pending at time of handoff to oncoming physician. [employer] Economics Teacher disclaimer Much of this encounter note is an electronic resident services supervisor spoken language to printed text. Electronic resident services supervisor of the spoken language may permit errors. Although I have reviewed the note, some errors may still exist. DO Bryce: I assumed care of the patient at time of departure previous provider. On my assessment, she is lying in bed resting comfortably in no acute distress and is hemodynamically stable with normal vitals on cardiac telemetry with exception of hypertension. She states he is feeling a little bit better. Lab work demonstrates a borderline leukocytosis, elevated inflammatory markers, elevated lactic acid. She is also tachycardic and arrived tachypneic concerning for sepsis. I independently interpreted CT scan prior radiology read and noted cellulitis without obvious abscess or gas. Please see their read for final interpretation. Given cellulitis without abscess or NSTI, I feel the patient would benefit from admission for IV antibiotics pending blood cultures. I had an interactive discussion with the hospitalist who admitted the patient in stable condition Procedures <Roe Jara MD - Last Filed: 10/23/24 15:21> Limited Ultrasound Indication:: Limited soft tissue ultrasound Indication: Erythema, redness, fluctuance left proximal/medial thigh/groin Identified structures: Location: Left lower extremity at the groin Findings: Lightest and abscess, no obvious gas Impression: Cellulitis and deep abscess of the left proximal groin Images were saved to permanent archive The study was technically adequate Soft Tissue CPT Codes: CPT Neck: 23663-65 CPT Upper extremity: 12625-80 CPT Axilla: 17238-74 CPT Chest wall: 18896-01 CPT Breast: 83941-95-KF/LT (complete), 31670-07-LH/LT (limited), CPT Upper Back: 55806-74 CPT Lower Back: 39465-71 CPT Abdominal Wall: 25428-20 CPT Pelvic Wall: 08031-82 CPT Lower Extremity: 02681-51 CPT Other Soft Tissue: 17197-92 This study was performed by me, and I personally interpreted all images/videos. Based on my clinical judgement, these images were adequate and did not necessitate further imaging. Critical Care <Roe Jara MD - Last Filed: 10/23/24 15:21> Critical Care Time Critical Care Time: No
[2024-10-23 15:20] LABS: C-Reactive Protein 54.9 mg/L (0-4)
[2024-10-23] MEDS: CLINDAMYCIN PHOSPHATE/D5W 900 MG/50 ML PIGGYBACK 100 MG IV (15:22)
[2024-10-23 15:30] LABS: Troponin I < 0.01 ng/ml (0.00-0.034)
[2024-10-23 15:33] LABS: D-Dimer 0.85 ug/mL (0.0-0.5)
[2024-10-23] MEDS: METRONIDAZ/SOD CHL 500 MG/100 ML PIGGYBACK 100 MG IV (15:33)
[2024-10-23 15:34] LABS: T4 (Thyroxine) 10.8 ug/dl (5.53-11.0)
[2024-10-23] MEDS: 0.9 % SODIUM CHLORIDE 1000ML 1,780 ML 890 ML IV (15:34)
[2024-10-23 15:40] LABS: HCG Qualitative, Serum Negative (Negative)
--- NOTE | 2024-10-23 15:44 | PC.NURSE ---
Pt to CT by wheelchair
[2024-10-23 15:47] LABS: Thyroid Stimulating Hormone 1.47 uIU/mL (0.465-4.68)
[2024-10-23] MEDS: SODIUM CHLORIDE 0.9% 10ML SYR (RAD ONLY) 10 ML IV (15:51)
[2024-10-23] MEDS: IOPAMIDOL-370 (76%);100ML BOTTLE 175 ML IV (15:51)
[2024-10-23] MEDS: LEVOFLOXACIN/D5W 750 MG/150 ML 750 MG/150 ML PIGGYBACK 100 MG IV (16:14)
--- NOTE | 2024-10-23 16:19 | PC.NURSE ---
Called Radiology and had them powershare images to per Dr Wu
--- NOTE | 2024-10-23 17:10 | P.HP_ITS ---
History of Present Illness *Admission Date: 10/23/24 [facility] Disclaimer: The information contained in this section may have been updated after the patient was seen, as this information can be updated by other users. Medical History Epidermal cyst of vulva Vulvar lesion Sinus problem Hypothyroidism Anemia Migraine Anxiety and depression Abnormal electrocardiography Pre-operative cardiovascular examination Hypertension Diabetes mellitus Hyperlipidemia History of atrial fibrillation Surgical History History of rhinoplasty H/O plastic surgery breast reduction History of prior ablation treatment uterine ablation History of H/O colonoscopy Hx of esophagogastroduodenoscopy H/O gastric sleeve H/O bariatric surgery History of tonsillectomy Family History Other Cancer Social History Smoking Status: Never smoker alcohol intake: never substance use type: denies use current occupational status: employed Travel in the last 8 weeks: None household members: spouse and children housing: house current occupational exposures/hazards: No caffeine: Yes Have you lived/traveled outside [place] in past 30 days?: No Contact w/someone who lives/traveled outside US past 30 days?: No Exposure to someone with infectious disease in past 14 days?: No Do you have a fever (greater than 100.4 F or 38 C)?: No Have you tested positive for COVID-19: No Exposed to someone with COVID-19 in past 14 days?: No Do you have a sore throat?: No Do you have a cough?: No Do you have any weakness?: No Do you have any diarrhea?: No Are you experiencing any unusual bleeding?: No Do you have any muscle aches/pain?: No Do you have any abdominal pain?: No Are you experiencing loss of taste or smell?: No Other Medical History Have you received the Flu Vaccine for this season: No Have you received the Pneumonia Vaccine: No Meds Home Medications and Allergies Home Medications ?Medication ?Instructions ?Recorded ?Confirmed ?Type fenofibrate nanocrystallized 145 145 mg PO DAILY TRIGLYCERIDES 09/03/17 10/22/24 History mg tablet losartan 100 mg tablet 100 mg PO DAILY Hypertension 07/14/18 10/22/24 History sumatriptan succinate 50 mg tablet 50 mg PO NEEDED PRN migraines 08/18/18 10/22/24 History (Imitrex) ergocalciferol (vitamin D2) 1,250 1,250 mcg PO WEEKLY Supplement 06/22/20 10/22/24 History mcg (50,000 unit) capsule omeprazole 40 mg capsule,delayed 40 mg PO DAILY GERD 08/02/20 10/22/24 History release bupropion HCl 300 mg 24 hr tablet, 300 mg PO DAILY Depression 04/06/21 10/22/24 History extended release (Wellbutrin XL) carvedilol 25 mg tablet 25 mg PO BID Hypertension 08/14/21 10/22/24 History amlodipine 10 mg tablet 10 mg PO DAILY Hypertension 01/11/22 10/22/24 History citalopram 40 mg tablet 40 mg PO 12/13/22 10/22/24 History levothyroxine 200 mcg tablet 200 mcg PO DAILY 12/13/22 10/22/24 History baclofen 20 mg tablet 20 mg PO DAILY #30 tabs 09/08/24 10/22/24 Rx calcium polycarbophil 625 mg 1,250 mg PO DAILY 09/08/24 10/22/24 History tablet (FiberCon) famotidine 20 mg tablet 20 mg PO HS 09/08/24 10/22/24 History lisdexamfetamine 40 mg capsule 40 mg PO DAILY 09/08/24 10/22/24 History (Vyvanse) methocarbamol 750 mg tablet 750 mg PO HS PRN 09/08/24 10/22/24 History metoclopramide HCl 10 mg tablet 10 mg PO QAC 09/08/24 10/22/24 History (Reglan) multivitamin 1 tab PO DAILY 09/08/24 10/22/24 History rimegepant 75 mg disintegrating 75 mg PO Q OTHER DAY 09/08/24 10/22/24 History tablet (Nurtec ODT) linezolid 600 mg tablet (Zyvox) 600 mg PO BID 10 days #20 tabs 10/22/24 Rx tirzepatide 2.5 mg/0.5 mL mg SQ 10/22/24 10/22/24 History subcutaneous pen injector (Mounjaro) New Prescriptions to Start Prescriptions: Allergies Allergy/AdvReac Type Severity Reaction Status Date / Time cefaclor (From [facility]) Allergy Severe Anaphylaxis Verified 10/23/24 14:59 erythromycin base Allergy Unknown ANAPHYLAXIS Verified 10/23/24 14:59 (ERYTHROMYCIN BASE) Sulfa (Sulfonamide Allergy Unknown ANAPHYLAXIS Verified 10/23/24 14:59 Antibiotics) (SULFA (SULFONAMIDE ANTIBIOTICS)) Exam Data for Last 24 hours Vital signs and Labs for Last 24 Hours: Temp Pulse Resp BP Pulse Ox O2 Del Method 97.6 F 127 H 18 158/102 H 97 Room Air 10/23/24 14:55 10/23/24 14:55 10/23/24 14:55 10/23/24 14:55 10/23/24 14:55 10/23/24 14:55 Laboratory Results - last 24 hr 10/23/24 14:49: VBG pH 7.36, VBG pCO2 36.5, VBG pO2 48.1 H, VBG HCO3 20.3 L, VBG Total CO2 21.4 L, VBG O2 Saturation 83.8 H, VBG Base Excess -5.1 L, VBG Lactic Acid 3.4 H 10/23/24 14:50: WBC 10.0, RBC 4.87, Hgb 14.5, Hct 43.2, MCV 88.7, MCH 29.8, MCHC 33.6, RDW 13.0, Plt Count 401, MPV 9.5, Neut % (Auto) 71.8, Lymph % (Auto) 17.7, [place] % (Auto) 7.2, Eos % (Auto) 2.1, Baso % (Auto) 0.7, Neut # (Auto) 7.2, Lymph # (Auto) 1.8, [place] # (Auto) 0.7, Eos # (Auto) 0.2, Baso # (Auto) 0.1, PT 10.3, INR 0.91, APTT 25.6, D-Dimer 0.85 H, Sodium 138, Potassium 3.8, Chloride 108 H, Carbon Dioxide 20 L, Anion Gap 13.8, BUN 12, Creatinine 0.80, Estimated Creat Clear 130, Estimated GFR 78, Est GFR ( Amer) 94, Glucose 286 H, Hemoglobin A1c 6.0, Calcium 9.2, Magnesium 1.6, Total Bilirubin 0.4, AST 26, ALT 26, Alkaline Phosphatase 81, Troponin I < 0.01, C-Reactive Protein 54.9 H, Total Protein 7.8, Albumin 4.4, Globulin 3.4 H, Albumin/Globulin Ratio 1.3, TSH 1.47, Thyroxine (T4) 10.8, Serum HCG, Qual Negative I & O for Last 24 hours: Intake & Output 10/20/24 10/21/24 10/22/24 10/23/24 23:59 23:59 23:59 23:59 Weight 91.626 kg
[2024-10-23] MEDS: VANCOMYCIN/WATER FOR INJ (PEG) 1.75 GM/350 ML PIGGYBACK IV (17:12)
--- NOTE | 2024-10-23 18:10 | PC.NURSE ---
Pt ambulatory to the bathroom. Report called to Emi CHILDERS. Pt pending transport to assigned room.
[2024-10-23 19:08] LABS: Reflex Lactic Add Lactic Reflex
[2024-10-23 19:31] LABS: Lactic Acid Follow Up (RFLX 1) 1.3 mmol/L (0.7-2.1)
--- NOTE | 2024-10-23 20:38 | PC.NURSE ---
I spoke with Bernardo from [facility] at this time, concerning the patient's vancomycin consult.
--- NOTE | 2024-10-23 20:42 | P.HP_ITS ---
<Statement entered by Anupam Traylor MD - 10/23/24 21:23> Rounded on patient with nurse practitioner. Personally examined and interviewed patient. Agree with exam findings and plan of care as documented. Continue antibiotics with Levaquin and vancomycin IV. Will consider surgery eval in the morning if lesion worsening or concern for need for I&D. Personally reviewed CT , no organized abscess, subcu gas, gangrene. Appears like cellulitis at this time. Strong concern for medication side effect given her symptoms of confusion and shakiness after starting Zyvox while still taking her citalopram and Wellbutrin. High risk for serotonin syndrome on that combination. Will hold her antidepressant meds at this time. History of Present Illness *Admission Date: 10/23/24 *Reason for visit:: Jitters *History of present illness: This is a 44-year-old female with a past medical history of García cirrhosis, GERD, DM 2 who presents to the hospital with complaints of feeling confused and jitters after starting Zyvox for a cellulitis infection. She reports left groin/thigh cellulitis that began on Saturday. She states that she saw Dr. Portillo and Dr. Bach and was placed on Zyvox. She does endorse improvement to the redness and hardened area to her left thigh but states that she has felt jittery and tingly all afternoon. States that she is also felt confused. Denies any fever. Lab work remarkable for elevated D-dimer 0.85, lactic acid of 1.3 CRP of 54. All other laboratory evaluation negative. Given her continued induration of her left thigh and above-stated complaints was felt she would benefit from hospitalization. She was medicated in the emergency department with vancomycin, Levaquin, clindamycin and Flagyl admitted to hospitalist service. [facility] Disclaimer: The information contained in this section may have been updated after the patient was seen, as this information can be updated by other users. Medical History Epidermal cyst of vulva Vulvar lesion Sinus problem Hypothyroidism Anemia Migraine Anxiety and depression Abnormal electrocardiography Pre-operative cardiovascular examination Hypertension Diabetes mellitus Hyperlipidemia History of atrial fibrillation Surgical History History of rhinoplasty H/O plastic surgery breast reduction History of prior ablation treatment uterine ablation History of H/O colonoscopy Hx of esophagogastroduodenoscopy H/O gastric sleeve H/O bariatric surgery History of tonsillectomy Family History Other Cancer Social History (Updated 10/23/24 @ 18:15 by Emi Crespo RN) Smoking Status: Never smoker alcohol intake: never substance use type: denies use current occupational status: employed Travel in the last 8 weeks: None household members: spouse and children housing: house current occupational exposures/hazards: No caffeine: Yes Have you lived/traveled outside [place] in past 30 days?: No Contact w/someone who lives/traveled outside US past 30 days?: No Exposure to someone with infectious disease in past 14 days?: No Do you have a fever (greater than 100.4 F or 38 C)?: No Have you tested positive for COVID-19: No Exposed to someone with COVID-19 in past 14 days?: No Do you have a sore throat?: No Do you have a cough?: No Do you have any weakness?: No Do you have any diarrhea?: No Are you experiencing any unusual bleeding?: No Do you have any muscle aches/pain?: No Do you have any abdominal pain?: No Are you experiencing loss of taste or smell?: No Other Medical History Have you received the Flu Vaccine for this season: Yes Have you received the Pneumonia Vaccine: No Review of Systems Review of Systems Review of systems:: pertinent systems reviewed and negative unless documented below Review of systems (narrative): Negative except for HPI Meds Home Medications and Allergies Home Medications ?Medication ?Instructions ?Recorded ?Confirmed ?Type fenofibrate nanocrystallized 145 145 mg PO DAILY TRIGLYCERIDES 09/03/17 10/23/24 History mg tablet losartan 100 mg tablet 100 mg PO DAILY Hypertension 07/14/18 10/23/24 History ergocalciferol (vitamin D2) 1,250 1,250 mcg PO WEEKLY Supplement 06/22/20 10/23/24 History mcg (50,000 unit) capsule omeprazole 40 mg capsule,delayed 40 mg PO DAILY GERD 08/02/20 10/23/24 History release bupropion HCl 300 mg 24 hr tablet, 300 mg PO DAILY Depression 04/06/21 10/23/24 History extended release (Wellbutrin XL) carvedilol 25 mg tablet 25 mg PO BID Hypertension 08/14/21 10/23/24 History amlodipine 10 mg tablet 10 mg PO DAILY Hypertension 01/11/22 10/23/24 History citalopram 40 mg tablet 40 mg PO HS 12/13/22 10/23/24 History levothyroxine 200 mcg tablet 200 mcg PO DAILY 12/13/22 10/23/24 History calcium polycarbophil 625 mg 1,250 mg PO DAILY 09/08/24 10/23/24 History tablet (FiberCon) lisdexamfetamine 40 mg capsule 40 mg PO DAILY 09/08/24 10/23/24 History (Vyvanse) methocarbamol 750 mg tablet 750 mg PO HS PRN muscle relaxer 09/08/24 10/23/24 History metoclopramide HCl 10 mg tablet 10 mg PO QAC 09/08/24 10/23/24 History (Reglan) multivitamin 1 tab PO DAILY 09/08/24 10/23/24 History rimegepant 75 mg disintegrating 75 mg PO Q OTHER DAY 09/08/24 10/23/24 History tablet (Nurtec ODT) New Prescriptions to Start Prescriptions: Allergies Allergy/AdvReac Type Severity Reaction Status Date / Time cefaclor (From [facility]) Allergy Severe Anaphylaxis Verified 10/23/24 14:59 erythromycin base Allergy Unknown ANAPHYLAXIS Verified 10/23/24 14:59 (ERYTHROMYCIN BASE) Sulfa (Sulfonamide Allergy Unknown ANAPHYLAXIS Verified 10/23/24 14:59 Antibiotics) (SULFA (SULFONAMIDE ANTIBIOTICS)) Exam Data for Last 24 hours Vital signs and Labs for Last 24 Hours: Temp Pulse Resp BP Pulse Ox O2 Del Method 98.0 F 86 16 129/72 96 Room Air 10/23/24 19:50 10/23/24 19:50 10/23/24 19:50 10/23/24 19:50 10/23/24 19:50 10/23/24 19:50 Laboratory Results - last 24 hr 10/23/24 14:49: VBG pH 7.36, VBG pCO2 36.5, VBG pO2 48.1 H, VBG HCO3 20.3 L, VBG Total CO2 21.4 L, VBG O2 Saturation 83.8 H, VBG Base Excess -5.1 L, VBG Lactic Acid 3.4 H 10/23/24 14:50: WBC 10.0, RBC 4.87, Hgb 14.5, Hct 43.2, MCV 88.7, MCH 29.8, MCHC 33.6, RDW 13.0, Plt Count 401, MPV 9.5, Neut % (Auto) 71.8, Lymph % (Auto) 17.7, [place] % (Auto) 7.2, Eos % (Auto) 2.1, Baso % (Auto) 0.7, Neut # (Auto) 7.2, Lymph # (Auto) 1.8, [place] # (Auto) 0.7, Eos # (Auto) 0.2, Baso # (Auto) 0.1, PT 10.3, INR 0.91, APTT 25.6, D-Dimer 0.85 H, Sodium 138, Potassium 3.8, Chloride 108 H, Carbon Dioxide 20 L, Anion Gap 13.8, BUN 12, Creatinine 0.80, Estimated Creat Clear 130, Estimated GFR 78, Est GFR ( Amer) 94, Glucose 286 H, Hemoglobin A1c 6.0, Calcium 9.2, Magnesium 1.6, Total Bilirubin 0.4, AST 26, ALT 26, Alkaline Phosphatase 81, Troponin I < 0.01, C-Reactive Protein 54.9 H, Total Protein 7.8, Albumin 4.4, Globulin 3.4 H, Albumin/Globulin Ratio 1.3, TSH 1.47, Thyroxine (T4) 10.8, Serum HCG, Qual Negative 10/23/24 19:17: Lactate 1.3 I & O for Last 24 hours: Intake & Output 10/20/24 10/21/24 10/22/24 10/23/24 23:59 23:59 23:59 23:59 Weight 93.7 kg Constitutional Constitutional: no acute distress *Routine HEENT Exam Head: Present normocephalic Eye: Present EOMI and PERRL ENT: Present mucous membranes moist *Routine Neck Exam Neck: Present supple; Absent lymphadenopathy *Routine Respiratory Exam Respiratory: Present CTA bilaterally *Routine Cardiovascular Exam Cardiovascular: Present RRR *Routine Abdominal Exam Abdominal: Present soft and normoactive bowel sounds; Absent tenderness *Routine Rectal Exam Rectal:: deferred *Routine Genitalia Exam Genitalia:: deferred *Routine Extremities Exam Extremities: Absent cyanosis, clubbing or edema *Routine Skin Exam Skin: Present warm Comments: Left groin/inner thigh with golf ball sized area of induration with some redness surrounding it. Patient reports redness and streaking this has improved. *Routine Neurological Exam Neurological: Present alert and oriented X3 Assessment and Plan *Assessment and plan (1) Cellulitis of groin, left: Status: Acute Category: Medical Code(s): L03.314 - Cellulitis of groin (2) Abscess: Status: Acute Category: Medical Code(s): L02.91 - Cutaneous abscess, unspecified (3) Diabetes mellitus: Status: Chronic Qualifiers: Diabetes mellitus type: type 2 Diabetes mellitus complication status: without complication Diabetes mellitus meterman insulin use: without retirement use Qualified Code(s): E11.9 - Type 2 diabetes mellitus without complications Category: Medical Code(s): E11.9 - Type 2 diabetes mellitus without complications (4) Serotonin syndrome: Status: Acute Category: Medical Code(s): G90.81 - Serotonin syndrome (5) Depression with anxiety: Status: Acute Category: Medical Code(s): F41.8 - Other specified anxiety disorders Plan #Left groin cellulitis and abscess Doppler size area of induration to left thigh/groin area. Mild streaking noted to mid thigh. Patient self reports improvement in symptoms since oral Zyvox initiated on Saturday. Given questionable serotonin syndrome with Zyvox use and concurrent use of oral antidepressants, will stop Zyvox and continue vancomycin and Levaquin Does not appear to be surgical in nature at this time. Will reevaluate in a.m. and consult surgery if needed. #Serotonin syndrome Patient reports confusion, jitteriness and tremors this afternoon. Endorses use of bupropion and citalopram nightly. Reports improvement in symptoms as of time of this assessment. Hold mood stabilizers. Have stopped Zyvox and started IV antibiotics #DM2 Monotherapy with Mounjaro with improvement in A1c per patient. A1c today 6.0. Doses herself on Mondays. Will hold other antidiabetics at this time #Hypertension Continue home antihypertensive #Depression anxiety Hold home medications at this time given questionable serotonin syndrome. Restart tomorrow evening
[2024-10-23] MEDS: VANCOMYCIN CONSULT REQUEST 1 EACH NOTAPPLIC (21:28)
[2024-10-23] MEDS: 0.9 % SODIUM CHLORIDE 1000ML 1,000 ML 75 ML IV (21:28)
--- NOTE | 2024-10-23 21:41 | PC.NURSE ---
Addendum entered by Krystle Arevalo RN 10/24/24 05:34: I checked the patient's glucose level this morning (at 05:32) via fingerstick. Glucose reading was 126. Original Note: I checked the patient's glucose level this evening (at 21:37) via fingerstick. The patient has a history of diabetes type II. Glucose reading was 173. The patient stated that she is currently not interested in receiving insulin coverage for this reading.
[2024-10-23 21:51] LABS: Troponin I < 0.01 ng/ml (0.00-0.034)
[2024-10-23 22:25] LABS: POC Glucose,Bedside 173 (70-110)
--- NOTE | 2024-10-24 03:45 | PC.NURSE ---
Patient is pleasantly alert and oriented x4. She was observed to have eyes closed, respirations even and unlabored on room air, and no apparent distress for the majority of the night. Patient has redness and a firm area noted to her left inner thigh/groin approximation. Area was outlined during the previous shift. Scheduled medications administered as appropriately per MAR. Vancomycin initiated. Normal saline continues to infuse at 75 mL/hr. Denied any shakiness or jitteriness for this shift. Vital signs stable. Auscultation of her heart, lungs, and bowels were within normal findings. She ambulates independently in her room/to the bathroom without difficulty. ACHS glucose checks performed. At this time, the patient is resting in bed without any further complaints. No new needs at this time. Call light within reach.
[2024-10-24 03:57] VITALS: BP 120/71; PULSE 83; RESP 16; TEMP 36.6; O2SAT 97
[2024-10-24 04:00] VITALS: BMI 33.2
[2024-10-24] MEDS: VANCOMYCIN/WATER FOR INJ (PEG) 1.25 GM/250 ML PIGGYBACK IV (05:28)
[2024-10-24 05:46] LABS: POC Glucose,Bedside 126 (70-110)
[2024-10-24 07:40] LABS: Eosinophils # 0.3 Kmm3 (0.0-0.4); Nucleated Red Blood Cells # 0 10^3/uL; Nucleated Red Blood Cells % 0 %; Red Cell Distribution Width-SD 42.8 fL
[2024-10-24 07:49] LABS: Basophils # 0.1 K/mm3 (0-0.2); Basophils % 0.7 % (0.1-2.0); Eosinophils % 3.3 % (0.1-12.0); Hematocrit 37.1 % (37.0-47.0); Lymphocytes % 23.6 % (10-50); Mean Corpuscular HGB Conc 33.7 g/dL (31.8-35.4); Mean Corpuscular Hemoglobin 30.1 pg (27.0-31.2); Mean Corpuscular Volume 89.4 fl (81-99); Mean Platelet Volume 9.4 fl (7.4-10.4); Monocytes % 11.5 % (1.7-9.3); Neutrophils % 60.7 % (37.0-80.0); Platelet Count 319 K/mm3 (142-424); Red Blood Count 4.15 M/mm3 (4.20-5.40); Red Cell Distribution Width 13.1 % (11.5-17.5); White Blood Count 8.3 K/mm3 (4.8-10.8)
[2024-10-24 07:50] LABS: Chloride 108 mmol/L (98-107); Potassium 3.8 mmoL/L (3.5-5.1); Sodium 136 mmol/L (136-145)
[2024-10-24 07:51] LABS: Hemoglobin 12.5 g/dL (12.2-16.2)
[2024-10-24 07:53] LABS: Anion Gap 9.8 mEq/L (5-15); Blood Urea Nitrogen 5 mg/dl (7-17); Calcium 8.6 mg/dl (8.4-10.2); Carbon Dioxide 22 mmol/L (22.0-30.0); Creatinine Clearance Estimated 265 mL/min (50-200); Estimated Glomerular Filt Rate 173 ml/min (>60); GFR (African American) 210 ML/MIN (>60); Glucose 122 mg/dl (74-100)
[2024-10-24 07:59] LABS: C-Reactive Protein 29.3 mg/L (0-4)
[2024-10-24 08:00] VITALS: BP 139/76; PULSE 85; RESP 16; TEMP 36.7; O2SAT 97
[2024-10-24 08:22] LABS: Albumin Level 3.5 g/dl (3.5-5.0); Chloride 108 mmol/L (98-107); Potassium 4.1 mmoL/L (3.5-5.1); Sodium 136 mmol/L (136-145)
[2024-10-24 08:24] LABS: Blood Urea Nitrogen 5 mg/dl (7-17); Creatinine Clearance Estimated 265 mL/min (50-200); Estimated Glomerular Filt Rate 173 ml/min (>60); GFR (African American) 210 ML/MIN (>60)
[2024-10-24 08:25] LABS: Alanine Aminotransferase 18 U/L (12-78); Albumin/Globulin Ratio 1.3 (1.1-1.8); Alkaline Phosphatase 67 U/L (38-126); Anion Gap 10.1 mEq/L (5-15); Aspartate Amino Transferase 18 U/L (14-36); Bilirubin,Total 0.4 mg/dl (0.2-1.3); Calcium 8.7 mg/dl (8.4-10.2); Carbon Dioxide 22 mmol/L (22.0-30.0); Globulin 2.6 g/dL (1.3-3.2); Glucose 118 mg/dl (74-100); Magnesium 1.7 mg/dl (1.6-2.3); Total Protein,Serum 6.1 g/dl (6.3-8.2)
--- NOTE | 2024-10-24 12:01 | P.DS_ITS ---
General Admission date:: 10/23/24 HPI HPI HPI: This is a 44-year-old female with a past medical history of García cirrhosis, GERD, DM 2 who presents to the hospital with complaints of feeling confused and jitters after starting Zyvox for a cellulitis infection. She reports left groin/thigh cellulitis that began on Saturday. She states that she saw Dr. Portillo and Dr. Bach and was placed on Zyvox. She does endorse improvement to the r edness and hardened area to her left thigh but states that she has felt jittery and tingly all afternoon. States that she is also felt confused. Denies any fever. Lab work remarkable for elevated D-dimer 0.85, lactic acid of 1.3 CRP of 54. All other laboratory evaluation negative. Given her continued induration of her left thigh and above-stated complaints was felt she would benefit from hospitalization. She was medicated in the emergency department with vancomycin, Levaquin, clindamycin and Flagyl admitted to hospitalist service. Hospital Course Hospital Course Hospital Course: Yoanna Brar is a 44-year-old female who presented with left inguinal swelling, tenderness, erythema and was admitted for cellulitis and possible abscess, serotonin syndrome. #Suspected hidradenitis suppurativa #Left inguinal cellulitis ? Was evaluated by his general surgery 1 day prior to admission and prescribed Zyvox for possible left inguinal abscess. ? Unfortunately, patient seem to have developed possible early serotonin syndrome symptoms with concomitant use of Wellbutrin, citalopram. This was discontinued on admission. ? CT abdomen/pelvis did not show definitive abscess, did show right ovarian cyst. ? Treated with IV vancomycin, cefepime with improvement in symptoms. No leukocytosis, signs of sepsis. ? Initially discharged with Augmentin, but switched to doxycycline for 2 weeks for suspected hidradenitis per suppurativa. Advised to follow-up with general surgery, and if it is truly hidradenitis suppurativa will likely need a full course of 6 to 10 weeks of tetracycline. #Serotonin syndrome #Anxiety/depression ? Presented with tremors, diaphoresis, hot flashes suspicious for serotonin syndrome in the setting of Zyvox and SSRIs. Discontinued Zyvox with improvement in symptoms. ? Continue home bupropion, Celexa. #Hypothyroidism ? Continue home levothyroxine. #Hypertension ? Continue home Coreg, losartan. #GERD ? Continue home PPI. Total time spent on discharge: 31 minutes on chart review, counseling, documentation, and direct care with patient. Exam Data for Last 24 hours Vital signs and Labs for Last 24 Hours: Temp Pulse Resp BP Pulse Ox O2 Del Method 98.1 F 85 16 139/76 97 Room Air 10/24/24 08:00 10/24/24 08:00 10/24/24 08:00 10/24/24 08:00 10/24/24 08:00 10/24/24 09:00 Laboratory Results - last 24 hr 10/23/24 14:49: VBG pH 7.36, VBG pCO2 36.5, VBG pO2 48.1 H, VBG HCO3 20.3 L, VBG Total CO2 21.4 L, VBG O2 Saturation 83.8 H, VBG Base Excess -5.1 L, VBG Lactic Acid 3.4 H 10/23/24 14:50: WBC 10.0, RBC 4.87, Hgb 14.5, Hct 43.2, MCV 88.7, MCH 29.8, MCHC 33.6, RDW 13.0, Plt Count 401, MPV 9.5, Neut % (Auto) 71.8, Lymph % (Auto) 17.7, [place] % (Auto) 7.2, Eos % (Auto) 2.1, Baso % (Auto) 0.7, Neut # (Auto) 7.2, Lymph # (Auto) 1.8, [place] # (Auto) 0.7, Eos # (Auto) 0.2, Baso # (Auto) 0.1, PT 10.3, INR 0.91, APTT 25.6, D-Dimer 0.85 H, Sodium 138, Potassium 3.8, Chloride 108 H, Carbon Dioxide 20 L, Anion Gap 13.8, BUN 12, Creatinine 0.80, Estimated Creat Clear 130, Estimated GFR 78, Est GFR ( Amer) 94, Glucose 286 H, Hemoglobin A1c 6.0, Calcium 9.2, Magnesium 1.6, Total Bilirubin 0.4, AST 26, ALT 26, Alkaline Phosphatase 81, Troponin I < 0.01, C-Reactive Protein 54.9 H, Total Protein 7.8, Albumin 4.4, Globulin 3.4 H, Albumin/Globulin Ratio 1.3, TSH 1.47, Thyroxine (T4) 10.8, Serum HCG, Qual Negative 10/23/24 19:17: Lactate 1.3 10/23/24 21:15: Troponin I < 0.01 10/23/24 21:37: POC Glucose 173 H 10/24/24 05:32: POC Glucose 126 H 10/24/24 06:45: WBC 8.3, RBC 4.15 L, Hgb 12.5 D, Hct 37.1, MCV 89.4, MCH 30.1, MCHC 33.7, RDW 13.1, Plt Count 319, MPV 9.4, Neut % (Auto) 60.7, Lymph % (Auto) 23.6, [place] % (Auto) 11.5 H, Eos % (Auto) 3.3, Baso % (Auto) 0.7, Neut # (Auto) 5.0, Lymph # (Auto) 2.0, [place] # (Auto) 1.0, Eos # (Auto) 0.3, Baso # (Auto) 0.1, Sodium 136 10/24/24 06:45: Sodium 136, Potassium 3.8 10/24/24 06:45: Potassium 4.1, Chloride 108 H 10/24/24 06:45: Chloride 108 H, Carbon Dioxide 22 10/24/24 06:45: Carbon Dioxide 22, Anion Gap 9.8 10/24/24 06:45: Anion Gap 10.1, BUN 5 L D 10/24/24 06:45: BUN 5 L, Creatinine 0.40 L D 10/24/24 06:45: Creatinine 0.40 L, Estimated Creat Clear 265 10/24/24 06:45: Estimated Creat Clear 265, Estimated GFR 173 10/24/24 06:45: Estimated GFR 173, Est GFR ( Amer) 210 D 10/24/24 06:45: Est GFR ( Amer) 210, Glucose 122 H D 10/24/24 06:45: Glucose 118 H, Calcium 8.6 10/24/24 06:45: Calcium 8.7, Magnesium 1.7, Total Bilirubin 0.4, AST 18 D, ALT 18 D, Alkaline Phosphatase 67, C-Reactive Protein 29.3 H D, Total Protein 6.1 L , Albumin 3.5 D, Globulin 2.6, Albumin/Globulin Ratio 1.3 I & O for Last 24 hours: Intake & Output 10/21/24 10/22/24 10/23/24 10/24/24 23:59 23:59 23:59 23:59 Intake Total 480 / 480 Balance 480 / 480 Weight 93.7 kg 93.7 kg Constitutional Constitutional: no acute distress *Routine HEENT Exam Head: Present normocephalic Eye: Present EOMI and PERRL ENT: Present mucous membranes moist *Routine Neck Exam Neck: Present supple; Absent lymphadenopathy *Routine Respiratory Exam Respiratory: Present CTA bilaterally *Routine Cardiovascular Exam Cardiovascular: Present RRR *Routine Abdominal Exam Abdominal: Present soft and normoactive bowel sounds; Absent tenderness Comments: Left inguinal crease 2 cm x 2 cm induration surrounded by erythema. Tenderness to palpation. *Routine Extremities Exam Extremities: Absent cyanosis, clubbing or edema *Routine Skin Exam Skin: Present warm; Absent rash *Routine Neurological Exam Neurological: Present alert and oriented X3 Results Data Completed and Pending Labs on day of discharge: Labs from last 24 hours 10/24/24 10/24/24 10/24/24 06:45 06:45 06:45 WBC RBC Hgb Hct MCV MCH MCHC RDW Plt Count MPV Neut % (Auto) Lymph % (Auto) [place] % (Auto) Eos % (Auto) Baso % (Auto) Neut # (Auto) Lymph # (Auto) [place] # (Auto) Eos # (Auto) Baso # (Auto) PT INR APTT D-Dimer VBG pH VBG pCO2 VBG pO2 VBG HCO3 VBG Total CO2 VBG O2 Saturation VBG Base Excess VBG Lactic Acid Sodium Potassium Chloride Carbon Dioxide Anion Gap BUN Creatinine Estimated Creat Clear Estimated GFR Est GFR ( Amer) 210 Glucose 118 H 122 H D POC Glucose Hemoglobin A1c Lactate Calcium 8.7 8.6 Magnesium 1.7 Total Bilirubin 0.4 AST 18 D ALT 18 D Alkaline Phosphatase 67 Troponin I C-Reactive Protein 29.3 H D Total Protein 6.1 L Albumin 3.5 D Globulin 2.6 Albumin/Globulin Ratio 1.3 TSH Thyroxine (T4) Serum HCG, Qual 10/24/24 10/24/24 10/24/24 06:45 06:45 06:45 WBC RBC Hgb Hct MCV MCH MCHC RDW Plt Count MPV Neut % (Auto) Lymph % (Auto) [place] % (Auto) Eos % (Auto) Baso % (Auto) Neut # (Auto) Lymph # (Auto) [place] # (Auto) Eos # (Auto) Baso # (Auto) PT INR APTT D-Dimer VBG pH VBG pCO2 VBG pO2 VBG HCO3 VBG Total CO2 VBG O2 Saturation VBG Base Excess VBG Lactic Acid Sodium Potassium Chloride Carbon Dioxide Anion Gap BUN Creatinine 0.40 L Estimated Creat Clear 265 265 Estimated GFR 173 173 Est GFR ( Amer) 210 D Glucose POC Glucose Hemoglobin A1c Lactate Calcium Magnesium Total Bilirubin AST ALT Alkaline Phosphatase Troponin I C-Reactive Protein Total Protein Albumin Globulin Albumin/Globulin Ratio TSH Thyroxine (T4) Serum HCG, Qual 10/24/24 10/24/24 10/24/24 06:45 06:45 06:45 WBC RBC Hgb Hct MCV MCH MCHC RDW Plt Count MPV Neut % (Auto) Lymph % (Auto) [place] % (Auto) Eos % (Auto) Baso % (Auto) Neut # (Auto) Lymph # (Auto) [place] # (Auto) Eos # (Auto) Baso # (Auto) PT INR APTT D-Dimer VBG pH VBG pCO2 VBG pO2 VBG HCO3 VBG Total CO2 VBG O2 Saturation VBG Base Excess VBG Lactic Acid Sodium Potassium Chloride Carbon Dioxide 22 Anion Gap 10.1 9.8 BUN 5 L 5 L D Creatinine 0.40 L D Estimated Creat Clear Estimated GFR Est GFR ( Amer) Glucose POC Glucose Hemoglobin A1c Lactate Calcium Magnesium Total Bilirubin AST ALT Alkaline Phosphatase Troponin I C-Reactive Protein Total Protein Albumin Globulin Albumin/Globulin Ratio TSH Thyroxine (T4) Serum HCG, Qual 10/24/24 10/24/24 10/24/24 06:45 06:45 06:45 WBC RBC Hgb Hct MCV MCH MCHC RDW Plt Count MPV Neut % (Auto) Lymph % (Auto) [place] % (Auto) Eos % (Auto) Baso % (Auto) Neut # (Auto) Lymph # (Auto) [place] # (Auto) Eos # (Auto) Baso # (Auto) PT INR APTT D-Dimer VBG pH VBG pCO2 VBG pO2 VBG HCO3 VBG Total CO2 VBG O2 Saturation VBG Base Excess VBG Lactic Acid Sodium 136 Potassium 4.1 3.8 Chloride 108 H 108 H Carbon Dioxide 22 Anion Gap BUN Creatinine Estimated Creat Clear Estimated GFR Est GFR ( Amer) Glucose POC Glucose Hemoglobin A1c Lactate Calcium Magnesium Total Bilirubin AST ALT Alkaline Phosphatase Troponin I C-Reactive Protein Total Protein Albumin Globulin Albumin/Globulin Ratio TSH Thyroxine (T4) Serum HCG, Qual 10/24/24 10/24/24 10/23/24 06:45 05:32 21:37 WBC 8.3 RBC 4.15 L Hgb 12.5 D Hct 37.1 MCV 89.4 MCH 30.1 MCHC 33.7 RDW 13.1 Plt Count 319 MPV 9.4 Neut % (Auto) 60.7 Lymph % (Auto) 23.6 [place] % (Auto) 11.5 H Eos % (Auto) 3.3 Baso % (Auto) 0.7 Neut # (Auto) 5.0 Lymph # (Auto) 2.0 [place] # (Auto) 1.0 Eos # (Auto) 0.3 Baso # (Auto) 0.1 PT INR APTT D-Dimer VBG pH VBG pCO2 VBG pO2 VBG HCO3 VBG Total CO2 VBG O2 Saturation VBG Base Excess VBG Lactic Acid Sodium 136 Potassium Chloride Carbon Dioxide Anion Gap BUN Creatinine Estimated Creat Clear Estimated GFR Est GFR ( Amer) Glucose POC Glucose 126 H 173 H Hemoglobin A1c Lactate Calcium Magnesium Total Bilirubin AST ALT Alkaline Phosphatase Troponin I C-Reactive Protein Total Protein Albumin Globulin Albumin/Globulin Ratio TSH Thyroxine (T4) Serum HCG, Qual 10/23/24 10/23/24 10/23/24 21:15 19:17 14:50 WBC 10.0 RBC 4.87 Hgb 14.5 Hct 43.2 MCV 88.7 MCH 29.8 MCHC 33.6 RDW 13.0 Plt Count 401 MPV 9.5 Neut % (Auto) 71.8 Lymph % (Auto) 17.7 [place] % (Auto) 7.2 Eos % (Auto) 2.1 Baso % (Auto) 0.7 Neut # (Auto) 7.2 Lymph # (Auto) 1.8 [place] # (Auto) 0.7 Eos # (Auto) 0.2 Baso # (Auto) 0.1 PT 10.3 INR 0.91 APTT 25.6 D-Dimer 0.85 H VBG pH VBG pCO2 VBG pO2 VBG HCO3 VBG Total CO2 VBG O2 Saturation VBG Base Excess VBG Lactic Acid Sodium 138 Potassium 3.8 Chloride 108 H Carbon Dioxide 20 L Anion Gap 13.8 BUN 12 Creatinine 0.80 Estimated Creat Clear 130 Estimated GFR 78 Est GFR ( Amer) 94 Glucose 286 H POC Glucose Hemoglobin A1c 6.0 Lactate 1.3 Calcium 9.2 Magnesium 1.6 Total Bilirubin 0.4 AST 26 ALT 26 Alkaline Phosphatase 81 Troponin I < 0.01 < 0.01 C-Reactive Protein 54.9 H Total Protein 7.8 Albumin 4.4 Globulin 3.4 H Albumin/Globulin Ratio 1.3 TSH 1.47 Thyroxine (T4) 10.8 Serum HCG, Qual Negative 10/23/24 14:49 WBC RBC Hgb Hct MCV MCH MCHC RDW Plt Count MPV Neut % (Auto) Lymph % (Auto) [place] % (Auto) Eos % (Auto) Baso % (Auto) Neut # (Auto) Lymph # (Auto) [place] # (Auto) Eos # (Auto) Baso # (Auto) PT INR APTT D-Dimer VBG pH 7.36 VBG pCO2 36.5 VBG pO2 48.1 H VBG HCO3 20.3 L VBG Total CO2 21.4 L VBG O2 Saturation 83.8 H VBG Base Excess -5.1 L VBG Lactic Acid 3.4 H Sodium Potassium Chloride Carbon Dioxide Anion Gap BUN Creatinine Estimated Creat Clear Estimated GFR Est GFR ( Amer) Glucose POC Glucose Hemoglobin A1c Lactate Calcium Magnesium Total Bilirubin AST ALT Alkaline Phosphatase Troponin I C-Reactive Protein Total Protein Albumin Globulin Albumin/Globulin Ratio TSH Thyroxine (T4) Serum HCG, Qual DS: Diagnosis Discharge Diagnosis (1) Cellulitis of groin, left: Status: Acute Code(s): L03.314 - Cellulitis of groin (2) Abscess: Status: Acute Code(s): L02.91 - Cutaneous abscess, unspecified (3) Diabetes mellitus: Status: Chronic Code(s): E11.9 - Type 2 diabetes mellitus without complications Qualifiers: Diabetes mellitus complication status: without complication Diabetes mellitus longterm insulin use: without longterm use Diabetes mellitus type: type 2 Qualified Code(s): E11.9 - Type 2 diabetes mellitus without complications (4) Serotonin syndrome: Status: Acute Code(s): G90.81 - Serotonin syndrome (5) Depression with anxiety: Status: Acute Code(s): F41.8 - Other specified anxiety disorders Meds Home Medications and Allergies Home Medications ?Medication ?Instructions ?Recorded ?Confirmed ?Type fenofibrate nanocrystallized 145 145 mg PO DAILY TRIGLYCERIDES 09/03/17 10/23/24 History mg tablet losartan 100 mg tablet 100 mg PO DAILY Hypertension 07/14/18 10/23/24 History ergocalciferol (vitamin D2) 1,250 1,250 mcg PO WEEKLY Supplement 06/22/20 10/23/24 History mcg (50,000 unit) capsule omeprazole 40 mg capsule,delayed 40 mg PO DAILY GERD 08/02/20 10/23/24 History release bupropion HCl 300 mg 24 hr tablet, 300 mg PO DAILY Depression 04/06/21 10/23/24 History extended release (Wellbutrin XL) carvedilol 25 mg tablet 25 mg PO BID Hypertension 08/14/21 10/23/24 History amlodipine 10 mg tablet 10 mg PO DAILY Hypertension 01/11/22 10/23/24 History citalopram 40 mg tablet 40 mg PO HS 12/13/22 10/23/24 History levothyroxine 200 mcg tablet 200 mcg PO DAILY 12/13/22 10/23/24 History calcium polycarbophil 625 mg 1,250 mg PO DAILY 09/08/24 10/23/24 History tablet (FiberCon) lisdexamfetamine 40 mg capsule 40 mg PO DAILY 09/08/24 10/23/24 History (Vyvanse) methocarbamol 750 mg tablet 750 mg PO HS PRN muscle relaxer 09/08/24 10/23/24 History metoclopramide HCl 10 mg tablet 10 mg PO QAC 09/08/24 10/23/24 History (Reglan) multivitamin 1 tab PO DAILY 09/08/24 10/23/24 History rimegepant 75 mg disintegrating 75 mg PO Q OTHER DAY 09/08/24 10/23/24 History tablet (Nurtec ODT) doxycycline monohydrate 100 mg 100 mg PO BID 2 weeks #28 caps 10/24/24 Rx capsule New Prescriptions to Start Prescriptions: doxycycline monohydrate Rito Estrada Allergies Allergy/AdvReac Type Severity Reaction Status Date / Time cefaclor (From [facility]) Allergy Severe Anaphylaxis Verified 10/23/24 14:59 erythromycin base Allergy Unknown ANAPHYLAXIS Verified 10/23/24 14:59 (ERYTHROMYCIN BASE) Sulfa (Sulfonamide Allergy Unknown ANAPHYLAXIS Verified 10/23/24 14:59 Antibiotics) (SULFA (SULFONAMIDE ANTIBIOTICS)) Discharge Plan Disposition Patient Disposition: Home, Self-Care Condition: Fair Follow up Plan Follow up with: Sanya Bach MD [Staff Physician] - Enter time for follow up (please call office for follow up appointment) Prescriptions/Medication Reconciliation: New doxycycline monohydrate 100 mg capsule 100 mg PO BID 14 Days Qty: 28 0RF Continued losartan 100 mg tablet 100 mg PO DAILY carvedilol 25 mg tablet 25 mg PO BID levothyroxine 200 mcg tablet 200 mcg PO DAILY citalopram 40 mg tablet 40 mg PO HS methocarbamol 750 mg tablet 750 mg PO HS PRN (Reason: muscle relaxer) metoclopramide HCl [Reglan] 10 mg tablet 10 mg PO QAC Rx Instructions: administer 30 minutes before meals lisdexamfetamine [Vyvanse] 40 mg capsule 40 mg PO DAILY Rx Instructions: Take 1 tablet by mouth every day Nurtec ODT 75 mg tablet,disintegrating 75 mg PO Q OTHER DAY multivitamin Tablet 1 tab PO DAILY calcium polycarbophil [FiberCon] 625 mg tablet 1,250 mg PO DAILY ergocalciferol (vitamin D2) 1,250 mcg (50,000 unit) capsule 1,250 mcg PO WEEKLY bupropion HCl [Wellbutrin XL] 300 mg tablet extended release 24 hr 300 mg PO DAILY fenofibrate nanocrystallized 145 MG tablet 145 mg PO DAILY omeprazole 40 MG capsule,delayed release(DR/EC) 40 mg PO DAILY amlodipine 10 MG tablet 10 mg PO DAILY Problem Reconciliation Problems Reviewed?: Yes Patient Discharge Instructions Patient Instructions: DI for Cellulitis -- Adult, DI for Sepsis -- Adult Print Language: E[place] Providers Primary Care Provider: Kieran Dawson Admit Provider: Anupam Traylor Attending Provider: Anupam Traylor
--- NOTE | 2024-10-26 15:18 | SW/DCPLANNER ---
Spoke with patient on the phone. Patient stated that she is doing good. Patient stated that she is seeing the surgeon tomorrow. Patient stated that she has no concerns or questions. Adam Thompson
== END 2024-10-24 14:00 | disposition home or self-care (01) ==
LOC: ER 17:07 → 2ND 18:31
PROVIDERS: Nurse Practitioner Acute Care; Admitting Provider Internal Medicine Adolescent Medicine; Emergency Provider Emergency Medicine; PCP Internal Medicine Adolescent Medicine; Visit Provider Internal Medicine Adolescent Medicine
DX: L03.314 Cellulitis of groin (principal); E11.9 Type 2 diabetes mellitus without complications; G90.81 Serotonin syndrome; I10 Essential (primary) hypertension; K21.9 Gastro-esophageal reflux disease without esophagitis; E78.5 Hyperlipidemia, unspecified; K75.81 Nonalcoholic steatohepatitis (NASH); E03.9 Hypothyroidism, unspecified; F41.8 Other specified anxiety disorders; L73.2 Hidradenitis suppurativa; Z98.84 Bariatric surgery status; Z88.2 Allergy status to sulfonamides; Z88.1 Allergy status to other antibiotic agents; Z79.899 Other long term (current) drug therapy
CPT/HCPCS: 36415; 73701; 74177; 80048; 80053; 82803; 82962; 83036; 83605; 83735; 84436; 84443; 84484; 84703; 85025; 85378; 85610; 85730; 86140; 87040; 93005; 99285; G0378; J0736; J1956; J3372; J7030; Q9967

== ENCOUNTER 2024-11-16 08:59 | Outpatient (CLI) | payer BC, SELFPAY ==
--- OUTSIDE RECORDS SUMMARY | 2024-11-16 09:01 | XMS_ITS | Data Portability ---
Author Organization [facility] & [facility] ADMIN Address [address] [place] [address] Care Team Providers Care Nutrition Faculty Member Name Role Phone STEPHANIE MASON Primary Care Provider [phone] Assessment No assessment recorded. Plan of Treatment Reminders Order Date Submit Date Provider Last Modified By Organization Details Last Modified Time Details Appointments None recorded. Lab urinalysis , dipstick 2023 [email or web address] [facility], [address], [place], [address], 16:19:14 Referral None recorded. Procedures None recorded. Surgeries None recorded. Imaging US, renal 2023 [facility] (Centralized Scheduling), [address] [facility], [place], [address], 4 16:30:55 XR, kidney + ureter + bladder 2023 [facility] (Centralized Scheduling), [address] [facility], [place], [address], 4 16:30:54 Medication Orders methenamin e hippurate 1 gram tablet 2023 [facility]91, [address], [place], [address], 16:18:51 Patient TargetsNo targets recorded. Patient InstructionsNo instructions recorded. Reason for Referral None Reported. Results Created Date Observation Date Name Description Value Unit Range Abnormal Flag Note LastModifiedBy Organization Detail LastModifiedTime 05/12/20 24 05/12/2024 urina lysis , dipst ick Leukocytes (reference range) negati ve Not Available [place] [address], [place], [address], 05/12/2024 16:18:50 05/12/20 24 05/12/2024 urina lysis , dipst ick Nitrite (reference range:) negati ve Not Available [place] [address], [place], [address], 05/12/2024 16:18:50 05/12/20 24 05/12/2024 urina lysis , dipst ick Urobilinogen (reference range) 0.2 Not Available [facility] [place] [address], [place], [address], 05/12/2024 16:18:50 05/12/20 24 05/12/2024 urina lysis , dipst ick Protein (reference range) negati ve Not Available [place] [address], [place], [address], 05/12/2024 16:18:50 05/12/20 24 05/12/2024 urina lysis , dipst ick pH (reference range 5-8.5) 6.0 Not Available [facility] [place] [address], [place], [address], 05/12/2024 16:18:50 05/12/20 24 05/12/2024 urina lysis , dipst ick Blood (reference range:) negati ve Not Available [place] [address], [place], [address], 05/12/2024 16:18:50 05/12/20 24 05/12/2024 urina lysis , dipst ick Specific [place] (reference range) 1.015 Not Available [place] [address], [place], [address], 05/12/2024 16:18:50 05/12/20 24 05/12/2024 urina lysis , dipst ick Ketone (reference range) negati ve Not Available [place] [address], [place], [address], 05/12/2024 16:18:50 05/12/20 24 05/12/2024 urina lysis , dipst ick Bilirubin (reference range) negati ve Not Available [place] [address] [address] [facility] [address], [place], [address], 05/12/2024 16:18:50 05/12/20 24 05/12/2024 urina lysis , dipst ick Glucose (reference range) negati ve Not Available [place] [address] [address] [facility] [address], [place], [address], 05/12/2024 16:18:50 05/12/20 24 05/12/2024 urina lysis , dipst ick Color (reference range: yellow-brown ) Yellow Not Available [place] [address] [address] [facility] [address], [place], [address], 05/12/2024 16:18:50 05/13/20 24 01/06/2024 US, renal No observ ation record ed. [email or web address] [place] [address], [place], [address], 05/14/2024 09:04:16 Result Notes None recorded. Problems Name Problem SNOMED Code Status Onset Date Resolution Date Notes Provider Name and Address Organization Details Recorded Time Anemia 160485820 Active 2023 V[place] Jimenez [facility] - [place] & [place] 4 15:16:12 Diabetes mellitus 97902486 Active 2023 Nataly Baron null, VINH - LPNT - [facility] & [place] 4 15:16:20 Disease of liver 825439658 Active 2023 Natalydanilo Baron null, [place] - LPNT - [facility] & [place] 4 15:16:29 Hypercholester olemia 16919180 Active 2023 Nataly Baron null, [place] - LP[facility] - [facility] & [place] 4 15:16:38 Anxiety 09650254 Active 2023 Natalydanilo Baron null, V[place] - LP[facility] - [facility] & [place] 4 15:16:50 Gastroesophage al reflux disease 117078428 Active 2023 Nataly Teresa null, [place] - [facility] - [facility] & [place] 4 15:17:00 Disorder of thyroid gland 83619047 Active 2023 Natalydanilo Baron null, V[place]H - LPNT - [facility] & [place] 4 15:17:12 Hypertensive disorder 08057998 Active 2023 Natalydanilo oneil, [place] - LP[facility] - [facility] & [place] 4 15:17:21 Depressive disorder 10101893 Active 2023 Natalydanilo Baron null, VINH - LP[facility] - [facility] & [place] 4 15:17:29 Chronic urinary tract infection 137901766 Active 2023 Natalydanilo Baron null, VINH - [facility] - [facility] & [place] 4 15:17:42 Problem Notes None recorded. Procedures Surgical History Date Name Laterality Status Provider Name and Address Organization Details Recorded Time tonsillectomy completed Nataly Baron VINH - LPNT - [place] & [place] 05/12/2024 15:18:09 closed rhinoplasty completed Nataly jeffries V[place]H - [facility] - [facility] & [place] 05/12/2024 15:19:19 laparoscopic sleeve gastrectomy completed Nataly Baron VINH - [facility] - [place] & [place] 05/12/2024 15:19:27 thyroidectomy completed Nataly JUSTICE - [place] - [place] & [place] 05/12/2024 15:19:37 cholecystectomy completed Nataly Baron K Y - [place] - [place] & [place] 05/12/2024 15:19:47 Breast reduction completed Nataly BRUNSON - [place] & [place] 05/12/2024 15:19:55 Imaging Results Imaging Date Name Status LastModified by Organiz ation Details LastModified Time 01/06/2024 US, renal completed [email or web address] [facility] [address], [place], [address], 05/14/2024 09:04:16 Procedure Notes None recorded. Medical Equipment None Reported. Allergies Allergen ID Allergen Name Allergen Category Reaction Reaction Severity Criticality Documentation Date Start Date Code Code System Note Provider Name and Address Organization Details Recorded Time 154228 Substance with sulfonami de structure and antibacte rial mechanism of action (substanc e) medicatio n Not available Not available Not available 05/12/2024 09397 8003 SNOMED VINH Jimenez [facility] & [place] 4 15:11:58 658997 E-Mycin medicatio n Not available Not available Not available 05/12/202418924 8 RxNorm [place] Jimenez [facility] & [place] 4 15:12:24 900039 Ceclor medicatio n Not available Not available Not available 05/12/2024 5 RxNorm [place] Jimenez [facility] & [place] 4 15:12:36 Medications Name Sig Start Date [...] Updated DateTime 4 165.1 cm 48.7 kg/m2 239946. 13 g 98.8 [degF] 100 % 100 % 68 /min 129 mm[Hg] 84 mm[Hg] Nataly Baron [facility] & [place] 4 15:40:36 Social History None recorded. Functional Status Question Answer Note LastModified by Organizat ion Details LastModified Time Do you use any illicit or recreational drugs? No Information not available 05/12/2024 What is your level of alcohol consumption? 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 Family History Relationship [...] SNOMED-CT Code Diagnosis ICD10 Code Diagnosis Note [id number] Chloe Junior NP, [facility] [address] [place] [address] 05/12/2024 14:55:51 05/12/2024 16:03:54 Recurrent urinary tract infection 680225767 N39.0 UA negative for infectionD iscussed active bowel habits, probiotics , Vitamin C-tid, hygeine, voiding prior to and post sex (wash), and wipe front to back.Sched ule Renal US and KUBStart Methenamin e 1 gram bidRTC in 6 weeks for f/u Nocturia 851729396 R35.1 Mixed urin michi incontinence 121190129 N39.46 History of calculus of kidney 637900453 Z87.442 Type 2 giles betes mellitus 58690067 E11.9 Health Concerns Section Related Observation LastModified by Organization Detai ls LastModified Time None Recorded Concern Status LastModified by Organization Details LastModified Time None Recorded Advance Directives Directive None Recorded Payers Insurance Date Sequence Insurance Name Policy Number Policy Oconnell Covered Member ID Oconnell Member ID Guarantor Name 05/12/2024 1 [place] [id number] A Jem E Power [id number] Yoanna Power Notes Date Note Type [...] a pelvic ultrasound this year with her family mediator that he is normal. Has not had a hysterectomy. Reports PCP did place her on Macrodantin suppression for 2 months and this did not help with her UTIs. Pt is a DM, states last HgbA1c was 5.9. History of kidney stones 10 years ago, passed stone. H/o Tyroidectomy in 2005 r/t mass, states this was precancerous. H/o gastric sleeve. Chloe Junior, RODRÍGUEZ, [address], [place], [address], [facility] - [place] & [place] 05/12/2024 16:20:29 OBGyn Episode No OBEpisode recorded.
--- NOTE | 2024-11-16 09:02 | XR_ITS ---
FINAL REPORT CLINICAL HISTORY: .pain..no trauma COMPARISON: None FINDINGS: LEFT FOOT Three views of the left foot demonstrate no acute fracture or dislocation. There is a well-corticated ossific density at the medial margin of the fifth PIP joint, that likely represents a remote fracture deformity. The visualized joint spaces are normally aligned. The soft tissues are unremarkable. A small plantar calcaneal spur is present. IMPRESSION: No acute bony abnormality. Reviewed, Interpreted and Dictated by Tobin Anna MD Transcribed by Linh Salvador Authenticated and [facility]
== END 2024-11-16 23:59 | disposition home or self-care (01) ==
LOC: RAD 08:59
PROVIDERS: PCP Internal Medicine Adolescent Medicine; Visit Provider Internal Medicine Adolescent Medicine
DX: M79.672 Pain in left foot (principal)
CPT/HCPCS: 73630

== ENCOUNTER 2024-11-25 09:21 | Outpatient (RCR) | payer BC, SELFPAY | END 2024-11-25 23:59 | disposition home or self-care (01) | LOC: PT 09:21 | PROVIDERS: Visit Provider Internal Medicine Adolescent Medicine | DX: M79.672 Pain in left foot (principal); S93.602A Unspecified sprain of left foot, initial encounter | CPT/HCPCS: 97760 ==

== ENCOUNTER 2025-01-14 12:58 | Outpatient (CLI) | payer BC, SELFPAY ==
--- OUTSIDE RECORDS SUMMARY | 2024-12-08 09:59 | XMS_ITS ---
Author Organization [facility] [place] Address [address] [place] [address] Care Team Providers Care Instrument Maker Apprentice Name Role Phone Kieran Dawson Primary Care Provider Kieran Dawson Unavailable Unavailable Angela Sheffield Unavailable [phone] Results Component Value Reference Range Notes Microalbumin (In-House) Reviewed date:12/09/2024 06:19:47 PM Interpretation: Performing Lab: Notes/Report: ALB 80mg CRE 100mg A:C 30-300mg LIPID PANEL, STANDARD (7600) Reviewed date:12/14/2024 02:04:14 PM Interpretation: Performing Lab:CB, [facility] Wlyc6949 [facility], [facility] ClinicXiisVN[address] Prakash Calvillo Notes/Report: NON-FASTING; NON-FASTING CHOLESTEROL, TOTAL [...] LDL-C. Hai SS et al. ALBERTO. 2013;310(19): 2539-6144 (http://education.iLoop Mobileo Tablo.com/faq/CTU083) CHOL/HDLC RATIO 3.7 <5.0 (calc) NON HDL CHOLESTEROL 152 <130 mg/dL (calc) For patients with diabetes plus 1 major ASCVD risk factor, treating to a non-HDL-C goal of <100 mg/dL (LDL-C of <70 mg/dL) is considered a therapeutic option. HEMOGLOBIN A1c (496) Reviewed date:12/14/2024 02:02:11 PM Interpretation: Performing Lab:[facility] Wjfw1709 SoundTagteGeminare, NirvahaLhmaMW[address] Prakash Calvillo Notes/Report: NON-FASTING; NON-FASTING HEMOGLOBIN A1c [...] diabetes for children. TSH W/REFLEX TO FT4 (18794) Reviewed date:12/13/2024 07:39:11 PM Interpretation: Performing Lab:[facility] Uidc8515 SoundTagtel RoommateFit, CityCivTxotSP[address] Prakash Calvillo Notes/Report: NON-FASTING; NON-FASTING TSH W/REFLEX TO FT4 1.53 Reference Range > or = 20 Years 0.40-4.50 Ranges First trimester 0.26-2.66 Second trimester 0.55-2.73 Third trimester 0.43-2.91 REASON FOR VISIT labs and meds Encounters Encounter Location Date Provider Diagnosis [facility] [place] [address] [facility] [address] [place] [address] 12/08/2024 Angela Sheffield Type 2 diabetes mellitus [...] Yoanna MATA NDOB: 0 (44 yo F)Acc No.[id number]:12/08/2024 Patient: Yoanna ROWELL :1980 A ge:44 Y S ex:Female Address:[address] [place] [address] , [place] [address] Subjective: * Chief Complaints: * L abs [...] with surgical procedure?LAB: TSH W/REFLEX TO FT4 (52031) * Procedure Codes: 8 2043 MICROALBUMIN, URINE, Modifiers: QW * true * Date: Generated for Printi ng/Fasrinig/eTransmitting on: 0 01/14/2025 01:03 PM EDT
--- OUTSIDE RECORDS SUMMARY | 2024-12-10 04:45 | XMS_ITS ---
Author Organization [facility] [place] Address [address] [place] [address] Care Team Providers Care Bulk Cooler Installer Name Role Phone Kieran Dawson Primary Care Provider Kieran Dawson Unavailable Unavailable Angela Sheffield [phone] REASON FOR VISIT labs Encounters Encounter Location Date Provider Diagnosis [facility] [place] [address] [place], [place] [address] 12/10/2024 Angela Sheffield Plan Of Treatment No Information Progress Notes * Yoanna MATA NDOB: 0 (44 yo F)Acc No.[id number]:12/10/2024 LABS Patient: Bret STARK Yoanna Darden Provider: IZA Shaikh :1980 A ge:44 Y S ex:Female Date:12/10/2024 Address:[address] [place], [id number] Pcp:Kieran Dawson Subjective: * Chief Complaints: * 1 . Labs. * Medical History: Objective: * Vitals: Assessment: Plan: * Treatment: * * Electronic signature of Janis Sheffield APRN on 01/14/2025 at 01:04 PM EDT Sign off status: Pending * Provider: IZA Shaikh Date: 0 12/10/2024 Generated for Tiffany rivas/Brayan/Moralesitting on: 0 01/14/2025 01:04 PM EDT
--- OUTSIDE RECORDS SUMMARY | 2024-12-25 06:00 | XMS_ITS ---
Author Organization [facility] [place] Address [address] [place], [place] [address] Care Team Providers Care Credit Charge Authorizer Name Role Phone Kieran Dawson Primary Care Provider Kieran Dawson Unavailable Unavailable Cait Vera Unavailable [phone] REASON FOR VISIT steroid Encounters Encounter Location Date Provider Diagnosis [facility] [place] [address] [place], [place] [address] 12/25/2024 Cait Vera Lumbar back pain M54.50 Assessments Encounter Date Diagnosis (ICD Code) Assessment Notes Treatment Notes Treatment Clinical Notes Section Notes 12/25/2024 Lumbar back pain (ICD-10 - M54.50) Plan Of Treatment No Information Medications Administered Medication Instructions Date of Administration Dosage Notes Dexamethasone 4mg Injection 12/25/2024 4 mg Progress Notes * Yoanna MATA NDOB: 0 (44 yo F)Acc No.[id number]:12/25/2024 Patient: Bret Yoanna STARK Provider: Shu Vera [...] J 1100 Dexamethasone Sodium Phosphate 4mg Injection, [address]25 THERAPEUTIC ADMINISTRATION * * Sign off status: Completed true * Provider: Shu Vera APRN Date: 0 12/25/2024 Generated for Tiffany Fry/Ismael on: 0 01/14/2025 01:03 PM EDT
--- NOTE | 2025-01-14 13:00 | US_ITS ---
FINAL REPORT TECHNIQUE: Limited sonographic images of the thyroid were obtained. CLINICAL HISTORY: vocal abnormality FINDINGS: The thyroid is homogeneous. The right lobe of the thyroid measures 3.9 x 1.1 x 1.3 cm. No nodules are identified. The left thyroid is absent. There is a hyperechoic focus inferior to the right lobe of the thyroid measuring 8 mm. This appears extrathyroidal and possibly represents a parathyroid. IMPRESSION: Focus inferior to the right thyroid lobe, may represent a parathyroid. Neck CT could better evaluate. Reviewed, Interpreted and Dictated by Tobin Anna MD Transcribed by Leeanna Roberts Authenticated and [facility]
--- OUTSIDE RECORDS SUMMARY | 2025-01-14 13:05 | XMS_ITS | Patient Health Record ---
Author Organization [facility] D GISSELL Address [address] [place] [address] Care Team Providers Care Used Equipment Sales Representative Name Role Phone Kieran Dawson Primary Care Provider Kieran Dawson Unavailable Unavailable Angela Sheffield Unavailable [phone] Cait Vera Unavailable [phone] Migration, Provider Unavailable Unavailable Allergies Allergen (clinical drug ingredient) Drug/Non Drug Allergy documented on EMR Reaction Allergy Type Onset Date Status CECLOR (uncoded) Unknown Allergy Act sukhdeep E-MYCIN (uncoded) Unknown Allergy Ac tive SULFA (uncoded) Unknown Allergy Acti ve Results Component Value Reference Range Notes Microalbumin (In-House) Reviewed date:12/09/2024 06:19:47 PM Interpretation: Performing Lab: Notes/Report: ALB 80mg CRE 100mg A:C 30-300mg LIPID PANEL, STANDARD (7600) Reviewed date:12/14/2024 02:04:14 PM Interpretation: Performing Lab:CB, [facility] [address], [place] UagoCR[address] Prakash Calvillo Notes/Report: NON-FASTING; NON-FASTING CHOLESTEROL, TOTAL 208 <200 mg/dL HDL CHOLESTEROL 56 > OR = 50 mg/dL TRIGLYCERIDES 233 <150 mg/dL If a non-fasting specimen was collected, consider repeat triglyceride testing on a fasting specimen if clinically indicated. aGmal et al. J. of Clin. Lipidol. 2015;9:129-169. LDL-CHOLESTEROL 117 Reference range: <100 Desirable range <100 mg/dL for primary prevention; <70 mg/dL for patients with CHD or diabetic patients with > or = 2 CHD risk factors. LDL-C is now calculated using the Kacy calculation, which is a validated novel method providing better accuracy than the Friedewald equation in the estimation of LDL-C. Hai CARRILLO et al. ALBERTO. 2013;310(19): 3950-7141 (http://education.Trumaker.Invicta Networks/faq/GLF494) CHOL/HDLC RATIO 3.7 <5.0 (calc) NON HDL CHOLESTEROL 152 <130 mg/dL (calc) factor, treating to a non-HDL-C goal of <100 mg/dL (LDL-C of <70 mg/dL) is considered a therapeutic option. For patients with diabetes plus 1 major ASCVD risk COMPREHENSIVE METABOLIC PANJanine Freeman (35060) Reviewed date:02/25/2024 01:15:17 PM Interpretation: Performing Lab:[facility] [address] [facility], [place] DominguezSiaiDQ[address] Prakash Calvillo Notes/Report: NON-FASTING; NON-FASTING; NON-FASTING; NON-FASTING; NON-FAST FASTING:NO FASTING: NO GLUCOSE 98 65-139 mg/dL Non-fasting reference interval UREA NITROGEN (BUN) 10 7-25 mg/dL CREATININE 0.58 0.50-0.99 mg/dL EGFR 114 > OR = 60 mL/min/1.73m2 BUN/CREATININE RATIO SEE NOTE: 6-22 (calc) Not Reported: BUN and Creatinine are within reference range. SODIUM 138 135-146 mmol/L POTASSIUM 4.1 3.5-5.3 mmol/L CHLORIDE 102 98-110 mmol/L CARBON DIOXIDE 25 20-32 mmol/L CALCIUM 9.7 8.6-10.2 mg/dL PROTEIN, TOTAL 6.9 6.1-8.1 g/dL ALBUMIN 4.5 3.6-5.1 g/dL GLOBULIN 2.4 1.9-3.7 g/dL (calc) ALBUMIN/GLOBULIN RATIO 1.9 1.0-2.5 (calc) BILIRUBIN, TOTAL 0.4 0.2-1.2 mg/dL ALKALINE PHOSPHATASE 65 31-125 U/L AST 16 10-30 U/L ALT 21 6-29 U/L CBC (INCLUDES DIFF/PLT) (639 9) Reviewed date:02/25/2024 10:09:47 AM Interpretation: Performing Lab:[facility] [address] [employer] [facility] HealthSietEF[address] Prakash Calvillo Notes/Report: NON-FASTING; NON-FASTING; NON-FASTING; NON-FASTING; NON-FAST FASTING:NO FASTING: NO WHITE BLOOD CELL COUNT 8.2 3.8-10.8 Thousand/ uL RED BLOOD CELL COUNT 4.66 3.80-5.10 Million/uL HEMOGLOBIN 14.3 11.7-15.5 g/dL HEMATOCRIT 42.9 35.0-45.0 % MCV 92.1 80.0-100.0 fL MCH 30.7 27.0-33.0 pg MCHC 33.3 32.0-36.0 g/dL RDW 12.5 11.0-15.0 % PLATELET COUNT 429 140-400 Thousand/uL MPV 9.4 7.5-12.5 fL ABSOLUTE NEUTROPHILS 4854 8971-6554 cells/uL ABSOLUTE LYMPHOCYTES 2140 850-3900 cells/uL ABSOLUTE MONOCYTES 918 200-950 cells/uL ABSOLUTE EOSINOPHILS 230 15-500 cells/uL ABSOLUTE BASOPHILS 57 0-200 cells/uL NEUTROPHILS 59.2 LYMPHOCYTES 26.1 MONOCYTES 11.2 EOSINOPHILS 2.8 BASOPHILS 0.7 CBC (INCLUDES DIFF/PLT) (639 9) Reviewed date:11/18/2024 09:37:14 AM Interpretation: Performing Lab:[facility] [address] [employer] [facility] HealthVwmtNG[address] Prakash Calvillo Notes/Report: NON-FASTING; NON-FASTING; NON-FASTING; NON-FASTING WHITE BLOOD CELL COUNT 7.9 3.8-10.8 Thousand/ uL RED BLOOD CELL COUNT 4.54 3.80-5.10 Million/uL HEMOGLOBIN 13.4 11.7-15.5 g/dL HEMATOCRIT 41.3 35.0-45.0 % MCV 91.0 80.0-100.0 fL MCH 29.5 27.0-33.0 pg MCHC 32.4 32.0-36.0 g/dL For adults, a slight decrease in the calculated MCHC value (in the range of 30 to 32 g/dL) is most likely not clinically significant; however, it should be interpreted with caution in correlation with other red cell parameters and the patient's clinical condition. RDW 13.0 11.0-15.0 % PLATELET COUNT 358 140-400 Thousand/uL MPV 9.8 7.5-12.5 fL ABSOLUTE NEUTROPHILS 4685 7225-4920 cells/uL ABSOLUTE LYMPHOCYTES 2094 850-3900 cells/uL ABSOLUTE MONOCYTES 877 200-950 cells/uL ABSOLUTE EOSINOPHILS 198 15-500 cells/uL ABSOLUTE BASOPHILS 47 0-200 cells/uL NEUTROPHILS 59.3 LYMPHOCYTES 26.5 MONOCYTES 11.1 EOSINOPHILS 2.5 BASOPHILS 0.6 LIPID PANEL, STANDARD (7600) Reviewed date:02/25/2024 10:09:56 AM Interpretation: Performing Lab:[facility] [address] [facility] CenterLeon[facility] DeckereIL[address] Prakash Calvillo Notes/Report: NON-FASTING; NON-FASTING; NON-FASTING; NON-FASTING; NON-FAST FASTING:NO FASTING: NO CHOLESTEROL, TOTAL 196 <200 mg/dL HDL CHOLESTEROL 52 > OR = 50 mg/dL TRIGLYCERIDES 243 <150 mg/dL If a non-fasting specimen was collected, consider repeat triglyceride testing on a fasting specimen if clinically indicated. Yeung et al. J. of Clin. Lipidol. 2015;9:129-169. LDL-CHOLESTEROL 107 Reference range: <100 Desirable range <100 mg/dL for primary prevention; <70 mg/dL for patients with CHD or diabetic patients with > or = 2 CHD risk factors. LDL-C is now calculated using the Hai-Murdock calculation, which is a validated novel method providing better accuracy than the Friedewald equation in the estimation of LDL-C. Hai SS et al. ALBERTO. 2013;310(19): 6249-8471 (http://education.Trumaker.com/faq/SXW956) CHOL/HDLC RATIO 3.8 <5.0 (calc) NON HDL CHOLESTEROL 144 <130 mg/dL (calc) For patients with diabetes plus 1 major ASCVD risk factor, treating to a non-HDL-C goal of <100 mg/dL (LDL-C of <70 mg/dL) is considered a therapeutic option. SED RATE BY MODIFIED REMI LOPEZ (809) Reviewed date:11/18/2024 09:37:01 AM Interpretation: Performing Lab:[facility] [address], [place] LtutDN[address] Prakash Calvillo Notes/Report: NON-FASTING; NON-FASTING; NON-FASTING; NON-FASTING SED RATE BY MODIFIED WESTERGREN 6 < OR = 20 mm/h SED RATE BY MODIFIED WESTERG JESSICA (809) Reviewed date:02/25/2024 10:10:11 AM Interpretation: Performing Lab:[facility] [address], [place] JxdlBG[address] Prakash Calvillo Notes/Report: NON-FASTING; NON-FASTING; NON-FASTING; NON-FASTING; NON-FAST FASTING:NO FASTING: NO SED RATE BY MODIFIED WESTERGREN 6 < OR = 20 mm/h HLA-B27 ANTIGEN (528) Reviewed date:02/25/2024 02:31:47 PM Interpretation: Performing Lab:[facility] [address], [place] DoyzAX[address] Prakash Calvillo Notes/Report: NON-FASTING; NON-FASTING; NON-FASTING; NON-FASTING; NON-FAST FASTING:NO FASTING: NO HLA-B27 ANTIGEN NEGATIVE NEGATIVE C-REACTIVE PROTEIN (4420) Reviewed date:02/26/2024 10:21:57 AM Interpretation: Performing Lab:[facility] [address], [place] MzdsRW[address] Prakash Calvillo Notes/Report: NON-FASTING; NON-FASTING; NON-FASTING; NON-FASTING; NON-FAST FASTING:NO FASTING: NO C-REACTIVE PROTEIN 3.8 <8.0 mg/L C-REACTIVE PROTEIN (4420) Reviewed date:11/18/2024 09:37:21 AM Interpretation: Performing Lab:[facility] [address], [place] UrjqTO[address] Prakash Calvillo Notes/Report: NON-FASTING; NON-FASTING; NON-FASTING; NON-FASTING C-REACTIVE PROTEIN 3.9 <8.0 mg/L RHEUMATOID FACTOR (4418) Reviewed date:02/26/2024 10:21:57 AM Interpretation: Performing Lab:[facility] [address], [place] DesmUU[address] Prakash Calvillo Notes/Report: NON-FASTING; NON-FASTING; NON-FASTING; NON-FASTING; NON-FAST FASTING:NO FASTING: NO RHEUMATOID FACTOR <10 <14 IU/mL ALEC SCREEN, IFA, W/REFL TITE R AND PATTERN (249) Reviewed date:02/26/2024 10:21:57 AM Interpretation: Performing Lab:[facility] Therapeuticse[address] [employer], Hybrid LogicFyieOM[address] Prakash Calvillo Notes/Report: NON-FASTING; NON-FASTING; NON-FASTING; NON-FASTING; NON-FAST FASTING:NO FASTING: NO ALEC SCREEN, IFA NEGATIVE NEGATIVE ALEC IFA is a first line screen for detecting the presence of up to approximately 150 autoantibodies in various autoimmune diseases. A negative ALEC IFA result suggests an ALEC-associated autoimmune disease is not present at this time, but is not definitive. If there is high clinical suspicion for Sjogren's syndrome, testing for anti-SS-A/Ro antibody should be considered. Anti-Mami-1 antibody should be considered for clinically suspected inflammatory myopathies. AC-0: Negative International Consensus on ALEC Patterns (https://doi.org/10.1515/cc fk-8745-5758) For additional information, please refer to http://education.Sirtris Pharmaceuticals.Invicta Networks/faq/DLP043 (This link is being provided for informational/ educational purposes only.) SJOGREN'S ANTIBODIES (SS-A,S S-B) (7832) Reviewed date:02/26/2024 05:12:23 PM Interpretation: Performing Lab:[facility] Therapeuticse[address] [employer] [employer], Hybrid LogicKcdbAX[address] Prakash Calvillo Notes/Report: NON-FASTING; NON-FASTING; NON-FASTING; NON-FASTING; NON-FAST FASTING:NO FASTING: NO SJOGREN'S ANTIBODY (SS-A) <1.0 NEG <1.0 NEG AI SJOGREN'S ANTIBODY (SS-B) <1.0 NEG <1.0 NEG AI HEMOGLOBIN A1c (496) Reviewed date:12/14/2024 02:02:11 PM Interpretation: Performing Lab:[facility]comteAtlantiCare [facility] Hybrid LogicXefmNH[address] Prakash Calvillo Notes/Report: NON-FASTING; NON-FASTING HEMOGLOBIN A1c 6.4 <5.7 % Currently, no consensus exists regarding use of hemoglobin A1c for diagnosis of diabetes for children. For someone without known diabetes, a hemoglobin [...] consistent with an increased risk of diabetes. VITAMIN B12/FOLATE, SERUM PA PAVAN (7065) Reviewed date:04/03/2024 08:33:43 AM Interpretation: Performing Lab:[facility] [employer] [address] [place], [place] WariFJ[address] Prakash Calvillo Notes/Report: NON-FASTING; NON-FASTING; NON-FASTING; NON-FASTING; NON-FAST FASTING:YES FASTING: YES VITAMIN B12 134 573-1123 pg/mL Please Note: Although the reference range for vitamin B12 is 200-1100 pg/mL, it has been reported that between 5 and 10% of patients with values between 200 and 400 pg/mL may experience neuropsychiatric and hematologic abnormalities due to occult B12 deficiency; less than 1% of patients with values above 400 pg/mL will have symptoms. FOLATE, SERUM 16.2 Reference Range Low: <3.4 Borderline: 3.4-5.4 Normal: >5.4 TSH W/REFLEX TO FT4 (43543) Reviewed date:12/13/2024 07:39:11 PM Interpretation: Performing Lab:[facility] [employer] Z[address] [facility], [facility] HealthJvxyBM[address] Prakash Calvillo Notes/Report: NON-FASTING; NON-FASTING TSH W/REFLEX TO FT4 1.53 > or = 20 Years 0.40-4.50 Ranges First trimester 0.26-2.66 Second trimester 0.55-2.73 Third trimester 0.43-2.91 Reference Range VITAMIN D,25-OH,TOTAL,IA (17 813) Reviewed date:04/03/2024 08:34:03 AM Interpretation: Performing Lab:[facility] [employer] Genomicse[address] [employer] Cook HospitalYbaeLW[address] Prakash Calvillo Notes/Report: NON-FASTING; NON-FASTING; NON-FASTING; NON-FASTING; NON-FAST FASTING:YES FASTING: YES VITAMIN D,25-OH,TOTAL,IA 40 30-100 ng/mL 25-OH VIT D, (D2,D3), LC/MS/MS is recommended: order code 54479 (patients >2yrs). See Note 1 Note 1 For additional information, please refer to http://education.LiquidPiston/faq/HIV687 (This link is being provided for informational/ educational purposes only.) Vitamin D Status 25-OH Vitamin D: Deficiency: <20 ng/mL Insufficiency: 20 - 29 ng/mL Optimal: > or = 30 ng/mL For 25-OH Vitamin D testing on patients on D2-supplementation and patients for whom quantitation of D2 and D3 fractions is required, the [facility] Networks[facility]() CULTURE, URINE, ROUTINE (395 ) Reviewed date:08/25/2024 11:54:11 AM Interpretation: Performing Lab:[facility], [facility] Urxm[address] [employer].comteLilliputian Systems, [facility] HospitalXlshSQ[address] Prakash Calvillo Notes/Report: NON-FASTING CULTURE, URINE, ROUTINE SEE NOTE SDD = Susceptible Dose Dependent * = Not Tested NR = Not Reported NN = See Therapy Comments CULTURE, URINE, ROUTINE Micro Number: [id number] Test Status: Final Specimen Source: Urine Specimen Quality: Adequate Result: 50,000-100,000 CFU/mL of Klebsiella pneumoniae THERAPY COMMENTS Note 1: For infections other than uncomplicated UTI caused by E. coli, K. pneumoniae or P. mirabilis: Cefazolin is resistant if RAGHAVENDRA > or = 8 mcg/mL. 1,000-9,000 CFU/ML of Group B Streptococcus isolated Beta-hemolytic streptococci are predictably susceptible to Penicillin and other beta-lactams. Susceptibility testing not routinely performed. Please contact the laboratory within 3 days if susceptibility testing is desired. Comment: Erythromycin and clindamycin are not recommended for treatment of urinary tract infections, but clindamycin may be useful for treatment of rectovaginal colonization or infection. Any amount of group B Streptococcus in urine specimens obtained from females is a marker of genital tract colonization. If this patient is , please refer to ACOG guidelines for appropriate screening and management of women. K.pneumoniae INT RAGHAVENDRA AMOX/CLAVULANATE S <=2 AMP/SULBACTAM S <=2 CEFAZOLIN NR <=4 2 CEFEPIME S <=0.12 CEFTAZIDIME S <=1 CEFTRIAXONE S <=0.25 CIPROFLOXACIN S <=0.06 GENTAMICIN S <=1 IMIPENEM S <=0.25 LEVOFLOXACIN S <=0.12 MEROPENEM S <=0.25 NITROFURANTOIN I 64 PIP/TAZOBACTAM S <=4 TRIMETHOPRIM/SULFA S <=20 S = Susceptible I = Intermediate R = Resistant NS = Not susceptible (Distinguishing susceptible versus intermediate for isolates with RAGHAVENDRA < or = 4 mcg/mL requires additional testing.) Note 2: For uncomplicated UTI caused by E. coli, K. pneumoniae or P. mirabilis: Cefazolin is susceptible if RAGHAVENDRA <32 mcg/mL and predicts susceptible to the oral agents cefaclor, cefdinir, cefpodoxime, cefprozil, cefuroxime, cephalexin and loracarbef. CBC (INCLUDES DIFF/PLT) (639 9) Reviewed date:07/02/2024 08:41:15 AM Interpretation: Performing Lab:[facility], [facility] Hospit[facility], [facility]entia HealthFitoXL[address] Prakash Calvillo Notes/Report: NON-FASTING; NON-FASTING; NON-FASTING; NON-FASTING; NON-FAST FASTING:YES FASTING: YES WHITE BLOOD CELL COUNT 10.3 3.8-10.8 Thousand/ uL RED BLOOD CELL COUNT 4.43 3.80-5.10 Million/uL HEMOGLOBIN 13.6 11.7-15.5 g/dL HEMATOCRIT 39.4 35.0-45.0 % MCV 88.9 80.0-100.0 fL MCH 30.7 27.0-33.0 pg MCHC 34.5 32.0-36.0 g/dL For adults, a slight decrease in the calculated MCHC not clinically significant; however, it should be interpreted with caution in correlation with other red cell parameters and the patient's clinical condition. value (in the range of 30 to 32 g/dL) is most likely RDW 12.4 11.0-15.0 % PLATELET COUNT 362 140-400 Thousand/uL MPV 9.9 7.5-12.5 fL ABSOLUTE NEUTROPHILS 6685 7549-0321 cells/uL ABSOLUTE LYMPHOCYTES 2153 850-3900 cells/uL ABSOLUTE MONOCYTES 1205 200-950 cells/uL ABSOLUTE EOSINOPHILS 196 15-500 cells/uL ABSOLUTE BASOPHILS 62 0-200 cells/uL NEUTROPHILS 64.9 LYMPHOCYTES 20.9 MONOCYTES 11.7 EOSINOPHILS 1.9 BASOPHILS 0.6 CBC (INCLUDES DIFF/PLT) (639 9) Reviewed date:04/03/2024 08:34:28 AM Interpretation: Performing Lab:[facility], [facility] [address]teExt[employer], BigTime SoftwareShsyHH[address] Prakash Calvillo Notes/Report: NON-FASTING; NON-FASTING; NON-FASTING; NON-FASTING; NON-FAST FASTING:YES FASTING: YES WHITE BLOOD CELL COUNT 10.0 3.8-10.8 Thousand/ uL RED BLOOD CELL COUNT 4.59 3.80-5.10 Million/uL HEMOGLOBIN 14.0 11.7-15.5 g/dL HEMATOCRIT 43.6 35.0-45.0 % MCV 95.0 80.0-100.0 fL MCH 30.5 27.0-33.0 pg MCHC 32.1 32.0-36.0 g/dL RDW 12.5 11.0-15.0 % PLATELET COUNT 376 140-400 Thousand/uL MPV 9.8 7.5-12.5 fL ABSOLUTE NEUTROPHILS 6060 6380-3479 cells/uL ABSOLUTE LYMPHOCYTES 2510 850-3900 cells/uL ABSOLUTE MONOCYTES 1110 200-950 cells/uL ABSOLUTE EOSINOPHILS 260 15-500 cells/uL ABSOLUTE BASOPHILS 60 0-200 cells/uL NEUTROPHILS 60.6 LYMPHOCYTES 25.1 MONOCYTES 11.1 EOSINOPHILS 2.6 BASOPHILS 0.6 IRON AND TOTAL IRON BINDING CAPACITY (7573) Reviewed date:04/03/2024 08:33:57 AM Interpretation: Performing Lab:[facility], [facility] [address], Hybrid LogicUfblJU[address] Prakash Calvillo Notes/Report: NON-FASTING; NON-FASTING; NON-FASTING; NON-FASTING; NON-FAST FASTING:YES FASTING: YES IRON, TOTAL 80 40-190 mcg/dL IRON BINDING CAPACITY 396 250-450 mc g/dL (calc) % SATURATION 20 16-45 % (calc) MAGNESIUM (622) Reviewed date:04/03/2024 08:33:50 AM Interpretation: Performing Lab:[facility], [facility] Therapeuticse[address] [employer], [facility] HealthBnbaLY[address] Prkaash Calvillo Notes/Report: NON-FASTING; NON-FASTING; NON-FASTING; NON-FASTING; NON-FAST FASTING:YES FASTING: YES MAGNESIUM 2.0 1.5-2.5 mg/dL BASIC METABOLIC PANEL (55340 ) Reviewed date:11/18/2024 09:37:07 AM Interpretation: Performing Lab:[facility], [facility] Therapeuticse13[address] [employer], [facility] HealthMkydMH[address] Prakash Calvillo Notes/Report: NON-FASTING; NON-FASTING; NON-FASTING; NON-FASTING GLUCOSE 94 65-99 mg/dL Fasting reference interval UREA NITROGEN (BUN) 12 7-25 mg/dL CREATININE 0.89 0.50-0.99 mg/dL EGFR 82 > OR = 60 mL/min/1.73m2 BUN/CREATININE RATIO SEE NOTE: 6-22 (calc) Not Reported: BUN and Creatinine are within reference range. SODIUM 138 135-146 mmol/L POTASSIUM 4.2 3.5-5.3 mmol/L CHLORIDE 101 98-110 mmol/L CARBON DIOXIDE 25 20-32 mmol/L CALCIUM 9.3 8.6-10.2 mg/dL COMPREHENSIVE METABOLIC PANE L (33913) Reviewed date:07/02/2024 08:40:59 AM Interpretation: Performing Lab:[facility] [employer] Genomicse[address] [facility], [facility] HealthZhqkWE[address] Prakash Calvillo Notes/Report: NON-FASTING; NON-FASTING; NON-FASTING; NON-FASTING; NON-FAST FASTING:YES FASTING: YES GLUCOSE 80 65-99 mg/dL Fasting reference interval UREA NITROGEN (BUN) 8 7-25 mg/dL CREATININE 0.57 0.50-0.99 mg/dL EGFR 115 > OR = 60 mL/min/1.73m2 BUN/CREATININE RATIO SEE NOTE: 6-22 (calc) Not Reported: BUN and Creatinine are within reference range. SODIUM 139 135-146 mmol/L POTASSIUM 3.8 3.5-5.3 mmol/L CHLORIDE 104 98-110 mmol/L CARBON DIOXIDE 24 20-32 mmol/L CALCIUM 9.1 8.6-10.2 mg/dL PROTEIN, TOTAL 6.4 6.1-8.1 g/dL ALBUMIN 4.0 3.6-5.1 g/dL GLOBULIN 2.4 1.9-3.7 g/dL (calc) ALBUMIN/GLOBULIN RATIO 1.7 1.0-2.5 (calc) BILIRUBIN, TOTAL 0.4 0.2-1.2 mg/dL ALKALINE PHOSPHATASE 71 31-125 U/L AST 13 10-30 U/L ALT 18 6-29 U/L URINALYSIS, COMPLETE W/REFLE X TO CULTURE (1230) Reviewed date:04/17/2024 09:50:54 AM Interpretation: Performing Lab:[facility], [facility]1355 [facility], Essent[facility] HealthGosaFO[address] Prakash Calvillo Notes/Report: COLOR ORANGE YELLOW APPEARANCE CLEAR CLEAR SPECIFIC GRAVITY 1.022 1.001-1.035 PH 5.5 5.0-8.0 GLUCOSE NEGATIVE NEGATIVE BILIRUBIN NEGATIVE NEGATIVE KETONES NEGATIVE NEGATIVE OCCULT BLOOD NEGATIVE NEGATIVE PROTEIN 1+ NEGATIVE NITRITE POSITIVE NEGATIVE LEUKOCYTE ESTERASE 2+ NEGATIVE WBC 20-40 < OR = 5 /HPF RBC 0-2 < OR = 2 /HPF SQUAMOUS EPITHELIAL CELLS 0-5 < OR = 5 /HPF BACTERIA FEW NONE SEEN /HPF CALCIUM OXALATE CRYSTALS FEW NONE OR FEW /HPF HYALINE CAST NONE SEEN NONE SEEN /LPF NOTE This urine was analyzed for the presence of WBC, RBC, bacteria, casts, and other formed elements. Only those elements seen were reported. REFLEXIVE URINE CULTURE CEFEPIME S <=0.12 CEFTAZIDIME S <=1 CULTURE INDICATED - RESULTS TO FOLLOW CULTURE, URINE, ROUTINE Micro Number: [id number] Test Status: Final Specimen Source: Urine Specimen Quality: Adequate Result: 10,000-49,000 CFU/mL of Klebsiella pneumoniae K.pneumoniae INT RAGHAVENDRA AMOX/CLAVULANATE S <=2 AMP/SULBACTAM S <=2 CEFAZOLIN NR <=4 2 CEFTRIAXONE S <=0.25 CIPROFLOXACIN S <=0.06 GENTAMICIN S <=1 IMIPENEM S <=0.25 LEVOFLOXACIN S <=0.12 MEROPENEM S <=0.25 NITROFURANTOIN R 128 PIP/TAZOBACTAM S <=4 TRIMETHOPRIM/SULFA S <=20 S = Susceptible I = Intermediate R = Resistant NS = Not susceptible SDD = Susceptible Dose Dependent * = Not Tested NR = Not Reported NN = See Therapy Comments THERAPY COMMENTS Note 1: For infections other than uncomplicated UTI caused by E. coli, K. pneumoniae or P. mirabilis: Cefazolin is resistant if RAGHAVENDRA > or = 8 mcg/mL. (Distinguishing susceptible versus intermediate for isolates with RAGHAVENDRA < or = 4 mcg/mL requires additional testing.) Note 2: For uncomplicated UTI caused by E. coli, K. pneumoniae or P. mirabilis: Cefazolin is susceptible if RAGHAVENDRA <32 mcg/mL and predicts susceptible to the oral agents cefaclor, cefdinir, cefpodoxime, cefprozil, cefuroxime, cephalexin and loracarbef. CULTURE, URINE, ROUTINE SEE NOTE CEFEPIME S <=0.12 CEFTAZIDIME S <=1 CULTURE INDICATED - RESULTS TO FOLLOW CULTURE, URINE, ROUTINE Micro Number: [id number] Test Status: Final Specimen Source: Urine Specimen Quality: Adequate Result: 10,000-49,000 CFU/mL of Klebsiella pneumoniae K.pneumoniae INT RAGHAVENDRA AMOX/CLAVULANATE S <=2 AMP/SULBACTAM S <=2 CEFAZOLIN NR <=4 2 CEFTRIAXONE S <=0.25 CIPROFLOXACIN S <=0.06 GENTAMICIN S <=1 IMIPENEM S <=0.25 LEVOFLOXACIN S <=0.12 MEROPENEM S <=0.25 NITROFURANTOIN R 128 PIP/TAZOBACTAM S <=4 TRIMETHOPRIM/SULFA S <=20 S = Susceptible I = Intermediate R = Resistant NS = Not susceptible SDD = Susceptible Dose Dependent * = Not Tested NR = Not Reported NN = See Therapy Comments THERAPY COMMENTS Note 1: For infections other than uncomplicated UTI caused by E. coli, K. pneumoniae or P. mirabilis: Cefazolin is resistant if RAGHAVENDRA > or = 8 mcg/mL. (Distinguishing susceptible versus intermediate for isolates with RAGHAVENDRA < or = 4 mcg/mL requires additional testing.) Note 2: For uncomplicated UTI caused by E. coli, K. pneumoniae or P. mirabilis: Cefazolin is susceptible if RAGHAVENDRA <32 mcg/mL and predicts susceptible to the oral agents cefaclor, cefdinir, cefpodoxime, cefprozil, cefuroxime, cephalexin and loracarbef. HEMOGLOBIN A1c (496) Reviewed date:02/25/2024 01:15:17 PM Interpretation: Performing Lab:[facility] [id number] [id number] Prakash Calvillo Notes/Report: NON-FASTING; NON-FASTING; NON-FASTING; NON-FASTING; NON-FAST FASTING:NO FASTING: NO HEMOGLOBIN A1c 5.8 <5.7 % of total Hgb For someone with known diabetes, a value <7% indicates that their diabetes is well controlled. A1c targets should be individualized based on duration of diabetes, age, comorbid conditions, and other considerations. This assay result is consistent with an increased risk of diabetes. Currently, no consensus exists regarding use of hemoglobin A1c for diagnosis of diabetes for children. This test was performed on the Sandra chery c503 platform. Effective 09/11/23, a change in test platforms from the [employer] to the Sandra chery c503 may have shifted HbA1c results compared to historical results. Based on laboratory validation testing conducted at [facility], the Sandra platform relative to the Sapp platform had an average increase in HbA1c value of < or = 0.3%. This difference is within accepted variability established by the National Glycohemoglobin Standardization Program. Note that not all individuals For someone without known diabetes, a hemoglobin A1c value between 5.7% and 6.4% is consistent with prediabetes and should be confirmed with a follow-up test. will have had a shift in their results and direct comparisons between historical and current results for testing conducted on different platforms is not recommended. LIPID PANEL, STANDARD (7600) Reviewed date:07/02/2024 08:41:08 AM Interpretation: Performing Lab:[facility] [address] [facility], [facility] HealthDuaoYA[address] Prakash Calvillo Notes/Report: NON-FASTING; NON-FASTING; NON-FASTING; NON-FASTING; NON-FAST FASTING:YES FASTING: YES CHOLESTEROL, TOTAL 168 <200 mg/dL HDL CHOLESTEROL 52 > OR = 50 mg/dL TRIGLYCERIDES 173 <150 mg/dL LDL-CHOLESTEROL 89 Reference range: <100 Desirable range <100 mg/dL for primary prevention; <70 mg/dL for patients with CHD or diabetic patients with > or = 2 CHD risk factors. LDL-C is now calculated using the Kacy calculation, which is a validated novel method providing better accuracy than the Friedewald equation in the estimation of LDL-C. Hai CARRILLO et al. ALBERTO. 2013;310(19): 8784-6580 (http://education.[employer]/faq/JRP818) CHOL/HDLC RATIO 3.2 <5.0 (calc) NON HDL CHOLESTEROL 116 <130 mg/dL (calc) factor, treating to a non-HDL-C goal of <100 mg/dL (LDL-C of <70 mg/dL) is considered a therapeutic option. For patients with diabetes plus 1 major ASCVD risk HEMOGLOBIN A1c (496) Reviewed date:07/02/2024 08:42:26 AM Interpretation: Performing Lab:[facility] [id number] [place], [facility] YyebZL[address] Prakash Calvillo Notes/Report: NON-FASTING; NON-FASTING; NON-FASTING; NON-FASTING; NON-FAST FASTING:YES FASTING: YES HEMOGLOBIN A1c 5.9 <5.7 % of total Hgb For someone without known diabetes, a hemoglobin A1c value between 5.7% and 6.4% is consistent with prediabetes and should be confirmed with a For someone with known diabetes, a value <7% indicates that their diabetes is well controlled. A1c targets should be individualized based on duration of diabetes, age, comorbid conditions, and other considerations. This assay result is consistent with an increased risk of diabetes. Currently, no consensus exists regarding use of hemoglobin A1c for diagnosis of diabetes for children. follow-up test. IRON, TIBC AND FERRITIN PANE L (5616) Reviewed date:07/02/2024 08:42:01 AM Interpretation: Performing Lab:[facility] [address], [employer] TherapeuticsGrnrNK[address] Prakash Calvillo Notes/Report: NON-FASTING; NON-FASTING; NON-FASTING; NON-FASTING; NON-FAST FASTING:YES FASTING: YES IRON, TOTAL 50 40-190 mcg/dL IRON BINDING CAPACITY 353 250-450 mc g/dL (calc) % SATURATION 14 16-45 % (calc) FERRITIN 146 16-232 ng/mL VITAMIN B12/FOLATE, SERUM PA PAVAN (7065) Reviewed date:07/02/2024 08:42:09 AM Interpretation: Performing Lab:[facility] [address] [facility], [facility] HealthKtcmCU[address] Prakash Calvillo Notes/Report: NON-FASTING; NON-FASTING; NON-FASTING; NON-FASTING; NON-FAST FASTING:YES FASTING: YES VITAMIN B12 377 814-4244 pg/mL Please Note: Although the reference range for vitamin B12 is 200-1100 pg/mL, it has been reported that between 5 and 10% of patients with values between 200 and 400 pg/mL may experience neuropsychiatric and hematologic abnormalities due to occult B12 deficiency; less than 1% of patients with values above 400 pg/mL will have symptoms. FOLATE, SERUM 19.7 Reference Range Low: <3.4 Borderline: 3.4-5.4 Normal: >5.4 THYROID PANEL WITH TSH (7444 ) Reviewed date:07/02/2024 08:40:51 AM Interpretation: Performing Lab:[facility] [facility], [facility] HealthKtouBU[address] Prakash Calvillo Notes/Report: NON-FASTING; NON-FASTING; NON-FASTING; NON-FASTING; NON-FAST FASTING:YES FASTING: YES T3 UPTAKE 35 22-35 % T4 (THYROXINE), TOTAL 9.1 5.1-11.9 mcg/dL FREE T4 INDEX (T7) 3.2 1.4-3.8 TSH 0.71 Ranges First trimester 0.26-2.66 Second trimester 0.55-2.73 Third trimester 0.43-2.91 > or = 20 Years 0.40-4.50 Reference Range THYROID PANEL WITH TSH (7444 ) Reviewed date:04/03/2024 08:34:37 AM Interpretation: Performing Lab:[facility] [facility], [place] DbtjNJ[address] Prakash Calvillo Notes/Report: NON-FASTING; NON-FASTING; NON-FASTING; NON-FASTING; NON-FAST FASTING:YES FASTING: YES T3 UPTAKE 30 22-35 % T4 (THYROXINE), TOTAL 5.7 5.1-11.9 mcg/dL FREE T4 INDEX (T7) 1.7 1.4-3.8 TSH 4.19 Reference Range > or = 20 Years 0.40-4.50 Ranges First trimester 0.26-2.66 Second trimester 0.55-2.73 Third trimester 0.43-2.91 THYROID PEROXIDASE AND THYRO GLOBULIN ANTIBODIES (7260) Reviewed date:04/03/2024 08:34:11 AM Interpretation: Performing Lab:[facility], [facility] [facility], [facility] HealthYikvEK[address] Prakash Calvillo Notes/Report: NON-FASTING; NON-FASTING; NON-FASTING; NON-FASTING; NON-FAST FASTING:YES FASTING: YES THYROGLOBULIN ANTIBODIES <1 < or = 1 IU/mL THYROID PEROXIDASE ANTIBODIES 15 <9 IU/mL VITAMIN D,25-OH,TOTAL,IA (17 306) Reviewed date:07/02/2024 08:42:16 AM Interpretation: Performing Lab:[facility], [facility] [address] [employer], [facility] HealthJnjcZK[address] Prakash Calvillo Notes/Report: NON-FASTING; NON-FASTING; NON-FASTING; NON-FASTING; NON-FAST FASTING:YES FASTING: YES VITAMIN D,25-OH,TOTAL,IA 108 30-100 ng/mL Optimal: > or = 30 ng/mL For 25-OH Vitamin D testing on patients on D2-supplementation and patients for whom quantitation of D2 and D3 fractions is required, the QuestAssureD(TM) 25-OH VIT D, (D2,D3), LC/MS/MS is recommended: order code 89488 (patients >2yrs). See Note 1 Note 1 For additional information, please refer to http://education.[employer]/faq/YSP837 (This link is being provided for informational/ educational purposes only.) Vitamin D Status 25-OH Vitamin D: Deficiency: <20 ng/mL Insufficiency: 20 - 29 ng/mL PANCREATIC ELASTASE-1 (64656 ) Reviewed date:09/28/2024 08:44:07 AM Interpretation: Performing Lab:[facility], [facility],[address] [address] [facility]aresLog[facility] HospitalJotheixkmfLQ[address] Jerica Alvarado MD,PhD,RAMANDEEP Notes/Report: PANCREATIC ELASTASE 1 529 >200 mcg/g E-1 mcg/g feces Interpretation <100 Severe exocrine pancreatic insufficiency 100-200 Mild to moderate exocrine pancreatic insufficiency >200 Normal LIVER FIBROSIS, FIBROTEST AC TITEST PANEL (58914) Reviewed date:09/22/2024 09:38:48 PM Interpretation: Performing Lab:[facility], [facility],[address], [facility].KyfzrcllqbXC[address] Jerica Alvarado MD,PhD,RAMANDEEP Notes/Report: FIBROSIS SCORE 0.09 FIBROSIS STAGE F0 FIBROSIS INTERPRETATION SEE NOTE no fibrosis Fibro Test Score (f) Metavir Score f>=0 and f<=0.21 : F0 (no fibrosis) f>0.21 and f<=0.27 : F0-F1 (no fibrosis) f>0.27 and f<=0.31 : F1 (minimal fibrosis) f>0.31 and f<=0.48 : F1-F2 (minimal fibrosis) f>0.48 and f<=0.58 : F2 (moderate fibrosis) f>0.58 and f<=0.72 : F3 (advanced fibrosis) f>0.72 and f<=0.74 : F3-F4 (advanced fibrosis) f>0.74 and f<=1.00 : F4 (severe fibrosis) NECROINFLAMMAT ACT SCORE 0.05 NECROINFLAMMAT ACT GRADE A0 NECROINFLAMMAT INTERP SEE NOTE no activity ActiTest Score (a) Metavir Score a>=0 and a<=0.17 : A0 (no activity) a>0.17 and a<=0.29 : A0-A1 (no activity) a>0.29 and a<=0.36 : A1 (minimal activity) a>0.36 and a<=0.52 : A1-A2 (minimal activity) a>0.52 and a<=0.60 : A2 (significant activity) a>0.60 and a<=0.62 : A2-A3 (significant activity) a>0.62 and a<=1.00 : A3 (severe activity) ALPHA 2 MACROGLOBULIN 233 106-279 mg/dL HAPTOGLOBIN 201 43-212 mg/dL APOLIPOPROTEIN A1 190 101-198 mg/dL TOTAL BILIRUBIN 0.5 0.2-1.2 mg/dL GGT 22 3-55 U/L ALT 19 6-29 U/L REFERENCE ID [id number] FOOTNOTE SEE NOTE The reliability of results is dependent on compliance with the preanalytical and analytical conditions recommended by [employer]. The tests have to be deferred for: acute hemolysis, acute hepatitis, acute inflammation, extra hepatic cholestasis. The advice of a specialist should be sought for interpretation in chronic hemolysis and Gilbert's syndrome. The test interpretation is not validated in liver transplant patients. Isolated extreme values of one of the components should lead to caution in interpreting the results. In case of discordance between a biopsy result and a test, it is recommended to seek the advice of a specialist. The causes of these discordances could be due to a flaw of the test or to a flaw in the biopsy: i.e. a liver biopsy has a 33% variability rate for one fibrosis stage. FibroTest is interpretable for chronic hepatitis B and C, alcoholic and non alcoholic steatosis. ActiTest is interpretable for chronic hepatitis B and C. The performance characteristics have been determined by [facility]. It has not been cleared or approved by the U.S. Food and Drug Administration. Performance characteristics refer to the analytical performance of the test. PROTEIN LOUNGE, the associated logo, [employer] and all associated [employer] traylor are the registered trademarks of [employer]. All third constitution party traylor - (R) and (TM) - are the property of their respective owners. (C) [id number] [employer]. All rights reserved. Venous Doppler : Upper Extre mity Reviewed date:07/10/2024 12:55:55 PM Interpretation: Performing Lab: Notes/Report: X ray : Foot, Left Reviewed date:11/20/2024 08:41:30 AM Interpretation: Performing Lab: Notes/Report: CULTURE, URINE, ROUTINE (395 ) Reviewed date:03/02/2024 08:34:16 AM Interpretation: Performing Lab:[facility] Crgk[address] [facility], [facility] HospitalQsqmRL[address] Prakash Calvillo Notes/Report: NON-FASTING CULTURE, URINE, ROUTINE SEE NOTE Micro Number: [id number] Test Status: Final Specimen Source: Urine Specimen Quality: Adequate Result: 50,000-100,000 CFU/mL of Klebsiella pneumoniae K.pneumoniae INT RAGHAVENDRA AMOX/CLAVULANATE S <=2 AMP/SULBACTAM S <=2 CEFAZOLIN NR <=4 2 CULTURE, URINE, ROUTINE CEFEPIME S <=0.12 CEFTAZIDIME S <=1 CEFTRIAXONE S <=0.25 CIPROFLOXACIN S <=0.06 GENTAMICIN S <=1 IMIPENEM S <=0.25 LEVOFLOXACIN S <=0.12 MEROPENEM S <=0.25 NITROFURANTOIN I 64 PIP/TAZOBACTAM S <=4 TRIMETHOPRIM/SULFA S <=20 S=Susceptible I=Intermediate R=Resistant * = Not Tested NR = Not Reported NN = See Therapy Comments THERAPY COMMENTS Note 1: For infections other than uncomplicated UTI caused by E. coli, K. pneumoniae or P. mirabilis: Cefazolin is resistant if RAGHAVENDRA > or = 8 mcg/mL. (Distinguishing susceptible versus intermediate for isolates with RAGHAVENDRA < or = 4 mcg/mL requires additional testing.) Note 2: For uncomplicated UTI caused by E. coli, K. pneumoniae or P. mirabilis: Cefazolin is susceptible if RAGHAVENDRA <32 mcg/mL and predicts susceptible to the oral agents cefaclor, cefdinir, cefpodoxime, cefprozil, cefuroxime, cephalexin and loracarbef. MRI : Foot, Left Reviewed date:11/26/2024 08:20:05 PM Interpretation: Performing Lab: Notes/Report: Urinalysis Reviewed date:08/19/2024 10:41:07 AM Interpretation: Performing Lab: Notes/Report: Color/Clarity yellow Leuk trace Nitrite neg Urobili 0.2 Protein >=300mg/dL pH 5.5 Blood trace-intact Sp. Gr. >=1.030 Ketone neg Bili small Glucose neg Urinalysis Reviewed date:02/26/2024 10:21:57 AM Interpretation: Performing Lab: Notes/Report: Color/Clarity yellow Leuk neg Nitrite neg Urobili 0.2 Protein >=300 pH 5.5 Blood large Sp. Gr. 1.030 Ketone neg Bili small Glucose neg Medications Medication SIG (Take, Route, Frequency, Duration) Notes Start Date End Date Status Crestor 5 MG 1 tablet Orally Once a day; Duration: 90 days 12/14/2024 Active Lisdexamfetamine Dimesylate 40 MG 1 capsule in the morning Orally Once a day; Duration: 30 days 11/18/2024 Active SUMAtriptan Succinate 50 MG 1 tab(s) ora lly once; Duration: 30 days Active Metoclopramide HCl 5 MG 1 tab(s) orally 4 times a day (before meals and at bedtime); Duration: 30 days 06/24/2024 Active Losartan Potassium 100 MG 1 tab(s) orall y once a day; Duration: 90 days Active Uxemlunchf-PLEV-Gyuhjkwh 50-325-40 MG 1 tab(s) orally every 6hours prn 01/18/2023 Active Nurtec 75 MG 1 tablet on the tong ue and allow to dissolve Orally every other day; Duration: 30 days Active Mounjaro 10 MG/0.5ML 10 mg Subcutaneous once a week; Duration: 28 days 01/06/2025 Active Omeprazole 40 MG 1 cap(s) orally twic e daily; Duration: 90 days Active Coreg 25 MG 1 tab(s) orally twic e a day; Duration: 90 days Active Citalopram Hydrobromide 40 MG 1 tab(s) orally once a day; Duration: 90 days Active amLODIPine Besylate 10 MG 1 tab(s) orall y once a day; Duration: 90 days Active Tricor 145 MG 1 tab(s) orally once a day; Duration: 90 days Active Levothyroxine Sodium 200 MCG 1 tablet in the morning on an empty stomach Orally Once a day; Duration: 90 days Active buPROPion HCl ER (XL) 300 MG 1 tab(s) or ally every 24 hours; Duration: 90 days Active Methocarbamol 750 MG 2 tab(s) orally 3 times a day; Duration: 10 days As needed prn 01/17/2023 Active Diclofenac Sodium 75 MG 1 tablet as need ed Orally Twice a day; Duration: 30 days 12/25/2024 Active Immunizations Vaccine Route Administration Date Status Comme nts Fluvirin--Influenza vaccine 3+ year IM Intramuscular 04/30/2008 Administered Fluvirin--Influenza vaccine 3+ year IM Intramuscular 08/18/2007 Administered FLUZONE 6MO - OLDER IM Intramuscular 05/02/2023 Administer ed PPD ID Intradermal 04/16/2008 Administered Flublok IM Intramuscular 04/21/2024 Administered Flublok IM Intramuscular 05/08/2022 Administered Social History Tobacco Use: Social History Observation Description Date Details (start date - stop date) Never Smoker NA - NA Smoking: Question Answer Notes Are you a: nonsmoker Problems Problem Type SNOMED Code ICD Code Onset Dates Problem Status W/U Status Risk Notes Problem Type 2 diabetes mellitus with other specified complication (E11.69) Active confirmed Problem Obesity (172247170) Obesity, uns pecified (E66.9) Active confirmed Problem Migraine without aura, not refractory (disorder) (119559142) Migraine, unspecified, not intractable, without status migrainosus (G43.909) Active confirmed Problem Essential hypertension (32101879) Essential (primary) hypertension (I10) Active confirmed Problem Paroxysmal atrial fibrillation (975302906) Paroxysmal atrial fibrillation (I48.0) Active confirmed Problem Vocal cord palsy (059018606) Paralysis of vocal cords and larynx, 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) Active confirmed Problem Dysuria (49746810) Dysuria (R30.0) Active confi rmed Problem Extravasation of urine (51035488) Extravasation of urine (R39.0) Active confirmed Problem C-reactive protein abnormal (205691103) Elevated C-reactive protein (CRP) (R79.82) Active confirmed Problem Electromyogram abnormal (648365485) Abnormal electromyogram [EMG] (R94.131) Active confirmed Problem Vitamin B12 deficiency (494990187) Vitamin B12 deficiency (E53.8) Active confirmed Problem Mixed anxiety and depressive disorder (557299858) Depression with anxiety (F41.8) Active confirmed Problem Hypothyroidism (29804494) Hypothyroidism (acquired) (E03.9) Active confirmed Problem Vitamin D deficiency (80184964) Vitamin D deficiency (E55.9) Active confirmed Problem Hematuria (22751921) Hematuria (R31.9) Active c onfirmed Problem Hypertriglyceridemia (842041850) Hypertriglyceridemia (E78.1) Active confirmed Problem Essential hypertension (14998733) Hypertension, essential (I10) Active confirmed Problem Adult health examination (765240538) Routine adult health maintenance (Z00.00) Active confirmed Problem Cystitis (97777115) Cystitis (N30.90) Active co nfirmed Symptom Carpal tunnel syndrome (25970863) Carpal tunnel syndrome (G56.00) Active confirmed Problem Hyperlipidemia (97626725) Hyperlipidemia, unspecified (E78.5) Active confirmed Problem Neck pain (93850207) Neck pain (M54.2) Active c onfirmed Problem Tension headache (183359384) Tension headache (G44.209) Active confirmed Problem Iron deficiency anemia (24186578) Iron deficiency anemia, unspecified iron deficiency anemia type (D50.9) Active confirmed Problem BOGGS - Nonalcoholic steatohepatitis (109811845) BOGGS (nonalcoholic steatohepatitis) (K75.81) Active confirmed Problem Recurrent major depression in remission (55966653) Recurrent major depressive disorder, in partial remission (F33.41) Active confirmed Problem Kidney pain (582679951) Kidney pain (N23) Active confirmed Problem Atrial fibrillation (50869106) Atrial fibrillation, controlled (I48.91) Active confirmed Problem Cluster headache syndrome (043434732) Migraine-cluster headache syndrome (G44.009) Active confirmed Problem Postoperative Hypothyroidism (04890880) Hypothyroidism associated with surgical procedure (E89.0) Active confirmed Problem Voice hoarseness (81392958) Hoarseness of voice (R49.0) Active confirmed Problem Prolapsed cervical intervertebral disc (708139432) Cervical disc herniation (M50.20) Active confirmed Problem Attention deficit hyperactivity disorder (041225476) Adult ADHD (F90.9) Active confirmed Problem Gastroesophageal reflux disease (310159693) Chronic gastroesophageal reflux disease (K21.9) Active confirmed Problem History of iron deficiency anemia (460081361) History of iron deficiency anemia (Z86.2) Active confirmed Problem Axonal sensorimotor neuropathy (339161391) Axonal sensorimotor neuropathy (G62.89) Active confirmed Problem Peripheral venous insufficiency (57215343) Stasis dermatitis of both legs (I87.2) Active confirmed Problem Mixed hyperlipidemia (462696332) Mixed dyslipidemia (E78.2) Active confirmed Problem Polyneuropathy (23823375) Other polyneuropathy (G62.89) Active confirmed Problem Gastroesophageal reflux disease with esophagitis (disorder) (233646753) Gastro-esophageal reflux disease with esophagitis, without bleeding (K21.00) Active confirmed Problem Gastroesophageal reflux disease (387723532) Gastroesophageal reflux disease, unspecified whether esophagitis present (K21.9) Active confirmed Problem Cervical spondylosis (770104179) Cervical spondylosis (M47.812) Active confirmed Problem Gastric sleeve (physical object) (727496510) H/O gastric sleeve (Z90.3) Active confirmed Vital Signs Heart Rate 78 /min 11/25/2024 Temperature 97.7 degrees Fahrenheit 11/25/2024 Blood pressure diastolic 84 mm Hg 11/25/2024 Height 5 ft 6 in in 11/25/2024 Blood pressure systolic 136 mm Hg 11/25/2024 Weight 202.8 lbs 11/25/2024 BMI 32.73 kg/m2 11/25/2024 Encounters Encounter Location Date Provider Diagnosis [facility] [address] [facility] [address] [place] [address] 03/30/2024 Kieran Besson [facility] [address] [facility] [address] [place] [address] 06/29/2024 Kieran Besson [facility] [address] [place] [address] 09/16/2024 Kieran Besson [facility] [address] [place] [address] 10/10/2024 Provider Migration Dysuria R30.0 ; Recurrent UTI N39.0 ; Hypertension, essential I10 ; Adult ADHD F90.9 and Gastroesophageal reflux disease with esophagitis without hemorrhage K21.00 [facility] [address] [place] [address] 12/10/2024 Angela Sheffield [facility] [address] [facility] [address] [place] [address] 02/24/2024 Kieran Besson Cervical spondylosis M47.812 ; Xerostomia K11.7 ; Acute conjunctivitis of right eye, unspecified acute conjunctivitis type H10.31 ; Elevated C-reactive protein (CRP) R79.82 ; Iron deficiency anemia, unspecified iron deficiency anemia type D50.9 ; Type 2 diabetes mellitus with other specified complication E11.69 and Hyperlipidemia, unspecified E78.5 [facility] [address] [facility] [address] [place] [address] 02/26/2024 Kieran Dawson Dysuria R30.0 ; Recurrent UTI N39.0 and Nausea R11.0 [facility] [address] [facility] [address] [place], [place] [address] 03/21/2024 Kieran Dawson Acute left otitis me giles H66.92 [facility] [address] [facility] [address] [place], [place] [address] 04/21/2024 Kieran Dawson Immunization(s) administered Z23 [facility] [address] [facility] [address] [place], [place] [address] 06/24/2024 Kieran Dawson Hiatal hernia K44.9 ; Diaphragmatic hernia without obstruction or gangrene K44.9 and Gastro-esophageal reflux disease with esophagitis, without bleeding K21.00 [facility] [address] [place] [address] 07/09/2024 Cait McNees Pain in right upper arm M79.621 and Thrombophlebitis I80.9 [facility] [address] [address] 07/14/2024 Kieran Dawson Adult ADHD F90.9 ; Moderate binge-eating disorder F50.811 and Hypertension, essential I10 [facility] [address] [facility] [address] [place] [address] 08/17/2024 Kieran Dawson Adult ADHD F90.9 ; A cute otitis externa of both ears, unspecified type H60.503 ; Screening mammogram, encounter for Z12.31 and Routine medical exam Z00.00 [facility] [address] [facility] [address] [place] [address] 08/19/2024 Kieran Dawson Dysuria R30.0 and Recurrent UTI N39.0 [facility] [address] [facility] [address] [place] [address] 10/22/2024 Cait McNees Abscess L02.91 [facility] [address] [facility] [address] [place] [address] 10/29/2024 Cait McNees Cellulitis of left l eg L03.116 ; Cutaneous abscess of left lower extremity L02.416 ; Serotonin syndrome G90.81 ; Depression with anxiety F41.8 and Type 2 diabetes mellitus with other specified complication E11.69 [facility] [address] [place] [address] 11/12/2024 Angela Sheffield Type 2 diabetes magalis itus with other specified complication E11.69 ; Mixed dyslipidemia E78.2 ; 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 and Hypertension, essential I10 [facility] [address] [place] [address] 11/16/2024 Kieran Besson Left foot pain M79.6 72 [facility] [address] [place] [address] 11/23/2024 Kieran Besson Acute pain of left f oot M79.672 [facility] [address] [place] [address] 11/25/2024 Kieran Besson Tendinopathy of left foot M67.972 [facility] [address] [place] [address] 12/25/2024 Cait McNees Lumbar back pain M54 .50 [facility] [address] [place] [address] 01/27/2024 Kieran Besson Cervical disc hernia tion M50.20 ; Abnormal electromyogram [EMG] R94.131 ; Neck pain M54.2 and Tension headache G44.209 [facility] [address] [place] [address] 02/19/2024 Kieran Besson Cervicalgia M54.2 [facility] [address] [facility] [address] [place] [address] 03/24/2024 Kieran Besson [facility] [address] [place] [address] 03/27/2024 Kieran Besson Iron deficiency anem ia, unspecified iron deficiency anemia type D50.9 ; Vitamin B12 deficiency E53.8 ; Vitamin D deficiency E55.9 ; Hypothyroidism (acquired) E03.9 ; H/O gastric sleeve Z90.3 and Fatigue associated with anemia D64.9 [facility] [address] [place] [address] 04/07/2024 Kieran Besson [facility] [address] [place] [address] 04/16/2024 Kieran Besson [facility] [address] [place] [address] 04/16/2024 Kieran Besson Dysuria R30.0 and Klebsiella pneumoniae B96.1 [facility] [place] [address] [place] [address] 05/16/2024 Kieran Besson [facility] [address] [place] [address] 06/12/2024 Kieran Besson [facility] [address] [place] [address] 06/19/2024 Kieran Besson [facility] [place] [address] [place] [address] 06/25/2024 Kieran Besson 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 ; Obesity, unspecified E66.9 ; Iron deficiency anemia, unspecified iron deficiency anemia type D50.9 ; Vitamin B12 deficiency E53.8 and Type 2 diabetes mellitus with other specified complication E11.69 [facility] [address] [place] [address] 06/30/2024 Kieran Besson [facility] [place] [address] [place] [address] 07/14/2024 Kieran Besson [facility] [place] [address] [place] [address] 07/14/2024 Kieran Besson [facility] [place] [address] [place] [address] 07/14/2024 Kieran Besson Hypertension, essent ial I10 [facility] [place] [address] [place] [address] 08/18/2024 Kieran Dawson Breast cancer screen ing by mammogram Z12.31 [facility] [place] [address] [place] [address] 08/19/2024 Kieran Dawson [facility] [place] [address] [facility] [address] [place] [address] 08/27/2024 Angela Sheffield Recurrent UTI N39.0 [facility] [place] [address] [facility] [address] [place] [address] 09/04/2024 Kieran Dawson [facility] [place] [address] [facility] [address] [place] [address] 09/10/2024 Kieran Dawson BOGGS (nonalcoholic steatohepatitis) K75.81 ; Abdominal bloating R14.0 ; Chronic gastroesophageal reflux disease K21.9 ; Chronic colitis K52.9 and Eructation R14.2 [facility] [place] [address] [facility] [address] [place] [address] 09/22/2024 Kieran Dawson Adult ADHD F90.9 [facility] [place] [address] [facility] [address] [place] [address] 10/13/2024 Angela Sheffield [facility] [place] [address] [facility] [address] [place] [address] 11/02/2024 Cait McNees Cellulitis of left l eg L03.116 [facility] [place] [address] [facility] [address] [place] [address] 11/18/2024 Kieran Dawson Adult ADHD F90.9 [facility] [place] [address] [facility] [address] [place] [address] 11/25/2024 Kieran Dawson Left foot pain M79.6 72 and Unspecified sprain of left foot, initial encounter S93.602A [facility] [place] [address] [facility] [address] [place] [address] 12/08/2024 Angela Sheffield Type 2 diabetes magalis itus with other specified complication E11.69 and 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 [facility] [address] [place] [address] 12/10/2024 Kieran Starrson [facility] [place] [address] [place] [address] 12/14/2024 Angela Sheffield Type 2 diabetes magalis itus with other specified complication E11.69 [facility] [place] [address] [place] [address] 12/17/2024 Angela Sheffield [facility] [address] [place] [address] 12/25/2024 Cait McNees Hiatal hernia K44.9 and Cervicalgia M54.2 [facility] [place] [address] [place] [address] 01/06/2025 Angela Sheffield [facility] [address] [place] [address] 01/11/2025 Kieran Dawson [facility] [place] [address] [place] [address] 11/04/2024 Kieransaima Dawson Assessments Encounter Date Diagnosis (ICD Code) Assessment Notes Treatment Notes Treatment Clinical Notes Section Notes 01/27/2024 Cervical disc herniation (ICD-10 - M50.20) 02/19/2024 Cervicalgia (ICD-10 - M54.2) 02/24/2024 Xerostomia (ICD-10 - K11.7) Check Sjogren antibodies. I will review all labs personally 02/24/2024 Cervical spondylosis (ICD-10 - M47.812) Patient does have some risk factors for rheumatologic disease, some symptoms consistent with ankylosing spondylitis but no radiologic features as of yet. Check serologic testing. Rheumatology evaluation at neurosurgery request. I will follow all labs personally. 02/26/2024 Dysuria (ICD-10 - R30.0) 02/26/2024 Recurrent UTI (ICD-10 - N39.0) Given patient's recurrent history of Klebsiella we will treat aggressively with ceftriaxone and then with cefdinir. [place] daily Macrobid therapy after this is finished. Supportive treatment today with Zofran 03/21/2024 Acute left otitis media (ICD-10 - H66.92) Concomitant scleral irritation also. She has eyedrops at home. She will start these. Amoxicillin for ears. Follow-up in the next 3 to 4 days if no better 03/27/2024 Iron deficiency anemia, unspecified iron deficiency anemia type (ICD-10 - D50.9) 04/21/2024 Immunization(s) administered (ICD-10 - Z23) 06/24/2024 Diaphragmatic hernia without obstruction or gangrene (ICD-10 - K44.9) Cautious trial of low-dose Reglan given failed acid blockade strategies. Will set up for EGD. Discussed side effects of Reglan, discussed some dietary modifications, most of which she is already doing. Given significant comorbidities from the reflux aggressive therapy indicated 06/24/2024 Hiatal hernia (ICD-10 - K44.9) 04/16/2024 Dysuria (ICD-10 - R30.0) 06/25/2024 Obesity, unspecified (ICD-10 - E66.9) 06/25/2024 Hypothyroidism associated with surgical procedure (ICD-10 - E89.0) 07/09/2024 Pain in right upper arm (ICD-10 - M79.621) 07/09/2024 Thrombophlebitis (ICD-10 - I80.9) Venous doppler negative for DVT. Likely r/t thrombophebilitis from recent lab draw. Warm compresses, supportive care. Return precautions discussed. 07/14/2024 Hypertension, essential (ICD-10 - I10) 07/14/2024 Adult ADHD (ICD-10 - F90.9) Presents for initial encounter and assessment. Suspect ADD, Inattentive. Given ASRS for completion. Based on DSM-5 patient exhibits >/= six criteria for inattentive subtype present for >6mo: - difficulty sustaining attention - forgetfulness in daily activities - easily distracted - difficulty organizing tasks and activities - loses things necessary for tasks - avoids activities that require sustained attention Follow-up JULIAN pending completion of ASRS questionairre. Consider initiation of stimulant. 07/14/2024 Moderate binge-eating disorder (ICD-10 - F50.811) Given her ups and downs with eating certainly Vyvanse might be helpful for this. Will continue to monitor weight and follow-up in 4 weeks 08/17/2024 Acute otitis externa of both ears, unspecified type (ICD-10 - H60.503) Start Ciprodex. No evidence of otitis media, but irritation from possible allergic reaction or mild infection 08/17/2024 Adult ADHD (ICD-10 - F90.9) Increase Vyvanse. Patient is doing well with this. Weight stable. No evidence of neurologic or cardiac side effects 08/18/2024 Breast cancer screening by mammogram (ICD-10 - Z12.31) 08/19/2024 Dysuria (ICD-10 - R30.0) 08/19/2024 Recurrent UTI (ICD-10 - N39.0) Given recurrent UTIs will check culture. History of recurrent Klebsiella infections. 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 Will make this referral. Begin estrogen cream given possibility of some dry symptoms causing other issues 08/27/2024 Recurrent UTI (ICD-10 - N39.0) 09/22/2024 Adult ADHD (ICD-10 - F90.9) 10/10/2024 Dysuria (ICD-10 - R30.0) 10/10/2024 Recurrent UTI (ICD-10 - N39.0) 10/10/2024 Hypertension, essential (ICD-10 - I10) 10/10/2024 Adult ADHD (ICD-10 - F90.9) 10/10/2024 Gastroesophageal reflux disease with esophagitis without hemorrhage (ICD-10 - K21.00) 10/22/2024 Abscess (ICD-10 - L02.91) Urgent consult with general surgery today at 1pm NPO until seen by surgery 09/10/2024 BOGGS (nonalcoholic steatohepatitis) (ICD-10 - K75.81) 10/29/2024 Cellulitis of left leg (ICD-10 - L03.116) [facility] records including discharge summary and medication list reviewed. No changes made in antibiotics, improving nicely on current regimen Start probiotic daily Keep Fu with surgery next week 10/29/2024 Cutaneous abscess of left lower extremity (ICD-10 - L02.416) see above 11/02/2024 Cellulitis of left leg (ICD-10 - L03.116) 11/12/2024 Type 2 diabetes mellitus with other specified complication (ICD-10 - E11.69) Recent A1c during hospital stay was 6.0. Recommend continue titration of Mounjaro to 5 mg. Labs again in about 4 weeks, including urine for microalbumin and lipid panel. She likely needs to be on a statin secondary to diabetes and hypertension for risk reduction. 11/12/2024 Mixed dyslipidemia (ICD-10 - E78.2) 11/16/2024 Left foot pain (ICD-10 - M79.672) Continue analgesics. Foot exam is reassuringly normal but in the context of pain after recent left thigh/groin infection we will do an x-ray to make sure there is no abnormal appearance of the bone cortex Also, given recent infection we will check inflammatory markers. 11/18/2024 Adult ADHD (ICD-10 - F90.9) 11/23/2024 Acute pain of left foot (ICD-10 - M79.672) Negative inflammatory markers. No stigmata of infection. X-rays negative. I think she hyperextended and tore some dorsal foot ligaments. Will check MRI scan and then send to podiatry or Ortho as indicated 11/25/2024 Left foot pain (ICD-10 - M79.672) 11/25/2024 Tendinopathy of left foot (ICD-10 - M67.972) MRI shows grade 3 tendon damage and bone edema consistent with a severe dorsiflexion sprain. does not recall specific injury but was walking on unlevel ground the day before this pain started. Certainly consistent with injury. 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 Will emphasize control, if there is any weight loss with the medicine that might also help control blood pressure. 04/16/2024 Klebsiella pneumoniae (ICD-10 - B96.1) 06/24/2024 Gastro-esophageal reflux disease with esophagitis, without bleeding (ICD-10 - K21.00) 03/27/2024 Vitamin B12 deficiency (ICD-10 - E53.8) 02/26/2024 Nausea (ICD-10 - R11.0) 02/24/2024 Acute conjunctivitis of right eye, unspecified acute conjunctivitis type (ICD-10 - H10.31) 01/27/2024 Abnormal electromyogram [EMG] (ICD-10 - R94.131) 01/27/2024 Neck pain (ICD-10 - M54.2) 02/24/2024 Elevated C-reactive protein (CRP) (ICD-10 - R79.82) 03/27/2024 Vitamin D deficiency (ICD-10 - E55.9) 06/25/2024 Vitamin B12 deficiency (ICD-10 - E53.8) 08/17/2024 Routine medical exam (ICD-10 - Z00.00) Up-to-date with [employer] care, up-to-date with colonoscopy. Up-to-date with vaccines and labs. Good functional status. Emotional stress seems to be well-managed at this point. Safe home environment, supportive . 09/10/2024 Chronic gastroesophageal reflux disease (ICD-10 - K21.9) 11/12/2024 Hypertension, essential (ICD-10 - I10) 10/29/2024 Depression with anxiety (ICD-10 - F41.8) Well controlled 09/10/2024 Chronic colitis (ICD-10 - K52.9) 10/29/2024 Type 2 diabetes mellitus with other specified complication (ICD-10 - E11.69) Good control. A1c 6 06/25/2024 Type 2 diabetes mellitus with other specified complication (ICD-10 - E11.69) 03/27/2024 Hypothyroidism (acquired) (ICD-10 - E03.9) 02/24/2024 Iron deficiency anemia, unspecified iron deficiency anemia type (ICD-10 - D50.9) 01/27/2024 Tension headache (ICD-10 - G44.209) 02/24/2024 Type 2 diabetes mellitus with other specified complication (ICD-10 - E11.69) Patient is due for A1c. Has been compliant with medications and dietary modification. 03/27/2024 H/O gastric sleeve (ICD-10 - Z90.3) 09/10/2024 Eructation (ICD-10 - R14.2) 03/27/2024 Fatigue associated with anemia (ICD-10 - D64.9) 02/24/2024 Hyperlipidemia, unspecified (ICD-10 - E78.5) Plan Of Treatment Pending Test Test Name Order Date N-TSH (Thyroid Stimulating Hormone) 01/2007 N-TSH (Thyroid Stimulating Hormone) 12/06 [id number] 07/05/2008 MRI : Head, Without Contrast 07/07/2020 Mammogram : Bilateral 08/18/2024 H-CBC with AUTO DIFF 05/13/2009 H-PERTUSSIS CULTURE 05/13/2009 H-CMP 05/13/2009 H- SERUM QUAL 05/13/2009 H-INFLUENZA A ANTIGEN 05/13/2009 C-THYROGLOBULIN ANTIBODIES 05/23/2010 C-CMP 10/12/2020 C-MAGNESIUM 10/12/2020 C-THYROID PROFILE 10/12/2020 Walking boot 11/25/2024 M-Comprehensive Metabolic Panel 11/18/19 M-Hemoglobin A1C 11/17/2020 M-Hemoglobin A1C 05/23/2021 M-Lipid Panel 05/23/2021 M-Lipid Panel 11/17/2020 M-Thyroid Panel 11/17/2020 M-Free T4 (Free Thyroxine) 11/17/2020 M-Thyroid Stimulating Hormone 05/23/2021 M-Vitamin B12 07/11/2022 M-Vitamin D 25 Hydroxy 07/11/2022 M-Iron and TIBC 07/11/2022 M-Iron and TIBC 11/17/2020 M-COVID PCR SINGLE RAPID 04/17/2020 Nerve Conduction Study 11/15/2023 Vitamin B12 2022 Iron with Transferrin Saturation 022 Ferritin 2022 Culture, Urine 06/13/2022 Culture, Urine 02/01/2022 Physical Therapy Eval and Treat 01/27/20 24 Physical Therapy: Dry Needling Therapy 0 11/25/2023 IRON AND TOTAL IRON BINDING CAPACITY (75 73) 06/18/2023 URINALYSIS, COMPLETE W/REFLEX TO CULTURE (3020) 09/17/2023 CULTURE, URINE, ROUTINE (395) 01/02/2023 CULTURE, URINE, ROUTINE (395) 01/08/2024 COMP METABOLIC PANEL 11/19/2023 CBC AUTO W DIFF 11/19/2023 PANCREATIC ELASTASE, FECAL 09/10/2024 BOGGS FIBROSURE PLUS 09/10/2024 Insurance Providers Payer Name Payer Address Payer Phone Subscriber Number Group Number Insured Name Patient Relationship to Insured Coverage Start Date Coverage End Date [facility] [address] [place] [address] [id number] [place] Self - patient is the insured Medications Administered Medication Instructions Date of Administration Dosage Notes Ajovy 08/09/2020 1 mg Ajovy 09/08/2020 1.5 mg Ajovy 10/10/2020 0.5 mg Ajovy 11/29/2020 Ceftriaxone 500 02/26/2024 500 mg Dexamethasone 4mg Injection 11/21/2022 4 mg Dexamethasone 4mg Injection 12/25/2024 4 mg Ondansetron 02/26/2024 Medical (General) History Medical History History ICD Code partial thyroidectomy, hypothyroid depression cardiomegaly Anemia HTN EGD with nonerosive GERD 07/2020 Normal PAP 06/2020 A fib - paroxysmal iron deficiency anemia Trev's Thyroiditis Familial Hypertriglyceridemia BOGGS diabetes, type II Normal Mammogram 12/28 hypertriglyceridemia Esophageal reflux cervical disc herniation Surgical History Surgery Date(Month/Year) Tonsillectomy 1998 Breast reduction 1999 rhinoplasty 2008 cholecystectomy 2016 thyroidectomy 2006 gastric sleeve 2018 uterine ablation heart cath Colonoscopy with 5 polyps 08/2020 C section 12/2007 02/2004 Hospitalization History Reason Date(Month/Year) Septic & serotonin syndrome 10/23/24 campylobactor 01/2022 colitis, kidney injury 01/2022 Surgeries and childbirth
--- OUTSIDE RECORDS SUMMARY | 2025-01-14 13:05 | XMS_ITS | Clinical Summary ---
Author Organization [facility] Address [address] [facility] [address] [place] [address] Phone Care Team Providers Care Optical Engineering Technician Name Role Phone Claudia Jones Primary Care Provider [phone] Social History Tobacco Use Types Packs/Day Years Used Date Smoking Tobacco: Never Assessed Comments Unknown Sex and Gender Information Value Date Recorded Sex Assigned at Not on file Legal Sex Female 2:45 PM EDT Gender Identity Not on file Sexual Orientation Not on file Plan of Treatment Health Maintenance Due Date Last Done Comments Annual Wellness Exam 01/23/1983 DTaP/TDaP/Td (1 - Tdap) 01/23/1999 Hepatitis B Vaccine (1 of 3 - 19+ 3-dose series) 01/23/1999 Cervical Cancer Screening 01/23/2001 Pap Smear 01/23/2001 HPV/Pap Cotest 01/23/2010 Breast Cancer Screening 2020 COVID-19 Vaccine (2023-2 5 season) 2024 Influenza Vaccine (#1) 2025 Meningococcal B Vaccine Aged Out No l onger eligible based on patient's age to complete this topic Pneumococcal Vaccine 0-49 Aged Out No longer eligible based on patient's age to complete this topic Insurance [employer] PPO Care Teams Optical Engineering Technician Relationship Specialty Start Date End Date Claudia Jones [address] [place] [address] [address] [facility] [id number] PCP - General Family Medicine 03/02/15
== END 2025-01-14 23:59 | disposition home or self-care (01) ==
LOC: RAD 12:59
PROVIDERS: PCP Internal Medicine Adolescent Medicine; Visit Provider Nurse Practitioner
DX: R93.89 Abnormal findings on diagnostic imaging of other specified body structures (principal); E89.0 Postprocedural hypothyroidism; R49.9 Unspecified voice and resonance disorder
CPT/HCPCS: 76536

== ENCOUNTER 2025-01-25 06:56 | Outpatient (CLI) | payer BC, SELFPAY ==
--- OUTSIDE RECORDS SUMMARY | 2024-12-08 09:59 | XMS_ITS ---
Author Organization [facility] [place] Address [address] [place] [address] Care Team Providers Care Nascar Pit Crew Person Name Role Phone Kieran Dawson Primary Care Provider Kieran Dawson Unavailable Unavailable Angela Sheffield Unavailable [phone] Results Component Value Reference Range Notes Microalbumin (In-House) Reviewed date:12/09/2024 06:19:47 PM Interpretation: Performing Lab: Notes/Report: ALB 80mg CRE 100mg A:C 30-300mg LIPID PANEL, STANDARD (7600) Reviewed date:12/14/2024 02:04:14 PM Interpretation: Performing Lab:CB, [facility] Twex3090 [facility], [facility] Prakash Calvillo Notes/Report: NON-FASTING; NON-FASTING CHOLESTEROL, TOTAL 208 <200 mg/dL HDL CHOLESTEROL 56 > OR = 50 mg/dL TRIGLYCERIDES 233 <150 mg/dL If a non-fasting specimen was collected, consider repeat triglyceride testing on a fasting specimen if clinically indicated. Yeung et al. J. of Clin. Lipidol. 2015;9:129-169. LDL-CHOLESTEROL 117 Reference range: <100 Desirable range <100 mg/dL for primary prevention; <70 mg/dL for patients with CHD or diabetic patients with > or = 2 CHD risk factors. LDL-C is now calculated using the Kacy calculation, which is a validated novel method providing better accuracy than the Friedewald equation in the estimation of LDL-C. Hai SS et al. ALBERTO. 2013;310(19): 9284-9596 (http://education.Milmenus.como Olark.com/faq/GML575) CHOL/HDLC RATIO 3.7 <5.0 (calc) NON HDL CHOLESTEROL 152 <130 mg/dL (calc) For patients with diabetes plus 1 major ASCVD risk factor, treating to a non-HDL-C goal of <100 mg/dL (LDL-C of <70 mg/dL) is considered a therapeutic option. HEMOGLOBIN A1c (496) Reviewed date:12/14/2024 02:02:11 PM Interpretation: Performing Lab:[facility] [id number] OZON.ruteCasabi, IdentiaZlnlGS[address] Prakash Calvillo Notes/Report: NON-FASTING; NON-FASTING HEMOGLOBIN A1c 6.4 <5.7 % For someone without known diabetes, a hemoglobin A1c value between 5.7% and 6.4% is consistent with prediabetes and should be confirmed with a follow-up test. For someone with known diabetes, a value <7% indicates that their diabetes is well controlled. A1c targets should be individualized based on duration of diabetes, age, comorbid conditions, and other considerations. This assay result is consistent with an increased risk of diabetes. Currently, no consensus exists regarding use of hemoglobin A1c for diagnosis of diabetes for children. TSH W/REFLEX TO FT4 (49263) Reviewed date:12/13/2024 07:39:11 PM Interpretation: Performing Lab:[facility] [id number] OZON.rutel T2 Systems, DeepFlexKtkoYP[address] Prakash Calvillo Notes/Report: NON-FASTING; NON-FASTING TSH W/REFLEX TO FT4 1.53 Reference Range > or = 20 Years 0.40-4.50 Ranges First trimester 0.26-2.66 Second trimester 0.55-2.73 Third trimester 0.43-2.91 REASON FOR VISIT labs and meds Encounters Encounter Location Date Provider Diagnosis [facility] [place] [address] [facility] [address] [place] [address] 12/08/2024 Angela Sheffield Type 2 diabetes mellitus with other specified complication E11.69 and 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 Assessments Encounter Date Diagnosis (ICD Code) Assessment Notes Treatment Notes Treatment Clinical Notes Section Notes 12/08/2024 Type 2 diabetes mellitus with other specified complication (ICD-10 - E11.69) 12/08/2024 Hypothyroidism associated with surgical procedure (ICD-10 - E89.0) Plan Of Treatment No Information Progress Notes * Yoanna MATA NDOB: 0 (44 yo F)Acc No.[id number]:12/08/2024 Patient: Yoanna ROWELL :1980 A ge:44 Y S ex:Female Address:[address] [place] [address] , [place] [address] Subjective: * Chief Complaints: * L abs and meds * Medical History: * Surgical History: * Hospitalization/Major Diagno stic Procedure: * Medications: Objective: * Vitals: * Physical Examination: Assessment: * Assessment: 1. T ype 2 diabetes mellitus with other specified complication - E11.69 (Primary) ?2. H ypothyroidism associated with surgical procedure - E89.0 Plan: * Treatment: Value Reference Range A LB 80mg * C RE 100mg * A :C 30-300mg * Darya Gilmore 12/10/19 25 10:26:12 AM EDT > 2.?Hypothyroidism associated with surgical procedure?LAB: TSH W/REFLEX TO FT4 (91175) * Procedure Codes: 8 2043 MICROALBUMIN, URINE, Modifiers: QW * true * Date: Generated for Printi ng/Faxing/eTransmitting on: 0 01/25/2025 06:59 AM EDT
--- OUTSIDE RECORDS SUMMARY | 2024-12-10 04:45 | XMS_ITS ---
Author Organization [facility] [place] Address [address] [place] [address] Care Team Providers Care Adventure Therapist Name Role Phone Kieran Dawson Primary Care Provider [phone] Kieran Dawson Unavailable Unavailable Angela Sheffield [phone] REASON FOR VISIT labs Encounters Encounter Location Date Provider Diagnosis [facility] [place] [address] [place], [place] [address] 12/10/2024 Angela Sheffield Plan Of Treatment No Information Progress Notes * Yoanna MATA NDOB: 0 (45 yo F)Acc No.[id number]:12/10/2024 LABS Patient: Bret STARK Yoanna Darden Provider: IZA Shaikh :1980 A ge:44 Y S ex:Female Date:12/10/2024 Address:[address] [place], [id number] Pcp:Kieran Dawson Subjective: * Chief Complaints: * 1 . Labs. * Medical History: Objective: * Vitals: Assessment: Plan: * Treatment: * * Electronic signature of Janis Sheffield APRN on 01/25/2025 at 06:59 AM EDT Sign off status: Pending * Provider: IZA Shaikh Date: 0 12/10/2024 Generated for Tiffany rivas/Brayan/Moralesitting on: 0 01/25/2025 06:59 AM EDT
--- OUTSIDE RECORDS SUMMARY | 2024-12-25 06:00 | XMS_ITS ---
Author Organization [facility] [place] Address [address] [place], [place] [address] Care Team Providers Care Ceramic Worker Name Role Phone Kieran Dawson Primary Care Provider Kieran Dawson Unavailable Unavailable Cait Vera Unavailable [phone] REASON FOR VISIT steroid Encounters Encounter Location Date Provider Diagnosis [facility] [place] [address] [place], [place] [address] 12/25/2024 Cait Vera Lumbar back pain M54.50 Assessments Encounter Date Diagnosis (ICD Code) Assessment Notes Treatment Notes Treatment Clinical Notes Section Notes 12/25/2024 Lumbar back pain (ICD-10 - M54.50) Plan Of Treatment No Information Medications Administered Medication Instructions Date of Administration Dosage Notes Dexamethasone 4mg Injection 12/25/2024 4 mg Progress Notes * Yoanna MATA NDOB: 0 (44 yo F)Acc No.[id number]:12/25/2024 Patient: Bret Yoanna STARK Provider: Shu Vera [...] J 1100 Dexamethasone Sodium Phosphate 4mg Injection, 49541 THERAPEUTIC ADMINISTRATION * * Sign off status: Completed true * Provider: Shu Vera APRN Date: 0 12/25/2024 Generated for Tiffany rivas/Brayan/Ismael on: 0 01/25/2025 06:59 AM EDT
--- OUTSIDE RECORDS SUMMARY | 2025-01-25 06:59 | XMS_ITS | Data Portability ---
Author Organization [place] - [facility] [place] & Jacqui, [facility] ADMIN Address [address] [place] [id number] Care Team Providers Care Tip Out Worker Name Role Phone STEPHANIE MASON Primary Care Provider Assessment No assessment recorded. Plan of Treatment Reminders Order Date Submit Date Provider Last Modified By Organization Details Last Modified Time Details Appointments None recorded. Lab urinalysis , dipstick 2023 [email or web address] [facility], [address], [place], [address], 16:19:14 Referral None recorded. Procedures None recorded. Surgeries None recorded. Imaging US, renal 2023 [facility] (Centralized Scheduling), [address], [place], [address], 4 16:30:55 XR, kidney + ureter + bladder 2023 [facility] (Centralized Scheduling), [address] [facility], [place], [address], 4 16:30:54 Medication Orders methenamin e hippurate 1 gram tablet 2023 [facility] 591, [address], [place], [address], 4 16:18:51 Patient TargetsNo targets recorded. Patient InstructionsNo instructions recorded. Reason for Referral None Reported. Results Created Date Observation Date Name Description Value Unit Range Abnormal Flag Note LastModifiedBy Organization Detail LastModifiedTime 05/12/20 24 05/12/2024 urina lysis , dipst ick Leukocytes (reference range) negati ve Not Available [place] [address], [place], [address], 05/12/2024 16:18:50 05/12/20 24 05/12/2024 urina lysis , dipst ick Nitrite (reference range:) negati ve Not Available [place] [address], [place], [address], 05/12/2024 16:18:50 05/12/20 24 05/12/2024 urina lysis , dipst ick Urobilinogen (reference range) 0.2 Not Available [facility] [place] [address], [place], [address], 05/12/2024 16:18:50 05/12/20 24 05/12/2024 urina lysis , dipst ick Protein (reference range) negati ve Not Available [place] [address], [place], [address], 05/12/2024 16:18:50 05/12/20 24 05/12/2024 urina lysis , dipst ick pH (reference range 5-8.5) 6.0 Not Available [facility] [place] [address], [place], [address], 05/12/2024 16:18:50 05/12/20 24 05/12/2024 urina lysis , dipst ick Blood (reference range:) negati ve Not Available [place] [address], [place], [address], 05/12/2024 16:18:50 05/12/20 24 05/12/2024 urina lysis , dipst ick Specific [place] (reference range) 1.015 Not Available [facility] [address], [place], [address], 05/12/2024 16:18:50 05/12/20 24 05/12/2024 urina lysis , dipst ick Ketone (reference range) negati ve Not Available [place] [address], [place], [address], 05/12/2024 16:18:50 05/12/20 24 05/12/2024 urina lysis , dipst ick Bilirubin (reference range) negati ve Not Available [place] [address] [address] [facility] 100, [place], [address], 05/12/2024 16:18:50 05/12/20 24 05/12/2024 urina lysis , dipst ick Glucose (reference range) negati ve Not Available [place] [address] [address] [facility] 100, [place], [address], 05/12/2024 16:18:50 05/12/20 24 05/12/2024 urina lysis , dipst ick Color (reference range: yellow-brown ) Yellow Not Available [place] [address] [address] [facility] 100, [place], [address], 05/12/2024 16:18:50 05/13/20 24 01/06/2024 US, renal No observ ation record ed. [email or web address] [address], [place], [address], 05/14/2024 09:04:16 Result Notes None recorded. Problems Name Problem SNOMED Code Status Onset Date Resolution Date Notes Provider Name and Address Organization Details Recorded Time Anemia 831237319 Active 2023 Natalydanilo Baron null, [facility] - [facility] & [place] 4 15:16:12 Diabetes mellitus 62834518 Active 2023 Natalydanilo Baron null, [facility] - [facility] [place] [facility] [place] 4 15:16:20 Disease of liver 368165519 Active 2023 Natalydanilo Teresase null, [facility] - [facility] [place] [facility] [place] 4 15:16:29 Hypercholester olemia 20575367 Active 2023 Natalydanilo Baron null, [facility] [place] [facility] [place] 4 15:16:38 Anxiety 87741117 Active 2023 Natalydanilo Baron null, [facility] - [facility] - [place] [facility] [place] 4 15:16:50 Gastroesophage al reflux disease 168792938 Active 2023 Nataly Baron null, [facility] [place] [facility] [place] 4 15:17:00 Disorder of thyroid gland 76970035 Active 2023 Natalydanilo Baron null, [facility] - [facility] & [place] 4 15:17:12 Hypertensive disorder 35352038 Active 2023 Natalydanilo Baron null, [facility] - [facility] & [place] 4 15:17:21 Depressive disorder 48750071 Active 2023 Nataly Malick null, [facility] - [facility] & [place] 4 15:17:29 Chronic urinary tract infection 715341575 Active 2023 Natalydanilo Baron null, [facility] [place] [facility] [place] 4 15:17:42 Problem Notes None recorded. Procedures Surgical History Date Name Laterality Status Provider Name and Address Organization Details Recorded Time tonsillectomy completed Nataly Baron [facility] [place] [facility] [place] 05/12/2024 15:18:09 closed rhinoplasty completed Nataly jeffries [facility] [place] [facility] [place] 05/12/2024 15:19:19 laparoscopic sleeve gastrectomy completed Nataly Baron [facility] & [place] 05/12/2024 15:19:27 thyroidectomy completed Nataly Leung [place] [facility] [place] 05/12/2024 15:19:37 cholecystectomy completed Nataly BRUNSON [facility] & [place] 05/12/2024 15:19:47 Breast reduction completed Nataly BRUNSON [facility] & [place] 05/12/2024 15:19:55 Imaging Results None recorded. Procedure Notes None recorded. Medical Equipment None Reported. Allergies Allergen ID Allergen Name Allergen Category Reaction Reaction Severity Criticality Documentation Date Start Date Code Code System Note Provider Name and Address Organization Details Recorded Time 285495 Substance with sulfonami de structure and antibacte rial mechanism of action (substanc e) medicatio n Not available Not available Not available 05/12/2024 70558 8003 SNOMED [facility] Jimenez [facility] & [place] 4 15:11:58 036266 E-Mycin medicatio n Not available Not available Not available 05/12/202427769 8 RxNorm [facility] Jimenez [facility] & [place] 4 15:12:24 890212 Ceclor medicatio n Not available Not available Not available 05/12/202447282 5 RxNorm [place] Jimenez [facility] & [place] 4 15:12:36 Medications Name Sig Start Date [...] blood by Pulse oximetry Heart rate Systolic And Diastolic Provider Name and Address Organization Details Last Updated DateTime 4 165.1 cm 48.7 kg/m2 511378. 13 g 98.8 [degF] 100 % 100 % 68 /min 129/84 mm[Hg] Nataly Baron [facility] & [place] 4 15:40:36 Social History None recorded. Functional [...] SNOMED-CT Code Diagnosis ICD10 Code Diagnosis Note [id number] Chloe Junior NP, [facility] [place] [address] 05/12/2024 14:55:51 05/12/2024 16:03:54 Recurrent urinary tract infection 285035737 N39.0 UA negative for infectionD iscussed active bowel habits, probiotics , Vitamin C-tid, hygeine, voiding prior to and post sex (wash), and wipe front to back.Sched ule Renal US and KUBStart Methenamin e 1 gram bidRTC in 6 weeks for f/u Nocturia 804701531 R35.1 Mixed urin michi incontinence 607905240 N39.46 History of calculus of kidney 031352676 Z87.442 Type 2 giles betcarolee mellitus 72211685 E11.9 Health Concerns Section Related Observation LastModified by Organization Detai ls LastModified Time None Recorded Concern Status LastModified by Organization Details LastModified Time None Recorded Advance Directives Directive None Recorded Payers Insurance Date Sequence Insurance Name Policy Number Policy Oconnell Covered Member ID Oconnell Member ID Guarantor Name 05/12/2024 1 [place] [id number] Ming Jeffries Power [id number] Yoanna Power Notes Date Note Type [...] a pelvic ultrasound this year with her social services technician that he is normal. Has not had a hysterectomy. Reports PCP did place her on Macrodantin suppression for 2 months and this did not help with her UTIs. Pt is a DM, states last HgbA1c was 5.9. History of kidney stones 10 years ago, passed stone. H/o Tyroidectomy in 2005 r/t mass, states this was precancerous. H/o gastric sleeve. Chloe Junior NP, [address], [place], [address], [facility] [place] [facility] [place] 05/12/2024 16:20:29 OBGyn Episode No OBEpisode recorded.
--- NOTE | 2025-01-25 07:00 | CT_ITS ---
FINAL REPORT TECHNIQUE: Thin section axial CT images with coronal and sagittal reformats were performed through the neck. This study was performed with techniques to keep radiation doses as low as reasonably achievable (ALARA). Individualized dose reduction techniques using automated exposure control or adjustment of mA and/or kV according to the patient's size were employed. CLINICAL HISTORY: as recommended by previous thyroid U/S. prior hx surgery on thyroid for a mass 20years ago. COMPARISON: None FINDINGS: CT NECK SOFT TISSUE WITHOUT CONTRAST: No adenopathy or mass lesion is present . Salivary glands are normal. Larynx is unremarkable. The right thyroid gland is extremely atrophic. The left thyroid gland has been surgically resected. There is no extrathyroid lesion identified. IMPRESSION: 1. The right thyroid is extremely atrophic, and the left thyroid has been surgically resected. 2. No extrathyroid lesion is identified. Reviewed, Interpreted and Dictated by Lorena Lozada MD Transcribed by Linh Salvador Authenticated and . [facility]
--- OUTSIDE RECORDS SUMMARY | 2025-01-25 07:00 | XMS_ITS | Clinical Summary ---
Author Organization [facility] Address [address] [place] [address] Care Team Providers Care Tentering Machine Off Bearer Name Role Phone Kieran Dawson MD Primary Care Provider [phone] Allergies Active Allergy Reactions Criticality Noted Date Comments Cefaclor Swelling Medium 02/26/2017 Erythromycin Anaphylaxis High 02/26/2017 Sulfa Antibiotics Swelling Medium 02/26/2017 Medications levothyroxine (SYNTHROID, LEVOTHROID) 200 MCG tablet Take 150 mcg by mouth Daily. Active amLODIPine (NORVASC) 5 MG tablet Take 2 tablets by mouth Daily. Active carvedilol (COREG) 25 MG tablet Take 1 tablet by mouth Daily. Active fenofibrate (TRICOR) 145 MG tablet Take 1 tablet by mouth Daily. Active Cholecalciferol (VITAMIN D3) 5000 units capsule capsule Take 1 capsule by mouth Daily. Patch Active SUMAtriptan (IMITREX) 50 MG tablet Take 1 tablet by mouth Every 2 (Two) Hours As Needed for Migraine. Take one tablet at onset of headache. May repeat dose one time in 2 hours if headache not relieved. Active losartan (COZAAR) 100 MG tablet Take 1 tablet by mouth Daily. 05/02/2018 Active OZEMPIC 0.25 or 0.5 MG/DOSE solution pen-injector 1 (One) Time Per Week. 07/02/2018 Active omeprazole (priLOSEC) 40 MG capsule Take 1 capsule by mouth Daily. 07/14/2018 Active buPROPion XL (WELLBUTRIN XL) 150 MG 24 hr tablet 2 tablets. 02/05/2019 Active citalopram (CeleXA) 40 MG tablet 01/10/2023 Active FeroSul 325 (65 Fe) MG tablet Take 1 tablet by mouth Every 12 (Twelve) Hours. 10/10/2022 Active Magnesium Oxide -Mg Supplement 400 (240 Mg) MG tablet Take 1 tablet by mouth every night at bedtime. 12/08/2022 Active methocarbamol (ROBAXIN) 750 MG tablet 02/06/2023 Active butalbital-acet aminophen-caffe ine (FIORICET, ESGIC) 50-325-40 MG per tablet Take 1 tablet by mouth Every 6 (Six) Hours. 01/18/2023 Active colestipol (Colestid) 1 g tabletIndicatio ns:Irritable bowel syndrome with diarrhea Take 1 tablet by mouth 2 (Two) Times a Day. 60 tablet 2 06/12/2023 Active Active Problems Problem Noted Date Diagnosed Date Morbid obesity due to excess calories 12/03/2017 Overview (12/03/2017): Added automatically from request for surgery [id number] Hypertension Obesity Fatigue Dyspepsia Dyspnea on exertion Atrial fibrillation Overview (03/21/2017): NSR x 2+ years, on Coreg, no anticoagulation Vitamin D deficiency Hypertriglyceridemia Type 2 diabetes mellitus Overview (03/21/2017): hx gestational diabetes, insulin dependent, T2DM dx 2001 - no insulin since Hypothyroidism Overview (03/21/2017): w/ Hashimotos, s/p partial thyroidectomy Migraines TMJ (temporomandibular joint syndrome) Hepatomegaly Overview (03/21/2017): told enormous liver during lap aarti 2016 Encounters Date Type Department Care Team Description 11/13/2024 3:19 PM EDT - 11/13/2024 11:59 PM EDT Hospital Encounter [facility] [address] [place] [address] Kieran Dawson MD Breast cancer screening by mammogram Discharge Disposition: Home or Self Care 11/13/2024 Travel from Last 3 Months Family History Medical History Relation Name Comments Diabetes Brother Heart disease Brother Obesity Brother No Known Problems Daughter Hypertension Father Sleep apnea Father No Known Problems Maternal Aunt Diabetes Maternal Grandfather Peripheral vascular disease Maternal Grandfather Alzheimer's disease Maternal Grandmother Diverticulitis Mother Hypertension Mother Stroke Mother No Known Problems Paternal Aunt Prostate cancer Paternal Grandfather Heart failure Paternal Grandmother No Known Problems Sister No Known Problems Son Breast cancer Neg Hx Ovarian cancer Neg Hx Relation Name Status Comments Brother Alive Daughter Father Alive Maternal Aunt Maternal Grandfather Maternal Grandmother Mother Alive Paternal Aunt Paternal Grandfather Paternal Grandmother Sister Son Social History Tobacco Use Types Packs/Day Years Used Date Smoking Tobacco: Never Smokeless Tobacco: Never Tobacco Cessation:Counseling Given: Not Answered Alcohol Use Standard Drinks/Week Comments No 0 (1 standard drink = 0.6 oz pur e alcohol) Comments No Sex and Gender Information Value Date Recorded Sex Assigned at Not on file Legal Sex Female 11:34 AM EDT Gender Identity Not on file Sexual Orientation Not on file 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 Not on file Not on file Last Filed Vital Signs Vital Sign Reading Time Taken Comments Blood Pressure 124/82 04/26/2023 8:37 AM EDT Pulse 89 04/26/2023 8:37 AM EDT Temperature 36.3 C (97.3 F) 04/26/2023 8:37 AM EDT Respiratory Rate 18 04/20/2019 9:26 AM EDT Oxygen Saturation 99% 04/26/2023 8:37 AM EDT Inhaled Oxygen Concentration - - Weight 90.5 kg (199 lb 9.6 oz) 04/26/2023 8:37 A M EDT Height 167.6 cm (5' 6 ) 04/20/2019 9:26 AM EDT Body Mass Index 32.22 04/20/2019 9:26 AM EDT Plan of Treatment Health Maintenance Due Date Last Done Comments Annual Gynecologic Pelvic an d Breast Exam 1980 DIABETIC EYE EXAM 01/23/1990 DIABETIC FOOT EXAM 01/23/1990 URINE MICROALBUMIN-CREATININ E RATIO (uACR) 01/23/1990 Pneumococcal Vaccine 0-49 (1 of 2 - PCV) 01/23/1999 TDAP/TD VACCINES (1 - Tdap) 01/23/1999 ANNUAL PHYSICAL 02/26/2017 HEPATITIS C SCREENING 02/26/2017 LIPID PANEL 03/26/2018 03/26/2017 HEMOGLOBIN A1C 06/05/2018 12/03/2017, 03/26/2017 COVID-19 Vaccine (2023- 5 season) 2024 08/12/2020, 07/12/2020 INFLUENZA VACCINE 04/07/2025 04/21/2024, , 05/08/2022 MAMMOGRAM 11/13/2026 11/13/2024, 12/07, 11/06/2021, Additional history exists Hepatitis B Completed 09/01/2018, 02/06, 01/29/2018 Medical Devices Implanted Type Area Chief Operator Reformer Device Identifier Shelf Expiration Date Model / Serial / Lot Sealant Fibrin Tisseel Fz 4ml - [id number] Implanted:Qty : 1 on 12/04/2017 by Sherif Campbell MD at [facility] Implant N/A: Stomach [employer] 08/07/2019 [id number] / / [id number] Loop Recorder Cardoc Procedures Procedure Name Priority Date/Time Associated Diagnosis Comments MAMMO SCREENING DIGITAL TOMOSYNTHESIS BILATERAL W CAD Routine 11/13/2024 3:49 PM EDT Breast cancer screening by mammogram AMBRY GENETIC ASSESSMENT Routine 11/12/2024 1:08 PM EDT HEMOGLOBIN A1C Routine 12/03/2017 4:12 PM EDT LIPID PANEL Routine 03/26/2017 Diabetes mellitus type 2 in obese Fatigue, unspecified type Dyspnea, unspecified type Dyspepsia from Last 3 Months or Most Recently Relevant to Health Maintenance Results * Mammo Screening Digital Tomosynthesis Bilateral With CAD (11/13/2024 3:49 PM EDT) Anatomical Region Laterality Modality Breast N/A Mammography 11/17/2024 12:0 4 PM EDT Impressions 11/17/2024 12:06 PM EDT No suspicious abnormality identified. OVERALL ASSESSMENT: ACR BI-RADS CATEGORY: 1, NEGATIVE: Recommend continued routine annual screening mammogram. The standard false-negative rate of mammography is between 10% and 25%. Complex patterns or increased breast density will markedly elevate the false-negative rate of mammography. A letter, in lay terminology, with the results of this exam will be mailed to the patient. 11/17/2024 12:06 PM by Nataly Bernardo MD on Narrative 11/17/2024 12:06 PM EDT BILATERAL DIGITAL SCREENING MAMMOGRAM WITH TOMOSYNTHESIS CLINICAL INDICATION: Screening mammogram. TECHNIQUE: Bilateral low dose full field digital breast tomosynthesis imaging was performed. CAD was utilized. COMPARISON: Prior studies dating back to 02/03/2018. FINDINGS: There are scattered areas of fibroglandular density. RIGHT BREAST: No suspicious masses, calcifications, or areas of distortion are seen. LEFT BREAST: No suspicious masses, calcifications, or areas of distortion are seen. Kieran Dawson MD IMG MAMMOGRAPHY ORDERABLES F inal Result * [facility]ESS[facility] QUESTIONNA[facility] - , (11/12/2024 1:08 PM EDT) [employer] 10.2 [employer] NCCN NCCN not met [employer] Comment:High Risk Cancer Ris k Assessment 11/12/2024 1:08 PM EDT Kieran Dawson MD GENETIC TESTING Final Result [facility]
[address] [place] [address], * (ABNORMAL) Hemoglobin A1c (12/03/2017 4:12 PM EDT) Hemoglobin A1C 7.20(H) 4.80 - 5.60 % 12/03/2017 5:31 PM EDT [facility] Blood Venipuncture / Unknown 12/03/2017 4:12 PM EDT 12/03/2017 4:22 PM EDT Narrative [facility] - 12/03/2017 5:31 PM EDT The [place] [employer] recommends maintenance of Hemoglobin A1C at 7.0% or lower. Goals for Hemoglobin A1C reduction may need to be modified if hypoglycemia is a problem. Darien Garay MD LAB BLOOD ORDERABLES Final Resu lt [facility]
[address] [place] [address], [place] [phone] * Lipid Panel (03/26/2017) Blood Paola JONES LAB BLOOD ORDERABLES Final Result [facility] ([facility]) [address] [place] [address], [place] [phone] from Last 3 Months or Most Recently Relevant to Health Maintenance Insurance [facility] PPO Member Subscriber Plan / Payer (Ef fective 2024-Present) Name:Yoanna Brar Relation to Subscriber:Spouse Name:Jem Brar Date of :1979 (Home) Address: [address] [place] [address] Payer ID:[id number] (NAIC) Type:Not on file Address: [facility] [id number] [place] [phone] Advance Directives * Full Code (Latest Code Status on File) Date Activated Date Inactivated Comments 12/04/2017 10:47 AM 12/06/2017 8:50 PM Care Teams Tentering Machine Off Bearer Relationship Specialty Start Date End Date Kieran Dawson MD [address] [facility] [address] [place] PCP - General Adolescent Medicine 11/06/21
--- OUTSIDE RECORDS SUMMARY | 2025-01-25 07:00 | XMS_ITS | Clinical Summary ---
Author Organization [place] [facility] Address [address] [place] [address] Phone Care Team Providers Care Print Line Operator Name Role Phone Claudia Jones Primary Care Provider [phone] Social History Tobacco Use Types Packs/Day Years [...] 01/23/2010 Breast Cancer Screening 2020 COVID-19 Vaccine ( - 2023-2 5 season) 2024 Cologuard 01/23/2025 Colon Cancer Screening 01/23/2025 Colonoscopy 01/23/2025 FIT 01/23/2025 Sigmoidoscopy 01/23/2025 Virtual Colonography 01/23/2025 Influenza Vaccine (#1) 2025 Meningococcal B Vaccine Aged Out No l onger eligible based on patient's age to complete this topic Pneumococcal Vaccine 0-49 Aged Out No longer eligible based on patient's age to complete this topic Insurance [employer] PPO Care Teams Print Line Operator Relationship Specialty Start Date End Date Claudia Jones [address] [place] [address] PCP - General Family Medicine 03/02/15
--- OUTSIDE RECORDS SUMMARY | 2025-01-25 07:00 | XMS_ITS | Patient Health Record ---
Author Organization [facility] D GISSELL Address [address] [place] [address] Care Team Providers Care R D Manager Name Role Phone Kieran Dawson Primary Care Provider Kieran Dawson Unavailable Unavailable Angela Sheffield Unavailable [phone] Cait Vera Unavailable [phone] Migration, Provider Unavailable Unavailable Allergies Allergen (clinical drug ingredient) Drug/Non Drug Allergy documented on EMR Reaction Allergy Type Onset Date Status CECLOR (uncoded) Unknown Allergy Act sukhdeep E-MYCIN (uncoded) Unknown Allergy Ac tive SULFA (uncoded) Unknown Allergy Acti ve Results Component Value Reference Range Notes CULTURE, URINE, ROUTINE (395 ) Reviewed date:03/02/2024 08:34:16 AM Interpretation: Performing Lab:CASI, [facility], [facility] CenterOrxvCU[address] Prakash Calvillo Notes/Report: NON-FASTING CULTURE, URINE, ROUTINE SEE NOTE Micro Number: [id number] Test Status: Final Specimen Source: Urine Specimen [...] cefdinir, cefpodoxime, cefprozil, cefuroxime, cephalexin and loracarbef. Urinalysis Reviewed date:02/26/2024 10:21:57 AM Interpretation: Performing Lab: Notes/Report: Color/Clarity yellow Leuk neg Nitrite neg Urobili 0.2 Protein >=300 pH 5.5 Blood large Sp. Gr. 1.030 Ketone neg Bili small Glucose neg THYROID PEROXIDASE AND THYRO GLOBULIN ANTIBODIES (7260) Reviewed date:04/03/2024 08:34:11 AM Interpretation: Performing Lab:CASI [facility] HealthteB[facility], HashdocTgxoRW[address] Prakash Calvillo Notes/Report: NON-FASTING; NON-FASTING; NON-FASTING; NON-FASTING; NON-FAST FASTING:YES FASTING: YES THYROGLOBULIN ANTIBODIES <1 < or = 1 IU/mL THYROID PEROXIDASE ANTIBODIES 15 <9 IU/mL THYROID PANEL WITH TSH (7444 ) Reviewed date:04/03/2024 08:34:37 AM Interpretation: Performing Lab:CASI [address] [employer], HashdocKjtgUI[address] Prakash Calvillo Notes/Report: NON-FASTING; NON-FASTING; NON-FASTING; NON-FASTING; NON-FAST FASTING:YES FASTING: YES T3 UPTAKE 30 22-35 % T4 (THYROXINE), TOTAL 5.7 5.1-11.9 mcg/dL FREE T4 INDEX (T7) 1.7 1.4-3.8 TSH 4.19 Reference Range > or = 20 Years 0.40-4.50 Ranges First trimester 0.26-2.66 Second trimester 0.55-2.73 Third trimester 0.43-2.91 MAGNESIUM (622) Reviewed date:04/03/2024 08:33:50 AM Interpretation: Performing Lab:CASI [facility], HashdocVenzLM[address] Prakash Calvillo Notes/Report: NON-FASTING; NON-FASTING; NON-FASTING; NON-FASTING; NON-FAST FASTING:YES FASTING: YES MAGNESIUM 2.0 1.5-2.5 mg/dL IRON AND TOTAL IRON BINDING CAPACITY (7573) Reviewed date:04/03/2024 08:33:57 AM Interpretation: Performing Lab:CASI [facility], HashdocNhxiKS[address] Prakash Calvillo Notes/Report: NON-FASTING; NON-FASTING; NON-FASTING; NON-FASTING; NON-FAST FASTING:YES FASTING: YES IRON, TOTAL 80 40-190 mcg/dL IRON BINDING CAPACITY 396 250-450 mc g/dL (calc) % SATURATION 20 16-45 % (calc) Venous Doppler : Upper Extre mity Reviewed date:07/10/2024 12:55:55 PM Interpretation: Performing Lab: Notes/Report: CBC (INCLUDES DIFF/PLT) (639 9) Reviewed date:04/03/2024 08:34:28 AM Interpretation: Performing Lab:CASI [facility] [facility] HealthteBacterioscan, HashdocVrpzRZ[address] Prakash Calvillo Notes/Report: NON-FASTING; NON-FASTING; NON-FASTING; NON-FASTING; NON-FAST FASTING:YES FASTING: YES WHITE BLOOD CELL COUNT 10.0 3.8-10.8 Thousand/ uL RED BLOOD CELL COUNT 4.59 3.80-5.10 Million/uL HEMOGLOBIN 14.0 11.7-15.5 g/dL HEMATOCRIT 43.6 35.0-45.0 % MCV 95.0 80.0-100.0 fL MCH 30.5 27.0-33.0 pg MCHC 32.1 32.0-36.0 g/dL RDW 12.5 11.0-15.0 % PLATELET COUNT 376 140-400 Thousand/uL MPV 9.8 7.5-12.5 fL ABSOLUTE NEUTROPHILS 6060 0302-7651 cells/uL ABSOLUTE LYMPHOCYTES 2510 850-3900 cells/uL ABSOLUTE MONOCYTES 1110 200-950 cells/uL ABSOLUTE EOSINOPHILS 260 15-500 cells/uL ABSOLUTE BASOPHILS 60 0-200 cells/uL NEUTROPHILS 60.6 LYMPHOCYTES 25.1 MONOCYTES 11.1 EOSINOPHILS 2.6 BASOPHILS 0.6 VITAMIN B12/FOLATE, SERUM PA PAVAN (7065) Reviewed date:04/03/2024 08:33:43 AM Interpretation: Performing Lab:CASI, [facility] [facility], RecruitLoopZvibNY[address] Prakash Calvillo Notes/Report: NON-FASTING; NON-FASTING; NON-FASTING; NON-FASTING; NON-FAST FASTING:YES FASTING: YES VITAMIN B12 153 148-6209 pg/mL Please Note: Although the reference range [...] Range Low: <3.4 Borderline: 3.4-5.4 Normal: >5.4 VITAMIN D,25-OH,TOTAL,IA (17 306) Reviewed date:04/03/2024 08:34:03 AM Interpretation: Performing Lab:CASI [facility] [facility], [place] CyvtXN[address] Prakash Calvillo Notes/Report: NON-FASTING; NON-FASTING; NON-FASTING; NON-FASTING; NON-FAST FASTING:YES FASTING: YES VITAMIN D,25-OH,TOTAL,IA 40 30-100 ng/mL 25-OH VIT D, (D2,D3), LC/MS/MS is recommended: order code 23868 (patients >2yrs). See Note 1 Note 1 For additional information, please refer to http://education.LetMeGo.Testive/faq/RJL866 (This link is being provided for informational/ educational purposes only.) Vitamin D Status 25-OH Vitamin D: Deficiency: <20 ng/mL Insufficiency: 20 - 29 ng/mL Optimal: > or = 30 ng/mL For 25-OH Vitamin D testing on patients on D2-supplementation and patients for whom quantitation of D2 and D3 fractions is required, the [facility]() URINALYSIS, COMPLETE W/REFLE X TO CULTURE (3020) Reviewed date:04/17/2024 09:50:54 AM Interpretation: Performing Lab:CASI, [facility] Xkav8610 [facility]Robert [facility], Children'S MinnesotaBpacFH[address] Prakash Calvillo Notes/Report: COLOR ORANGE YELLOW APPEARANCE [...] TO FOLLOW CULTURE, URINE, ROUTINE Micro Number: [id number] Test Status: Final Specimen Source: Urine Specimen [...] TO FOLLOW CULTURE, URINE, ROUTINE Micro Number: [id number] Test Status: Final Specimen Source: Urine Specimen [...] cefdinir, cefpodoxime, cefprozil, cefuroxime, cephalexin and loracarbef. PANCREATIC ELASTASE-1 (82629 ) Reviewed date:09/28/2024 08:44:07 AM Interpretation: Performing Lab:EZ, [facility],[address] [facility]Interm[facility] Healthcare[address] Jerica Alvarado MD,PhD,RAMANDEEP Notes/Report: PANCREATIC ELASTASE 1 529 >200 mcg/g E-1 mcg/g feces Interpretation <100 Severe exocrine pancreatic insufficiency 100-200 Mild to moderate exocrine pancreatic insufficiency >200 Normal LIVER FIBROSIS, FIBROTEST AC TITEST PANEL (53251) Reviewed date:09/22/2024 09:38:48 PM Interpretation: Performing Lab:EZ, [facility],[address] RosalesHighland Ridge HospitalCA[address] Jerica Alvarado MD,PhD,RAMANDEEP Notes/Report: FIBROSIS SCORE 0.09 [...] U/L ALT 19 6-29 U/L REFERENCE ID [id number] FOOTNOTE SEE NOTE The reliability of results is dependent on compliance with the preanalytical and analytical conditions recommended by [employer]. The tests have to be deferred for: [...] The performance characteristics have been determined by [facility] It has not been cleared or approved by the U.S. Food and Drug Administration. Performance characteristics refer to the analytical performance of the test. KUBOO, the associated logo, Zerply and all associated [employer] traylor are the registered trademarks of [employer]. All third green party traylor - (R) and (TM) - are the property of their respective owners. (C) [id number] [employer]. All rights reserved. Urinalysis Reviewed date:08/19/2024 10:41:07 AM Interpretation: Performing Lab: Notes/Report: Color/Clarity yellow Leuk trace Nitrite neg Urobili 0.2 Protein >=300mg/dL pH 5.5 Blood trace-intact Sp. Gr. >=1.030 Ketone neg Bili small Glucose neg CULTURE, URINE, ROUTINE (395 ) Reviewed date:08/25/2024 11:54:11 AM Interpretation: Performing Lab:Siri LANCE-[place] Pinoe[address] [facility] CenterLeonard YumeII[address] Prakash Sinha Rajinder Notes/Report: NON-FASTING CULTURE, URINE, ROUTINE SEE NOTE SDD = Susceptible Dose Dependent * = Not Tested NR = Not Reported NN = See Therapy Comments CULTURE, URINE, ROUTINE Micro Number: [id number] Test Status: Final Specimen Source: Urine Specimen [...] cefdinir, cefpodoxime, cefprozil, cefuroxime, cephalexin and loracarbef. LIPID PANEL, STANDARD (7600) Reviewed date:02/25/2024 10:09:56 AM Interpretation: Performing Lab:CASI [facility] [address], Leonard YorkVyedWQ[address] Prakash Calvillo Notes/Report: NON-FASTING; NON-FASTING; NON-FASTING; NON-FASTING; NON-FAST FASTING:NO FASTING: NO CHOLESTEROL, TOTAL 196 <200 mg/dL HDL CHOLESTEROL 52 > OR = 50 mg/dL TRIGLYCERIDES 243 <150 mg/dL If a non-fasting specimen was collected, consider repeat triglyceride testing on a fasting specimen if clinically indicated. Gamal et al. J. of Clin. Lipidol. 2015;9:129-169. [...] LDL-C. Hai SS et al. ALBERTO. 2013;310(19): 2515-8622 (http://education.Kriyari.com/faq/BYE742) CHOL/HDLC RATIO 3.8 <5.0 (calc) NON HDL CHOLESTEROL 144 <130 mg/dL (calc) For patients with diabetes plus 1 major ASCVD risk factor, treating to a non-HDL-C goal of <100 mg/dL (LDL-C of <70 mg/dL) is considered a therapeutic option. COMPREHENSIVE METABOLIC [facility] MEDICAL CENTERJanine Freeman ([address]) Reviewed date:02/25/2024 01:15:17 PM Interpretation: Performing Lab:CASI [facility]-COFCO Apio[address] [facility], [place] NfhbDL[address] Prakash Calvillo Notes/Report: NON-FASTING; NON-FASTING; NON-FASTING; NON-FASTING; [...] 9) Reviewed date:02/25/2024 10:09:47 AM Interpretation: Performing Lab:CASI, [facility]COFCO Kubt[address], [facility] HospitalZkjdEP[address] Prakash Calvillo Notes/Report: NON-FASTING; NON-FASTING; NON-FASTING; NON-FASTING; NON-FAST FASTING:NO FASTING: NO WHITE BLOOD CELL COUNT 8.2 3.8-10.8 Thousand/ uL RED BLOOD CELL COUNT 4.66 3.80-5.10 Million/uL HEMOGLOBIN 14.3 11.7-15.5 g/dL HEMATOCRIT 42.9 35.0-45.0 % MCV 92.1 80.0-100.0 fL MCH 30.7 27.0-33.0 pg MCHC 33.3 32.0-36.0 g/dL RDW 12.5 11.0-15.0 % PLATELET COUNT 429 140-400 Thousand/uL MPV 9.4 7.5-12.5 fL ABSOLUTE NEUTROPHILS 4854 7095-1042 cells/uL ABSOLUTE LYMPHOCYTES 2140 850-3900 cells/uL ABSOLUTE MONOCYTES 918 200-950 cells/uL ABSOLUTE EOSINOPHILS 230 15-500 cells/uL ABSOLUTE BASOPHILS 57 0-200 cells/uL NEUTROPHILS 59.2 LYMPHOCYTES 26.1 MONOCYTES 11.2 EOSINOPHILS 2.8 BASOPHILS 0.7 SED RATE BY MODIFIED REMI LOPEZ (809) Reviewed date:02/25/2024 10:10:11 AM Interpretation: Performing Lab:CASI, [address] [employer], [facility] CenterDzunCW[address] Prakash Calvillo Notes/Report: NON-FASTING; NON-FASTING; NON-FASTING; NON-FASTING; NON-FAST FASTING:NO FASTING: NO SED RATE BY MODIFIED WESTERGREN 6 < OR = 20 mm/h HLA-B27 ANTIGEN (528) Reviewed date:02/25/2024 02:31:47 PM Interpretation: Performing Lab:CASI [facility]-COF[facility] Ktos[address] [facility], [facility] CenterEbbaOV[address] Prakash Calvillo Notes/Report: NON-FASTING; NON-FASTING; NON-FASTING; NON-FASTING; NON-FAST FASTING:NO FASTING: NO HLA-B27 ANTIGEN NEGATIVE NEGATIVE C-REACTIVE PROTEIN (4420) Reviewed date:02/26/2024 10:21:57 AM Interpretation: Performing Lab:CASI [facility]-[address] [facility], [facility] CenterVfvxGR[address] Prkaash Calvillo Notes/Report: NON-FASTING; NON-FASTING; NON-FASTING; NON-FASTING; NON-FAST FASTING:NO FASTING: NO C-REACTIVE PROTEIN 3.8 <8.0 mg/L RHEUMATOID FACTOR (4418) Reviewed date:02/26/2024 10:21:57 AM Interpretation: Performing Lab:CASI [facility]-[address] [facility], [facility] CenterOuzyDA[address] Prakash Calvillo Notes/Report: NON-FASTING; NON-FASTING; NON-FASTING; NON-FASTING; NON-FAST FASTING:NO FASTING: NO RHEUMATOID FACTOR <10 <14 IU/mL ALEC SCREEN, IFA, W/REFL TITE R AND PATTERN (249) Reviewed date:02/26/2024 10:21:57 AM Interpretation: Performing Lab:CASI [facility] [facility], [facility] CenterVxdxJY[address] Prakash Calvillo Notes/Report: NON-FASTING; NON-FASTING; NON-FASTING; NON-FASTING; [...] Negative International Consensus on ALEC Patterns (https://doi.org/10.1515/cc ga-4129-2304) For additional information, please refer to http://education.Bambisa/faq/LIV428 (This link is being provided for informational/ educational purposes only.) SJOGREN'S ANTIBODIES (SS-A,S S-B) (7832) Reviewed date:02/26/2024 05:12:23 PM Interpretation: Performing Lab:CASI [place] Pnqi[address] [place] GusjOH[address] Prakash Calvillo Notes/Report: NON-FASTING; NON-FASTING; NON-FASTING; NON-FASTING; NON-FAST FASTING:NO FASTING: NO SJOGREN'S ANTIBODY (SS-A) <1.0 NEG <1.0 NEG AI SJOGREN'S ANTIBODY (SS-B) <1.0 NEG <1.0 NEG AI HEMOGLOBIN A1c (496) Reviewed date:02/25/2024 01:15:17 PM Interpretation: Performing Lab:CASI [facility] [address] [place] KjdqQT[address] Prakash Calvillo Notes/Report: NON-FASTING; NON-FASTING; NON-FASTING; NON-FASTING; [...] change in test platforms from the [employer]app [employer] Specialist to the Sandra chery c503 may have shifted HbA1c results compared to historical results. Based on laboratory validation testing conducted at [facility], the Sandra platform relative to the Sapp [...] conducted on different platforms is not recommended. THYROID PANEL WITH TSH (7444 ) Reviewed date:07/02/2024 08:40:51 AM Interpretation: Performing Lab:CASI [facility]-[address] [facility] HealthteBacterioscan, HashdocMnlcKE[address] Prakash Calvillo Notes/Report: NON-FASTING; NON-FASTING; NON-FASTING; NON-FASTING; NON-FAST FASTING:YES FASTING: YES T3 UPTAKE 35 22-35 % T4 (THYROXINE), TOTAL 9.1 5.1-11.9 mcg/dL FREE T4 INDEX (T7) 3.2 1.4-3.8 TSH 0.71 Ranges First trimester 0.26-2.66 Second trimester 0.55-2.73 Third trimester 0.43-2.91 > or = 20 Years 0.40-4.50 Reference Range IRON, TIBC AND FERRITIN PANE L (5616) Reviewed date:07/02/2024 08:42:01 AM Interpretation: Performing Lab:CASI [facility]-[address] [employer], RecruitLoopBjbaNN[address] Prakash Calvillo Notes/Report: NON-FASTING; NON-FASTING; NON-FASTING; NON-FASTING; NON-FAST FASTING:YES FASTING: YES IRON, TOTAL 50 40-190 mcg/dL IRON BINDING CAPACITY 353 250-450 mc g/dL (calc) % SATURATION 14 16-45 % (calc) FERRITIN 146 16-232 ng/mL LIPID PANEL, STANDARD (7600) Reviewed date:07/02/2024 08:41:08 AM Interpretation: Performing Lab:CASI [address], [place] LdvhPY[address] Prakash Calvillo Notes/Report: NON-FASTING; NON-FASTING; NON-FASTING; NON-FASTING; [...] LDL-C. Hai SS et al. ALBERTO. 2013;310(19): 6868-2581 (http://education.Kriyari.Testive/faq/BSY362) CHOL/HDLC RATIO 3.2 <5.0 (calc) NON HDL CHOLESTEROL 116 <130 mg/dL (calc) factor, treating to a non-HDL-C goal of <100 mg/dL (LDL-C of <70 mg/dL) is considered a therapeutic option. For patients with diabetes plus 1 major ASCVD risk COMPREHENSIVE METABOLIC SANDRA Freeman (86087) Reviewed date:07/02/2024 08:40:59 AM Interpretation: Performing Lab:CASI [place] Etdf7318 [facility] HospitalteRobert [facility], [place] PinoGyeuRF[address] Prakash Calvillo Notes/Report: NON-FASTING; NON-FASTING; NON-FASTING; NON-FASTING; [...] 13 10-30 U/L ALT 18 6-29 U/L CBC (INCLUDES DIFF/PLT) (639 9) Reviewed date:07/02/2024 08:41:15 AM Interpretation: Performing Lab:CASI [facility]-COFCO [address], [facility] HospitalSvuwGT[address] Prakash Calvillo Notes/Report: NON-FASTING; NON-FASTING; NON-FASTING; NON-FASTING; [...] MPV 9.9 7.5-12.5 fL ABSOLUTE NEUTROPHILS 6685 9464-4977 cells/uL ABSOLUTE LYMPHOCYTES 2153 850-3900 cells/uL ABSOLUTE MONOCYTES 1205 200-950 cells/uL ABSOLUTE EOSINOPHILS 196 15-500 cells/uL ABSOLUTE BASOPHILS 62 0-200 cells/uL NEUTROPHILS 64.9 LYMPHOCYTES 20.9 MONOCYTES 11.7 EOSINOPHILS 1.9 BASOPHILS 0.6 HEMOGLOBIN A1c (496) Reviewed date:07/02/2024 08:42:26 AM Interpretation: Performing Lab:CASI [facility]-COFCO Vyag[address], [facility] HospitalAllnYY[address] Prakash Calvillo Notes/Report: NON-FASTING; NON-FASTING; NON-FASTING; NON-FASTING; [...] diagnosis of diabetes for children. follow-up test. VITAMIN B12/FOLATE, SERUM PA PAVAN (7065) Reviewed date:07/02/2024 08:42:09 AM Interpretation: Performing Lab:CASI, [facility]-[address]Lo[address] [facility] HospitalteRobert [facility], [facility] CenterLrgbZX[address] Prakash Calvillo Notes/Report: NON-FASTING; NON-FASTING; NON-FASTING; NON-FASTING; NON-FAST FASTING:YES FASTING: YES VITAMIN B12 191 973-7131 pg/mL Please Note: Although the reference range [...] Range Low: <3.4 Borderline: 3.4-5.4 Normal: >5.4 VITAMIN D,25-OH,TOTAL,IA (17 306) Reviewed date:07/02/2024 08:42:16 AM Interpretation: Performing Lab:CASI [facility]-COFCO Zglg8586 [facility]Robert [facility] Johnson [facility], [facility] CenterFxwuLU[address] Prakash Calvillo Notes/Report: NON-FASTING; NON-FASTING; NON-FASTING; NON-FASTING; NON-FAST FASTING:YES FASTING: YES VITAMIN D,25-OH,TOTAL,IA 108 30-100 ng/mL Optimal: > or = 30 ng/mL For 25-OH Vitamin D testing on patients on D2-supplementation and patients for whom quantitation of D2 and D3 fractions is required, the QuestAssureD(TM) 25-OH VIT D, (D2,D3), LC/MS/MS is recommended: order code 34609 (patients >2yrs). See Note 1 Note 1 For additional information, please refer to http://education.LetMeGo.Testive/faq/ZIL807 (This link is being provided for informational/ educational purposes only.) Vitamin D Status 25-OH Vitamin D: Deficiency: <20 ng/mL Insufficiency: 20 - 29 ng/mL TSH W/REFLEX TO FT4 (23949) Reviewed date:12/13/2024 07:39:11 PM Interpretation: Performing Lab:CASI Wong[facility]-COFCO Mecn[address]109 [facility] HealthteRobert Wood Johnson University Hospital, [facility] CenterOfcyBC[address] Prakash Calvillo Notes/Report: NON-FASTING; NON-FASTING TSH W/REFLEX TO FT4 1.53 > or = 20 Years 0.40-4.50 Ranges First trimester 0.26-2.66 Second trimester 0.55-2.73 Third trimester 0.43-2.91 Reference Range HEMOGLOBIN A1c (496) Reviewed date:12/14/2024 02:02:11 PM Interpretation: Performing Lab:CASI Wong[facility]-COFCO Flrp4645 [facility] HealthteRobert Wood Johnson University Hospital, [facility] CenterHrzzEL[address] Prakash Calvillo Notes/Report: NON-FASTING; NON-FASTING HEMOGLOBIN A1c [...] consistent with an increased risk of diabetes. LIPID PANEL, STANDARD (7600) Reviewed date:12/14/2024 02:04:14 PM Interpretation: Performing Lab:CASI Wong[facility]-COFCO Jusb8453 [facility] HealthteRobert Wood Johnson University Hospital, [facility] CenterYgxqQI[address] Prakash Calvillo Notes/Report: NON-FASTING; NON-FASTING CHOLESTEROL, TOTAL 208 <200 mg/dL HDL CHOLESTEROL 56 > OR = 50 mg/dL TRIGLYCERIDES 233 <150 mg/dL If a non-fasting specimen was collected, consider repeat triglyceride testing on a fasting specimen if clinically indicated. Gamal et al. J. of Clin. Lipidol. 2015;9:129-169. [...] of LDL-C. Hai SS et al. ALBERTO. 2013;310(44): 0734-7053 (http://education.Box Score Games/faq/LYB232) CHOL/HDLC RATIO 3.7 <5.0 (calc) NON HDL CHOLESTEROL 152 <130 mg/dL (calc) factor, treating to a non-HDL-C goal of <100 mg/dL (LDL-C of <70 mg/dL) is considered a therapeutic option. For patients with diabetes plus 1 major ASCVD risk Microalbumin (In-House) Reviewed date:12/09/2024 06:19:47 PM Interpretation: Performing Lab: Notes/Report: ALB 80mg CRE 100mg A:C 30-300mg BASIC METABOLIC PANEL (74381 ) Reviewed date:11/18/2024 09:37:07 AM Interpretation: Performing Lab:CASI [facility]-[address] [employer], Liquefied Natural GasIyplWE[address] Prakash Calvillo Notes/Report: NON-FASTING; NON-FASTING; NON-FASTING; NON-FASTING [...] 25 20-32 mmol/L CALCIUM 9.3 8.6-10.2 mg/dL CBC (INCLUDES DIFF/PLT) (639 9) Reviewed date:11/18/2024 09:37:14 AM Interpretation: Performing Lab:CASI [address] [employer], HashdocXwsvPH[address] Prakash Calvillo Notes/Report: NON-FASTING; NON-FASTING; NON-FASTING; NON-FASTING [...] MPV 9.8 7.5-12.5 fL ABSOLUTE NEUTROPHILS 4685 3163-8012 cells/uL ABSOLUTE LYMPHOCYTES 2094 850-3900 cells/uL ABSOLUTE MONOCYTES 877 200-950 cells/uL ABSOLUTE EOSINOPHILS 198 15-500 cells/uL ABSOLUTE BASOPHILS 47 0-200 cells/uL NEUTROPHILS 59.3 LYMPHOCYTES 26.5 MONOCYTES 11.1 EOSINOPHILS 2.5 BASOPHILS 0.6 SED RATE BY MODIFIED REMI LOPEZ (809) Reviewed date:11/18/2024 09:37:01 AM Interpretation: Performing Lab:CASI, [facility]-COFCO Tdfd[address] [employer], HashdocVeduFD[address] Prakash Calvillo Notes/Report: NON-FASTING; NON-FASTING; NON-FASTING; NON-FASTING SED RATE BY MODIFIED LORE 6 < OR = 20 mm/h C-REACTIVE PROTEIN (4420) Reviewed date:11/18/2024 09:37:21 AM Interpretation: Performing Lab:CASI [facility]-COFCO [address], HashdocKgldJP[address] Prakash Calvillo Notes/Report: NON-FASTING; NON-FASTING; NON-FASTING; NON-FASTING C-REACTIVE PROTEIN 3.9 <8.0 mg/L X ray : Foot, Left Reviewed date:11/20/2024 08:41:30 AM Interpretation: Performing Lab: Notes/Report: MRI : Foot, Left Reviewed date:11/26/2024 08:20:05 PM Interpretation: Performing Lab: Notes/Report: Medications Medication SIG (Take, Route, Frequency, Duration) [...] once a day; Duration: 90 days Active Jvrjmuvpna-KLWC-Lkifaeeu 50-325-40 MG 1 tab(s) orally every 6hours [...] Vaccine Route Administration Date Status Comme nts PPD ID Intradermal 04/16/2008 Administered FLUZONE 6MO - OLDER IM Intramuscular 05/02/2023 Administer ed Fluvirin--Influenza vaccine 3+ year IM Intramuscular 08/18/2007 Administered Fluvirin--Influenza vaccine 3+ year IM Intramuscular 04/30/2008 Administered Flublok IM Intramuscular 05/08/2022 Administered Flublok IM Intramuscular 04/21/2024 Administered Social History Tobacco Use: Social History Observation Description Date Details (start date - stop date) Never Smoker NA - NA Smoking: Question Answer Notes Are you a: nonsmoker Problems Problem Type SNOMED Code ICD Code Onset Dates Problem Status W/U Status Risk Notes Problem Type 2 diabetes mellitus with other specified complication (E11.69) Active confirmed Problem Obesity (588783084) Obesity, uns pecified (E66.9) Active confirmed Problem Migraine without aura, not refractory (disorder) (074678284) Migraine, unspecified, not intractable, without status migrainosus (G43.909) Active confirmed Problem Essential hypertension (03198872) Essential (primary) hypertension (I10) Active confirmed Problem Paroxysmal atrial fibrillation (976161641) Paroxysmal atrial fibrillation (I48.0) Active confirmed Problem Vocal cord palsy (571184403) Paralysis of vocal cords and larynx, 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) Active confirmed Problem Dysuria (31067667) Dysuria (R30.0) Active confi rmed Problem Extravasation of urine (74190413) Extravasation of urine (R39.0) Active confirmed Problem C-reactive protein abnormal (877579355) Elevated C-reactive protein (CRP) (R79.82) Active confirmed Problem Electromyogram abnormal (764442008) Abnormal electromyogram [EMG] (R94.131) Active confirmed Problem Vitamin B12 deficiency (088755230) Vitamin B12 deficiency (E53.8) Active confirmed Problem Mixed anxiety and depressive disorder (376162221) Depression with anxiety (F41.8) Active confirmed Problem Hypothyroidism (61292672) Hypothyroidism (acquired) (E03.9) Active confirmed Problem Vitamin D deficiency (42914828) Vitamin D deficiency (E55.9) Active confirmed Problem Hematuria (17091578) Hematuria (R31.9) Active c onfirmed Problem Hypertriglyceridemia (687620959) Hypertriglyceridemia (E78.1) Active confirmed Problem Essential hypertension (64578143) Hypertension, essential (I10) Active confirmed Problem Adult health examination (415719218) Routine adult health maintenance (Z00.00) Active confirmed Problem Cystitis (51521113) Cystitis (N30.90) Active co nfirmed Symptom Carpal tunnel syndrome (45278409) Carpal tunnel syndrome (G56.00) Active confirmed Problem Hyperlipidemia (47571047) Hyperlipidemia, unspecified (E78.5) Active confirmed Problem Neck pain (33662037) Neck pain (M54.2) Active c onfirmed Problem Tension headache (685779967) Tension headache (G44.209) Active confirmed Problem Iron deficiency anemia (51830825) Iron deficiency anemia, unspecified iron deficiency anemia type (D50.9) Active confirmed Problem BOGGS - Nonalcoholic steatohepatitis (334968419) BOGGS (nonalcoholic steatohepatitis) (K75.81) Active confirmed Problem Recurrent major depression in remission (46103025) Recurrent major depressive disorder, in partial remission (F33.41) Active confirmed Problem Kidney pain (239827171) Kidney pain (N23) Active confirmed Problem Atrial fibrillation (43800804) Atrial fibrillation, controlled (I48.91) Active confirmed Problem Cluster headache syndrome (586676743) Migraine-cluster headache syndrome (G44.009) Active confirmed Problem Postoperative Hypothyroidism (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) Active confirmed Problem Voice hoarseness (34930506) Hoarseness of voice (R49.0) Active confirmed Problem Prolapsed cervical intervertebral disc (681883369) Cervical disc herniation (M50.20) Active confirmed Problem Attention deficit hyperactivity disorder (277817754) Adult ADHD (F90.9) Active confirmed Problem Gastroesophageal reflux disease (790410585) Chronic gastroesophageal reflux disease (K21.9) Active confirmed Problem History of iron deficiency anemia (353115475) History of iron deficiency anemia (Z86.2) Active confirmed Problem Axonal sensorimotor neuropathy (776741530) Axonal sensorimotor neuropathy (G62.89) Active confirmed Problem Peripheral venous insufficiency (34781143) Stasis dermatitis of both legs (I87.2) Active confirmed Problem Mixed hyperlipidemia (380902955) Mixed dyslipidemia (E78.2) Active confirmed Problem Polyneuropathy (75060957) Other polyneuropathy (G62.89) Active confirmed Problem Gastroesophageal reflux disease with esophagitis (disorder) (195038922) Gastro-esophageal reflux disease with esophagitis, without bleeding (K21.00) Active confirmed Problem Gastroesophageal reflux disease (246951551) Gastroesophageal reflux disease, unspecified whether esophagitis present (K21.9) Active confirmed Problem Cervical spondylosis (139293325) Cervical spondylosis (M47.812) Active confirmed Problem Gastric sleeve (physical object) (986056187) H/O gastric sleeve (Z90.3) Active confirmed Vital Signs Heart Rate 78 /min 11/25/2024 Temperature 97.7 degrees Fahrenheit 11/25/2024 Blood pressure diastolic 84 mm Hg 11/25/2024 Height 5 ft 6 in in 11/25/2024 Blood pressure systolic 136 mm Hg 11/25/2024 Weight 202.8 lbs 11/25/2024 BMI 32.73 kg/m2 11/25/2024 Encounters Encounter Location Date Provider Diagnosis [facility] [address] [facility] [address] [place] [address] 03/30/2024 Kieran Besson [facility] [address] [facility] [address] [place] [address] 06/29/2024 Kieran Besson [facility] [address] [place] [address] 09/16/2024 Kieran Besson [facility] [address] [place] [address] 10/10/2024 Provider Migration Dysuria R30.0 ; Recurrent UTI N39.0 ; Hypertension, essential I10 ; Adult ADHD F90.9 and Gastroesophageal reflux disease with esophagitis without hemorrhage K21.00 [facility] [address] [place] [address] 12/10/2024 Angela Sheffield [facility] [address] [facility] [address] [place] [address] 02/24/2024 Kieran Besson Cervical spondylosis M47.812 ; Xerostomia K11.7 ; Acute conjunctivitis of right eye, unspecified acute conjunctivitis type H10.31 ; Elevated C-reactive protein (CRP) R79.82 ; Iron deficiency anemia, unspecified iron deficiency anemia type D50.9 ; Type 2 diabetes mellitus with other specified complication E11.69 and Hyperlipidemia, unspecified E78.5 [facility] [address] [facility] [address] [place] [address] 02/26/2024 Kieran Dawson Dysuria R30.0 ; Recurrent UTI N39.0 and Nausea R11.0 [facility] [address] [facility] [address] [place] [address] 03/21/2024 Kieran Dawson Acute left otitis me giles H66.92 [facility] [address] [facility] [address] [place] [address] 04/21/2024 Kieran Dawson Immunization(s) administered Z23 [facility] [address] [facility] [address] [place] [address] 06/24/2024 Kieran Dawson Hiatal hernia K44.9 ; Diaphragmatic hernia without obstruction or gangrene K44.9 and Gastro-esophageal reflux disease with esophagitis, without bleeding K21.00 [facility] [address] [place] [address] 07/09/2024 Cait McNees Pain in right upper arm M79.621 and Thrombophlebitis I80.9 [facility] [address] [address] 07/14/2024 Kieran Dawson Adult ADHD F90.9 ; Moderate binge-eating disorder F50.811 and Hypertension, essential I10 [facility] [address] [facility] [address] [place] [address] 08/17/2024 Kieran Dawson Adult ADHD F90.9 ; A cute otitis externa of both ears, unspecified type H60.503 ; Screening mammogram, encounter for Z12.31 and Routine medical exam Z00.00 [facility] [address] [facility] [address] [place] [address] 08/19/2024 Kieran Dawson Dysuria R30.0 and Recurrent UTI N39.0 [facility] [address] [facility] [address] [place] [address] 10/22/2024 Cait McNees Abscess L02.91 [facility] [address] [facility] [address] [place] [address] 10/29/2024 Cait McNees Cellulitis of left l eg L03.116 ; Cutaneous abscess of left lower extremity L02.416 ; Serotonin syndrome G90.81 ; Depression with anxiety F41.8 and Type 2 diabetes mellitus with other specified complication E11.69 [facility] [address] [place] [address] 11/12/2024 Angela Sheffield Type 2 diabetes magalis itus with other specified complication E11.69 ; Mixed dyslipidemia E78.2 ; 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 and Hypertension, essential I10 [facility] [address] [place] [address] 11/16/2024 Kieran Besson Left foot pain M79.6 72 [facility] [address] [place] [address] 11/23/2024 Kieran Besson Acute pain of left f oot M79.672 [facility] [address] [place] [address] 11/25/2024 Kieran Besson Tendinopathy of left foot M67.972 [facility] [address] [place] [address] 12/25/2024 Cait McNees Lumbar back pain M54 .50 [facility] [address] [place] [address] 01/27/2024 Kieran Besson Cervical disc hernia tion M50.20 ; Abnormal electromyogram [EMG] R94.131 ; Neck pain M54.2 and Tension headache G44.209 [facility] [address] [place] [address] 02/19/2024 Kieran Besson Cervicalgia M54.2 [facility] [address] [facility] [address] [place] [address] 03/24/2024 Kieran Besson [facility] [address] [place] [address] 03/27/2024 Kieran Besson Iron deficiency anem ia, unspecified iron deficiency anemia type D50.9 ; Vitamin B12 deficiency E53.8 ; Vitamin D deficiency E55.9 ; Hypothyroidism (acquired) E03.9 ; H/O gastric sleeve Z90.3 and Fatigue associated with anemia D64.9 [facility] [address] [place] [address] 04/07/2024 Kieran Besson [facility] [address] [place] [address] 04/16/2024 Kieran Besson [facility] [address] [place] [address] 04/16/2024 Kieran Besson Dysuria R30.0 and Klebsiella pneumoniae B96.1 [facility] [address] [place] [address] 05/16/2024 Kieran Besson [facility] [address] [place] [address] 06/12/2024 Kieran Besson [facility] [address] [place] [address] 06/19/2024 Kieran Besson [facility] [address] [place] [address] 06/25/2024 Kieran Besson 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 ; Obesity, unspecified E66.9 ; Iron deficiency anemia, unspecified iron deficiency anemia type D50.9 ; Vitamin B12 deficiency E53.8 and Type 2 diabetes mellitus with other specified complication E11.69 [facility] [address] [place] [address] 06/30/2024 Kieran Besson [facility] [address] [place] [address] 07/14/2024 Kieran Besson [facility] [address] [place] [address] 07/14/2024 Kieran Besson [facility] [address] [place] [address] 07/14/2024 Kieran Besson Hypertension, essent ial I10 [facility] [address] [place] [address] 08/18/2024 Kieran Dawson Breast cancer screen ing by mammogram Z12.31 [facility] [address] [place] [address] 08/19/2024 Kieran Dawson [facility] [address] [facility] [address] [place] [address] 08/27/2024 Angela Sheffield Recurrent UTI N39.0 [facility] [address] [facility] [address] [place] [address] 09/04/2024 Kieran Dawson [facility] [address] [facility] [address] [place] [address] 09/10/2024 Kieran Dawson BOGGS (nonalcoholic steatohepatitis) K75.81 ; Abdominal bloating R14.0 ; Chronic gastroesophageal reflux disease K21.9 ; Chronic colitis K52.9 and Eructation R14.2 [facility] [address] [facility] [address] [place] [address] 09/22/2024 Kieran Dawson Adult ADHD F90.9 [facility] [address] [facility] [address] [place] [address] 10/13/2024 Angela Sheffield [facility] [address] [facility] [address] [place] [address] 11/02/2024 Cait McNees Cellulitis of left l eg L03.116 [facility] [address] [facility] [address] [place] [address] 11/18/2024 Kieran Dawson Adult ADHD F90.9 [facility] [address] [facility] [address] [place] [address] 11/25/2024 Kieran Dawson Left foot pain M79.6 72 and Unspecified sprain of left foot, initial encounter S93.602A [facility] [address] [facility] [address] [place] [address] 12/08/2024 Angela Sheffield Type 2 diabetes magalis itus with other specified complication E11.69 and 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 [facility] [address] [place] [address] 12/10/2024 Kieran Starrson [facility] [address] [place] [address] 12/14/2024 Angela Sheffield Type 2 diabetes magalis itus with other specified complication E11.69 [facility] [address] [place] [address] 12/17/2024 Angela Sheffield [facility] [address] [place] [address] 12/25/2024 Cait McNees Hiatal hernia K44.9 and Cervicalgia M54.2 [facility] [address] [place] [address] 01/06/2025 Angela Sheffield [facility] [address] [place] [address] 01/11/2025 Kieran Dawson [facility] [address] [place] [address] 11/04/2024 Kieran Dawson Assessments Encounter Date Diagnosis (ICD Code) Assessment Notes Treatment Notes Treatment Clinical Notes Section Notes 12/14/2024 Type 2 diabetes mellitus with other specified complication (ICD-10 - E11.69) 11/23/2024 Acute pain of left foot (ICD-10 - M79.672) Negative inflammatory markers. No stigmata of infection. X-rays negative. I think she hyperextended and tore some dorsal foot ligaments. Will check MRI scan and then send to podiatry or Ortho as indicated 11/18/2024 Adult ADHD (ICD-10 - F90.9) 11/02/2024 Cellulitis of left leg (ICD-10 - L03.116) 10/29/2024 Cellulitis of left leg (ICD-10 - L03.116) [facility] records including discharge summary and medication list reviewed. No changes made in antibiotics, improving nicely on current regimen Start probiotic daily Keep Fu with surgery next week 10/29/2024 Cutaneous abscess of left lower extremity (ICD-10 - L02.416) see above 10/10/2024 Dysuria (ICD-10 - R30.0) 10/10/2024 Recurrent UTI (ICD-10 - N39.0) 10/10/2024 Hypertension, essential (ICD-10 - I10) 10/10/2024 Adult ADHD (ICD-10 - F90.9) 10/10/2024 Gastroesophageal reflux disease with esophagitis without hemorrhage (ICD-10 - K21.00) 09/22/2024 Adult ADHD (ICD-10 - F90.9) 09/10/2024 BOGGS (nonalcoholic steatohepatitis) (ICD-10 - K75.81) 08/27/2024 Recurrent UTI (ICD-10 - N39.0) 08/18/2024 Breast cancer screening by mammogram (ICD-10 - Z12.31) 01/27/2024 Cervical disc herniation (ICD-10 - M50.20) [...] aggressively with ceftriaxone and then with cefdinir. Dudley daily Macrobid therapy after this is finished. Supportive treatment today with Zofran 07/09/2024 Pain in right upper arm (ICD-10 - M79.621) 07/09/2024 Thrombophlebitis (ICD-10 - I80.9) Venous doppler negative for DVT. Likely r/t thrombophebilitis from recent lab draw. Warm compresses, supportive care. Return precautions discussed. 08/17/2024 Adult ADHD (ICD-10 - F90.9) Increase Vyvanse. Patient is doing well with this. Weight stable. No evidence of neurologic or cardiac side effects 08/19/2024 Dysuria (ICD-10 - R30.0) 08/19/2024 Recurrent UTI (ICD-10 - N39.0) Given recurrent UTIs will check culture. History of recurrent Klebsiella infections. 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 Will make this referral. Begin estrogen cream given possibility of some dry symptoms causing other issues 10/22/2024 Abscess (ICD-10 - L02.91) Urgent consult with general surgery today at 1pm NPO until seen by surgery 11/12/2024 Type 2 diabetes mellitus with other specified complication (ICD-10 - E11.69) Recent A1c during hospital stay was 6.0. Recommend continue titration of Mounjaro to 5 mg. Labs again in about 4 weeks, including urine for microalbumin and lipid panel. She likely needs to be on a statin secondary to diabetes and hypertension for risk reduction. 08/17/2024 Acute otitis externa of both ears, unspecified type (ICD-10 - H60.503) Start Ciprodex. No evidence of otitis media, but irritation from possible allergic reaction or mild infection 11/25/2024 Left foot pain (ICD-10 - M79.672) [...] with other specified complication (ICD-10 - E11.69) 11/12/2024 Mixed dyslipidemia (ICD-10 - E78.2) 11/16/2024 Left foot pain (ICD-10 - M79.672) Continue analgesics. Foot exam is reassuringly normal but in the context of pain after recent left thigh/groin infection we will do an x-ray to make sure there is no abnormal appearance of the bone cortex Also, given recent infection we will check inflammatory markers. 12/25/2024 Hiatal hernia (ICD-10 - K44.9) 12/25/2024 Lumbar back pain (ICD-10 - M54.50) 07/14/2024 Adult ADHD (ICD-10 - F90.9) Presents [...] monitor weight and follow-up in 4 weeks 07/14/2024 Hypertension, essential (ICD-10 - I10) 06/25/2024 Hypothyroidism associated with surgical procedure (ICD-10 - E89.0) 06/24/2024 Diaphragmatic hernia without obstruction or gangrene (ICD-10 - K44.9) Cautious trial of low-dose Reglan given failed acid blockade strategies. Will set up for EGD. Discussed side effects of Reglan, discussed some dietary modifications, most of which she is already doing. Given significant comorbidities from the reflux aggressive therapy indicated 06/24/2024 Hiatal hernia (ICD-10 - K44.9) 04/21/2024 Immunization(s) administered (ICD-10 - Z23) 04/16/2024 Dysuria (ICD-10 - R30.0) 06/25/2024 Obesity, unspecified (ICD-10 - E66.9) 03/21/2024 Acute left otitis media (ICD-10 - H66.92) Concomitant scleral irritation also. She has eyedrops at home. She will start these. Amoxicillin for ears. Follow-up in the next 3 to 4 days if no better 03/27/2024 Iron deficiency anemia, unspecified iron deficiency anemia type (ICD-10 - D50.9) 06/25/2024 Iron deficiency anemia, unspecified iron deficiency anemia type (ICD-10 - D50.9) 04/16/2024 Klebsiella pneumoniae (ICD-10 - B96.1) 03/27/2024 Vitamin B12 deficiency (ICD-10 - E53.8) 06/24/2024 Gastro-esophageal reflux disease with esophagitis, without bleeding (ICD-10 - K21.00) 07/14/2024 Hypertension, essential (ICD-10 - I10) Blood pressures been marginal. Will emphasize control, if there is any weight loss with the medicine that might also help control blood pressure. 11/25/2024 Unspecified sprain of left foot, initial encounter (ICD-10 - S93.602A) 12/08/2024 Hypothyroidism associated with surgical procedure (ICD-10 - E89.0) 12/25/2024 Cervicalgia (ICD-10 - M54.2) 08/17/2024 Screening mammogram, encounter for (ICD-10 - Z12.31) Overdue for mammography screening this will be ordered 02/24/2024 Acute conjunctivitis of right eye, unspecified acute conjunctivitis type (ICD-10 - H10.31) 11/12/2024 Hypothyroidism associated with surgical procedure (ICD-10 - E89.0) 02/26/2024 Nausea (ICD-10 - R11.0) 01/27/2024 Abnormal electromyogram [EMG] (ICD-10 - R94.131) 09/10/2024 Abdominal bloating (ICD-10 - R14.0) 10/29/2024 Serotonin syndrome (ICD-10 - G90.81) Resolved 10/29/2024 Depression with anxiety (ICD-10 - F41.8) Well controlled 09/10/2024 Chronic gastroesophageal reflux disease (ICD-10 - K21.9) 01/27/2024 Neck pain (ICD-10 - M54.2) 02/24/2024 Elevated C-reactive protein (CRP) (ICD-10 - R79.82) 08/17/2024 Routine medical exam (ICD-10 - Z00.00) Up-to-date with CDA TEACHER care, up-to-date with colonoscopy. Up-to-date with vaccines and labs. Good functional status. Emotional stress seems to be well-managed at this point. Safe home environment, supportive . 11/12/2024 Hypertension, essential (ICD-10 - I10) 03/27/2024 Vitamin D deficiency (ICD-10 - E55.9) 06/25/2024 Vitamin B12 deficiency (ICD-10 - E53.8) 03/27/2024 Hypothyroidism (acquired) (ICD-10 - E03.9) 06/25/2024 Type 2 diabetes mellitus with other specified complication (ICD-10 - E11.69) 02/24/2024 Iron deficiency anemia, unspecified iron deficiency anemia type (ICD-10 - D50.9) 01/27/2024 Tension headache (ICD-10 - G44.209) 09/10/2024 Chronic colitis (ICD-10 - K52.9) 10/29/2024 Type 2 diabetes mellitus with other specified complication (ICD-10 - E11.69) Good control. A1c 6 09/10/2024 Eructation (ICD-10 - R14.2) 02/24/2024 Type 2 diabetes mellitus with other specified complication (ICD-10 - E11.69) Patient is due for A1c. Has been compliant with medications and dietary modification. 03/27/2024 H/O gastric sleeve (ICD-10 - Z90.3) 03/27/2024 Fatigue associated with anemia (ICD-10 - D64.9) 02/24/2024 Hyperlipidemia, unspecified (ICD-10 - E78.5) Plan Of Treatment Pending Test Test Name Order Date N-TSH (Thyroid Stimulating Hormone) 12/06 N-TSH (Thyroid Stimulating Hormone) 01/2007 [id number] 07/05/2008 MRI : Head, Without Contrast 07/07/2020 Mammogram : Bilateral 08/18/2024 H-CBC with AUTO DIFF 05/13/2009 H-PERTUSSIS CULTURE 05/13/2009 H-CMP 05/13/2009 H- SERUM QUAL 05/13/2009 H-INFLUENZA A ANTIGEN 05/13/2009 C-THYROGLOBULIN ANTIBODIES 05/23/2010 C-CMP 10/12/2020 C-MAGNESIUM 10/12/2020 C-THYROID PROFILE 10/12/2020 Walking boot 11/25/2024 M-Comprehensive Metabolic Panel 11/18/19 M-Hemoglobin A1C 11/17/2020 M-Hemoglobin A1C 05/23/2021 M-Lipid Panel 11/17/2020 M-Lipid Panel 05/23/2021 M-Thyroid Panel 11/17/2020 M-Free T4 (Free Thyroxine) [...] CULTURE (3020) 09/17/2023 CULTURE, URINE, ROUTINE (395) 01/08/2024 CULTURE, URINE, ROUTINE (395) 01/02/2023 COMP METABOLIC PANEL 11/19/2023 CBC AUTO W DIFF 11/19/2023 PANCREATIC ELASTASE, FECAL 09/10/2024 BOGGS FIBROSURE PLUS 09/10/2024 Insurance Providers Payer Name Payer Address Payer Phone Subscriber Number Group Number Insured Name Patient Relationship to Insured Coverage Start Date Coverage End Date [facility] [address] [place] [address] [id number] Yoanna River Self - patient is the [...]
== END 2025-01-25 23:59 | disposition home or self-care (01) ==
LOC: RAD 06:57
PROVIDERS: PCP Internal Medicine Adolescent Medicine; Visit Provider Nurse Practitioner
DX: E89.0 Postprocedural hypothyroidism (principal); E21.5 Disorder of parathyroid gland, unspecified
CPT/HCPCS: 70490

== ENCOUNTER 2025-02-11 15:36 | Outpatient (CLI) | payer BC, SELFPAY ==
--- OUTSIDE RECORDS SUMMARY | 2024-12-25 06:00 | XMS_ITS ---
Author Organization [facility] [place] Address [address] [place], [place] [address] Care Team Providers Care Boarder Steam Name Role Phone Kieran Dawson Primary Care Provider Kieran Dawson Unavailable Unavailable Cait Vera Unavailable [phone] REASON FOR VISIT steroid Encounters Encounter Location Date Provider Diagnosis [facility] [place] [address] [place], [place] [address] 12/25/2024 Cait Vera Lumbar back pain M54.50 Assessments Encounter Date Diagnosis (ICD Code) Assessment Notes Treatment Notes Treatment Clinical Notes Section Notes 12/25/2024 Lumbar back pain (ICD-10 - M54.50) Plan Of Treatment No Information Medications Administered Medication Instructions Date of Administration Dosage Notes Dexamethasone 4mg Injection 12/25/2024 4 mg Progress Notes * Yoanna MATA NDOB: 0 (44 yo F)Acc No.[id number]:12/25/2024 Patient: Bret Yoanna STARK Provider: Shu Vera APRN :1980 A ge:44 Y S ex:Female Date:12/25/2024 Address:[address] [id number] Pcp:Kieran Dawson Subjective: * Chief Complaints: * 1 . Steroid. * Medical History: Objective: * Vitals: Assessment: * Assessment: 1. L umbar back pain - M54.50 (Primary) Plan: * Treatment: * Therapeutic Injections: Dexamethasone 4mg Injection : 4 mg (Route: Intramuscular) given by SAV Valles on left gluteus * Procedure Codes: J 1100 Dexamethasone Sodium Phosphate 4mg Injection, 34364 THERAPEUTIC ADMINISTRATION * * Sign off status: Completed true * Provider: Shu Vera APRN Date: 0 12/25/2024 Generated for Tiffany rFy/Ismael on: 0 02/11/2025 03:39 PM EDT
--- OUTSIDE RECORDS SUMMARY | 2025-02-09 10:15 | XMS_ITS ---
Author Organization [facility] PE D GISSELL Address [address] [place] [address] Care Team Providers Care Restaurant Hourly Team Member Name Role Phone Kieran Dawson Primary Care Provider Kieran Dawson Unavailable Unavailable Angela Sheffield Unavailable [phone] Allergies Allergen (clinical drug ingredient) Drug/Non Drug Allergy documented on EMR Reaction Allergy Type Onset Date Status CECLOR (uncoded) Unknown Allergy Act sukhdeep E-MYCIN (uncoded) Unknown Allergy Ac tive SULFA (uncoded) Unknown Allergy Acti ve REASON FOR VISIT infection in thigh/groin Medications Medication SIG (Take, Route, Frequency, Duration) Notes Start Date End Date Status Crestor 5 MG 1 tablet Orally Once a day; Duration: 90 days 12/14/2024 Active Mounjaro 12.5 MG/0.5ML 12.5 mg Subcutane ous once a week; Duration: 28 days 02/02/2025 Active Methocarbamol 750 MG 2 tab(s) orally 3 times a day; Duration: 10 days As needed prn 01/17/2023 Active buPROPion HCl ER (XL) 300 MG 1 tab(s) or ally every 24 hours; Duration: 90 days Active Diclofenac Sodium 75 MG 1 tablet as need ed Orally Twice a day; Duration: 30 days 12/25/2024 Active Lisdexamfetamine Dimesylate 40 MG 1 capsule in the morning Orally Once a day; Duration: 30 days 11/18/2024 Active Levothyroxine Sodium 200 MCG 1 tablet in the morning on an empty stomach Orally Once a day; Duration: 90 days Active Coreg 25 MG 1 tab(s) orally twic e a day; Duration: 90 days Active amLODIPine Besylate 10 MG 1 tab(s) orall y once a day; Duration: 90 days Active Tricor 145 MG 1 tab(s) orally once a day; Duration: 90 days Active Omeprazole 40 MG 1 cap(s) orally twic e daily; Duration: 90 days Active Losartan Potassium 100 MG 1 tab(s) orall y once a day; Duration: 90 days Active Citalopram Hydrobromide 40 MG 1 tab(s) orally once a day; Duration: 90 days Active SUMAtriptan Succinate 50 MG 1 tab(s) ora lly once; Duration: 30 days Active Metoclopramide HCl 5 MG 1 tab(s) orally 4 times a day (before meals and at bedtime); Duration: 30 days 06/24/2024 Active Xuclizqzbo-HBXQ-Dfiztzdu 50-325-40 MG 1 tab(s) orally every 6hours prn 01/18/2023 Active Amoxicillin-Pot Clavulanate 875-125 MG 1 tablet Orally every 12 hrs; Duration: 7 days 02/08/2025 Active Doxycycline Hyclate 100 MG 1 capsule Ora lly twice a day; Duration: 10 days 02/09/2025 Active Nurtec 75 MG DISSOLVE 1 TABLET BY MOUTH ON THE TONGUE AND ALLOW TO DISSOLVE EVERY OTHER DAY; Duration: 32 Active Vital Signs Temperature 97.3 degrees Fahrenheit 02/10/20 25 Blood pressure systolic 152 mm Hg 02/10/20 25 Blood pressure diastolic 92 mm Hg 025 Height 5 ft 6 in in 02/09/2025 Weight 202 lbs 02/09/2025 BMI 32.6 kg/m2 02/09/2025 Encounters Encounter Location Date Provider Diagnosis [facility] PED [facility] [address] [place] [address] 02/09/2025 Angela Sheffield Left leg cellulitis L03.116 Assessments Encounter Date Diagnosis (ICD Code) Assessment Notes Treatment Notes Treatment Clinical Notes Section Notes 02/09/2025 Left leg cellulitis (ICD-10 - L03.116) continue warm compresses, Augmentin, add doxycycline for MRSA coverage. Rocephin IM today as noted - allergic to Ceclor but has tolerated rocephin previously Monitor for fevers Re-eval in 48 hours Plan Of Treatment Medication Medication Name Sig Start Date Stop Date Notes Doxycycline Hyclate 100 MG 1 capsule Ora lly twice a day; Duration: 10 days 02/09/2025 Next Appt Details Follow Up: 2 - 3 Days, Reaso n: Medications Administered Medication Instructions Date of Administration Dosage Notes Ceftriaxone 500 02/09/2025 500 mg Ceftriaxone 500 02/09/2025 500 mg Progress Notes * Yoanna MATA NDOB: 0 (45 yo F)Acc No.[id number]:02/09/2025 Progress Notes Patient: Yoanna ROWELL Provider: IZA Shaikh :1980 A ge:45 Y S ex:Female Date:02/09/2025 Address:[address] [place] [address] , [facility], [id number] Pcp:Kieran Dawson Subjective: * Chief Complaints: * 1 . Infection in thigh/groin. * HPI: g en: 45 yr old female presents today with 3 days of abscess in the left inguinal crease...similar lesion in same location about 4 months ago that required PO antibiotics but also brief hospital stay after reaction to Zyvox/Antidepressant combination. No fevers. Some chills. Tender. Started PO Augmentin yesterday. Today has noted some erythematous streaking. Using heat topically as well. * ROS: C ONSTITUTIONAL: no F ever. G ASTROENTEROLOGY: no V omiting. n o D iarrhea. * Medical History: P artial thyroidectomy, hypothyroid, Depression, Cardiomegaly, Anemia, HTN, EGD with nonerosive GERD 07/2020, Normal PAP 06/2020, A fib - paroxysmal, Iron deficiency anemia, Trev's Thyroiditis, Familial Hypertriglyceridemia, BOGGS, diabetes, type II, Normal Mammogram 12/28, Hypertriglyceridemia, Esophageal reflux, Cervical disc herniation. * Medications: T aking Eykuektyhp-DWLN-Xeeungsh 50-325-40 MG Tablet 1 tab(s) orally every 6hours prn , Taking Omeprazole 40 MG Capsule Delayed Release 1 cap(s) orally twice daily , Taking SUMAtriptan Succinate 50 MG Tablet 1 tab(s) orally once , Taking Metoclopramide HCl 5 MG Tablet 1 tab(s) orally 4 times a day (before meals and at bedtime) , Taking Losartan Potassium 100 MG Tablet 1 tab(s) orally once a day , Taking Citalopram Hydrobromide 40 MG Tablet 1 tab(s) orally once a day , Taking amLODIPine Besylate 10 MG Tablet 1 tab(s) orally once a day , Taking Tricor 145 MG Tablet 1 tab(s) orally once a day , Taking Levothyroxine Sodium 200 MCG Tablet 1 tablet in the morning on an empty stomach Orally Once a day , Taking Coreg 25 MG Tablet 1 tab(s) orally twice a day , Taking Lisdexamfetamine Dimesylate 40 MG Capsule 1 capsule in the morning Orally Once a day , Taking Crestor 5 MG Tablet 1 tablet Orally Once a day , Taking Diclofenac Sodium 75 MG Tablet Delayed Release 1 tablet as needed Orally Twice a day , Taking Methocarbamol 750 MG Tablet 2 tab(s) orally 3 times a day As needed, Notes to Pharmacist: prn, Taking buPROPion HCl ER (XL) 300 MG Tablet Extended Release 24 Hour 1 tab(s) orally every 24 hours , Taking Mounjaro 12.5 MG/0.5ML Solution Auto-injector 12.5 mg Subcutaneous once a week , Taking Nurtec 75 MG Tablet Disintegrating DISSOLVE 1 TABLET BY MOUTH ON THE TONGUE AND ALLOW TO DISSOLVE EVERY OTHER DAY , Taking Amoxicillin-Pot Clavulanate 875-125 MG Tablet 1 tablet Orally every 12 hrs , Medication List reviewed and reconciled with the patient * Allergies: S ULFA, E-MYCIN, CECLOR. Objective: * Vitals: N urse: be, Pain: 5, Temp: 97.3, BP: 152/92, Ht: 5 ft 6 in, Wt: 202, BMI:32.6. * Examination: G eneral Examination: General P leasant and Cooperative, NAD on RA,. l eft inguinal crease with quarter sized erythematous to ruborish soft tissue lesion, mildly indurated but not fluctuant, no purulence noted. distal to this are several inch-long streaks of erythema. Assessment: * Assessment: 1. L eft leg cellulitis - L03.116 (Primary) Plan: * Treatment: * Therapeutic Injections: Ceftriaxone 500 : 500 mg (Dose No:1) (Route: Intramuscular) given by RDAHA Shook on left gluteus Ceftriaxone 500 : 500 mg (Dose No:1) (Route: Intramuscular) given by RADHA Shook on right gluteus * Procedure Codes: J 0696 Ceftriaxone 500, Units: 2.00 * Follow Up: 2 - 3 Days * * Sign off status: Completed true * Provider: IZA Shaikh Date: 02/09/2025 Generated for Tiffany rivas/Brayan/Ismael on: 02/11/2025 03:40 PM EDT History and Physical Notes * Examination Category Sub-Category Detail Notes Category Not es General Examination General Pleasant and Cooperat sukhdeep, NAD on RA, left inguinal crease with quarter sized erythematous to ruborish soft tissue lesion, mildly indurated but not fluctuant, no purulence noted. distal to this are several inch-long streaks of erythema
--- NOTE | 2025-02-11 | CT_ITS ---
PROCEDURE INFORMATION: Exam: CT Pelvis With Contrast Exam date and time: 02/11/2025 4:44 PM Age: 45 years old Clinical indication: Other: Left sided groin abscess TECHNIQUE: Imaging protocol: Computed tomography of the pelvis with contrast. Radiation optimization: All CT scans at this facility use at least one of these dose optimization techniques: automated exposure control; mA and/or kV adjustment per patient size (includes targeted exams where dose is matched to clinical indication); or iterative reconstruction. Contrast material: ISOVUE; Contrast volume: 75 ml; Contrast route: IV; COMPARISON: CT ABDOMEN PELVIS W CON 10/23/2024 3:49 PM FINDINGS: Intestine: No bowel obstruction or significant bowel wall thickening. Appendix: A normal appendix is identified. Intraperitoneal space: There is no evidence of free intraperitoneal or pelvic fluid. No intraperitoneal fluid collections. Vasculature: The vasculature is normal. Lymph nodes: No concerning adenopathy. Reproductive: There has been a tubal ligation. The reproductive organs are otherwise unremarkable. Tampon in the vaginal canal. Urinary bladder: The bladder is normal. Bones/joints: No acute skeletal abnormality or aggressive osseous lesion. Soft tissues: 2.8 x 3 x 2.4 cm rim enhancing subcutaneous fluid collection in the medial left thigh/inguinal space. Remainder of the soft tissues are unremarkable. IMPRESSION: 2.8 x 3 x 2.4 cm rim enhancing subcutaneous fluid collection in the medial left thigh/inguinal space. Favoring a abscess. There is mild surrounding inflammation.
--- OUTSIDE RECORDS SUMMARY | 2025-02-11 10:00 | XMS_ITS ---
Author Organization [facility] PE D GISSELL Address [address] [place] [address] Care Team Providers Care Film Numberer Name Role Phone Kieran Dawson Primary Care Provider [phone] Kieran Dawson Unavailable Unavailable Angela Sheffield Unavailable [phone] Allergies Allergen (clinical drug ingredient) Drug/Non Drug Allergy documented on EMR Reaction Allergy Type Onset Date Status CECLOR (uncoded) Unknown Allergy Act sukhdeep E-MYCIN (uncoded) Unknown Allergy Ac tive SULFA (uncoded) Unknown Allergy Acti ve Reason For Referral Reason CT Pelvis with contr ast Diagnosis 1 Groin abscess (L02.2 14) Referral Organization [facility] SYDNIE FULTON Referring Provider First Name Angela Referring Provider Last Name Nettie Referring Provider [facility] Referral Priority Routine REASON FOR VISIT cellulitis FU-not any better-pain is worse Medications Medication SIG (Take, Route, Frequency, Duration) Notes Start Date End Date Status Doxycycline Hyclate 100 MG 1 capsule Ora lly twice a day; Duration: 10 days 02/09/2025 Active Amoxicillin-Pot Clavulanate 875-125 MG 1 tablet Orally every 12 hrs; Duration: 7 days 02/08/2025 Active Nurtec 75 MG DISSOLVE 1 TABLET BY MOUTH ON THE TONGUE AND ALLOW TO DISSOLVE EVERY OTHER DAY; Duration: 32 Active Mounjaro 12.5 MG/0.5ML 12.5 mg Subcutane ous once a week; Duration: 28 days 02/02/2025 Active buPROPion HCl ER (XL) 300 MG 1 tab(s) or ally every 24 hours; Duration: 90 days Active Crestor 5 MG 1 tablet Orally Once a day; Duration: 90 days 12/14/2024 Active Lisdexamfetamine Dimesylate 40 MG 1 capsule in the morning Orally Once a day; Duration: 30 days 11/18/2024 Active Coreg 25 MG 1 tab(s) orally twic e a day; Duration: 90 days Active Methocarbamol 750 MG 2 tab(s) orally 3 times a day; Duration: 10 days As needed prn 01/17/2023 Active Diclofenac Sodium 75 MG 1 tablet as need ed Orally Twice a day; Duration: 30 days 12/25/2024 Active Levothyroxine Sodium 200 MCG 1 tablet in the morning on an empty stomach Orally Once a day; Duration: 90 days Active Tricor 145 MG 1 tab(s) orally once a day; Duration: 90 days Active amLODIPine Besylate 10 MG 1 tab(s) orall y once a day; Duration: 90 days Active Citalopram Hydrobromide 40 MG 1 tab(s) orally once a day; Duration: 90 days Active Losartan Potassium 100 MG 1 tab(s) orall y once a day; Duration: 90 days Active Kwgjvbwplq-QZRM-Ztwtntka 50-325-40 MG 1 tab(s) orally every 6hours prn 01/18/2023 Active Metoclopramide HCl 5 MG 1 tab(s) orally 4 times a day (before meals and at bedtime); Duration: 30 days 06/24/2024 Active SUMAtriptan Succinate 50 MG 1 tab(s) ora lly once; Duration: 30 days Active Omeprazole 40 MG 1 cap(s) orally twic e daily; Duration: 90 days Active Social History Tobacco Use: Social History Observation Description Date Details (start date - stop date) Never Smoker NA - NA Smoking: Question Answer Notes Are you a: nonsmoker Vital Signs Temperature 97.7 degrees Fahrenheit 02/12/20 25 Blood pressure systolic 108 mm Hg 02/12/20 25 Blood pressure diastolic 78 mm Hg 025 Heart Rate 96 /min 02/11/2025 Height 5 ft 6 in in 02/11/2025 Weight 201.8 lbs 02/11/2025 BMI 32.57 kg/m2 02/11/2025 Encounters Encounter Location Date Provider Diagnosis [facility] [address] [place] [address] 02/11/2025 Angela Sheffield Groin abscess L02.214 and Left leg cellulitis L03.116 Assessments Encounter Date Diagnosis (ICD Code) Assessment Notes Treatment Notes Treatment Clinical Notes Section Notes 02/11/2025 Groin abscess (ICD-10 - L02.214) 02/11/2025 Left leg cellulitis (ICD-10 - L03.116) continue warm compresses and oral antibiotics but recommend imaging as noted and on-time dose of IV Dalvance at [facility] along with CBC, BMP, CRP and ESR. continue topical heat, monitor for fevers Re-eval in 48 hours Plan Of Treatment Pending Test Test Name Order Date CT Scan : Pelvis with contrast 5 Referrals Referral Date Details 02/11/2025 02/11/2025, CT Pelvi s with contrast Next Appt Details Follow Up: 2 - 3 Days,prn, R rajeev: Progress Notes * Yoanna MATA NDOB: 0 (45 yo F)Acc No.[id number]:02/11/2025 Progress Notes Patient: Bret MODECALIYoanna N Provider: IZA Shaikh :1980 A ge:45 Y S ex:Female Date:02/11/2025 Address:[address] [place] [address] [address] [place], [id number] Pcp:Kieran Dawson Subjective: * Chief Complaints: * 1 . cellulitis FU-not any better-pain is worse. * HPI: g en: 45 yr old female presents today with 5 days of abscess in the left inguinal crease...similar lesion in same location about 4 months ago that required PO antibiotics but also brief hospital stay after reaction to Zyvox/Antidepressant combination. No fevers. Some chills. Tender. Started PO Augmentin 4 days ago and we added PO doxycycline 48 hours ago but unfortunately the size and pain have increased. Significant pain in seated position and this radiates toward her rectal region. Using heat topically as well. * ROS: [...] Hypertriglyceridemia, Esophageal reflux, Cervical disc herniation. * Surgical History: T onsillectomy 1998, Breast reduction 1999, , rhinoplasty 2008, cholecystectomy 2015, thyroidectomy 2005, gastric sleeve 2017, uterine ablation , heart cath , Colonoscopy with 5 polyps 08/2020, C section 12/2007, 02/2004. * Hospitalization/Major Diagno stic Procedure: S urgeries and childbirth , colitis, kidney injury 01/2022, campylobactor 01/2022, Septic & serotonin syndrome 10/23/24. * Family History: F ather: , liver cancer, diagnosed with Cancer, Hypertension. M other: alive, lung cancer, diagnosed with Cancer, Diabetes. P aternal Grand Father: , diagnosed with Diabetes. P aternal Grand Mother: , hypothyroidism. M aternal Grand Father: , diagnosed with Diabetes, Hypertension, Heart Disease. M aternal Grand Mother: . P aternal uncle: , diagnosed with Cancer. M aternal uncle: alive, 1 uncle , diagnosed with Cancer, Diabetes, Heart Disease. M aternal aunt: alive, diagnosed with Diabetes, Hypertension, Heart Disease. S iblings: alive, rheumatoid arthritis, diagnosed with Diabetes, Hypertension.?Children: alive, cerebral aneurysm, bipolar, schizophrenia, diagnosed with Hypertension, Heart Disease, Mental Illness. 2 brother(s) . 3 son(s) . . * Social History: S moking A re you a: n onsmoker. R ecreational drug use: no. Exercise: no. Home smoke detector use: yes. Caffeine: yes, frequency:coffee, soda. Living Will: No. Alcohol: no. Sexually active: yes. Travel outside [place]: no. 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 * Medications: T aking Ivwgyltqpp-HPMI-Ynzrkmhs 50-325-40 MG Tablet 1 tab(s) orally every [...] 1 tablet Orally every 12 hrs , Taking Doxycycline Hyclate 100 MG Capsule 1 capsule Orally twice a day , Medication List reviewed and reconciled with the patient * Allergies: S ULFA, E-MYCIN, CECLOR. Objective: * Vitals: N urse: jl, Pain: 7, Temp: 97.7, RR: 18, HR: 96, BP: 108/78, Ht: 5 ft 6 in, Wt: 201.8, BMI:32.57. * Examination: G eneral Examination: General P leasant and Cooperative, NAD on RA,. l eft inguinal crease with erythematous to ruborish soft tissue lesion, larger in diameter today, more indurated and tender but not fluctuant, no purulence noted. distal to this is more confluent erythema. Assessment: * Assessment: 1. G roin abscess - L02.214 (Primary) 2 . L eft leg cellulitis - L03.116? Plan: * Treatment: * ? Referral To: ?Reason:CT Pelvis with contrast 2.?Left leg cellulitis? Clinical Notes: continue warm compresses and oral antibiotics but recommend imaging as noted and on-time dose of IV Dalvance at [facility] along with CBC, BMP, CRP and ESR. continue topical heat, monitor for fevers Re-eval in 48 hours?? * Follow Up: 2 - 3 Days,prn * * Sign off status: Completed true * Provider: IZA Shaikh Date: 0 02/11/2025 Generated for Tiffany rivas/Brayan/Moralesitting on: 0 02/11/2025 03:39 PM EDT History and Physical Notes * Examination Category Sub-Category Detail Notes Category Not es General Examination General Pleasant and Cooperat sukhdeep, NAD on RA, left inguinal crease with erythematous to ruborish soft tissue lesion, larger in diameter today, more indurated and tender but not fluctuant, no purulence noted. distal to this is more confluent erythema Consultation Request Notes Referral Date Referring Provider Referred Provider Not carolee 02/11/2025 Angela Sheffield , CT Pelvis wi th contrast
--- OUTSIDE RECORDS SUMMARY | 2025-02-11 15:39 | XMS_ITS | Clinical Summary ---
Author Organization [facility] Address [address] [place] [address] Phone Care Team Providers Care Automobile Upholsterer Apprentice Name Role Phone Claudia Jones Primary Care Provider [phone] Social History Tobacco Use Types Packs/Day Years [...] this topic Insurance [employer] PPO Care Teams Automobile Upholsterer Apprentice Relationship Specialty Start Date End Date Claudia Jones [address] [place] [address] PCP - General Family Medicine 03/02/15
--- OUTSIDE RECORDS SUMMARY | 2025-02-11 15:39 | XMS_ITS | Clinical Summary ---
Author Organization [facility] Address [address] [place] [address] Care Team Providers Care Network Technical Analyst Name Role Phone Kieran Dawson MD Primary Care Provider [phone] Allergies Active Allergy Reactions Criticality Noted Date [...] (12/03/2017): Added automatically from request for surgery [id number] Hypertension Obesity Fatigue Dyspepsia Dyspnea on exertion [...] - 11/13/2024 11:59 PM EDT Hospital Encounter [facility] [address] [place] [address] Kieran Dawson MD Breast cancer [...] HEMOGLOBIN A1C 06/05/2018 12/03/2017, 03/26/2017 COVID-19 Vaccine (2023-2 5 season) 2024 08/12/2020, 07/12/2020 COLOGUARD 01/23/2025 COLON CANCER SCREENING 5 YEA R SIGMOIDOSCOPY 01/23/2025 CT COLONOGRAPHY 01/23/2025 FECAL OCCULT BLOOD TEST 01/23/2025 FIT Testing (1 year) 01/23/2025 INFLUENZA VACCINE 04/07/2025 04/21/2024, , 05/08/2022 MAMMOGRAM 11/13/2026 11/13/2024, 12/07, 11/06/2021, Additional history exists COLONOSCOPY 04/11/2033 04/11/2023 COLORECTAL CANCER SCREENING 04/11/2033 Hepatitis B Completed 09/01/2018, 02/06, 01/29/2018 Medical Devices Implanted Type Area Clinical Lab Clerk Device Identifier Shelf Expiration Date Model / Serial / Lot Sealant Fibrin Tisseel Fz 4ml - [id number] Implanted:Qty : 1 on 12/04/2017 by Sherif Campbell MD at [facility] Implant N/A: Stomach [facility] 08/07/2019 [id number] / / [id number] Loop Recorder [employer]Where Procedures Procedure Name Priority Date/Time Associated Diagnosis Comments MAMMO SCREENING DIGITAL TOMOSYNTHESIS BILATERAL W CAD Routine 11/13/2024 3:49 PM EDT Breast cancer screening by mammogram AMBRY GENETIC ASSESSMENT Routine 11/12/2024 1:08 PM EDT SCANNED - COLONOSCOPY 04/11/2023 HEMOGLOBIN A1C Routine 12/03/2017 4:12 PM EDT [...] calcifications, or areas of distortion are seen. us Kieran Dawson MD IMG MAMMOGRAPHY ORDERABLES F inal Result * [facility]IC RISK ASSESS[facility] QUESTIONNAIRE - , (11/12/2024 1:08 PM EDT) Indira 10.2 JOSHUA [employer] NCCN NCCN not met [facility] Comment:High Risk Cancer Ris k Assessment 11/12/2024 1:08 PM EDT us Kieran Dawson MD GENETIC TESTING Final Result [facility]
[address] [facility] [place] [address], [place] [phone] * SCANNED - COLONOSCOPY (04/11/2023) Darien Quiroz MD CHART REVIEW TABS Final Result * (ABNORMAL) Hemoglobin A1c (12/03/2017 4:12 PM EDT) Hemoglobin A1C 7.20(H) 4.80 - 5.60 % 12/03/2017 5:31 PM EDT [facility] Blood Venipuncture / Unknown 12/03/2017 4:12 PM EDT 12/03/2017 4:22 PM EDT Narrative [facility] - 12/03/2017 5:31 PM EDT The [place] [employer] recommends maintenance of Hemoglobin A1C at 7.0% or lower. Goals for Hemoglobin A1C reduction may need to be modified if hypoglycemia is a problem. Darien Garay MD LAB BLOOD ORDERABLES Final Resu lt Performing Organization Address City/[facility]/ZIP Co de Phone Number [facility]
[address] [place] [address], * Lipid Panel (03/26/2017) Blood Paola JONES LAB BLOOD ORDERABLES Final Result [facility] [address] [place] [address], [place] [phone] from Last 3 Months or Most Recently Relevant to Health Maintenance Insurance [facility] PPO Member Subscriber Plan / Payer (Ef fective 2024-Present) Name:Yoanna Brar Relation to Subscriber:Spouse Name:Jem Brar Date of :1979 (Home) Address: [address] [place] [address] [place] [address] Payer ID:[id number] (NAIC) Type:Not on file Address: [facility] [id number] [place] [id number] Advance Directives * Full Code (Latest Code Status on File) Date Activated Date Inactivated Comments 12/04/2017 10:47 AM 12/06/2017 8:50 PM Care Teams Network Technical Analyst Relationship Specialty Start Date End Date Kieran Dawson MD [address] [place] [address] [place] [address] PCP - General Adolescent Medicine 11/06/21
--- OUTSIDE RECORDS SUMMARY | 2025-02-11 15:40 | XMS_ITS | Patient Health Record ---
Author Organization [facility] D GISSELL Address [address] [place] [address] Care Team Providers Care Customer Support Technician Name Role Phone Kieran Dawson Primary Care Provider [phone] Kieran Dawson Unavailable Unavailable Angela Sheffield Unavailable [phone] Cait Vera Unavailable [phone] Migration, Provider Unavailable Unavailable Allergies Allergen (clinical drug ingredient) Drug/Non Drug Allergy documented on EMR Reaction Allergy Type Onset Date Status CECLOR (uncoded) Unknown Allergy Act sukhdeep E-MYCIN (uncoded) Unknown Allergy Ac tive SULFA (uncoded) Unknown Allergy Acti ve Results Component Value Reference Range Notes SED RATE BY MODIFIED REMI LOPEZ (809) Reviewed date:11/18/2024 09:37:01 AM Interpretation: Performing Lab:[facility] [address], [place] CvikDY[address] Prakash Calvillo Notes/Report: NON-FASTING; NON-FASTING; NON-FASTING; NON-FASTING SED RATE BY MODIFIED LORE 6 < OR = 20 mm/h C-REACTIVE PROTEIN (4420) Reviewed date:11/18/2024 09:37:21 AM Interpretation: Performing Lab:[facility] [address], [place] KzzqOU[address] Prakash Calvillo Notes/Report: NON-FASTING; NON-FASTING; NON-FASTING; NON-FASTING C-REACTIVE PROTEIN 3.9 <8.0 mg/L HEMOGLOBIN A1c (496) Reviewed date:12/14/2024 02:02:11 PM Interpretation: Performing Lab:[facility] [address] [employer] Leonard YorkCnjwKW[address] Prakash Calvillo Notes/Report: NON-FASTING; NON-FASTING HEMOGLOBIN A1c [...] consistent with an increased risk of diabetes. CULTURE, URINE, ROUTINE (395 ) Reviewed date:08/25/2024 11:54:11 AM Interpretation: Performing Lab:[facility] [address], [place] PaquXK[address] Prakash Calvillo Notes/Report: NON-FASTING CULTURE, URINE, ROUTINE SEE NOTE SDD = Susceptible Dose Dependent * = Not Tested NR = Not Reported NN = See Therapy Comments CULTURE, URINE, ROUTINE Micro Number: [id number] Test Status: Final Specimen Source: Urine Specimen [...] cefdinir, cefpodoxime, cefprozil, cefuroxime, cephalexin and loracarbef. Venous Doppler : Upper Extre mity Reviewed date:07/10/2024 12:55:55 PM Interpretation: Performing Lab: Notes/Report: Microalbumin (In-House) Reviewed date:12/09/2024 06:19:47 PM Interpretation: Performing Lab: Notes/Report: ALB 80mg CRE 100mg A:C 30-300mg X ray : Foot, Left Reviewed date:11/20/2024 08:41:30 AM Interpretation: Performing Lab: Notes/Report: MRI : Foot, Left Reviewed date:11/26/2024 08:20:05 PM Interpretation: Performing Lab: Notes/Report: Urinalysis Reviewed date:08/19/2024 10:41:07 AM Interpretation: Performing Lab: Notes/Report: Color/Clarity yellow Leuk trace Nitrite neg Urobili 0.2 Protein >=300mg/dL pH 5.5 Blood trace-intact Sp. Gr. >=1.030 Ketone neg Bili small Glucose neg TSH W/REFLEX TO FT4 (16695) Reviewed date:12/13/2024 07:39:11 PM Interpretation: Performing Lab:[facility], [facility] [address], [facility] CenterTwsqXX[address] Prakash Calvillo Notes/Report: NON-FASTING; NON-FASTING TSH W/REFLEX TO FT4 1.53 > or = 20 Years 0.40-4.50 Ranges First trimester 0.26-2.66 Second trimester 0.55-2.73 Third trimester 0.43-2.91 Reference Range THYROID PEROXIDASE AND THYRO GLOBULIN ANTIBODIES (7260) Reviewed date:04/03/2024 08:34:11 AM Interpretation: Performing Lab:[facility], [facility]-u.[address] [employer], [employer] TextLwljWP[address] Prakash Calvillo Notes/Report: NON-FASTING; NON-FASTING; NON-FASTING; NON-FASTING; NON-FAST FASTING:YES FASTING: YES THYROGLOBULIN ANTIBODIES <1 < or = 1 IU/mL THYROID PEROXIDASE ANTIBODIES 15 <9 IU/mL THYROID PANEL WITH TSH (7444 ) Reviewed date:04/03/2024 08:34:37 AM Interpretation: Performing Lab:[facility], [facility]-u.site[address] [place], [employer] TextDiuzJT[address] Prakash Calvillo Notes/Report: NON-FASTING; NON-FASTING; NON-FASTING; NON-FASTING; NON-FAST FASTING:YES FASTING: YES T3 UPTAKE 30 22-35 % T4 (THYROXINE), TOTAL 5.7 5.1-11.9 mcg/dL FREE T4 INDEX (T7) 1.7 1.4-3.8 TSH 4.19 Reference Range > or = 20 Years 0.40-4.50 Ranges First trimester 0.26-2.66 Second trimester 0.55-2.73 Third trimester 0.43-2.91 THYROID PANEL WITH TSH (7444 ) Reviewed date:07/02/2024 08:40:51 AM Interpretation: Performing Lab:[facility], [facility]-u[address], [employer] TextVsjcWC[address] Prakash Calvillo Notes/Report: NON-FASTING; NON-FASTING; NON-FASTING; NON-FASTING; NON-FAST FASTING:YES FASTING: YES T3 UPTAKE 35 22-35 % T4 (THYROXINE), TOTAL 9.1 5.1-11.9 mcg/dL FREE T4 INDEX (T7) 3.2 1.4-3.8 TSH 0.71 Ranges First trimester 0.26-2.66 Second trimester 0.55-2.73 Third trimester 0.43-2.91 > or = 20 Years 0.40-4.50 Reference Range IRON, TIBC AND FERRITIN PANE L (5616) Reviewed date:07/02/2024 08:42:01 AM Interpretation: Performing Lab:[facility] Test.tve[address], [place] FwbwEV[address] Prakash Calvillo Notes/Report: NON-FASTING; NON-FASTING; NON-FASTING; NON-FASTING; NON-FAST FASTING:YES FASTING: YES IRON, TOTAL 50 40-190 mcg/dL IRON BINDING CAPACITY 353 250-450 mc g/dL (calc) % SATURATION 14 16-45 % (calc) FERRITIN 146 16-232 ng/mL LIPID PANEL, STANDARD (7600) Reviewed date:07/02/2024 08:41:08 AM Interpretation: Performing Lab:[facility] LawDeck[address], [place] MgspXX[address] Prakash Calvillo Notes/Report: NON-FASTING; NON-FASTING; NON-FASTING; NON-FASTING; [...] LDL-C. Hai SS et al. ALBERTO. 2013;310(19): 0069-0148 (http://education.Kairos.com/faq/BYA102) CHOL/HDLC RATIO 3.2 <5.0 (calc) NON HDL CHOLESTEROL 116 <130 mg/dL (calc) factor, treating to a non-HDL-C goal of <100 mg/dL (LDL-C of <70 mg/dL) is considered a therapeutic option. For patients with diabetes plus 1 major ASCVD risk COMPREHENSIVE METABOLIC PANE L (79309) Reviewed date:07/02/2024 08:40:59 AM Interpretation: Performing Lab:[facility] [address], [employer] TextJauzHD[address] Prakash Calvillo Notes/Report: NON-FASTING; NON-FASTING; NON-FASTING; NON-FASTING; [...] 13 10-30 U/L ALT 18 6-29 U/L BASIC METABOLIC PANEL (97729 ) Reviewed date:11/18/2024 09:37:07 AM Interpretation: Performing Lab:[facility] [employer] [address] [employer] HospitalOymaFH[address] Prakash Calvillo Notes/Report: NON-FASTING; NON-FASTING; NON-FASTING; NON-FASTING [...] 25 20-32 mmol/L CALCIUM 9.3 8.6-10.2 mg/dL MAGNESIUM (622) Reviewed date:04/03/2024 08:33:50 AM Interpretation: Performing Lab:[facility] Test.tve[address] [employer] HospitalDuosAY[address] Prakash Calvillo Notes/Report: NON-FASTING; NON-FASTING; NON-FASTING; NON-FASTING; NON-FAST FASTING:YES FASTING: YES MAGNESIUM 2.0 1.5-2.5 mg/dL IRON AND TOTAL IRON BINDING CAPACITY (7573) Reviewed date:04/03/2024 08:33:57 AM Interpretation: Performing Lab:[facility] Qhfb[address] [employer] HospitalQzffIX[address] Prakash Calvillo Notes/Report: NON-FASTING; NON-FASTING; NON-FASTING; NON-FASTING; NON-FAST FASTING:YES FASTING: YES IRON, TOTAL 80 40-190 mcg/dL IRON BINDING CAPACITY 396 250-450 mc g/dL (calc) % SATURATION 20 16-45 % (calc) CBC (INCLUDES DIFF/PLT) (839 9) Reviewed date:04/03/2024 08:34:28 AM Interpretation: Performing Lab:[facility] Kbpq[address] [employer] HospitalXrogPX[address] Prakash Calvillo Notes/Report: NON-FASTING; NON-FASTING; NON-FASTING; NON-FASTING; NON-FAST FASTING:YES FASTING: YES WHITE BLOOD CELL COUNT 10.0 3.8-10.8 Thousand/ uL RED BLOOD CELL COUNT 4.59 3.80-5.10 Million/uL HEMOGLOBIN 14.0 11.7-15.5 g/dL HEMATOCRIT 43.6 35.0-45.0 % MCV 95.0 80.0-100.0 fL MCH 30.5 27.0-33.0 pg MCHC 32.1 32.0-36.0 g/dL RDW 12.5 11.0-15.0 % PLATELET COUNT 376 140-400 Thousand/uL MPV 9.8 7.5-12.5 fL ABSOLUTE NEUTROPHILS 6060 4768-4308 cells/uL ABSOLUTE LYMPHOCYTES 2510 850-3900 cells/uL ABSOLUTE MONOCYTES 1110 200-950 cells/uL ABSOLUTE EOSINOPHILS 260 15-500 cells/uL ABSOLUTE BASOPHILS 60 0-200 cells/uL NEUTROPHILS 60.6 LYMPHOCYTES 25.1 MONOCYTES 11.1 EOSINOPHILS 2.6 BASOPHILS 0.6 CBC (INCLUDES DIFF/PLT) (099 9) Reviewed date:07/02/2024 08:41:15 AM Interpretation: Performing Lab:[facility] Mmmm7557 [facility]Kind[facility], [facility] HospitalAvuvWW[address] Prakash Calvillo Notes/Report: NON-FASTING; NON-FASTING; NON-FASTING; NON-FASTING; [...] MPV 9.9 7.5-12.5 fL ABSOLUTE NEUTROPHILS 6685 9826-0399 cells/uL ABSOLUTE LYMPHOCYTES 2153 850-3900 cells/uL ABSOLUTE MONOCYTES 1205 200-950 cells/uL ABSOLUTE EOSINOPHILS 196 15-500 cells/uL ABSOLUTE BASOPHILS 62 0-200 cells/uL NEUTROPHILS 64.9 LYMPHOCYTES 20.9 MONOCYTES 11.7 EOSINOPHILS 1.9 BASOPHILS 0.6 CBC (INCLUDES DIFF/PLT) (639 9) Reviewed date:11/18/2024 09:37:14 AM Interpretation: Performing Lab:[facility] [address] [facility], [facility] HospitalQnbiJH[address] Prakash Calvillo Notes/Report: NON-FASTING; NON-FASTING; NON-FASTING; NON-FASTING [...] MPV 9.8 7.5-12.5 fL ABSOLUTE NEUTROPHILS 4685 9025-6583 cells/uL ABSOLUTE LYMPHOCYTES 2094 850-3900 cells/uL ABSOLUTE MONOCYTES 877 200-950 cells/uL ABSOLUTE EOSINOPHILS 198 15-500 cells/uL ABSOLUTE BASOPHILS 47 0-200 cells/uL NEUTROPHILS 59.3 LYMPHOCYTES 26.5 MONOCYTES 11.1 EOSINOPHILS 2.5 BASOPHILS 0.6 SED RATE BY MODIFIED MARIANNERG JESSICA (809) Reviewed date:02/25/2024 10:10:11 AM Interpretation: Performing Lab:[facility] [address], [place] KoskRA[address] Prakash Calvillo Notes/Report: NON-FASTING; NON-FASTING; NON-FASTING; NON-FASTING; NON-FAST FASTING:NO FASTING: NO SED RATE BY MODIFIED LORE 6 < OR = 20 mm/h HLA-B27 ANTIGEN (528) Reviewed date:02/25/2024 02:31:47 PM Interpretation: Performing Lab:[facility] [address], [place] MlycYQ[address] Prakash Calvillo Notes/Report: NON-FASTING; NON-FASTING; NON-FASTING; NON-FASTING; NON-FAST FASTING:NO FASTING: NO HLA-B27 ANTIGEN NEGATIVE NEGATIVE C-REACTIVE PROTEIN (4420) Reviewed date:02/26/2024 10:21:57 AM Interpretation: Performing Lab:[facility] [address], [place] DzdnER[address] Prakash Calvillo Notes/Report: NON-FASTING; NON-FASTING; NON-FASTING; NON-FASTING; NON-FAST FASTING:NO FASTING: NO C-REACTIVE PROTEIN 3.8 <8.0 mg/L RHEUMATOID FACTOR (4418) Reviewed date:02/26/2024 10:21:57 AM Interpretation: Performing Lab:[facility] [address], [place] UmojCJ[address] Prakash Calvillo Notes/Report: NON-FASTING; NON-FASTING; NON-FASTING; NON-FASTING; NON-FAST FASTING:NO FASTING: NO RHEUMATOID FACTOR <10 <14 IU/mL ALEC SCREEN, IFA, W/REFL TITE R AND PATTERN (249) Reviewed date:02/26/2024 10:21:57 AM Interpretation: Performing Lab:[facility]-u.site[address] [employer], [employer] TextYbupMJ[address] Prakash Calvillo Notes/Report: NON-FASTING; NON-FASTING; NON-FASTING; NON-FASTING; [...] Negative International Consensus on ALEC Patterns (https://doi.org/10.1515/cc tz-1829-5171) For additional information, please refer to http://education.Perfect Memory/faq/TNQ697 (This link is being provided for informational/ educational purposes only.) SJOGREN'S ANTIBODIES (SS-A,S S-B) (7832) Reviewed date:02/26/2024 05:12:23 PM Interpretation: Performing Lab:[facility]-u.site13[address] [employer], [employer] TextKcazKQ[address] Prakash Calvillo Notes/Report: NON-FASTING; NON-FASTING; NON-FASTING; NON-FASTING; NON-FAST FASTING:NO FASTING: NO SJOGREN'S ANTIBODY (SS-A) <1.0 NEG <1.0 NEG AI SJOGREN'S ANTIBODY (SS-B) <1.0 NEG <1.0 NEG AI HEMOGLOBIN A1c (496) Reviewed date:02/25/2024 01:15:17 PM Interpretation: Performing Lab:[facility]-SpaBooker355 TenebrilteJefferson Health NortheastL[address] Prakash Calvillo Notes/Report: NON-FASTING; NON-FASTING; NON-FASTING; NON-FASTING; [...] change in test platforms from the Sapp Telephone Installer to the Sandra chery c503 may have shifted HbA1c results compared to historical results. Based on laboratory validation testing conducted at [facility], the Sandra platform relative to the Sapp [...] not recommended. LIPID PANEL, STANDARD (7600) Reviewed date:02/25/2024 10:09:56 AM Interpretation: Performing Lab:[facility] Liuk[address] [facility] Hospital of AltoonaL[address] Prakash Calvillo Notes/Report: NON-FASTING; NON-FASTING; NON-FASTING; NON-FASTING; [...] LDL-C. Hai SS et al. ALBERTO. 2013;310(19): 5250-4511 (http://education.Kairos.com/faq/RLG059) CHOL/HDLC RATIO 3.8 <5.0 (calc) NON HDL CHOLESTEROL 144 <130 mg/dL (calc) For patients with diabetes plus 1 major ASCVD risk factor, treating to a non-HDL-C goal of <100 mg/dL (LDL-C of <70 mg/dL) is considered a therapeutic option. COMPREHENSIVE METABOLIC PANE L (36326) Reviewed date:02/25/2024 01:15:17 PM Interpretation: Performing Lab:[facility], [facility]-u.site[address], [place] QvbtWI[address] Prakash Calvillo Notes/Report: NON-FASTING; NON-FASTING; NON-FASTING; NON-FASTING; [...] Reviewed date:02/25/2024 10:09:47 AM Interpretation: Performing Lab:[facility], [facility]-u.site1355 [facility]ilRed [facility] Clinic[address] Prakash Calvillo Notes/Report: NON-FASTING; NON-FASTING; NON-FASTING; NON-FASTING; NON-FAST FASTING:NO FASTING: NO WHITE BLOOD CELL COUNT 8.2 3.8-10.8 Thousand/ uL RED BLOOD CELL COUNT 4.66 3.80-5.10 Million/uL HEMOGLOBIN 14.3 11.7-15.5 g/dL HEMATOCRIT 42.9 35.0-45.0 % MCV 92.1 80.0-100.0 fL MCH 30.7 27.0-33.0 pg MCHC 33.3 32.0-36.0 g/dL RDW 12.5 11.0-15.0 % PLATELET COUNT 429 140-400 Thousand/uL MPV 9.4 7.5-12.5 fL ABSOLUTE NEUTROPHILS 4854 1532-1055 cells/uL ABSOLUTE LYMPHOCYTES 2140 850-3900 cells/uL ABSOLUTE MONOCYTES 918 200-950 cells/uL ABSOLUTE EOSINOPHILS 230 15-500 cells/uL ABSOLUTE BASOPHILS 57 0-200 cells/uL NEUTROPHILS 59.2 LYMPHOCYTES 26.1 MONOCYTES 11.2 EOSINOPHILS 2.8 BASOPHILS 0.7 URINALYSIS, COMPLETE W/REFLE X TO CULTURE (3020) Reviewed date:04/17/2024 09:50:54 AM Interpretation: Performing Lab:CB, [facility]1355 [facility] Prakash Calvillo Notes/Report: COLOR ORANGE YELLOW APPEARANCE [...] TO FOLLOW CULTURE, URINE, ROUTINE Micro Number: [id number] Test Status: Final Specimen Source: Urine Specimen [...] TO FOLLOW CULTURE, URINE, ROUTINE Micro Number: [id number] Test Status: Final Specimen Source: Urine Specimen [...] cefuroxime, cephalexin and loracarbef. CULTURE, URINE, ROUTINE (395 ) Reviewed date:03/02/2024 08:34:16 AM Interpretation: Performing Lab:[facility], [facility], [facility] CenterMwdqLN[address] Prakash Calvillo Notes/Report: NON-FASTING CULTURE, URINE, ROUTINE SEE NOTE Micro Number: [id number] Test Status: Final Specimen Source: Urine Specimen [...] 1.030 Ketone neg Bili small Glucose neg VITAMIN D,25-OH,TOTAL,IA (17 306) Reviewed date:04/03/2024 08:34:03 AM Interpretation: Performing Lab:[facility]-RamT[employer]itness[address] [employer] TextRhriCU[address] Prakash Calvillo Notes/Report: NON-FASTING; NON-FASTING; NON-FASTING; NON-FASTING; NON-FAST FASTING:YES FASTING: YES VITAMIN D,25-OH,TOTAL,IA 40 30-100 ng/mL 25-OH VIT D, (D2,D3), LC/MS/MS is recommended: order code 21097 (patients >2yrs). See Note 1 Note 1 For additional information, please refer to http://education.Perfect Memory/faq/OIK909 (This link is being provided for informational/ educational purposes only.) Vitamin D Status 25-OH Vitamin D: Deficiency: <20 ng/mL Insufficiency: 20 - 29 ng/mL Optimal: > or = 30 ng/mL For 25-OH Vitamin D testing on patients on D2-supplementation and patients for whom quantitation of D2 and D3 fractions is required, the [facility]() VITAMIN D,25-OH,TOTAL,IA (17 306) Reviewed date:07/02/2024 08:42:16 AM Interpretation: Performing Lab:[facility] [employer]teAt[employer], [employer] TextIltzIF[address] Prakash Calvillo Notes/Report: NON-FASTING; NON-FASTING; NON-FASTING; NON-FASTING; NON-FAST FASTING:YES FASTING: YES VITAMIN D,25-OH,TOTAL,IA 108 30-100 ng/mL Optimal: > or = 30 ng/mL For 25-OH Vitamin D testing on patients on D2-supplementation and patients for whom quantitation of D2 and D3 fractions is required, the QuestAssureD(TM) 25-OH VIT D, (D2,D3), LC/MS/MS is recommended: order code 03090 (patients >2yrs). See Note 1 Note 1 For additional information, please refer to http://education.Perfect Memory/faq/NDQ528 (This link is being provided for informational/ educational purposes only.) Vitamin D Status 25-OH Vitamin D: Deficiency: <20 ng/mL Insufficiency: 20 - 29 ng/mL VITAMIN B12/FOLATE, SERUM PA PAVAN (7065) Reviewed date:04/03/2024 08:33:43 AM Interpretation: Performing Lab:[facility] [employer]-u.site13[address] inploid.com, u.sitVpmnIO[address] Prakash Calvillo Notes/Report: NON-FASTING; NON-FASTING; NON-FASTING; NON-FASTING; NON-FAST FASTING:YES FASTING: YES VITAMIN B12 771 758-0684 pg/mL Please Note: Although the reference range [...] Low: <3.4 Borderline: 3.4-5.4 Normal: >5.4 VITAMIN B12/FOLATE, SERUM PA PAVAN (7065) Reviewed date:07/02/2024 08:42:09 AM Interpretation: Performing Lab:[facility] [address], u.sitUzluMQ[address] Prakash Calvillo Notes/Report: NON-FASTING; NON-FASTING; NON-FASTING; NON-FASTING; NON-FAST FASTING:YES FASTING: YES VITAMIN B12 802 637-2338 pg/mL Please Note: Although the reference range [...] Range Low: <3.4 Borderline: 3.4-5.4 Normal: >5.4 HEMOGLOBIN A1c (496) Reviewed date:07/02/2024 08:42:26 AM Interpretation: Performing Lab:[facility] [employer] [address] [facility], [place] VrkgAC[address] Prakash Calvillo Notes/Report: NON-FASTING; NON-FASTING; NON-FASTING; NON-FASTING; [...] diagnosis of diabetes for children. follow-up test. LIPID PANEL, STANDARD (7600) Reviewed date:12/14/2024 02:04:14 PM Interpretation: Performing Lab:[facility] [employer] Dicc[address] [facility], [facility] HospitalJntcJR[address] Prakash Calvillo Notes/Report: NON-FASTING; NON-FASTING CHOLESTEROL, TOTAL [...] factors. LDL-C is now calculated using the Hai-Mathieu calculation, which is a validated novel method providing better accuracy than the Friedewald equation in the estimation of LDL-C. Hai CARRILLO et al. ALBERTO. 2013;310(19): 6991-6579 (http://education.Kairos.Exacaster/faq/VYN492) CHOL/HDLC RATIO 3.7 <5.0 (calc) NON HDL CHOLESTEROL 152 <130 mg/dL (calc) factor, treating to a non-HDL-C goal of <100 mg/dL (LDL-C of <70 mg/dL) is considered a therapeutic option. For patients with diabetes plus 1 major ASCVD risk LIVER FIBROSIS, FIBROTEST AC TITEST PANEL (79624) Reviewed date:09/22/2024 09:38:48 PM Interpretation: Performing Lab:EZ, [facility] [place],[address] [address] [facility], PrincetonDghpnpklfjWW[address] Jerica Alvarado MD,PhD,RAMANDEEP Notes/Report: FIBROSIS SCORE 0.09 [...] U/L ALT 19 6-29 U/L REFERENCE ID [id number] FOOTNOTE SEE NOTE The reliability of results is dependent on compliance with the preanalytical and analytical conditions recommended by T[employer]ion Mobileredictive. The tests have to be deferred for: [...] The performance characteristics have been determined by [employer], [place]. It has not been cleared or approved by the U.S. Food and Drug Administration. Performance characteristics refer to the analytical performance of the test. [employer], the associated logo, [employer] and all associated [employer] traylor are the registered trademarks of [employer]. All third constitution party traylor - (R) and (TM) - are the property of their respective owners. (C) [id number] [employer]. All rights reserved. PANCREATIC ELASTASE-1 (21633 ) Reviewed date:09/28/2024 08:44:07 AM Interpretation: Performing Lab:MARCIO, [employer] [facility] [place],[address] [address] [employer] [place]YjnbhiyampGQ[address] Jerica Alvarado MD,PhD,RAMANDEEP Notes/Report: PANCREATIC ELASTASE 1 529 >200 mcg/g E-1 mcg/g feces Interpretation <100 Severe exocrine pancreatic insufficiency 100-200 Mild to moderate exocrine pancreatic insufficiency >200 Normal Medications Medication SIG (Take, Route, Frequency, Duration) Notes Start Date End Date Status Pmfaqkiczs-NWZJ-Wlcybpky 50-325-40 MG 1 tab(s) orally every 6hours prn 01/18/2023 Active Lisdexamfetamine Dimesylate 40 MG 1 capsule in the morning Orally Once a day; Duration: 30 days 11/18/2024 Active Coreg 25 MG 1 tab(s) orally twic e a day; Duration: 90 days Active Levothyroxine Sodium 200 MCG 1 tablet in the morning on an empty stomach Orally Once a day; Duration: 90 days Active Tricor 145 MG 1 tab(s) orally once a day; Duration: 90 days Active Doxycycline Hyclate 100 MG 1 capsule Ora lly twice a day; Duration: 10 days 02/09/2025 Active amLODIPine Besylate 10 MG 1 tab(s) orall y once a day; Duration: 90 days Active Amoxicillin-Pot Clavulanate 875-125 MG 1 tablet Orally every 12 hrs; Duration: 7 days 02/08/2025 Active Citalopram Hydrobromide 40 MG 1 tab(s) orally once a day; Duration: 90 days Active Nurtec 75 MG DISSOLVE 1 TABLET BY MOUTH ON THE TONGUE AND ALLOW TO DISSOLVE EVERY OTHER DAY; Duration: 32 Active Losartan Potassium 100 MG 1 tab(s) orall y once a day; Duration: 90 days Active Mounjaro 12.5 MG/0.5ML 12.5 mg Subcutane ous once a week; Duration: 28 days 02/02/2025 Active Metoclopramide HCl 5 MG 1 tab(s) orally 4 times a day (before meals and at bedtime); Duration: 30 days 06/24/2024 Active buPROPion HCl ER (XL) 300 MG 1 tab(s) or ally every 24 hours; Duration: 90 days Active SUMAtriptan Succinate 50 MG 1 tab(s) ora lly once; Duration: 30 days Active Methocarbamol 750 MG 2 tab(s) orally 3 times a day; Duration: 10 days As needed prn 01/17/2023 Active Omeprazole 40 MG 1 cap(s) orally twic e daily; Duration: 90 days Active Diclofenac Sodium 75 MG 1 tablet as need ed Orally Twice a day; Duration: 30 days 12/25/2024 Active Crestor 5 MG 1 tablet Orally Once a day; Duration: 90 days 12/14/2024 Active Immunizations Vaccine Route Administration Date Status Comme nts Flublok IM Intramuscular 05/08/2022 Administered Flublok IM Intramuscular 04/21/2024 Administered Fluvirin--Influenza vaccine 3+ year IM Intramuscular 08/18/2007 Administered Fluvirin--Influenza vaccine 3+ year IM Intramuscular 04/30/2008 Administered FLUZONE 6MO - OLDER IM Intramuscular 05/02/2023 Administer ed PPD ID Intradermal 04/16/2008 Administered Social History Tobacco Use: Social History Observation Description Date Details (start date - stop date) Never Smoker NA - NA Smoking: Question Answer Notes Are you a: nonsmoker Problems Problem Type SNOMED Code ICD Code Onset Dates Problem Status W/U Status Risk Notes Problem Type 2 diabetes mellitus with other specified complication (E11.69) Active confirmed Problem Obesity (529395653) Obesity, uns pecified (E66.9) Active confirmed Problem Migraine without aura, not refractory (disorder) (892376341) Migraine, unspecified, not intractable, without status migrainosus (G43.909) Active confirmed Problem Essential hypertension (23390128) Essential (primary) hypertension (I10) Active confirmed Problem Paroxysmal atrial fibrillation (204265931) Paroxysmal atrial fibrillation (I48.0) Active confirmed Problem Vocal cord palsy (306603503) Paralysis of vocal cords and larynx, 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) Active confirmed Problem Dysuria (32629244) Dysuria (R30.0) Active confi rmed Problem Extravasation of urine (40016160) Extravasation of urine (R39.0) Active confirmed Problem C-reactive protein abnormal (210587631) Elevated C-reactive protein (CRP) (R79.82) Active confirmed Problem Electromyogram abnormal (493068137) Abnormal electromyogram [EMG] (R94.131) Active confirmed Problem Vitamin B12 deficiency (665040890) Vitamin B12 deficiency (E53.8) Active confirmed Problem Mixed anxiety and depressive disorder (137285192) Depression with anxiety (F41.8) Active confirmed Problem Hypothyroidism (88582120) Hypothyroidism (acquired) (E03.9) Active confirmed Problem Vitamin D deficiency (61612194) Vitamin D deficiency (E55.9) Active confirmed Problem Hematuria (58401736) Hematuria (R31.9) Active c onfirmed Problem Hypertriglyceridemia (788613911) Hypertriglyceridemia (E78.1) Active confirmed Problem Essential hypertension (41959199) Hypertension, essential (I10) Active confirmed Problem Adult health examination (854410215) Routine adult health maintenance (Z00.00) Active confirmed Problem Cystitis (96112762) Cystitis (N30.90) Active co nfirmed Symptom Carpal tunnel syndrome (90892799) Carpal tunnel syndrome (G56.00) Active confirmed Problem Hyperlipidemia (09273480) Hyperlipidemia, unspecified (E78.5) Active confirmed Problem Neck pain (59755023) Neck pain (M54.2) Active c onfirmed Problem Tension headache (958958740) Tension headache (G44.209) Active confirmed Problem Iron deficiency anemia (23778150) Iron deficiency anemia, unspecified iron deficiency anemia type (D50.9) Active confirmed Problem BOGGS - Nonalcoholic steatohepatitis (743614317) BOGGS (nonalcoholic steatohepatitis) (K75.81) Active confirmed Problem Recurrent major depression in remission (30095674) Recurrent major depressive disorder, in partial remission (F33.41) Active confirmed Problem Kidney pain (944565127) Kidney pain (N23) Active confirmed Problem Atrial fibrillation (29582895) Atrial fibrillation, controlled (I48.91) Active confirmed Problem Cluster headache syndrome (383423261) Migraine-cluster headache syndrome (G44.009) Active confirmed Problem Postoperative Hypothyroidism (74676733) Hypothyroidism associated with surgical procedure (E89.0) Active confirmed Problem Voice hoarseness (42448504) Hoarseness of voice (R49.0) Active confirmed Problem Prolapsed cervical intervertebral disc (667563679) Cervical disc herniation (M50.20) Active confirmed Problem Attention deficit hyperactivity disorder (736024067) Adult ADHD (F90.9) Active confirmed Problem Gastroesophageal reflux disease (088374045) Chronic gastroesophageal reflux disease (K21.9) Active confirmed Problem History of iron deficiency anemia (373712965) History of iron deficiency anemia (Z86.2) Active confirmed Problem Axonal sensorimotor neuropathy (095822595) Axonal sensorimotor neuropathy (G62.89) Active confirmed Problem Stasis dermatitis (disorder) (62706182) Stasis dermatitis of both legs (I87.2) Active confirmed Problem Mixed hyperlipidemia (843388575) Mixed dyslipidemia (E78.2) Active confirmed Problem Polyneuropathy (24504279) Other polyneuropathy (G62.89) Active confirmed Problem Gastroesophageal reflux disease with esophagitis (disorder) (833395064) Gastro-esophageal reflux disease with esophagitis, without bleeding (K21.00) Active confirmed Problem Gastroesophageal reflux disease (179308975) Gastroesophageal reflux disease, unspecified whether esophagitis present (K21.9) Active confirmed Problem Cervical spondylosis (621685641) Cervical spondylosis (M47.812) Active confirmed Problem Gastric sleeve (physical object) (584823072) H/O gastric sleeve (Z90.3) Active confirmed Vital Signs Heart Rate 96 /min 02/11/2025 Temperature 97.7 degrees Fahrenheit 02/11/2025 Blood pressure diastolic 78 mm Hg 02/11/2025 Height 5 ft 6 in in 02/11/2025 Blood pressure systolic 108 mm Hg 02/11/2025 Weight 201.8 lbs 02/11/2025 BMI 32.57 kg/m2 02/11/2025 Encounters Encounter Location Date Provider Diagnosis [facility] [address] [facility] [address] [place], [place] [address] 03/30/2024 Kieran Besson [facility] [address] [facility] [address] [place] [address] 06/29/2024 Kieran Besson [facility] [address] [facility] [address] [place] [address] 09/16/2024 Kieran Besson [facility] [address] [facility] [address] [place] [address] 10/10/2024 Provider Migration Dysuria R30.0 ; Recurrent UTI N39.0 ; Hypertension, essential I10 ; Adult ADHD F90.9 and Gastroesophageal reflux disease with esophagitis without hemorrhage K21.00 [facility] [address] [facility] [address] [place] [address] 12/10/2024 Angela Sheffield [facility] [address] [facility] [address] [place] [address] 02/24/2024 Kieran Besson Cervical spondylosis M47.812 ; Xerostomia K11.7 ; Acute conjunctivitis of right eye, unspecified acute conjunctivitis type H10.31 ; Elevated C-reactive protein (CRP) R79.82 ; Iron deficiency anemia, unspecified iron deficiency anemia type D50.9 ; Type 2 diabetes mellitus with other specified complication E11.69 and Hyperlipidemia, unspecified E78.5 [facility] [address] [place], [place] [address] 02/26/2024 Kieran Starrpamela Dysuria R30.0 ; Recurrent UTI N39.0 and Nausea R11.0 [facility] [address] [place], [place] [address] 03/21/2024 Kieran Eunice Acute left otitis me giles H66.92 [facility] [address] [place], [place] [address] 04/21/2024 Kieran Eunice Immunization(s) administered Z23 [facility] [address] [place] [address] 06/24/2024 Kieran Bespamela Hiatal hernia K44.9 ; Diaphragmatic hernia without obstruction or gangrene K44.9 and Gastro-esophageal reflux disease with esophagitis, without bleeding K21.00 [facility] [address] [place], [place] [address] 07/09/2024 Cait McNees Pain in right upper arm M79.621 and Thrombophlebitis I80.9 [facility] [address] [address] 07/14/2024 Kieran Dawson Adult ADHD F90.9 ; Moderate binge-eating disorder F50.811 and Hypertension, essential I10 [facility] [address] [place] [address] 08/17/2024 Kieran Dawson Adult ADHD F90.9 ; A cute otitis externa of both ears, unspecified type H60.503 ; Screening mammogram, encounter for Z12.31 and Routine medical exam Z00.00 [facility] [address] [facility] [address] [place] [address] 08/19/2024 Kieran Eunice Dysuria R30.0 and Recurrent UTI N39.0 [facility] [address] [facility] [address] [place] [address] 10/22/2024 Cait McNees Abscess L02.91 [facility] [address] [facility] [address] [place] [address] 10/29/2024 Cait McNees Cellulitis of left l eg L03.116 ; Cutaneous abscess of left lower extremity L02.416 ; Serotonin syndrome G90.81 ; Depression with anxiety F41.8 and Type 2 diabetes mellitus with other specified complication E11.69 [facility] [address] [facility] [address] [place] [address] 11/12/2024 Angela Sheffield Type 2 diabetes magalis itus with other specified complication E11.69 ; Mixed dyslipidemia E78.2 ; 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 and Hypertension, essential I10 [facility] [address] [facility] [address] [place] [address] 11/16/2024 Kieran Besson Left foot pain M79.6 72 [facility] [address] [facility] [address] [place] [address] 11/23/2024 Kieran Besson Acute pain of left f oot M79.672 [facility] [address] [facility] [address] [place] [address] 11/25/2024 Kieran Besson Tendinopathy of left foot M67.972 [facility] [address] [facility] [address] [place] [address] 12/25/2024 Cait McNees Lumbar back pain M54 .50 [facility] [address] [facility] [address] [place] [address] 02/09/2025 Angelajoey Sheffield Left leg cellulitis L03.116 [facility] [address] [facility] [address] [place] [address] 02/11/2025 Angela Sheffield Groin abscess L02.21 4 and Left leg cellulitis L03.116 [facility] [address] [facility] [address] [place] [address] 02/19/2024 Kieran Besson Cervicalgia M54.2 [facility] [address] [place] [address] 03/24/2024 Kieran Besson [facility] [address] [place] [address] 03/27/2024 Kieran Besson Iron deficiency anem ia, unspecified iron deficiency anemia type D50.9 ; Vitamin B12 deficiency E53.8 ; Vitamin D deficiency E55.9 ; Hypothyroidism (acquired) E03.9 ; H/O gastric sleeve Z90.3 and Fatigue associated with anemia D64.9 [facility] [address] [place] [address] 04/07/2024 Kieran Besson [facility] [address] [place] [address] 04/16/2024 Kieran Besson [facility] [address] [facility] [address] [place] [address] 04/16/2024 Kieran Besson Dysuria R30.0 and Klebsiella pneumoniae B96.1 [facility] [place] [address] [place] [address] 05/16/2024 Kieran Besson [facility] [place] [address] [facility] [address] [place] [address] 06/12/2024 Kieran Besson [facility] [address] [facility] [address] [place] [address] 06/19/2024 Kieran Besson [facility] [address] [facility] [address] [place] [address] 06/25/2024 Kieran Besson 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 ; Obesity, unspecified E66.9 ; Iron deficiency anemia, unspecified iron deficiency anemia type D50.9 ; Vitamin B12 deficiency E53.8 and Type 2 diabetes mellitus with other specified complication E11.69 [facility] [address] [place] [address] 06/30/2024 Kieran Besson [facility] [address] [facility] [address] [place] [address] 07/14/2024 Kieran Besson [facility] [address] [place] [address] 07/14/2024 Kieran Besson [facility] [address] [place] [address] 07/14/2024 Kieransaima Dawson Hypertension, essent ial I10 [facility] [address] [place] [address] 08/18/2024 Kieransaima Dawson Breast cancer screen ing by mammogram Z12.31 [facility] [address] [place] [address] 08/19/2024 Kieran Besson [facility] [address] [place] [address] 08/27/2024 Angela Hebertence Recurrent UTI N39.0 [facility] [address] [place] [address] 09/04/2024 Kieran Besson [facility] [address] [place] [address] 09/10/2024 Kieran Dawson BOGGS (nonalcoholic steatohepatitis) K75.81 ; Abdominal bloating R14.0 ; Chronic gastroesophageal reflux disease K21.9 ; Chronic colitis K52.9 and Eructation R14.2 [facility] [address] [place] [address] 09/22/2024 Kieran Besson Adult ADHD F90.9 [facility] [address] [place] [address] 10/13/2024 Angela Nettie [facility] [address] [place] [address] 11/02/2024 Cait McNees Cellulitis of left l eg L03.116 [facility] [address] [place] [address] 11/18/2024 Kieran Besson Adult ADHD F90.9 [facility] [address] [place] [address] 11/25/2024 Kieran Bespamela Left foot pain M79.6 72 and Unspecified sprain of left foot, initial encounter S93.602A [facility] [address] [place] [address] 12/08/2024 Angela Sheffield Type 2 diabetes magalis itus with other specified complication E11.69 and 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 [facility] [address] [place] [address] 12/10/2024 Kieran Besson [facility] [address] [place] [address] 12/14/2024 Angela Sheffield Type 2 diabetes magalis itus with other specified complication E11.69 [facility] [address] [place] [address] 12/17/2024 Angela Hebertence [facility] [address] [place] [address] 12/25/2024 Cait McNees Hiatal hernia K44.9 and Cervicalgia M54.2 [facility] [address] [place] [address] 01/06/2025 Angela Hebertence [facility] [address] [place] [address] 01/11/2025 Kieran Starrson [facility] [address] [place] [address] 02/02/2025 Angela Hebertence [facility] [address] [facility] [place] [address] 02/08/2025 Kieran Besson [facility] [address] [place] [address] 11/04/2024 Kieran Eunice Assessments Encounter Date Diagnosis (ICD Code) Assessment Notes Treatment Notes Treatment Clinical Notes Section Notes 02/19/2024 Cervicalgia (ICD-10 - M54.2) 02/24/2024 Xerostomia (ICD-10 - K11.7) Check Sjogren antibodies. I will review all labs personally 02/26/2024 Dysuria (ICD-10 - R30.0) 02/26/2024 Recurrent UTI (ICD-10 - N39.0) Given patient's recurrent history of Klebsiella we will treat aggressively with ceftriaxone and then with cefdinir. [place] daily Macrobid therapy after this is finished. Supportive treatment today with Zofran 03/21/2024 Acute left otitis media (ICD-10 - H66.92) Concomitant scleral irritation also. She has eyedrops at home. She will start these. Amoxicillin for ears. Follow-up in the next 3 to 4 days if no better 02/24/2024 Cervical spondylosis (ICD-10 - M47.812) Patient does have some risk factors for rheumatologic disease, some symptoms consistent with ankylosing spondylitis but no radiologic features as of yet. Check serologic testing. Rheumatology evaluation at neurosurgery request. I will follow all labs personally. 03/27/2024 Iron deficiency anemia, unspecified iron deficiency anemia type (ICD-10 - D50.9) 04/16/2024 Dysuria (ICD-10 - R30.0) 04/21/2024 Immunization(s) administered (ICD-10 - Z23) 06/24/2024 Diaphragmatic hernia without obstruction or gangrene (ICD-10 - K44.9) Cautious trial of low-dose Reglan given failed acid blockade strategies. Will set up for EGD. Discussed side effects of Reglan, discussed some dietary modifications, most of which she is already doing. Given significant comorbidities from the reflux aggressive therapy indicated 06/24/2024 Hiatal hernia (ICD-10 - K44.9) 06/25/2024 Obesity, unspecified (ICD-10 - E66.9) 06/25/2024 [...] infections. I think she would benefit from uro-REGULATOR OPERATOR evaluation at [facility]. Will make this referral. Begin estrogen cream [...] Cellulitis of left leg (ICD-10 - L03.116) [facility] records including discharge summary and [...] 12/25/2024 Lumbar back pain (ICD-10 - M54.50) 02/09/2025 Left leg cellulitis (ICD-10 - L03.116) continue warm compresses, Augmentin, add doxycycline for MRSA coverage. Rocephin IM today as noted - allergic to Ceclor but has tolerated rocephin previously Monitor for fevers Re-eval in 48 hours 12/14/2024 Type 2 diabetes mellitus with other specified complication (ICD-10 - E11.69) 02/11/2025 Groin abscess (ICD-10 - L02.214) 11/12/2024 Hypothyroidism associated with surgical procedure (ICD-10 - E89.0) 12/25/2024 Cervicalgia (ICD-10 - M54.2) 02/11/2025 Left leg cellulitis (ICD-10 - L03.116) continue warm compresses and oral antibiotics but recommend imaging as noted and on-time dose of IV Dalvance at [facility] along with CBC, BMP, CRP and ESR. continue topical heat, monitor for fevers Re-eval in 48 hours 12/08/2024 Hypothyroidism associated with surgical procedure (ICD-10 - E89.0) 11/25/2024 Unspecified sprain of left foot, initial encounter (ICD-10 - S93.602A) 10/29/2024 Serotonin syndrome (ICD-10 - G90.81) Resolved 09/10/2024 Abdominal bloating (ICD-10 - R14.0) 08/17/2024 Screening mammogram, encounter for (ICD-10 - Z12.31) Overdue for mammography screening this will be ordered 07/14/2024 Hypertension, essential (ICD-10 - I10) Blood pressures been marginal. Will emphasize control, if there is any weight loss with the medicine that might also help control blood pressure. 06/25/2024 Iron deficiency anemia, unspecified iron deficiency anemia type (ICD-10 - D50.9) 06/24/2024 Gastro-esophageal reflux disease with esophagitis, without bleeding (ICD-10 - K21.00) 04/16/2024 Klebsiella pneumoniae (ICD-10 - B96.1) 02/26/2024 Nausea (ICD-10 - R11.0) 02/24/2024 Acute conjunctivitis of right eye, unspecified acute conjunctivitis type (ICD-10 - H10.31) 03/27/2024 Vitamin B12 deficiency (ICD-10 - E53.8) 02/24/2024 Elevated C-reactive protein (CRP) (ICD-10 - R79.82) 03/27/2024 Vitamin D deficiency (ICD-10 - E55.9) 06/25/2024 Vitamin B12 deficiency (ICD-10 - E53.8) 08/17/2024 Routine medical exam (ICD-10 - Z00.00) Up-to-date with REGULATOR OPERATOR care, up-to-date with colonoscopy. Up-to-date with vaccines and labs. Good functional status. Emotional stress seems to be well-managed at this point. Safe home environment, supportive . 10/29/2024 Depression with anxiety (ICD-10 - F41.8) Well controlled 09/10/2024 Chronic gastroesophageal reflux disease (ICD-10 - K21.9) 11/12/2024 Hypertension, essential (ICD-10 - I10) 09/10/2024 Chronic colitis (ICD-10 - K52.9) 10/29/2024 Type 2 diabetes mellitus with other specified complication (ICD-10 - E11.69) Good control. A1c 6 03/27/2024 Hypothyroidism (acquired) (ICD-10 - E03.9) 06/25/2024 Type 2 diabetes mellitus with other specified complication (ICD-10 - E11.69) 02/24/2024 Iron deficiency anemia, unspecified iron deficiency anemia type (ICD-10 - D50.9) 02/24/2024 Type 2 diabetes mellitus with other specified complication (ICD-10 - E11.69) Patient is due for A1c. Has been compliant with medications and dietary modification. 09/10/2024 Eructation (ICD-10 - R14.2) 03/27/2024 H/O gastric sleeve (ICD-10 - Z90.3) 02/24/2024 Hyperlipidemia, unspecified (ICD-10 - E78.5) 03/27/2024 Fatigue associated with anemia (ICD-10 - D64.9) Plan Of Treatment Pending Test Test Name Order Date CT Scan : Pelvis with contrast N-TSH (Thyroid Stimulating Hormone) 01/2007 N-TSH (Thyroid Stimulating Hormone) 12/06 F-lgubnuj-jvyr 07/05/2008 MRI : Head, Without Contrast 07/07/2020 [...] Transferrin Saturation 022 Ferritin 2022 Culture, Urine 02/01/2022 Culture, Urine 06/13/2022 Physical Therapy Eval and Treat 01/27/20 24 [...] Insured Coverage Start Date Coverage End Date [employer] [facility] BLUE SHIELD [address] [place] [id number] [phone] [id number] NICOLA Yoanna Brar Self - patient is the insured 5 Medications Administered Medication Instructions Date of Administration Dosage Notes Ajovy 08/09/2020 1 mg Ajovy 09/08/2020 1.5 mg Ajovy 10/10/2020 0.5 mg Ajovy 11/29/2020 Ceftriaxone 500 02/26/2024 500 mg Ceftriaxone 500 02/09/2025 500 mg Ceftriaxone 500 02/09/2025 500 mg Dexamethasone 4mg Injection 11/21/2022 4 [...] reduction 1999 rhinoplasty 2008 cholecystectomy 2016 thyroidectomy 2005 gastric sleeve 2018 uterine ablation heart cath Colonoscopy with 5 polyps 08/2020 C section 12/2007 02/2004 Hospitalization History Reason Date(Month/Year) Septic & serotonin syndrome 10/23/24 campylobactor 01/2022 colitis, kidney injury 01/2022 Surgeries and childbirth
[2025-02-11 15:48] VITALS: BMI 32.4
[2025-02-11 16:12] LABS: Chloride 103 mmol/L (98-107); Hematocrit 41.4 % (37.0-47.0); Hemoglobin 13.8 g/dL (12.2-16.2); Immature Granulocytes % 0.5 %; Mean Corpuscular HGB Conc 33.3 g/dL (31.8-35.4); Mean Corpuscular Hemoglobin 29.6 pg (27.0-31.2); Mean Corpuscular Volume 88.8 fl (81-99); Nucleated Red Blood Cells % 0 %; Platelet Count 378 K/mm3 (142-424); Red Blood Count 4.66 M/mm3 (4.20-5.40); Red Cell Distribution Width-SD 41.1 fL; Sodium 138 mmol/L (136-145); White Blood Count 10.8 K/mm3 (4.8-10.8)
[2025-02-11 16:13] LABS: Potassium 3.7 mmoL/L (3.5-5.1)
[2025-02-11 16:15] LABS: Blood Urea Nitrogen 14 mg/dl (7-17); Creatinine Clearance Estimated 146 mL/min (50-200); Creatinine,Serum 0.70 mg/dl (0.52-1.04); Estimated Glomerular Filt Rate 90 ml/min (>60); GFR (African American) 109 ML/MIN (>60)
[2025-02-11 16:16] LABS: Anion Gap 13.7 mEq/L (5-15); Calcium 9.3 mg/dl (8.4-10.2); Carbon Dioxide 25 mmol/L (22.0-30.0); Glucose 139 mg/dl (74-100)
[2025-02-11 16:21] LABS: C-Reactive Protein 9.1 mg/L (0-4)
[2025-02-11] MEDS: IOPAMIDOL-370 (76%);100ML BOTTLE 75 ML IV (16:58)
[2025-02-11] MEDS: SODIUM CHLORIDE 0.9% 10ML SYR (RAD ONLY) 10 ML IV (16:58)
== END 2025-02-11 16:00 | disposition home or self-care (01) ==
LOC: INF 15:37
PROVIDERS: PCP Internal Medicine Adolescent Medicine; Visit Provider Nurse Practitioner Family
DX: L02.214 Cutaneous abscess of groin (principal)
CPT/HCPCS: 36415; 72193; 80048; 85025; 85651; 86140; Q9967

== ENCOUNTER 2025-02-11 19:16 | Outpatient (CLI) | payer BC, SELFPAY ==
--- OUTSIDE RECORDS SUMMARY | 2025-02-11 19:20 | XMS_ITS | Clinical Summary ---
Author Organization [facility] Address [address] [facility] [address] [place] [address] Phone Care Team Providers Care Machine Assembler For Puller Over Name Role Phone Claudia Jones Primary Care Provider [phone] Social History Tobacco Use Types Packs/Day Years [...] this topic Insurance [employer] PPO Care Teams Machine Assembler For Puller Over Relationship Specialty Start Date End Date Claudia Jones [address] [place] [address] PCP - General Family Medicine 03/02/15
--- OUTSIDE RECORDS SUMMARY | 2025-02-11 19:20 | XMS_ITS | Clinical Summary ---
Author Organization [facility] Address [address] [place] [address] Care Team Providers Care Porter Baggage Name Role Phone Kieran Dawson MD Primary Care Provider [phone] Allergies Active Allergy Reactions Criticality Noted Date [...] (12/03/2017): Added automatically from request for surgery [id number] Hypertension Obesity Fatigue Dyspepsia Dyspnea on exertion [...] - 11/13/2024 11:59 PM EDT Hospital Encounter [facility] [address] [place] [address] Kieran Dawson MD Breast cancer [...] 02/06, 01/29/2018 Medical Devices Implanted Type Area Sisal Picker Device Identifier Shelf Expiration Date Model / Serial / Lot Sealant Fibrin Tisseel Fz 4ml - [id number] Implanted:Qty : 1 on 12/04/2017 by Sherif Campbell MD at [facility] Implant N/A: Stomach [facility] 08/07/2019 [id number] / / [id number] Loop Recorder MED[employer]lying Pig Digital Procedures Procedure Name Priority Date/Time Associated Diagnosis [...] IMG MAMMOGRAPHY ORDERABLES F inal Result * [facility] GENETIC RISK ASSESSMENT QUESTIONNAIRE - , (11/12/2024 1:08 PM EDT) Indira 10.2 [employer] NCCN NCCN not met [facility] Comment:High Risk Cancer Ris k Assessment 11/12/2024 1:08 PM EDT us Kieran Dawson MD GENETIC TESTING Final Result [facility]
[address] [facility] [place] [address], [place] [phone] * SCANNED - COLONOSCOPY (04/11/2023) Darien Quiroz MD CHART REVIEW TABS Final Result * (ABNORMAL) Hemoglobin A1c (12/03/2017 4:12 PM EDT) Hemoglobin A1C 7.20(H) 4.80 - 5.60 % 12/03/2017 5:31 PM EDT [facility] Blood Venipuncture / Unknown 12/03/2017 4:12 PM EDT 12/03/2017 4:22 PM EDT Narrative [facility] - 12/03/2017 5:31 PM EDT The [place] [employer] recommends maintenance of Hemoglobin A1C at 7.0% or lower. Goals for Hemoglobin A1C reduction may need to be modified if hypoglycemia is a problem. Darien Garay MD LAB BLOOD ORDERABLES Final Resu lt Performing Organization Address City/[facility]/ZIP Co de Phone Number [facility]
[address] [place] [address], * Lipid Panel (03/26/2017) Blood Paola JONES LAB BLOOD ORDERABLES Final Result [facility] [address] [place] [address], [place] [phone] from Last 3 Months or Most Recently Relevant to Health Maintenance Insurance [facility] PPO Member Subscriber Plan / Payer (Ef fective 2024-Present) Name:Yoanna Brar Relation to Subscriber:Spouse Name:Jem Brar Date of :1979 (Home) Address: [address] [place] [address] [place] [address] Payer ID:[id number] (NAIC) Type:Not on file Address: [facility] [id number] [place] [phone] Advance Directives * Full Code (Latest Code Status on File) Date Activated Date Inactivated Comments 12/04/2017 10:47 AM 12/06/2017 8:50 PM Care Teams Porter Baggage Relationship Specialty Start Date End Date Kieran Dawson MD [address] [place] [address] PCP - General Adolescent Medicine 11/06/21
[2025-02-11 19:22] VITALS: BMI 32.4
[2025-02-11] MEDS: VANCOMYCIN CONSULT REQUEST 1 EACH NOTAPPLIC (19:29)
[2025-02-11] MEDS: VANCOMYCIN HCL 2,000 MG in 0.9 % SODIUM CHLORIDE 250 ML 125 MG IV (19:32)
[2025-02-11 19:33] VITALS: BP 138/87; PULSE 90; RESP 16; TEMP 36.6; O2SAT 97
[2025-02-11 20:30] VITALS: BP 132/80; PULSE 79; RESP 17; TEMP 37.1; O2SAT 96
[2025-02-11 21:55] VITALS: BP 139/81; PULSE 72; RESP 15; TEMP 36.7; O2SAT 98
== END 2025-02-11 23:59 | disposition home or self-care (01) ==
LOC: INF 19:18
PROVIDERS: PCP Internal Medicine Adolescent Medicine; Visit Provider Internal Medicine Adolescent Medicine
DX: L02.416 Cutaneous abscess of left lower limb (principal)
CPT/HCPCS: 96365; J3373; J7050

== ENCOUNTER 2025-02-12 10:00 | Day surgery (SDC) | payer BC, SELFPAY ==
[2025-02-12] VITALS (10 sets, daily range): BP systolic 127–147; BP diastolic 73–86; PULSE 84–99; RESP 16–18; TEMP 36.2–43; O2SAT 93–98; BMI 32.4
[2025-02-12 10:24] LABS: Hematocrit 39.0 % (37.0-47.0); Hemoglobin 13.1 g/dL (12.2-16.2); Immature Granulocytes % 0.4 %; Mean Corpuscular HGB Conc 33.6 g/dL (31.8-35.4); Mean Corpuscular Hemoglobin 29.8 pg (27.0-31.2); Mean Corpuscular Volume 88.6 fl (81-99); Nucleated Red Blood Cells % 0 %; Platelet Count 345 K/mm3 (142-424); Red Blood Count 4.40 M/mm3 (4.20-5.40); Red Cell Distribution Width-SD 41.2 fL; White Blood Count 10.8 K/mm3 (4.8-10.8)
[2025-02-12 10:41] LABS: Chloride 102 mmol/L (98-107); Potassium 4.2 mmoL/L (3.5-5.1); Sodium 135 mmol/L (136-145)
[2025-02-12 10:44] LABS: Anion Gap 10.2 mEq/L (5-15); Blood Urea Nitrogen 10 mg/dl (7-17); Calcium 9.5 mg/dl (8.4-10.2); Carbon Dioxide 27 mmol/L (22.0-30.0); Creatinine Clearance Estimated 170 mL/min (50-200); Creatinine,Serum 0.60 mg/dl (0.52-1.04); Estimated Glomerular Filt Rate 108 ml/min (>60); GFR (African American) 131 ML/MIN (>60); Glucose 119 mg/dl (74-100)
[2025-02-12 11:04] LABS: Urine Pregnancy, HCG Qual. Negative (Negative)
[2025-02-12 11:09] LABS: POC Glucose,Bedside 112 (70-110)
[2025-02-12] MEDS: LIDOCAINE 1% 20ML MDV 20 ML (12:04)
[2025-02-12] MEDS: CLINDAMYCIN PHOSPHATE/D5W 900 MG/50 ML PIGGYBACK 100 MG (12:05)
--- NOTE | 2025-02-12 12:05 | P.PNANES_ITS ---
[facility] Disclaimer: The information contained in this section may have been updated after the patient was seen, as this information can be updated by other users. Medical History Parathyroid abnormality Abnormal thyroid scan Abnormal vocalization Globus sensation Hoarseness Epidermal cyst of vulva Vulvar lesion Sinus problem Hypothyroidism Anemia Migraine Anxiety and depression Abnormal electrocardiography Pre-operative cardiovascular examination Hypertension Diabetes mellitus Hyperlipidemia History of atrial fibrillation Surgical History H/O partial thyroidectomy History of endometrial ablation History of cholecystectomy H/O thyroidectomy History of rhinoplasty H/O plastic surgery breast reduction History of H/O colonoscopy Hx of esophagogastroduodenoscopy H/O gastric sleeve H/O bariatric surgery History of tonsillectomy Family History (Updated 02/12/25 @ 10:48 by Chasidy Daley RN) Mother Lupus Other Cancer Social History Smoking Status: Never smoker alcohol intake: never substance use type: denies use current occupational status: employed Travel in the last 8 weeks?: None household members: spouse and children housing: house current occupational exposures/hazards: No caffeine: Yes [place] Anesthesia Checklist Patient Identification Patient Identification: Arm Band Structural Data Admitted From: Home Planned Operative Procedure/s: I&D Left Thigh Abscess Consent for Planned Operative Procedure(s) Verified: Yes Verified Documents: Surgical Consent and History and Physical NPO Status Verified Time NPO: 00:00 Additional verifications Anesthesia Reactions: No Hx Blood Transfusions: No Blood Transfusion Reaction: No Airway Assessment Mallampati Score:: Class II C-Spine Mobility Assessed: Yes TMJ Mobility Assessed: Yes Dentition: Good Dentition Neurological Assessment Level of Consciousness: Awake, Alert and Appropriate Anesthesia Plan Anesthesia Risk discussed: Yes Anesthesia Plan: Verified ASA Class: II Anesthesia Type: General
--- NOTE | 2025-02-12 12:30 | EXP.OP.NOTE ---
Date of procedure: 02/12/25 Pre-op Diagnosis:: Left groin abscess Post-op Diagnosis:: Same Procedure performed:: Incision and drainage of left thigh/groin abscess Surgeon:: Sanya Bach MD [employer]IL[employer]IAN:: Loan Neil Anesthesia: local and LMA Estimated blood loss (mL): 5 Operative findings:: Superficial soft tissue abscess with large amount of thick purulence Operative note:: Consent was obtained patient was taken the operating room. She was given preoperative intravenous antibiotics. General anesthesia was induced via LMA. She was positioned in somewhat of the semifrog-leg position to allow exposure to the area. It was prepped and draped in the standard surgical fashion. Limited incision was made overlying the area of fluctuance. There was thick pus which exuded from the wound with some debris. This was sent for culture. Pus was evacuated. The underlying abscess cavity was bluntly explored to free any loculations. Ultimately using some blunt digital dissection it was opened somewhat posteriorly. The incision was extended somewhat anteriorly to allow for full exposure to the abscess pocket. Underlying tissues were curetted with a small curette to debride inflamed granulation tissue. There was some generalized oozing due to the inflammatory response and the wound was temporarily packed with Surgicel. This was removed and additional use of electrocautery was used for good hemostasis. Wound was irrigated. Local anesthetic was infiltrated. The wound was packed with a portion of a 4 x 4 plain dry gauze and covered with clean dry sterile dressing. Condition: stable Disposition: PACU Complications:: None immediately apparent
[2025-02-12 12:44] LABS: POC Glucose,Bedside 110 (70-110)
--- NOTE | 2025-02-12 12:55 | EXP.ANES.I ---
[facility] Anesthesia Record Part I Anesthesia Record I Intake, IV Amount: 800 Hydration: Adequate Estimated blood loss (mL): 10 Urine output (mL): 0 Blood Products used (#): none Blood Pressure: 147/80 SaO2: 98 Pulse Rate: 98 Airway Patency: Patent Respiratory Rate: 18 Temperature: 97.9 F Patient is:: Awake and Stable Stable to PACU at:: 12:46
--- NOTE | 2025-02-12 13:40 | SUR.PHASEII ---
Ming Daley RN called Dr. Bach's office and spoke with CAMERON regarding clarification on continuing home medications including the two antibiotics prescribed and need for continued IV vanc infusions as an outpatient in infusion department. CAMERON placed a note in for Dr. Bach to call with clarification regarding medications. Dr. Bach returned call and spoke with this RN and stated have her continue the two antibiotics that she was taking at home, resume the home medications. She does not need the IV vanc at this time, we will wait for the cultures to result and make a decision on needing to come in for IV antibiotics.
--- NOTE | 2025-02-15 07:36 | P.PNANES_ITS ---
[facility] [place] Anesthesia Record Part II Anesthesia Record Part II Discharge Time: 13:37 Destination: Surgical Day Care (OP Surgery) PACU nurse assessment reviewed?: Yes Patient Condition:: Good Anesthesia Complications:: None Swallowing reflex intact?: Yes Airway Patency: Patent Cyanosis?: No Blood Pressure: 131/73 SaO2: 94 Respiratory Rate: 18 Pulse Rate: 84 Temperature: 97.2 F Mental Status: Alert & Oriented Pain level:: 0 Nausea and/or vomitting:: None Intake, IV Amount: 0 Hydration: Adequate
[2025-02-15 07:37] VITALS: BP 131/73; PULSE 84; RESP 18; TEMP 36.2; O2SAT 94
== END 2025-02-12 13:43 | disposition home or self-care (01) ==
PROVIDERS: PCP Internal Medicine Adolescent Medicine; Visit Provider Surgery
PROC: (CPT 10061; principal; 2025-02-12 12:00)
DX: L02.416 Cutaneous abscess of left lower limb (principal); I10 Essential (primary) hypertension; E11.9 Type 2 diabetes mellitus without complications; E89.0 Postprocedural hypothyroidism; D64.9 Anemia, unspecified; F41.9 Anxiety disorder, unspecified; F32.A Depression, unspecified; E78.5 Hyperlipidemia, unspecified; G43.909 Migraine, unspecified, not intractable, without status migrainosus; Z79.85 Long-term (current) use of injectable non-insulin antidiabetic drugs; Z79.899 Other long term (current) drug therapy; Z79.890 Hormone replacement therapy; Z88.1 Allergy status to other antibiotic agents; Z88.2 Allergy status to sulfonamides
CPT/HCPCS: 10061; 36415; 80048; 81025; 82962; 85025; 87070; 87205; 96374; J0736; J1100; J2003; J2250; J2405; J2704; J2795; J3010